=== PATIENT | female | born 1940 | race Caucasian/White ===

== ENCOUNTER 2017-01-02 01:47 | Observation (INO) | payer MEDICARE ==
[~2017-01-02] VITALS: Ht 167.6 cm; Wt 112.0 kg
[2017-01-02] VITALS (13 sets, daily range): BP systolic 95–133; BP diastolic 50–83; PULSE 81–99; RESP 16–21; TEMP 97.8–98.5; O2SAT 95–100
[2017-01-02] MEDS ORDERED: SODIUM CHLOR 0.9% 1000 ML INJ 1,000 ML IV ONE ×2 (02:15)
[2017-01-02 02:27] LABS: AUTOMATED NEUTROPHIL # 7.5 TH/MM3 (1.8-7.7); BASOPHIL % 0.1 % (0.0-2.0); EOSINOPHIL # 0.4 TH/MM3 (0-0.4); EOSINOPHIL % 4.6 % (0.0-4.0); HEMATOCRIT 34.3 % (35.0-46.0); HEMOGLOBIN 11.1 GM/DL (11.6-15.3); LYMPH % 10.6 % (9.0-44.0); MEAN CELL VOLUME 89.1 FL (80.0-100.0); MEAN CORPUSCULAR HEMOGLOBIN 28.7 PG (27.0-34.0); MEAN CORPUSCULAR HGB CONC 32.2 % (32.0-36.0); MONO % 6.7 % (0.0-8.0); MONOCYTE # 0.6 TH/MM3 (0-0.9); PLATELET COUNT 131 TH/MM3 (150-450); RED BLOOD COUNT 3.85 MIL/MM3 (4.00-5.30); RED CELL DISTRIBUTION WIDTH 13.8 % (11.6-17.2); WHITE BLOOD COUNT 9.6 TH/MM3 (4.0-11.0)
[2017-01-02] MEDS ORDERED: OMEP20TA PO ×2 (02:38)
[2017-01-02] MEDS ORDERED: SPIRCAP INH ×2 (02:38)
[2017-01-02] MEDS ORDERED: ASPI81CH CHEW ×2 (02:38)
[2017-01-02] MEDS ORDERED: DULC10SU3 RECTAL ×2 (02:38)
[2017-01-02] MEDS ORDERED: PRAM0.5T PO ×2 (02:38)
[2017-01-02] MEDS ORDERED: PRAV10TA PO ×2 (02:38)
[2017-01-02] MEDS ORDERED: SPIR25 PO ×2 (02:38)
[2017-01-02] MEDS ORDERED: TYLE325T PO ×2 (02:38)
[2017-01-02] MEDS ORDERED: VENTAER INH ×2 (02:38)
[2017-01-02] MEDS ORDERED: MELO-1 PO ×2 (02:38)
[2017-01-02] MEDS ORDERED: FURO40TA PO ×2 (02:38)
[2017-01-02] MEDS ORDERED: ACIDWAF ×2 (02:38)
[2017-01-02] MEDS ORDERED: ALBU0.08 NEB ×2 (02:38)
[2017-01-02 02:46] LABS: BICARBONATE 37.8 MEQ/L (21.0-32.0); BLOOD UREA NITROGEN 26 MG/DL (7-18); CALCIUM 9.2 MG/DL (8.5-10.1); CHLORIDE 92 MEQ/L (98-107); CREATININE 0.79 MG/DL (0.50-1.00); GLOMERULAR FILTRATION RATE 70 ML/MIN (>89); GLUCOSE,RANDOM 94 MG/DL (74-106); SODIUM (NA) 136 MEQ/L (136-145); TROPONIN I LESS THAN 0.02 NG/ML (0.02-0.05)
--- NOTE | 2017-01-02 02:57 | RADRPT ---
EXAM DATE/TIME: 01/02/2017 02:52 [facility] COMPARISON: No previous studies available for comparison. INDICATIONS : Short of breath. MEDICAL HISTORY : None. SURGICAL HISTORY : None. ENCOUNTER: Initial ACUITY: 1 day PAIN SCORE: 0/10 LOCATION: Bilateral chest FINDINGS: Mild bibasilar parenchymal opacities are present. Cardiac contours are somewhat obscured. There is a mild central vascular congestion. The patient's chin overlies the lung apices. There are degenerative changes in the spine and shoulders. CONCLUSION: Bilateral basilar parenchymal opacities. Roberto Kelley MD on January 02, 2017 at 2:55 Board Certified Radiologist. This report was verified electronically.
--- NOTE | 2017-01-02 03:33 | PD ---
HPI Chief Complaint: Chest Pain Time Seen by Provider: 02:15 Travel History International Travel<30 days: No Contact w/Intl Traveler<30days: No Traveled to known affect area: No History of Present Illness HPI This patient is sent from the halfway for complaint of chest pain. Duration is one day. Severity was moderate when occurring but she is currently pain-free. She had a sternal area pain and pressure. Denies productive cough or fever or injury. She denies having history of cardiac disease. Is unsure if she's ever had a stress test. Granddaughter doesn't think she is ever had one. No alleviating factors. No exacerbating factors PFSH Past Medical History Atrial Fibrillation: Yes COPD: Yes Diminished Hearing: Yes ([place]) GERD: Yes Hypertension: Yes Medical other: Yes (RESTLESS LEG SYNDROME, HYPERLIPIDEMA) Migraines: Yes Thyroid Disease: Yes (HYPO) Tetanus Vaccination: Unknown Influenza Vaccination: No Social History Alcohol Use: No Tobacco Use: No Substance Use: No Allergies-Medications (Allergen,Severity, Reaction): Coded Allergies: Penicillins (Verified Allergy, Severe, 01/02/17) Reported Meds & Prescriptions Reported Meds & Active Scripts Active Reported Furosemide 40 Mg Tab 40 Mg PO BID Tylenol (Acetaminophen) 325 Mg Tab 325 Mg PO Q6H PRN Dulcolax Supp (Bisacodyl) 10 Mg Supp 10 Mg RECTAL DAILY PRN Meloxicam 15 Mg Tab 15 Mg PO DAILY Ventolin Hfa 18 GM Inh (Albuterol Sulfate) 90 Mcg/Act Aer 2 Puff INH Q4-6H PRN Spiriva Handihaler (Tiotropium Inh) 18 Mcg Cap 18 Mcg INH DAILY 1 capsule = 18 mcg Acidophilus (Lactobacillus) 1 Mg Wafr Pramipexole (Pramipexole Dihydrochloride) 0.5 Mg Tab 0.5 Mg PO DAILY Aldactone (Spironolactone) 25 Mg Tab 25 Mg PO DAILY Aspirin 81 Mg Chew 81 Mg CHEW DAILY Omeprazole 20 Mg Tab 20 Mg PO DAILY Albuterol Neb (Albuterol Sulfate) 2.5 Mg/3 Ml Neb 2.5 Mg NEB Q4HR NEB PRN Pravastatin 10 Mg Tab 10 Mg PO DAILY Review of Systems General / Constitutional: No: Fever Eyes: No: Visual changes HENT: No: Headaches Cardiovascular: Positive: Chest Pain or Discomfort, Irregular Rhythm Respiratory: No: Shortness of Breath Gastrointestinal: No: Abdominal Pain Genitourinary: No: Dysuria Musculoskeletal: No: Pain Skin: No Rash Neurologic: No: Weakness Psychiatric: No: Depression Endocrine: No: Polydipsia Hematologic/Lymphatic: No: Easy Bruising Physical Exam Narrative GENERAL: Well-nourished, well-developed patient in no apparent distress. Has very little hearing, her hearing aids are not with her SKIN: Focused skin assessment reveals no rash and nodules. Skin is Warm and dry. HEAD: Atraumatic. Normocephalic. EYES: Pupils equal and round. No scleral icterus. No injection or drainage. ENT: No nasal bleeding or discharge. Mucous membranes pink and moist. NECK: Trachea midline. No JVD. CARDIOVASCULAR: Irregularly irregular rhythm. No murmur appreciated. RESPIRATORY: No accessory muscle use. Clear to auscultation. Breath sounds equal bilaterally. GASTROINTESTINAL: Abdomen soft, non-tender, nondistended. Hepatic and splenic margins not palpable. MUSCULOSKELETAL: No obvious deformities. No clubbing. No cyanosis. No edema. Has left upper chest wall tenderness but she assures me this is different than her pain complaint of today. NEUROLOGICAL: Awake and alert. No obvious cranial nerve deficits. Motor grossly within normal limits. Normal speech. PSYCHIATRIC: Appropriate mood and affect; insight and judgment seems a bit diminished. Data Data Last Documented VS Vital Signs Date Time Temp Pulse Resp B/P (MAP) Pulse Ox O2 Delivery O2 Flow Rate FiO2 01/02/17 02:20 97 Nasal Cannula 4.00 01/02/17 02:20 18 01/02/17 01:49 98.5 91 95/50 (65) Orders Orders Electrocardiogram (01/02/17 02:14) Complete Blood Count With Diff (01/02/17 02:14) Basic Metabolic Panel (Bmp) (01/02/17 02:14) Ckmb (Isoenzyme) Profile (01/02/17 02:14) Troponin I (01/02/17 02:14) Chest, Single Ap (01/02/17 02:14) Iv Access Insert/Monitor (01/02/17 02:14) Ecg Monitoring (01/02/17 02:14) Oxygen Administration (01/02/17 02:14) Oximetry (01/02/17 02:14) Sodium Chlor 0.9% 1000 Ml Inj (Ns 1000 M (01/02/17 02:15) Admit Order (Ed Use Only) (01/02/17 03:21) Labs Laboratory Tests Test 01/02/17 02:17 White Blood Count 9.6 TH/MM3 Red Blood Count 3.85 MIL/MM3 Hemoglobin 11.1 GM/DL Hematocrit 34.3 % Mean Corpuscular Volume 89.1 FL Mean Corpuscular Hemoglobin 28.7 PG Mean Corpuscular Hemoglobin Concent 32.2 % Red Cell Distribution Width 13.8 % Platelet Count 131 TH/MM3 Mean Platelet Volume 7.0 FL Neutrophils (%) (Auto) 78.0 % Lymphocytes (%) (Auto) 10.6 % Monocytes (%) (Auto) 6.7 % Eosinophils (%) (Auto) 4.6 % Basophils (%) (Auto) 0.1 % Neutrophils # (Auto) 7.5 TH/MM3 Lymphocytes # (Auto) 1.0 TH/MM3 Monocytes # (Auto) 0.6 TH/MM3 Eosinophils # (Auto) 0.4 TH/MM3 Basophils # (Auto) 0.0 TH/MM3 CBC Comment DIFF FINAL Differential Comment Blood Urea Nitrogen 26 MG/DL Creatinine 0.79 MG/DL Random Glucose 94 MG/DL Calcium Level 9.2 MG/DL Sodium Level 136 MEQ/L Potassium Level 4.2 MEQ/L Chloride Level 92 MEQ/L Carbon Dioxide Level 37.8 MEQ/L Anion Gap 6 MEQ/L Estimat Glomerular Filtration Rate 70 ML/MIN Total Creatine Kinase 48 U/L Troponin I LESS THAN 0.02 NG/ML MDM Medical Decision Making Medical Screen Exam Complete: Yes Emergency Medical Condition: Yes Medical Record Reviewed: Yes Differential Diagnosis Differential diagnosis includes MA, angina, pericarditis, pleurisy, GERD, anxiety. Narrative Course I have reviewed the patient's electronic medical record. IV placed I reviewed the EKG which shows A. fib but no ST elevation I reviewed the chest x-ray was possibly of some bilateral parenchymal infiltrates but she has no symptoms consistent with pneumonia such as productive cough or fever Extended cardiac monitoring shows irregular heartbeat but rate controlled CBC is normal Metabolic profile is normal CK is normal Troponin is normal Coagulation studies are normal I gave her an aspirin Patient and family deny any history of cardiac disease which she's had chest pain today. Workup here is negative. She will be a 23 hour observation in the chest pain center to rule out cardiac cause of her symptoms. As noted, she does have some musculoskeletal chest pain but she says the type of pain she was complaining of is very different Diagnosis Primary Impression: Chest pain in adult Admitting Information Admitting Physician Requests: Observation Julio Quinones MD Jan 02, 2017 03:33
[2017-01-02] MEDS ORDERED: SODIUM CHLORIDE 0.9% FLUSH 10 ML FLUSH IV FLUSH PRN ×2 (06:15)
[2017-01-02] MEDS ORDERED: ONDANSETRON HCL 4 MG/2 ML VIAL IV PUSH PRN ×2 (06:15)
[2017-01-02 06:53] LABS: TROPONIN I 0.02 NG/ML (0.02-0.05)
[2017-01-02] MEDS ORDERED: ACETAMINOPHEN 500 MG CPLT PO PRN ×2 (07:30)
[2017-01-02] MEDS ORDERED: NITROGLYCERIN 0.4 MG SL 25 TABS/BTL SL PRN ×2 (07:30)
--- NOTE | 2017-01-02 07:55 | HHI.HP ---
HPI Primary Care Physician Jamaal Goldman MD Chief Complaint Chest pain History of Present Illness 76-year-old female with history of hyperlipidemia, COPD, and O2 dependent presents to emergency room for further evaluation of chest pain. Onset last evening, unable to give time of event. States she woke up to use the restroom when she developed substernal chest pain with radiation to her back. Associated symptoms included dyspnea. No nausea or vomiting. Duration reports "long time, maybe up to 2 hours." No known precipitating or relieving factors. Denies similar pain in the past. She is extremely hard of hearing and somewhat of a poor historian. Stating multiple times "call my granddaughter, she will know." Reports recently moving from [place]. Review of Systems General: No fatigue,weakness, fever, chills, or recent illness. Has been in her general state of health. Recently relocated from [place] to [place], resides in the [facility]. HEENT: No SANCHEZ or vision changes. CV: As stated above. Currently his chest pain free. RESP: O2 /2 L dependent. Mild exertional dyspnea chronic. No recent illness or cough. GI: No nausea, vomiting, or bowel changes. Chronic abdominal discomfort she related to large abd hernia. States she has seen multiple doctors for hernia repair but told she is a poor surgical candidate. : No dysuria, reports stress incontinence. EXT: No lower leg edema MS: No discomfort or change in ROM. No recent fall. NEURO: No LOC or motor/sensory deficits PSYCH: No anxiety, depression. Current situational stress, concerned she is a burdened to her granddaughter and concerned relationship with granddaughter may change. SKIN: No rashes, no concerning lesions Past Family Social History Allergies: Coded Allergies: Penicillins (Verified Allergy, Severe, 01/02/17) Past Medical History Hyperlipidemia, GERD, COPD, A. fib, hypertension, O2 dependent, restless leg syndrome, hypothyroidism, hard of hearing Reported Medications Reported Meds & Active Scripts Active Reported Furosemide 40 Mg Tab 40 Mg PO BID Tylenol (Acetaminophen) 325 Mg Tab 325 Mg PO Q6H PRN Dulcolax Supp (Bisacodyl) 10 Mg Supp 10 Mg RECTAL DAILY PRN Meloxicam 15 Mg Tab 15 Mg PO DAILY Ventolin Hfa 18 GM Inh (Albuterol Sulfate) 90 Mcg/Act Aer 2 Puff INH Q4-6H PRN Spiriva Handihaler (Tiotropium Inh) 18 Mcg Cap 18 Mcg INH DAILY 1 capsule = 18 mcg Acidophilus (Lactobacillus) 1 Mg Wafr Pramipexole (Pramipexole Dihydrochloride) 0.5 Mg Tab 0.5 Mg PO DAILY Aldactone (Spironolactone) 25 Mg Tab 25 Mg PO DAILY Aspirin 81 Mg Chew 81 Mg CHEW DAILY Omeprazole 20 Mg Tab 20 Mg PO DAILY Albuterol Neb (Albuterol Sulfate) 2.5 Mg/3 Ml Neb 2.5 Mg NEB Q4HR NEB PRN Pravastatin 10 Mg Tab 10 Mg PO DAILY Active Ordered Medications Current Medications Medications (Trade) Dose Ordered Sig/Fiona Route Start Time Stop Time Status Last Admin (NS Flush) 2 ml UNSCH PRN IV FLUSH 01/02/17 06:15 (NS Flush) 2 ml BID IV FLUSH 01/02/17 09:00 (Zofran Inj) 4 mg Q6H PRN IV PUSH 01/02/17 06:15 (Aspirin) 325 mg DAILY PO 01/02/17 09:00 (Tylenol) 500 mg Q4H PRN PO 01/02/17 07:30 (Nitrostat Sl) 0.4 mg Q5M PRN SL 01/02/17 07:30 Social History Known hypertension and hyperlipidemia. No known coronary artery disease or diabetes. Lifelong nonsmoker. Denies any alcohol. Presides at the [facility]. Past cardiac testing None Physical Exam Vital Signs Vital Signs Date Time Temp Pulse Resp B/P (MAP) Pulse Ox O2 Delivery O2 Flow Rate FiO2 01/02/17 07:07 98.1 90 18 118/68 (85) 100 01/02/17 06:58 93 01/02/17 06:30 98.4 93 20 104/61 (75) 97 01/02/17 06:23 01/02/17 06:11 2.00 01/02/17 04:25 98 18 98/52 (67) 96 Nasal Cannula 2.00 01/02/17 02:20 97 Nasal Cannula 4.00 01/02/17 02:20 18 98 Nasal Cannula 2.00 01/02/17 01:49 98.5 91 20 95/50 (65) 96 Physical Exam GENERAL: Alert WN, WD, NAD, pleasant, obese elderly female HEAD: NC, AT EYES: Sclera clear, conjunctiva without injection, pupils equal and round ENT: Mucous membranes pink and moist CV: Irregular, irregular rate, without murmur, rub, gallop, no JVD, S1-S2 no S3- S4. RESP: Clear lungs throughout bilateral, no crackles, wheeze, rhonchi, symmetrical chest rise, nonlabored, able to speak in full sentences ABD: Soft, NT, ND, positive bowel tones, obese, large panniculus EXT: Pulses +24, no dependent edema MS: Normal tone 4 extremities, no obvious deformities, full range of motion NEURO: CN II through CN XII grossly intact, motor strength 5/5 PSYCH: A+O 3, pleasant affect, appropriate speech, mood, insight and judgment. Tearful at times. SKIN: Normal turgor, normal texture, brisk cap refill Laboratory Laboratory Tests Test 01/02/17 02:17 01/02/17 06:10 White Blood Count 9.6 Red Blood Count 3.85 Hemoglobin 11.1 Hematocrit 34.3 Mean Corpuscular Volume 89.1 Mean Corpuscular Hemoglobin 28.7 Mean Corpuscular Hemoglobin Concent 32.2 Red Cell Distribution Width 13.8 Platelet Count 131 Mean Platelet Volume 7.0 Neutrophils (%) (Auto) 78.0 Lymphocytes (%) (Auto) 10.6 Monocytes (%) (Auto) 6.7 Eosinophils (%) (Auto) 4.6 Basophils (%) (Auto) 0.1 Neutrophils # (Auto) 7.5 Lymphocytes # (Auto) 1.0 Monocytes # (Auto) 0.6 Eosinophils # (Auto) 0.4 Basophils # (Auto) 0.0 CBC Comment DIFF FINAL Differential Comment Blood Urea Nitrogen 26 Creatinine 0.79 Random Glucose 94 Calcium Level 9.2 Sodium Level 136 Potassium Level 4.2 Chloride Level 92 Carbon Dioxide Level 37.8 Anion Gap 6 Estimat Glomerular Filtration Rate 70 Total Creatine Kinase 48 33 Troponin I LESS THAN 0.02 0.02 Result Diagram: 01/02/1721601/02/17216 Imaging Last Impressions Chest X-Ray 01/02/17213 Signed Impressions: Service Date/Time: Monday, January 02, 2017 02:52 - CONCLUSION: Bilateral basilar parenchymal opacities. Roberto Kelley MD Course EKG Afib, no st changes Caprini VTE Risk Assessment Caprini VTE Risk Assessment: Mod/High Risk (score >= 2) Caprini Risk Assessment Model Point Value = 1 Point Value = 2 Point Value = 3 Point Value = 5 Age 41-60 Minor surgery BMI > 25 kg/m2 Swollen legs Varicose veins or History of unexplained or recurrent spontaneous Oral contraceptives or hormone replacement Sepsis (< 1 month) Serious lung disease, including pneumonia (< 1 month) Abnormal pulmonary function Acute myocardial infarction Congestive heart failure (< 1 month) History of inflammatory bowel disease Medical patient at bed rest Age 61-74 Arthroscopic surgery Major open surgery (> 45 min) Laparoscopic surgery (> 45 min) Malignancy Confined to bed (> 72 hours) Immobilizing plaster cast Central venous access Age >= 75 History of VTE Family history of VTE Factor V Leiden Prothrombin [id number] Lupus anticoagulant Anticardiolipin antibodies Elevated serum homocysteine Heparin-induced thrombocytopenia Other congenital or acquired thrombophilia Stroke (< 1 month) Elective arthroplasty Hip, pelvis, or leg fracture Acute spinal cord injury (< 1 month) Prophylaxis Regimen Total Risk Factor Score Risk Level Prophylaxis Regimen 0-1 Low Early ambulation 2 Moderate Order ONE of the following: *Sequential Compression Device (SCD) *Heparin 5000 units SQ BID 3-4 Higher Order ONE of the following medications: *Heparin 5000 units SQ TID *Enoxaparin/Lovenox 40 mg SQ daily (WT < 150 kg, CrCl > 30 mL/min) *Enoxaparin/Lovenox 30 mg SQ daily (WT < 150 kg, CrCl > 10-29 mL/min) *Enoxaparin/Lovenox 30 mg SQ BID (WT < 150 kg, CrCl > 30 mL/min) AND/OR *Sequential Compression Device (SCD) 5 or more Highest Order ONE of the following medications: *Heparin 5000 units SQ TID (Preferred with Epidurals) *Enoxaparin/Lovenox 40 mg SQ daily (WT < 150 kg, CrCl > 30 mL/min) *Enoxaparin/Lovenox 30 mg SQ daily (WT < 150 kg, CrCl > 10-29 mL/min) *Enoxaparin/Lovenox 30 mg SQ BID (WT < 150 kg, CrCl > 30 mL/min) AND *Sequential Compression Device (SCD) Assessment and Plan Assessment and Plan #1 Chest pain-admitted to chest pain center. Seen and evaluated by Dr. Alex Hinson. Rule out with 3 sets of EKGs and cardiac enzymes. After being ruled out will order chemical stress test. If unremarkable, plans to discharge later this afternoon. #2 Afib-discussed with patient and granddaughter importance of taking an anticoagulant. #3 Hypertension-continue to monitor. Continue furosemide and Aldactone #4 Hyperlipidemia-continue pravastatin #5 COPD-continue O2/2 L nasal cannula, Spiriva, and albuterol every 2 when necessary #6 GERD-continue omeprazole 10:10 Return call from patient's granddaughter, Laurie Pederson ([phone]). Granddaughter reports her grandmother recently moved from [place] arriving in [place] December 16. To her knowledge her grandmother was taking an anticoagulant and is unsure why she no longer takes. Recently established with a new PCP who follows her at [facility]. Plan of care discussed with granddaughter and made aware of plan for chemical stress test today. If stress test does not suggest ischemia, plans to discharge back to [facility] is expected. Granddaughter agrees with plan of care, as does Ms. Weiss. Encouraged granddaughter to discuss with new PCP starting an anticoagulant. Will not start an anticoagulant at this time as reason for stopping anticoagulation not clear. 16:50 Called and updated granddaughter Laurie on results of Lexiscan and plan of care. Consults placed to medical team and child care specialist. 16:[address] Puente. Constance Cloud Jan 02, 2017 07:55
[2017-01-02] MEDS: SODIUM CHLORIDE 0.9% FLUSH 10 ML FLUSH IV FLUSH SCH ×4 (08:11→20:44)
[2017-01-02] MEDS ORDERED: ASPIRIN 325 MG TAB PO SCH ×2 (09:00)
[2017-01-02 09:46] LABS: TROPONIN I 0.02 NG/ML (0.02-0.05)
[2017-01-02] MEDS ORDERED: RESP: ALBUTEROL 2.5 MG/3 ML NEB (PRN) NEB ×2 (10:30)
--- NOTE | 2017-01-02 11:39 | EKG ---
Date Performed: 01/02/2017 Time Performed: 06:11:44 PTAGE: 76 years EKG: ATRIAL FIBRILLATION WITH ABERRANT CONDUCTION OR VENTRICULAR PREMATURE COMPLEXES ABNORMAL [facility] ECG NO PREVIOUS TRACING DOCTOR: Alex Hinson Interpretating Date/Time 01/02/2017 11:38:02
--- NOTE | 2017-01-02 11:39 | EKG ---
Date Performed: 01/02/2017 Time Performed: 06:11:44 PTAGE: 76 years EKG: ATRIAL FIBRILLATION WITH ABERRANT CONDUCTION OR VENTRICULAR PREMATURE COMPLEXES ABNORMAL [facility] ECG NO PREVIOUS TRACING DOCTOR: Alex Hinson Interpretating Date/Time 01/02/2017 11:38:02
--- NOTE | 2017-01-02 11:39 | EKG ---
Date Performed: 01/02/2017 Time Performed: 06:11:44 PTAGE: 76 years EKG: ATRIAL FIBRILLATION WITH ABERRANT CONDUCTION OR VENTRICULAR PREMATURE COMPLEXES ABNORMAL [facility] ECG NO PREVIOUS TRACING DOCTOR: Alex Hinson Interpretating Date/Time 01/02/2017 11:38:02
--- NOTE | 2017-01-02 11:40 | EKG ---
Date Performed: 01/02/2017 Time Performed: 01:51:48 PTAGE: 76 years EKG: ATRIAL FIBRILLATION WITH RAPID VENTRICULAR RESPONSE NONSPECIFIC T-WAVE ABNORMALITY ABNORMAL ECG NO PREVIOUS TRACING DOCTOR: Alex Hinson Interpretating Date/Time 01/02/2017 11:38:45
--- NOTE | 2017-01-02 11:44 | EKG ---
Date Performed: 01/02/2017 Time Performed: 09:07:04 PTAGE: 76 years EKG: ATRIAL FIBRILLATION NONSPECIFIC T-WAVE ABNORMALITY ABNORMAL [facility] ECG NO PREVIOUS TRACING DOCTOR: Alex Hinson Interpretating Date/Time 01/02/2017 11:43:05
[2017-01-02] MEDS ORDERED: PRAVASTATIN SOD 10 MG TAB PO SCH ×2 (12:30)
[2017-01-02] MEDS ORDERED: REGADENOSON INJ 0.4 MG/5 ML SYR ONE ×2 (13:35)
[2017-01-02] MEDS: SPIRONOLACTONE 25 MG TAB PO SCH ×2 (14:44)
[2017-01-02] MEDS: PRAMIPEXOLE DIHYDROCHLORIDE 0.25 MG TAB PO SCH ×2 (14:44)
[2017-01-02] MEDS: FUROSEMIDE 40 MG TAB PO SCH ×4 (14:44→20:44)
[2017-01-02] MEDS: PANTOPRAZOLE SOD 20 MG DELAYED RELEASE TAB PO SCH ×2 (14:44)
[2017-01-02] MEDS: TIOTROPIUM BROMIDE 18 MCG INH INH SCH ×2 (14:44)
--- NOTE | 2017-01-02 15:27 | RADRPT ---
EXAM DATE/TIME: 01/02/2017 12:22 [facility] COMPARISON: No previous studies available for comparison. INDICATIONS : Mid chest pain for one day. Atrial fibrillation. DOSE: 35 mCi Tc99m Myoview at stress. 11 mCi Tc99m Myoview at rest. 0.4 mg Lexiscan STRESS SYMPTOMS: Short of breath. EJECTION FRACTION: 68% MEDICAL HISTORY : Chronic obstructive pulmonary disease. Hypertension. SURGICAL HISTORY : None. ENCOUNTER: Initial ACUITY: 1 day PAIN SCALE: 4/10 LOCATION: Midsternal chest TECHNIQUE: The patient underwent pharmacologic stress with infusion of prescribed dose. Continuous ECG tracing was monitored during stress. Gated SPECT imaging was performed after stress and conventional SPECT i maging was performed at rest. The examination was performed on a SPECT/CT scanner, both attenuation and non-corrected datasets were reviewed. FINDINGS: The best perfused myocardium is the septum. There is redistribution in the anterior septal region ex tending to the base. There is mild hypokinesis of the inferior wall. CONCLUSION: Redistribution consistent with stress-induced ischemia small segment anteroseptal region. RISK CATEGORY: Low (<1% Annual Mortality Rate) Harshil Ortiz MD FACR on January 02, 2017 at 15:14 Board Certified Radiologist. This report was verified electronically.
--- NOTE | 2017-01-02 17:06 | HHI.PR ---
Subjective Remarks resting comfortably with no distress. no chest pain or sob. Objective Vitals Vital Signs Date Time Temp Pulse Resp B/P (MAP) Pulse Ox O2 Delivery O2 Flow Rate FiO2 01/02/17 15:56 81 01/02/17 15:16 98.0 94 16 115/67 (83) 99 01/02/17 15:01 Nasal Cannula 2.00 01/02/17 11:24 97.8 99 18 121/83 (96) 97 01/02/17 07:07 98.1 90 18 118/68 (85) 100 01/02/17 06:58 93 01/02/17 06:30 98.4 93 20 104/61 (75) 97 01/02/17 06:23 01/02/17 06:11 2.00 01/02/17 04:25 98 18 98/52 (67) 96 Nasal Cannula 2.00 01/02/17 02:20 97 Nasal Cannula 4.00 01/02/17 02:20 18 98 Nasal Cannula 2.00 01/02/17 01:49 98.5 91 20 95/50 (65) 96 I/O 01/01/17 01/01/17 01/01/17 01/02/17 01/02/17 01/02/17 07:00 15:00 23:00 07:00 15:00 23:00 Intake Total 1000 ml Balance 1000 ml Intake IV Total 1000 ml Result Diagram: 01/02/1721601/02/17216 Imaging Last Impressions Chest X-Ray 01/02/17213 Signed Impressions: Service Date/Time: Monday, January 02, 2017 02:52 - CONCLUSION: Bilateral basilar parenchymal opacities. Roberto Kelley MD Objective Remarks GENERAL: This is a well-nourished, well-developed patient, in no apparent distress. CARDIOVASCULAR: Regular rate and regular rhythm without murmurs, gallops, or rubs. RESPIRATORY: Clear to auscultation. Breath sounds equal bilaterally. No wheezes , rales, or rhonchi. GASTROINTESTINAL: Abdomen soft, non-tender, nondistended. Normal, active bowel sounds MUSCULOSKELETAL: Extremities without clubbing, cyanosis, or edema. NEURO: Alert & Oriented x4 to person, place, time, situation. Moves all ext x4 Medications and IVs Current Medications Sodium Chloride 1,000 ml @ 2,000 mls/hr Q30M ONCE IV Last administered on 01/02 02:22; Start 01/02/17 at 02:15; Stop 01/02/17 at 02:44; Status DC Sodium Chloride (NS Flush) 2 ml UNSCH PRN IV FLUSH FLUSH AFTER USING IV ACCESS ; Start 01/02/17 at 06:15 Sodium Chloride (NS Flush) 2 ml BID IV FLUSH Last administered on 01/02/17 08: 11; Start 01/02/17 at 09:00 Ondansetron HCl (Zofran Inj) 4 mg Q6H PRN IV PUSH NAUSEA; Start 01/02/17 at 06: 15 Aspirin (Aspirin) 325 mg DAILY PO Last administered on 01/02/17 08:10; Start 01/02/17 at 09:00 Acetaminophen (Tylenol) 500 mg Q4H PRN PO HEADACHE; Start 01/02/17 at 07:30 Nitroglycerin (Nitrostat Sl) 0.4 mg Q5M PRN SL CHEST PAIN; Start 01/02/17 at 07 :30 Furosemide (Lasix) 40 mg BID PO Last administered on 01/02/17 14:44; Start at 12:30 Pravastatin Sodium (Pravachol) 10 mg DAILY PO Last administered on 01/02/17 14 :44; Start 01/02/17 at 12:30 Spironolactone (Aldactone) 25 mg DAILY PO Last administered on 01/02/17 14:44 ; Start 01/02/17 at 12:30 Tiotropium [place] (Spiriva Inh) 18 mcg DAILY INH ; Start 01/02/17 at 13:00 Pantoprazole Sodium (Protonix) 20 mg DAILY PO Last administered on 01/02/17 14 :44; Start 01/02/17 at 12:30 Pramipexole Dihydrochloride (Mirapex) 0.5 mg DAILY PO Last administered on 01/02 14:44; Start 01/02/17 at 13:00 Albuterol Sulfate (Albuterol Neb) 2.5 mg Q2HR NEB PRN NEB SOB/WHEEZING; Start 01/02/17 at 10:30 Regadenoson (Lexiscan Inj) 0.4 mg STK-MED ONCE .ROUTE Last administered on 01/02t 13:35; Start 01/02/17 at 13:35; Stop 01/02/17 at 13:36; Status DC A/P Assessment and Plan A/P 1 Chest pain-admitted to chest pain center. Seen and evaluated by Dr. Alex Hinson. Ruled out with 3 sets of EKGs and cardiac enzymes. stress test with stress-induced ischemia in anteroseptal region- cardiology consulted. 2 Afib-previously discussed with patient regarding the taking an anticoagulant. awaiting cardiology recommendations. 3 Hypertension-continue to monitor. Continue furosemide and Aldactone 4 Hyperlipidemia-continue pravastatin 5 COPD-continue O2/2 L nasal cannula, Spiriva, and albuterol every 2 when necessary 6 GERD-continue omeprazole Brenna Puente MD Jan 02, 2017 17:06
[2017-01-02] MEDS: CARVEDILOL 3.125 MG TAB PO SCH ×2 (20:44)
[2017-01-02] MEDS ORDERED: APIXABAN 5 MG TABLET PO SCH ×2 (21:00)
--- NOTE | 2017-01-02 22:06 | MB ---
cc: LAYLA APARICIO DATE OF CONSULTATION: 01/02/2017 REASON FOR CONSULTATION: Chest pain, abnormal nuclear stress test. HISTORY OF PRESENT ILLNESS The history is very difficult to elicit from the patient who is very hard of hearing. She is a 76 year-old white female with a history of atrial fibrillation, the chronicity of which is not entirely clear from records for the patient, history of hyperlipidemia, hypothyroidism, hypertension, who was brought to the hospital with complaints of chest pain. The patient was going to the bathroom early this morning when she began to experience fairly severe left upper chest discomfort associated with shortness of breath without nausea or diaphoresis. She cannot recall the exact duration of the chest pain but she thinks likely lasted at least 2 hours. She denies any other episodes of chest pains in the past. Since coming into the hospital she has had no further chest discomfort. The patient also denies pleurisy, dizziness, syncope, near-syncope, palpitations, paroxysmal nocturnal dyspnea. At times she experiences mild dependent pedal edema. PAST MEDICAL HISTORY 1. Atrial fibrillation of unclear duration. 2. Hyperlipidemia. 3. Hypertension 4. Restless leg syndrome. 5. Hypothyroidism. CARDIAC MEDICATIONS AT HOME: 1. Pravastatin 10 mg daily. 2. Aspirin 81 mg daily. 3. Aldactone 25 mg daily. 4. Furosemide 40 mg b.i.d. ALLERGIES Penicillin FAMILY HISTORY Noncontributory. SOCIAL HISTORY The patient denies any history of alcohol or tobacco abuse. REVIEW OF SYSTEMS: As in the history of present illness otherwise negative or noncontributory. She also denies abdominal pain, melena, dyspepsia, bright red blood per rectum, headache, cough, wheezing. PHYSICAL EXAMINATION: Her blood pressure 115/67 with a pulse of 80, respirations 16. In general, she is a well-developed, well-nourished white female in no acute distress. HEENT examination: Jugular venous pressure is normal. Carotid pulses are 2+ bilaterally and without bruits. CHEST: Examination of the chest reveals clear lung [place]. CARDIAC: On cardiac examination she has a regular rhythm and rate without S3-S4 or murmur. ABDOMEN: On abdominal examination she has a soft, nontender abdomen. Bowel sounds are present. There is no definite hepatosplenomegaly. EXTREMITIES: Examination of extremities reveals no clubbing, cyanosis or edema. EKG shows atrial fibrillation, nonspecific T-wave abnormalities. LABORATORY DATA: Laboratory data includes WBC 9.6, hemoglobin 11.1, platelets 131, potassium 4.2, BUN 26, creatinine 0.79, negative cardiac enzymes. Chest x-ray: Shows mild bibasilar parenchymal opacities and mild central vascular congestion. IMPRESSION Atypical chest pain episode, abnormal nuclear stress test in this 76 year-old white female with a history of atrial fibrillation, the chronicity of which is not clear, history of hypertension, hyperlipidemia. Despite prolonged chest discomfort cardiac enzymes are negative for myocardial infarction. I actually do not appreciate any small area of anteroseptal ischemia as reported. If anything she appears to have a predominantly fixed inferolateral defect. The patient cannot recall any other episodes of chest discomfort. EKG shows no acute ST-segment changes. With respect to her atrial fibrillation, her thromboembolic risk is probably moderately elevated. No definite heart rate control issues are evident. RECOMMENDATIONS 1. Medical therapy of possible underlying coronary artery disease. Will add carvedilol 3.125 mg b.i.d., isosorbide mononitrate 30 mg daily to her daily aspirin. 2. Continue statin therapy and check a fasting lipid profile. 3. Overall would recommend anticoagulation therapy for her atrial fibrillation. Will start Eliquis 5 mg b.i.d. 4. Check a 2-D echo to assess her left ventricular function. MD BANDAR Hurt/MAIA /5:33 PM /9:55 PM KONRAD
[2017-01-03] VITALS (8 sets, daily range): BP systolic 110–130; BP diastolic 69–75; PULSE 93–124; RESP 18–24; TEMP 97.8–99.5; O2SAT 90–97
[2017-01-03] MEDS ORDERED: ISOSORBIDE MONONITRATE 30 MG TAB PO SCH ×2 (07:00)
[2017-01-03 07:09] LABS: CHOLESTEROL/ HDL RATIO 3.9 RATIO; HDL CHOLESTEROL 42.8 MG/DL (40.0-60.0)
--- NOTE | 2017-01-03 07:59 | PD.CARD.PN ---
Subjective Subjective Remarks Denies CP, dizziness, palpitations. Mild dyspnea with exertion. Slept well. Objective Medications Item Value Date Time Aspirin 81 mg 01/03/17 0900 (Aspirin) DAILY/PO Isosorbide 30 mg 01/03/17 0700 Mononitrate DAILY@07/PO 01/03/17 0614 (Imdur) Apixaban 5 mg 01/02/17 2100 (Eliquis) BID/PO Carvedilol 3.125 mg 01/02/17 2100 (Coreg) Q12HR/PO Furosemide 40 mg 01/02/17 1230 (Lasix) BID/PO Pravastatin Sodium 10 mg 01/02/17 1230 (Pravachol) DAILY/PO 01/02/17 1444 Spironolactone 25 mg 01/02/17 1230 (Aldactone) DAILY/PO 01/02/17 1444 Current Medications Medications (Trade) Dose Ordered Sig/Fiona Route Start Time Stop Time Status Last Admin (NS Flush) 2 ml UNSCH PRN IV FLUSH 01/02/17 06:15 (NS Flush) 2 ml BID IV FLUSH 01/02/17 09:00 01/02/17 08:11 (Zofran Inj) 4 mg Q6H PRN IV PUSH 01/02/17 06:15 (Tylenol) 500 mg Q4H PRN PO 01/02/17 07:30 (Nitrostat Sl) 0.4 mg Q5M PRN SL 01/02/17 07:30 (Lasix) 40 mg BID PO 01/02/17 12:30 01/02/17 14:44 (Pravachol) 10 mg DAILY PO 01/02/17 12:30 01/02/17 14:44 (Aldactone) 25 mg DAILY PO 01/02/17 12:30 01/02/17 14:44 (Spiriva Inh) 18 mcg DAILY INH 01/02/17 13:00 (Protonix) 20 mg DAILY PO 01/02/17 12:30 01/02/17 14:44 (Mirapex) 0.5 mg DAILY PO 01/02/17 13:00 01/02/17 14:44 (Albuterol Neb) 2.5 mg Q2HR NEB PRN NEB 01/02/17 10:30 (Aspirin) 81 mg DAILY PO 01/03/17 09:00 (Eliquis) 5 mg BID PO 01/02/17 21:00 (Imdur) 30 mg DAILY@07 PO 01/03/17 07:00 01/03/17 06:14 (Coreg) 3.125 mg Q12HR PO 01/02/17 21:00 Vital Signs / I&O Vital Signs Date Time Temp Pulse Resp B/P (MAP) Pulse Ox O2 Delivery O2 Flow Rate FiO2 01/03/17 07:39 90 Nasal Cannula 2.00 01/03/17 07:08 97.8 98 22 130/69 (89) 97 01/03/17 05:35 Nasal Cannula 2.00 01/03/17 04:06 106 01/03/17 03:27 99.5 93 18 110/75 (87) 95 01/03/17 00:00 110 01/02/17 23:53 98.2 88 21 133/76 (95) 95 01/02/17 22:08 98.4 81 17 118/76 (90) 97 01/02/17 20:00 94 01/02/17 19:48 98.5 96 18 119/69 (86) 95 01/02/17 15:56 81 01/02/17 15:16 98.0 94 16 115/67 (83) 99 01/02/17 15:01 Nasal Cannula 2.00 01/02/17 11:24 97.8 99 18 121/83 (96) 97 I/O 01/02/17 01/02/17 01/02/17 01/03/17 01/03/17 01/03/17 07:00 15:00 23:00 07:00 15:00 23:00 Intake Total 1000 ml Balance 1000 ml Intake IV Total 1000 ml Physical Exam GENERAL: Well developed, well nourished. No acute distress. HEENT: Jugular venous pressure is normal. CHEST: Lungs clear to auscultation anteriorly. CARDIAC: Regular rate and rhythm without S3, S4, or murmur. ABDOMEN: Soft, nontender, no hepatosplenomegaly. Bowel sounds present. EXTREMITIES: No clubbing, cyanosis, or edema. Laboratory Laboratory Tests Test 01/02/17 08:58 01/03/17 06:00 Total Creatine Kinase 32 U/L Troponin I 0.02 NG/ML Triglycerides Level 125 MG/DL Cholesterol Level 167 MG/DL LDL Cholesterol 99 MG/DL HDL Cholesterol 42.8 MG/DL Cholesterol/HDL Ratio 3.90 RATIO Assessment and Plan Problem List: (1) CAD (coronary artery disease) ICD Codes: I25.10 - Atherosclerotic heart disease of [place] coronary artery without angina pectoris Status: Chronic Plan: Stable overnight. No further atypical CP. Again, I do not see the small area of anteroseptal ischemia on her nuclear stress test imaging; she appears to have a predominantly fixed inferolateral defect. REC medical therapy of possible CAD, continue beta joanne, oral nitrate, aspirin OK to discharge today from a cardiac standpoint (2) Chronic atrial fibrillation ICD Codes: I48.2 - Chronic atrial fibrillation Status: Chronic Plan: Patient notes at least 15 year history of atrial fibrillation. She is quite a fall risk, unable to walk or stand, has occasional fall, and lives alone. REC stop Eliquis; rec daily aspirin (3) Hypertension ICD Codes: I10 - Essential (primary) hypertension Status: Chronic Plan: Stable. Normotensive. (4) Hyperlipidemia ICD Codes: E78.5 - Hyperlipidemia, unspecified Status: Chronic Plan: Overall suboptimal LDL in light of possible underlying CAD. Rec increase statin dosing. Code Status full code Discussed Condition With patient Problem Qualifiers (1) CAD (coronary artery disease): Qualified Codes: I25.119 - Atherosclerotic heart disease of [place] coronary artery with unspecified angina pectoris (2) Hypertension: Qualified Codes: I10 - Essential (primary) hypertension (3) Hyperlipidemia: Qualified Codes: E78.2 - Mixed hyperlipidemia Tomas Potter MD Jan 03, 2017 07:59
[2017-01-03] MEDS ORDERED: ASPIRIN 325 MG TAB PO SCH ×2 (09:00)
[2017-01-03] MEDS ORDERED: PRAVASTATIN SOD 40 MG TAB PO SCH ×2 (09:00)
[2017-01-03] MEDS: TIOTROPIUM BROMIDE 18 MCG INH INH SCH ×2 (09:28)
[2017-01-03] MEDS ORDERED: ISOS30TA3 PO ×2 (09:35)
[2017-01-03] MEDS ORDERED: CARV3.125 PO ×2 (09:35)
--- NOTE | 2017-01-03 09:37 | HHI.PR ---
Subjective Remarks Follow up for Afib. Patient is currently doing well. No chest pain, SOB, fever, chills. She is very hard of hearing. Objective Vitals Vital Signs Date Time Temp Pulse Resp B/P (MAP) Pulse Ox O2 Delivery O2 Flow Rate FiO2 01/03/17 07:39 90 Nasal Cannula 2.00 01/03/17 07:08 97.8 98 22 130/69 (89) 97 01/03/17 05:35 Nasal Cannula 2.00 01/03/17 04:06 106 01/03/17 03:27 99.5 93 18 110/75 (87) 95 01/03/17 00:00 110 01/02/17 23:53 98.2 88 21 133/76 (95) 95 01/02/17 22:08 98.4 81 17 118/76 (90) 97 01/02/17 20:00 94 01/02/17 19:48 98.5 96 18 119/69 (86) 95 01/02/17 15:56 81 01/02/17 15:16 98.0 94 16 115/67 (83) 99 01/02/17 15:01 Nasal Cannula 2.00 01/02/17 11:24 97.8 99 18 121/83 (96) 97 I/O 01/02/17 01/02/17 01/02/17 01/03/17 01/03/17 01/03/17 07:00 15:00 23:00 07:00 15:00 23:00 Intake Total 1000 ml Balance 1000 ml Intake IV Total 1000 ml Result Diagram: 01/02/1721601/02/17216 Imaging Last Impressions Chest X-Ray 01/02/17213 Signed Impressions: Service Date/Time: Monday, January 02, 2017 02:52 - CONCLUSION: Bilateral basilar parenchymal opacities. Roberto Kelley MD Myocardial Perfusion Scan Nuc Med 01/02/17 0000 Signed Impressions: Service Date/Time: Monday, January 02, 2017 12:22 - CONCLUSION: Redistribution consistent with stress-induced ischemia small segment anteroseptal region. RISK CATEGORY: Low (<1%% Annual Mortality Rate) Harshil Ortiz MD FACR Objective Remarks GENERAL: Alert, NAD. SKIN: Warm and dry. HEAD: Normocephalic. EYES: No scleral icterus. No injection or drainage. NECK: Supple, trachea midline. No JVD or lymphadenopathy. CARDIOVASCULAR: Regular rate and rhythm without murmurs, gallops, or rubs. RESPIRATORY: Breath sounds equal bilaterally. No accessory muscle use. GASTROINTESTINAL: Abdomen soft, non-tender, nondistended. MUSCULOSKELETAL: No cyanosis, or edema. BACK: Nontender without obvious deformity. No CVA tenderness. A/P Assessment and Plan 1 Chest pain-admitted to chest pain center. Seen and evaluated by Dr. Alex Hinson. Ruled out with 3 sets of EKGs and cardiac enzymes. stress test with stress-induced ischemia in anteroseptal region. Cardiology consulted. Dr. Potter cleared for discharge. - Patient will do outpatient echocardiography. 2 Afib - Will continue Carvedilol 3.125mg BID. Cardiology recommended Aspirin due to patient's frequent falls. 3 Hypertension-continue to monitor. Continue furosemide and Aldactone 4 Hyperlipidemia-continue pravastatin 5 COPD-continue O2/2 L nasal cannula, Spiriva, and albuterol every 2 when necessary 6 GERD-continue omeprazole Discharge patient to home Condition on discharge: Improved Heart healthy Diet as tolerated Ad Debbie activity Rx written: - Carvedilol 3.125mg BID - Imdur 30mg Qday. Follow-up with primary care physician within one week. Cardiology within 1-2 weeks. Echocardiography within one week Samson Leary DO Jan 03, 2017 09:37
[2017-01-03] MEDS: FUROSEMIDE 40 MG TAB PO SCH ×2 (09:44)
[2017-01-03] MEDS: SPIRONOLACTONE 25 MG TAB PO SCH ×2 (09:44)
[2017-01-03] MEDS: PANTOPRAZOLE SOD 20 MG DELAYED RELEASE TAB PO SCH ×2 (09:45)
[2017-01-03] MEDS: PRAMIPEXOLE DIHYDROCHLORIDE 0.25 MG TAB PO SCH ×2 (09:45)
[2017-01-03] MEDS: CARVEDILOL 3.125 MG TAB PO SCH ×2 (09:45)
[2017-01-03] MEDS: SODIUM CHLORIDE 0.9% FLUSH 10 ML FLUSH IV FLUSH SCH ×2 (09:46)
--- NOTE | 2017-01-07 09:03 | TR ---
Date Performed: 01/02/2017 Time Performed: 13:25:35 DOCTOR: Alex Hinson DRUG LIST: CLINICAL HISTORY: REASON FOR TEST: REASON FOR ENDING: OBSERVATION: CONCLUSION: Lexiscan stress test was performed under standard four minute protocol. Radionuclid e was injected one minute prior to ending the test. No electrocardiographic abormalities were present to suggest ischemia. Nuclear imaging and interpretation are pending. COMMENTS:
== END 2017-01-03 12:41 | disposition home or self-care (01) ==
LOC: NEPE 01:47 → NEDA 03:23 → NEPFCDU 06:19
PROVIDERS: ADMIT Hospitalist; ATTEND Hospitalist
DX: R07.9 Chest pain, unspecified (principal); I25.10 Atherosclerotic heart disease of native coronary artery without angina pectoris; I48.2 Chronic atrial fibrillation; I10 Essential (primary) hypertension; J44.9 Chronic obstructive pulmonary disease, unspecified; E78.2 Mixed hyperlipidemia; E03.9 Hypothyroidism, unspecified; K21.9 Gastro-esophageal reflux disease without esophagitis; G25.81 Restless legs syndrome; H91.90 Unspecified hearing loss, unspecified ear; R29.6 Repeated falls; Z99.81 Dependence on supplemental oxygen; Z79.01 Long term (current) use of anticoagulants
CPT/HCPCS: 71010; 78452; 80048; 80061; 82550; 84484; 85025; 93005; 93017; 96360; 99285; A9502; G0378; J2785; J7030

== ENCOUNTER 2017-03-28 18:07 | Inpatient (IN) | payer MEDICARE, OTHER ==
[~2017-03-28] VITALS: Ht 162.6 cm; Wt 100.8 kg
[2017-03-28] MEDS: ENOXAPARIN SODIUM 40 MG/0.4 ML SYRINGE SQ SCH (00:30)
[2017-03-28] MEDS: LEVOFLOXACIN 750 MG PREMIX INJ 150 ML IV SCH (00:30)
[~2017-03-28 18:07] MED LIST: ACIDWAF; ALBU0.08 NEB; ASPI-516 PO; CARV3.125 PO; DULC10SU3 RECTAL; FURO40TA PO; ISOS30TA3 PO; MELO15TA20 PO; OMEP20TA93 PO; PRAM0.5T PO; PRAV10TA PO; SPIR25 PO; SPIRCAP INH; TYLE325T PO; VENTAER INH
[2017-03-28 18:31] VITALS: BP 142/76; PULSE 102; RESP 20; TEMP 98.4; O2SAT 99
[2017-03-28 18:35] VITALS: BP 142/76; PULSE 97; RESP 18; TEMP 98.4; O2SAT 99
[2017-03-28] MEDS ORDERED: SODIUM CHLOR 0.9% 1000 ML INJ 1,000 ML IV SCH (19:04)
[2017-03-28] MEDS ORDERED: ZOLO100T PO (19:11)
[2017-03-28] MEDS ORDERED: FLUT50SP EACH NARE (19:11)
[2017-03-28] MEDS ORDERED: PRAM0.752 PO (19:11)
[2017-03-28] MEDS ORDERED: VOLT1GEL16 TOPICAL (19:11)
[2017-03-28] MEDS ORDERED: LORA-392 PO (19:11)
[2017-03-28] MEDS ORDERED: MELA3TAB52 PO (19:11)
[2017-03-28] MEDS ORDERED: LACTCHW3 PO (19:11)
[2017-03-28] MEDS ORDERED: ZOFR4TAB PO (19:11)
[2017-03-28] MEDS ORDERED: HYDR-3288 PO (19:11)
[2017-03-28] MEDS ORDERED: MILKSUS PO (19:11)
[2017-03-28] MEDS ORDERED: SODIUM CHLORIDE 0.9% FLUSH 10 ML FLUSH IV FLUSH PRN ×2 (19:15→22:30)
[2017-03-28 19:36] LABS: BASOPHIL % 0.3 % (0.0-2.0); EOSINOPHIL % 0.2 % (0.0-4.0); HEMATOCRIT 33.1 % (35.0-46.0); LYMPH % 5.7 % (9.0-44.0); LYMPHOCYTE # 0.5 TH/MM3 (1.0-4.8); MEAN CELL VOLUME 90.8 FL (80.0-100.0); MEAN CORPUSCULAR HEMOGLOBIN 30.3 PG (27.0-34.0); MEAN CORPUSCULAR HGB CONC 33.3 % (32.0-36.0); MEAN PLATELET VOLUME 7.6 FL (7.0-11.0); MONO % 6.6 % (0.0-8.0); MONOCYTE # 0.5 TH/MM3 (0-0.9); NEUT % 87.2 % (16.0-70.0); PLATELET COUNT 110 TH/MM3 (150-450); RED BLOOD COUNT 3.64 MIL/MM3 (4.00-5.30); WHITE BLOOD COUNT 8.1 TH/MM3 (4.0-11.0)
[2017-03-28 19:46] LABS: ALT (GPT) 25 U/L (10-53)
[2017-03-28 19:49] LABS: ALKALINE PHOSPHATASE 106 U/L (45-117); TOTAL BILIRUBIN ADULT 0.7 MG/DL (0.2-1.0); TOTAL PROTEIN 7.1 GM/DL (6.4-8.2)
--- NOTE | 2017-03-28 19:51 | RADRPT ---
EXAM DATE/TIME: 03/28/2017 19:07 [facility] COMPARISON: No previous studies available for comparison. INDICATIONS : Syncope MEDICAL HISTORY : Chronic obstructive pulmonary disease. Hypertension SURGICAL HISTORY : None. ENCOUNTER: Initial ACUITY: 1 day PAIN SCORE: 0/10 LOCATION: chest FINDINGS: Bibasilar consolidation with small to moderate effusions are seen. Similar findings are seen on the c omparison. No pneumothorax. Mild cardiomegaly is stable. Thoracic aorta is tortuous and atherosclerotic. CONCLUSION: Bibasilar consolidation and small to moderate effusions. Roberto Bullock MD on March 28, 2017 at 19:45 Board Certified Radiologist. This report was verified electronically.
--- NOTE | 2017-03-28 19:52 | RADRPT ---
EXAM DATE/TIME: 03/28/2017 19:19 [facility] COMPARISON: No previous studies available for comparison. INDICATIONS : Altered mental status. Patient found unresponsive. RADIATION DOSE: 56.35 CTDIvol (mGy) ; Patient motion MEDICAL HISTORY : Hypertension. SURGICAL HISTORY : None. ENCOUNTER: Initial ACUITY: 1 day PAIN SCALE: Non-responsive LOCATION: cranial TECHNIQUE: Multiple contiguous axial images were obtained of the head. Using automated exposure control and adj ustment of the mA and/or kV according to patient size, radiation dose was kept as low as reasonably a chievable to obtain optimal diagnostic quality images. DICOM format image data is available electro nically for review and comparison. FINDINGS: CEREBRUM: The ventricles are normal for age. No evidence of midline shift, mass lesion, hemorrhage or acute in farction. No extra-axial fluid collections are seen. POSTERIOR FOSSA: The cerebellum and brainstem are intact. The 4th ventricle is midline. The cerebellopontine angle i s unremarkable. EXTRACRANIAL: The visualized portion of the orbits is intact. SKULL: The calvaria is intact. No evidence of skull fracture. CONCLUSION: No acute intracranial abnormality demonstrated. Roberto Bullock MD on March 28, 2017 at 19:50 Board Certified Radiologist. This report was verified electronically.
[2017-03-28 19:56] LABS: PROTHROMBIN TIME - PATIENT 10.6 SEC (9.8-11.6)
--- NOTE | 2017-03-28 19:56 | PD ---
HPI Chief Complaint: Altered Mental Status Time Seen by Provider: 18:35 Travel History International Travel<30 days: No Contact w/Intl Traveler<30days: No Traveled to known affect area: No History of Present Illness HPI Patient is a 68-year-old female presenting to the emergency department for evaluation of altered mental status. Granddaughter states that she presented to the [facility] this afternoon at approximately 1710 and she found patient slumped in her bed. She states that she was arousable but very confused. She reports that she tried to call the [facility] all day but couldn't get through and at 1651 the social research assistant called her to let her know that the patient was refusing to get dressed to get out of bed. Patient has dementia at baseline. She is not complaining of anything herself. Granddaughter brought her in because she felt she was altered. She is normally alert and oriented to self and place, she is not ambulatory. Her past medical history is significant for hypertension and COPD. Onset of symptoms is uncertain, there were no exacerbating factors. There are no alleviating factors. PFSH Past Medical History Atrial Fibrillation: Yes Cardiovascular Problems: Yes COPD: Yes Diminished Hearing: Yes (DEERING) GERD: Yes Hypertension: Yes Migraines: Yes Thyroid Disease: Yes (HYPO) Social History Alcohol Use: No Tobacco Use: No Substance Use: No Allergies-Medications (Allergen,Severity, Reaction): Coded Allergies: Penicillins (Verified Allergy, Severe, 03/28/17) Reported Meds & Prescriptions Reported Meds & Active Scripts Active Coreg (Carvedilol) 3.125 Mg Tab 3.125 Mg PO Q12HR Isosorbide Mononitrate ER (Isosorbide Mononitrate) 30 Mg Bing 30 Mg PO DAILY@07 Reported Zoloft (Sertraline HCl) 100 Mg Tab 200 Mg PO DAILY Voltaren (Diclofenac Sodium) 1 % Gel..gram. 1 Applic TOPICAL Q8HR PRN Zofran (Ondansetron HCl) 4 Mg Tab 4 Mg PO Q6HR PRN [place] (Hydrocodone-Acetaminophen) 7.5-325 mg Tab 1 Tab PO Q4H PRN Milk of Magnesia Liq (Magnesium Hydroxide) 400 Mg/5 Ml Susp 30 Ml PO HS PRN Melatonin 3 Mg Tab 9 Mg PO HS Fluticasone Nasal [place] 50 Mcg/Act Naspr 1 [place] EACH NARE DAILY 50 mcg/spray Ativan (Lorazepam) 0.5 Mg Tab 0.5 Mg PO TID PRN Lactinex (Lactobacillus Acidophilus) 1 Chew 1 Tab PO DAILY Pramipexole (Pramipexole Dihydrochloride) 0.75 Mg Tab 0.75 Mg PO Q8HR Furosemide 40 Mg Tab 40 Mg PO BID Tylenol (Acetaminophen) 325 Mg Tab 650 Mg PO Q4HR PRN Dulcolax Supp (Bisacodyl) 10 Mg Supp 10 Mg RECTAL DAILY PRN Ventolin Hfa 18 GM Inh (Albuterol Sulfate) 90 Mcg/Act Aer 2 Puff INH Q4HR PRN Spiriva Handihaler (Tiotropium Inh) 18 Mcg Cap 18 Mcg INH DAILY 1 capsule = 18 mcg Aldactone (Spironolactone) 25 Mg Tab 25 Mg PO DAILY Aspirin 81 Mg Chew 81 Mg PO DAILY Omeprazole 20 Mg Tab 40 Mg PO DAILY Albuterol Neb (Albuterol Sulfate) 2.5 Mg/3 Ml Neb 2.5 Mg NEB Q4HR NEB PRN Pravastatin 10 Mg Tab 10 Mg PO DAILY Review of Systems ROS Limitations: Poor Historian Except as stated in HPI: all other systems reviewed are Neg Physical Exam Narrative GENERAL: Well-developed, well-nourished, alert elderly female. Resting comfortably in no acute distress. SKIN: Warm and dry. HEAD: Atraumatic. Normocephalic. EYES: Pupils equal and round. No scleral icterus. No injection or drainage. ENT: No nasal bleeding or discharge. Mucous membranes pink and moist. NECK: Trachea midline. No JVD. CARDIOVASCULAR: Regular rate and rhythm. RESPIRATORY: No accessory muscle use. Clear to auscultation. Breath sounds equal bilaterally. GASTROINTESTINAL: Abdomen obese, soft, non-tender, nondistended. Hepatic and splenic margins not palpable. MUSCULOSKELETAL: Extremities without clubbing, cyanosis, or edema. No obvious deformities. NEUROLOGICAL: Awake and alert, oriented to self. No obvious cranial nerve deficits. Motor grossly within normal limits. Five out of 5 muscle strength in the arms and legs. Normal speech. PSYCHIATRIC: Appropriate mood and affect Data Data Last Documented VS Vital Signs Date Time Temp Pulse Resp B/P (MAP) Pulse Ox O2 Delivery O2 Flow Rate FiO2 03/28/17 20:37 95 20 133/77 (95) 96 Nasal Cannula 2.00 03/28/17 18:35 98.4 Orders Orders Electrocardiogram (03/28/17 19:04) Complete Blood Count With Diff (03/28/17 19:04) Comprehensive Metabolic Panel (03/28/17 19:04) Prothrombin Time / Inr (Pt) (03/28/17 19:04) Act Partial Throm Time (Ptt) (03/28/17 19:04) Urinalysis - C+S If Indicated (03/28/17 19:04) Lactic Acid Sepsis Protocol (03/28/17 19:04) Chest, Single Ap (03/28/17 19:04) Ct Brain W/O Iv Contrast(Rout) (03/28/17 19:04) Blood Glucose (03/28/17 19:04) Ecg Monitoring (03/28/17 19:04) Iv Access Insert/Monitor (03/28/17 19:04) Cath For Specimen (03/28/17 19:04) Oximetry (03/28/17 19:04) Sodium Chloride 0.9% Flush (Ns Flush) (03/28/17 19:15) Sodium Chlor 0.9% 1000 Ml Inj (Ns 1000 M (03/28/17 19:04) Urinary Catheter Management ALEKSANDRA.Q8H (03/28/17 19:39) Urine Culture (03/28/17 20:10) Arterial Blood Gas (Abg) (03/28/17 ) Resp Bipap / Cpap Non Invas Vt (03/28/17 ) Arterial Blood Gas (Abg) (03/28/17 22:15) Admit Order (Ed Use Only) (03/28/17 21:54) Labs Laboratory Tests Test 03/28/17 19:12 03/28/17 19:15 03/28/17 20:10 White Blood Count 8.1 TH/MM3 Red Blood Count 3.64 MIL/MM3 Hemoglobin 11.0 GM/DL Hematocrit 33.1 % Mean Corpuscular Volume 90.8 FL Mean Corpuscular Hemoglobin 30.3 PG Mean Corpuscular Hemoglobin Concent 33.3 % Red Cell Distribution Width 13.0 % Platelet Count 110 TH/MM3 Mean Platelet Volume 7.6 FL Neutrophils (%) (Auto) 87.2 % Lymphocytes (%) (Auto) 5.7 % Monocytes (%) (Auto) 6.6 % Eosinophils (%) (Auto) 0.2 % Basophils (%) (Auto) 0.3 % Neutrophils # (Auto) 7.0 TH/MM3 Lymphocytes # (Auto) 0.5 TH/MM3 Monocytes # (Auto) 0.5 TH/MM3 Eosinophils # (Auto) 0.0 TH/MM3 Basophils # (Auto) 0.0 TH/MM3 CBC Comment DIFF FINAL Differential Comment Prothrombin Time 10.6 SEC Prothromb Time International Ratio 1.0 RATIO Activated Partial Thromboplast Time 26.1 SEC Blood Urea Nitrogen 19 MG/DL Creatinine 0.37 MG/DL Random Glucose 94 MG/DL Total Protein 7.1 GM/DL Albumin 3.3 GM/DL Calcium Level 9.5 MG/DL Alkaline Phosphatase 106 U/L Aspartate Amino Transf (AST/SGOT) 26 U/L Alanine Aminotransferase (ALT/SGPT) 25 U/L Total Bilirubin 0.7 MG/DL Sodium Level 134 MEQ/L Potassium Level 4.6 MEQ/L Chloride Level 79 MEQ/L Carbon Dioxide Level GREATER THAN 45.0 MEQ/L Anion Gap 10 MEQ/L Estimat Glomerular Filtration Rate 169 ML/MIN Lactic Acid Level 0.8 mmol/L Urine Color YELLOW Urine Turbidity HAZY Urine pH 5.5 Urine Specific [place] 1.015 Urine Protein 100 mg/dL Urine Glucose (UA) NEG mg/dL Urine Ketones NEG mg/dL Urine Occult Blood NEG Urine Nitrite NEG Urine Bilirubin NEG Urine Urobilinogen LESS THAN 2.0 MG/DL Urine Leukocyte Esterase TRACE Urine RBC 1 /hpf Urine WBC 2 /hpf Urine Bacteria MANY /hpf Urine Hyaline Casts 7 /lpf Urine Mucus FEW /lpf Microscopic Urinalysis Comment CATH-CULTURE IND MDM Medical Decision Making Medical Screen Exam Complete: Yes Emergency Medical Condition: Yes Interpretation(s) Last Impressions Head CT 03/28/171903 Signed Impressions: Service Date/Time: March 19:19 - CONCLUSION: No acute intracranial abnormality demonstrated. Roberto Bullock MD Chest X-Ray 03/28/171903 Signed Impressions: Service Date/Time: March 19:07 - CONCLUSION: Bibasilar consolidation and small to moderate effusions. Roberto Bullock MD Laboratory Tests Test 03/28/17 19:12 03/28/17 19:15 03/28/17 20:10 White Blood Count 8.1 TH/MM3 Red Blood Count 3.64 MIL/MM3 Hemoglobin 11.0 GM/DL Hematocrit 33.1 % Mean Corpuscular Volume 90.8 FL Mean Corpuscular Hemoglobin 30.3 PG Mean Corpuscular Hemoglobin Concent 33.3 % Red Cell Distribution Width 13.0 % Platelet Count 110 TH/MM3 Mean Platelet Volume 7.6 FL Neutrophils (%) (Auto) 87.2 % Lymphocytes (%) (Auto) 5.7 % Monocytes (%) (Auto) 6.6 % Eosinophils (%) (Auto) 0.2 % Basophils (%) (Auto) 0.3 % Neutrophils # (Auto) 7.0 TH/MM3 Lymphocytes # (Auto) 0.5 TH/MM3 Monocytes # (Auto) 0.5 TH/MM3 Eosinophils # (Auto) 0.0 TH/MM3 Basophils # (Auto) 0.0 TH/MM3 CBC Comment DIFF FINAL Differential Comment Prothrombin Time 10.6 SEC Prothromb Time International Ratio 1.0 RATIO Activated Partial Thromboplast Time 26.1 SEC Blood Urea Nitrogen 19 MG/DL Creatinine 0.37 MG/DL Random Glucose 94 MG/DL Total Protein 7.1 GM/DL Albumin 3.3 GM/DL Calcium Level 9.5 MG/DL Alkaline Phosphatase 106 U/L Aspartate Amino Transf (AST/SGOT) 26 U/L Alanine Aminotransferase (ALT/SGPT) 25 U/L Total Bilirubin 0.7 MG/DL Sodium Level 134 MEQ/L Potassium Level 4.6 MEQ/L Chloride Level 79 MEQ/L Carbon Dioxide Level GREATER THAN 45.0 MEQ/L Anion Gap 10 MEQ/L Estimat Glomerular Filtration Rate 169 ML/MIN Lactic Acid Level 0.8 mmol/L Urine Color YELLOW Urine Turbidity HAZY Urine pH 5.5 Urine Specific [place] 1.015 Urine Protein 100 mg/dL Urine Glucose (UA) NEG mg/dL Urine Ketones NEG mg/dL Urine Occult Blood NEG Urine Nitrite NEG Urine Bilirubin NEG Urine Urobilinogen LESS THAN 2.0 MG/DL Urine Leukocyte Esterase TRACE Urine RBC 1 /hpf Urine WBC 2 /hpf Urine Bacteria MANY /hpf Urine Hyaline Casts 7 /lpf Urine Mucus FEW /lpf Microscopic Urinalysis Comment CATH-CULTURE IND Vital Signs Date Time Temp Pulse Resp B/P (MAP) Pulse Ox O2 Delivery O2 Flow Rate FiO2 03/28/17 18:35 98.4 97 18 142/76 (98) 99 Nasal Cannula 2.00 03/28/17 18:35 85 18 99 Nasal Cannula 2.00 03/28/17 18:31 98.4 102 20 142/76 (98) 99 Differential Diagnosis UTI vs COPD exacerbation vs Metabolic abnormality vs Arrythmia vs other Narrative Course Patient is a 68-year-old female that presented to the emergency Department due to altered mental status. Patient was mildly tachycardic on arrival, she was drowsy and arousable. Has baseline dementia and granddaughter states this is abnormal for her. Labs and imaging ordered and pending, patient's vital signs are otherwise stable. Chest x-ray shows bibasilar consolidation and small to moderate effusions. CT scan of the brain shows no acute intracranial abnormality. CBC with no acute findings Chemistry with a carbon dioxide level greater than 45 Lactic acid 0.8, urinalysis with reflex culture pending, patient was on [facility] at the [facility] for urinary tract infection. ABG shows respiratory acidosis, is placed on BiPAP 12/6. She seems to be tolerating well and we will repeat ABG. [facility] paged for admission. Discussed findings with my attending physician as well as Dr. Fernández. Dr. Mercado accepted admission. Admit orders placed for [facility]IC. Diagnosis Primary Impression: Respiratory failure Qualified Codes: J96.00 - Acute respiratory failure, unspecified whether with hypoxia or hypercapnia Additional Impressions: Respiratory acidosis Pneumonia Qualified Codes: J18.9 - Pneumonia, unspecified organism COPD (chronic obstructive pulmonary disease) Qualified Codes: J44.9 - Chronic obstructive pulmonary disease, unspecified Admitting Information Admitting Physician Requests: Admit Condition: Stable Pratibha Hernandez Mar 28, 2017 19:56
[2017-03-28 20:03] VITALS: BP 104/64; PULSE 114; RESP 20; O2SAT 92
[2017-03-28 20:05] VITALS: RESP 20; O2SAT 92
[2017-03-28 20:08] LABS: ALBUMIN 3.3 GM/DL (3.4-5.0); AST (GOT) 26 U/L (15-37); BICARBONATE GREATER THAN 45.0 MEQ/L (21.0-32.0); BLOOD UREA NITROGEN 19 MG/DL (7-18); CALCIUM 9.5 MG/DL (8.5-10.1); CHLORIDE 79 MEQ/L (98-107); CREATININE 0.37 MG/DL (0.50-1.00); GLOMERULAR FILTRATION RATE 169 ML/MIN (>89); GLUCOSE,RANDOM 94 MG/DL (74-106); SODIUM (NA) 134 MEQ/L (136-145)
[2017-03-28 20:37] VITALS: BP 133/77; PULSE 95; RESP 20; O2SAT 96
[2017-03-28 20:54] LABS: BACTERIA, URINE MANY /hpf; BILIRUBIN, URINE NEG (NEG); BLOOD, URINE NEG (NEG); GLUCOSE,URINE NEG (NEG); HYALINE CAST, URINE 7 /lpf (RARE); KETONE, URINE NEG (NEG); MUCUS URINE FEW /lpf (OCC); NITRITE,URINE NEG (NEG); PH, URINE 5.5 (5.0-8.5); URINE COLOR YELLOW (YELLW/STRAW); URINE LEUKOCYTE ESTERASE TRACE (NEG)
[2017-03-28 21:25] VITALS: O2SAT 95
[2017-03-28] MEDS ORDERED: RESP: ALBUTEROL 2.5 MG/IPRATROPIUM 0.5 MG NEB (PRN) INH (22:30)
[2017-03-28] MEDS ORDERED: ACETAMINOPHEN 325 MG TAB PO PRN (22:30)
[2017-03-28] MEDS ORDERED: VANCOMYCIN INJ 1,000 MG in SODIUM CHLOR 0.9% 250 ML INJ 250 ML IV ONE (22:30)
[2017-03-28] MEDS ORDERED: Vancomycin Consult Pharmacy 1 EA OTHER SCH (22:30)
[2017-03-28] MEDS: CARVEDILOL 3.125 MG TAB PO SCH (22:45)
[2017-03-28] MEDS ORDERED: FUROSEMIDE 40 MG TAB PO SCH (22:45)
[2017-03-28] MEDS: MELATONIN 5 MG TAB PO SCH (23:45)
[2017-03-29] VITALS (24 sets, daily range): BP systolic 80–143; BP diastolic 50–76; PULSE 82–113; RESP 0–41; TEMP 98.7–99; O2SAT 78–100
[2017-03-29] MEDS ORDERED: VANCOMYCIN INJ 2,000 MG in SODIUM CHLORID 0.9% 500 ML INJ 500 ML IV ONE ×2
[2017-03-29] MEDS: AZTREONAM INJ 2,000 MG in SODIUM CHLORIDE 0.9% INJ 100 ML IV SCH ×3 (01:50→17:04)
[2017-03-29] MEDS: RESP: ALBUTEROL 2.5 MG/IPRATROPIUM 0.5 MG NEB (SCH) INH ×4 (03:07→21:09)
--- NOTE | 2017-03-29 03:22 | HHI.HP ---
[facility] Jamaal Goldman MD Admission Diagnosis respiratory failure/UTI/COPD exacerbation Diagnoses: Travel History International Travel<30 Days: No Contact w/Intl Traveler <30 Da: No Traveled to Known Affected Are: No History of Present Illness 76-year-old female with a past medical history significant for COPD on home oxygen, hyperlipidemia, atrial fibrillation (unclear if on anticoagulation), restless leg syndrome, hypothyroidism, GERD, CAD and hypertension was brought to the emergency department by EMS for evaluation of altered mental status. The patient is a resident of [facility] and her granddaughter was visiting her around 5:30 yesterday evening when she noticed her grandmother to be lethargic and altered. She states she was disoriented and at times nonresponsive. The patient developed respiratory failure in the emergency department requiring BiPAP. UA consistent with urinary tract infection. At the time of her interview, the patient will awaken to voice however would not answer questions. History obtained from her granddaughter and review of medical records. Review of Systems ROS Limitations: Clinical Condition Unable to obtain secondary to patient's clinical condition Past Family Social History Past Medical History (Obtained from medical records and granddaughter) COPD on home oxygen, hyperlipidemia, atrial fibrillation (unclear if on anticoagulation), restless leg syndrome, hypothyroidism, GERD, CAD and hypertension Past Surgical History Unable to obtain secondary to patient's clinical condition Reported Medications Reported Meds & Active Scripts Active Coreg (Carvedilol) 3.125 Mg Tab 3.125 Mg PO Q12HR Isosorbide Mononitrate ER (Isosorbide Mononitrate) 30 Mg Bing 30 Mg PO DAILY@07 Reported Zoloft (Sertraline HCl) 100 Mg Tab 200 Mg PO DAILY Voltaren (Diclofenac Sodium) 1 % Gel..gram. 1 Applic TOPICAL Q8HR PRN Zofran (Ondansetron HCl) 4 Mg Tab 4 Mg PO Q6HR PRN [place] (Hydrocodone-Acetaminophen) 7.5-325 mg Tab 1 Tab PO Q4H PRN Milk of Magnesia Liq (Magnesium Hydroxide) 400 Mg/5 Ml Susp 30 Ml PO HS PRN Melatonin 3 Mg Tab 9 Mg PO HS Fluticasone Nasal [place] 50 Mcg/Act Naspr 1 [place] EACH NARE DAILY 50 mcg/spray Ativan (Lorazepam) 0.5 Mg Tab 0.5 Mg PO TID PRN Lactinex (Lactobacillus Acidophilus) 1 Chew 1 Tab PO DAILY Pramipexole (Pramipexole Dihydrochloride) 0.75 Mg Tab 0.75 Mg PO Q8HR Furosemide 40 Mg Tab 40 Mg PO BID Tylenol (Acetaminophen) 325 Mg Tab 650 Mg PO Q4HR PRN Dulcolax Supp (Bisacodyl) 10 Mg Supp 10 Mg RECTAL DAILY PRN Ventolin Hfa 18 GM Inh (Albuterol Sulfate) 90 Mcg/Act Aer 2 Puff INH Q4HR PRN Spiriva Handihaler (Tiotropium Inh) 18 Mcg Cap 18 Mcg INH DAILY 1 capsule = 18 mcg Aldactone (Spironolactone) 25 Mg Tab 25 Mg PO DAILY Aspirin 81 Mg Chew 81 Mg PO DAILY Omeprazole 20 Mg Tab 40 Mg PO DAILY Albuterol Neb (Albuterol Sulfate) 2.5 Mg/3 Ml Neb 2.5 Mg NEB Q4HR NEB PRN Pravastatin 10 Mg Tab 10 Mg PO DAILY Allergies: Coded Allergies: Penicillins (Verified Allergy, Severe, 03/28/17) Family History Unable to obtain Social History Lifelong nonsmoker. No alcohol, illicit drugs. Physical Exam Vital Signs Vital Signs Date Time Temp Pulse Resp B/P (MAP) Pulse Ox O2 Delivery O2 Flow Rate FiO2 03/29/17 00:30 96 40 03/29/17 00:11 92 18 106/72 (83) 96 BiPAP 2.00 03/28/17 22:30 40 03/28/17 21:25 95 40 03/28/17 20:37 95 20 133/77 (95) 96 Nasal Cannula 2.00 03/28/17 20:05 20 92 Nasal Cannula 6.00 03/28/17 20:03 114 20 104/64 (77) 92 Nasal Cannula 2.00 03/28/17 18:35 98.4 97 18 142/76 (98) 99 Nasal Cannula 2.00 03/28/17 18:35 85 18 99 Nasal Cannula 2.00 03/28/17 18:31 98.4 102 20 142/76 (98) 99 Physical Exam GENERAL: Obese female, lying in bed, in moderate distress SKIN: No rashes, ecchymoses or lesions. Cool and dry. HEAD: Atraumatic. Normocephalic. No temporal or scalp tenderness. EYES: Pupils equal round and reactive. Extraocular motions intact. No scleral icterus. No injection or drainage. ENT: Nose without bleeding, purulent drainage or septal hematoma. Airway patent. NECK: Trachea midline. No JVD or lymphadenopathy. CARDIOVASCULAR: Regular rate and rhythm with 3/6 systolic ejection murmur RESPIRATORY: Clear to auscultation. Breath sounds equal bilaterally. No wheezes , rales, or rhonchi. GASTROINTESTINAL: Abdomen soft, non-tender, nondistended. No hepato-splenomegaly , or palpable masses. MUSCULOSKELETAL: Extremities without clubbing, cyanosis, or edema. NEUROLOGICAL: Drowsy. Opens eyes to voice. Does not answer questions. Laboratory Laboratory Tests Test 03/28/17 19:12 03/28/17 19:15 03/28/17 20:10 03/28/17 21:00 White Blood Count 8.1 Red Blood Count 3.64 Hemoglobin 11.0 Hematocrit 33.1 Mean Corpuscular Volume 90.8 Mean Corpuscular Hemoglobin 30.3 Mean Corpuscular Hemoglobin Concent 33.3 Red Cell Distribution Width 13.0 Platelet Count 110 Mean Platelet Volume 7.6 Neutrophils (%) (Auto) 87.2 Lymphocytes (%) (Auto) 5.7 Monocytes (%) (Auto) 6.6 Eosinophils (%) (Auto) 0.2 Basophils (%) (Auto) 0.3 Neutrophils # (Auto) 7.0 Lymphocytes # (Auto) 0.5 Monocytes # (Auto) 0.5 Eosinophils # (Auto) 0.0 Basophils # (Auto) 0.0 CBC Comment DIFF FINAL Differential Comment Prothrombin Time 10.6 Prothromb Time International Ratio 1.0 Activated Partial Thromboplast Time 26.1 Blood Urea Nitrogen 19 Creatinine 0.37 Random Glucose 94 Total Protein 7.1 Albumin 3.3 Calcium Level 9.5 Alkaline Phosphatase 106 Aspartate Amino Transf (AST/SGOT) 26 Alanine Aminotransferase (ALT/SGPT) 25 Total Bilirubin 0.7 Sodium Level 134 Potassium Level 4.6 Chloride Level 79 Carbon Dioxide Level GREATER THAN 45.0 Anion Gap 10 Estimat Glomerular Filtration Rate 169 Lactic Acid Level 0.8 Urine Color YELLOW Urine Turbidity HAZY Urine pH 5.5 Urine Specific [place] 1.015 Urine Protein 100 Urine Glucose (UA) NEG Urine Ketones NEG Urine Occult Blood NEG Urine Nitrite NEG Urine Bilirubin NEG Urine Urobilinogen LESS THAN 2.0 Urine Leukocyte Esterase TRACE Urine RBC 1 Urine WBC 2 Urine Bacteria MANY Urine Hyaline Casts 7 Urine Mucus FEW Microscopic Urinalysis Comment CATH-CULTURE IND Blood Gas Puncture Site RT RADIAL Blood Gas Patient Temperature 98.6 Blood Gas HCO3 53 Blood Gas Base Excess 24.7 Blood Gas Oxygen Saturation 94 Arterial Blood pH 7.23 Arterial Blood Partial Pressure CO2 132 Arterial Blood Partial Pressure O2 91 Arterial Blood Oxygen Content 14.8 Arterial Blood Carboxyhemoglobin 1.7 Arterial Blood Methemoglobin 0.8 Blood Gas Hemoglobin 11.1 Oxygen Delivery Device NASAL CANNULA Blood Gas Liter Flow 2 Test 03/28/17 23:00 Blood Gas Puncture Site RT RADIAL Blood Gas Patient Temperature 98.6 Blood Gas HCO3 54 Blood Gas Base Excess 26.0 Blood Gas Oxygen Saturation 93 Arterial Blood pH 7.30 Arterial Blood Partial Pressure CO2 114 Arterial Blood Partial Pressure O2 77 Arterial Blood Oxygen Content 14.7 Arterial Blood Carboxyhemoglobin 1.9 Arterial Blood Methemoglobin 0.8 Blood Gas Hemoglobin 11.2 Oxygen Delivery Device BIPAP Blood Gas Ventilator Setting IPAP=15 EPAP=5 Blood Gas Inspired Oxygen 40 Date/Time Source Procedure Growth Status 03/28/17 20:10 Urine Clean Catch Urine Culture Pending Received Result Diagram: 03/28/17191103/28/171911 Caprini VTE Risk Assessment Caprini VTE Risk Assessment: Mod/High Risk (score >= 2) Caprini Risk Assessment Model Point Value = 1 Point Value = 2 Point Value = 3 Point Value = 5 Age 41-60 Minor surgery BMI > 25 kg/m2 Swollen legs Varicose veins or History of unexplained or recurrent spontaneous Oral contraceptives or hormone replacement Sepsis (< 1 month) Serious lung disease, including pneumonia (< 1 month) Abnormal pulmonary function Acute myocardial infarction Congestive heart failure (< 1 month) History of inflammatory bowel disease Medical patient at bed rest Age 61-74 Arthroscopic surgery Major open surgery (> 45 min) Laparoscopic surgery (> 45 min) Malignancy Confined to bed (> 72 hours) Immobilizing plaster cast Central venous access Age >= 75 History of VTE Family history of VTE Factor V Leiden Prothrombin 15140A Lupus anticoagulant Anticardiolipin antibodies Elevated serum homocysteine Heparin-induced thrombocytopenia Other congenital or acquired thrombophilia Stroke (< 1 month) Elective arthroplasty Hip, pelvis, or leg fracture Acute spinal cord injury (< 1 month) Prophylaxis Regimen Total Risk Factor Score Risk Level Prophylaxis Regimen 0-1 Low Early ambulation 2 Moderate Order ONE of the following: *Sequential Compression Device (SCD) *Heparin 5000 units SQ BID 3-4 Higher Order ONE of the following medications: *Heparin 5000 units SQ TID *Enoxaparin/Lovenox 40 mg SQ daily (WT < 150 kg, CrCl > 30 mL/min) *Enoxaparin/Lovenox 30 mg SQ daily (WT < 150 kg, CrCl > 10-29 mL/min) *Enoxaparin/Lovenox 30 mg SQ BID (WT < 150 kg, CrCl > 30 mL/min) AND/OR *Sequential Compression Device (SCD) 5 or more Highest Order ONE of the following medications: *Heparin 5000 units SQ TID (Preferred with Epidurals) *Enoxaparin/Lovenox 40 mg SQ daily (WT < 150 kg, CrCl > 30 mL/min) *Enoxaparin/Lovenox 30 mg SQ daily (WT < 150 kg, CrCl > 10-29 mL/min) *Enoxaparin/Lovenox 30 mg SQ BID (WT < 150 kg, CrCl > 30 mL/min) AND *Sequential Compression Device (SCD) Assessment and Plan Assessment and Plan Assessment/plan: 1. Hypercapnic respiratory distress/healthcare associated pneumonia/bilateral pleural effusions/COPD exacerbation Chest x-ray significant for bibasilar consolidation and moderate bilateral effusions, personally reviewed Initial AB.23/132/94/53; patient placed on BiPAP with improvement in her ABG Continue BiPAP Aztreonam/Levaquin/vancomycin as patient resident of [facility] with PCN allergy Blood cultures pending Monitor for signs of sepsis IV Lasix Duo nebs IV steroids 2. UTI UA showed many bacteria, trace leukocyte esterase Urine culture pending Antibiotics as above 3. History of atrial fibrillation EKG significant for atrial fibrillation, pulse 98, no ST segment elevations or depressions, personally reviewed Per most recent cardiology consultation patient was started on Eliquis twice a day, this medication is not currently in the patient's medication reconciliation Clarify anticoagulation and restart if needed 4. Hypertension/hyperlipidemia/CAD Continue home medications FEN Heart healthy diet Electrolytes: Monitor and replete prn Lovenox Physician Certification 2 Midnight Certification Type: Admission for Inpatient Services Order for Inpatient Services The services are ordered in accordance with Medicare regulations or non- Medicare payer requirements, as applicable. In the case of services not specified as inpatient-only, they are appropriately provided as inpatient services in accordance with the 2-midnight benchmark. Estimated LOS (days): 2 2 days is the estimated time the patient will need to remain in the hospital, assuming treatment plan goals are met and no additional complications. Post-Hospital Plan: Not yet determined Grecia Fernández MD Mar 29, 2017 03:22
[2017-03-29 05:16] LABS: AUTOMATED NEUTROPHIL # 6.4 TH/MM3 (1.8-7.7); BASOPHIL % 0.1 % (0.0-2.0); EOSINOPHIL % 0.1 % (0.0-4.0); HEMATOCRIT 30.7 % (35.0-46.0); HEMOGLOBIN 10.1 GM/DL (11.6-15.3); LYMPH % 6.1 % (9.0-44.0); LYMPHOCYTE # 0.5 TH/MM3 (1.0-4.8); MEAN CELL VOLUME 91.3 FL (80.0-100.0); MEAN CORPUSCULAR HGB CONC 32.9 % (32.0-36.0); MEAN PLATELET VOLUME 6.9 FL (7.0-11.0); MONO % 6.1 % (0.0-8.0); MONOCYTE # 0.4 TH/MM3 (0-0.9); NEUT % 87.6 % (16.0-70.0); PLATELET COUNT 93 TH/MM3 (150-450); RED BLOOD COUNT 3.36 MIL/MM3 (4.00-5.30); RED CELL DISTRIBUTION WIDTH 13.5 % (11.6-17.2); WHITE BLOOD COUNT 7.4 TH/MM3 (4.0-11.0)
[2017-03-29 05:44] LABS: BICARBONATE GREATER THAN 45.0 MEQ/L (21.0-32.0); BLOOD UREA NITROGEN 18 MG/DL (7-18); CALCIUM 8.8 MG/DL (8.5-10.1); CHLORIDE 82 MEQ/L (98-107); CREATININE 0.43 MG/DL (0.50-1.00); GLOMERULAR FILTRATION RATE 142 ML/MIN (>89); GLUCOSE,RANDOM 74 MG/DL (74-106); SODIUM (NA) 135 MEQ/L (136-145)
[2017-03-29] MEDS: PRAMIPEXOLE DIHYDROCHLORIDE 0.25 MG TAB PO SCH ×3 (06:00→22:07)
[2017-03-29] MEDS: methylPREDNISolone SOD SUCC 40 MG/1 ML VIAL IV PUSH SCH ×3 (06:30→22:08)
[2017-03-29] MEDS: ISOSORBIDE MONONITRATE 30 MG TAB PO SCH (07:00)
[2017-03-29] MEDS ORDERED: CHLORHEXIDINE GLUCONATE 2 % 1 PACK (2 CLOTHS)(extra cloths) TOPICAL PRN (07:30)
[2017-03-29] MEDS: SPIRONOLACTONE 25 MG TAB PO SCH (07:54)
[2017-03-29] MEDS: SERTRALINE HCL 100 MG TAB PO SCH (07:55)
[2017-03-29] MEDS: ASPIRIN 81 MG CHEW TAB PO SCH (07:55)
[2017-03-29] MEDS: LACTOBACILLUS ACIDOPHILUS TAB PO SCH (07:55)
[2017-03-29] MEDS: PANTOPRAZOLE SOD 40 MG DELAYED RELEASE TAB PO SCH (07:56)
[2017-03-29] MEDS: CARVEDILOL 3.125 MG TAB PO SCH ×2 (07:56→22:09)
[2017-03-29] MEDS: PRAVASTATIN SOD 10 MG TAB PO SCH (07:56)
[2017-03-29] MEDS: TIOTROPIUM BROMIDE 18 MCG INH INH SCH (08:00)
[2017-03-29] MEDS: FLUTICASONE PROPIONATE 50 MCG/ACT 16 GM NASAL SPRAY EACH NARE SCH (08:00)
[2017-03-29] MEDS: SODIUM CHLORIDE 0.9% FLUSH 10 ML FLUSH IV FLUSH SCH ×2 (08:00→22:07)
[2017-03-29] MEDS: FUROSEMIDE 40 MG/4 ML VIAL IV PUSH SCH ×2 (08:02→18:56)
[2017-03-29 08:25] LABS: STOMATOCYTES 1+ (NORMAL)
[2017-03-29] MEDS ORDERED: NON-FORMULARY DRUG (Omeprazole 40 MG) PO SCH (09:00)
--- NOTE | 2017-03-29 09:18 | EKG ---
Date Performed: 03/28/2017 Time Performed: 19:33:34 PTAGE: 76 years EKG: ATRIAL FIBRILLATION NONSPECIFIC ST & T-WAVE ABNORMALITY ABNORMAL ECG PREVIOUS TRACING : 01/02/2017 09.07 No change from previous tracing noted. DOCTOR: Tomas Potter Interpretating Date/Time 03/29/2017 09:16:30
--- NOTE | 2017-03-29 12:59 | MB ---
cc: MARY MOSQUERA DATE OF CONSULTATION 03/29/2017 REQUESTING PHYSICIAN Grecia Fernández MD REASON FOR CONSULTATION Respiratory failure HISTORY OF PRESENT ILLNESS Ms. Weiss is a 76-year-old female with a history of COPD oxygen-dependent, history of atrial fibrillation, hyperlipidemia, and restless leg syndrome. The patient lives at a prison. Her daughter went over and found that she was more lethargic and decided to bring her to the emergency room. She was brought to the emergency room. Initial blood gas shows a pH 7.23, pCO2 132, pO2 91 on two liters nasal cannula. She was put on BiPAP, now she is weaned down to nasal cannula. Repeat blood repeat blood gas pH 7.42, pCO2 82 BiPap 71 mV, bicarb 52. Oxygen saturation 92%. Her CBC showed a WBC count of 7.41, hemoglobin of 10.1, hematocrit 30.7, MCV 91, platelet count 93. Sodium 135, potassium 4.2, chloride 82, CO2 more than 45, BUN 18, creatinine 0.43. Her chest x-ray shows she has bibasilar consolidation and pleural effusion. CT scan of the brain is negative. The patient is somewhat confused, not able to give any reliable information. PAST MEDICAL HISTORY Significant for a history of: 1. COPD oxygen-dependent 2. Hypertension 3. Obstructive sleep apnea 4. Restless leg syndrome 5. Hypothyroidism The patient has been by Dr. Potter in the past and was recommended Karin. I am not sure if she is taking this or not. MEDICATIONS She is currently takin. Vancomycin IV 2. Aspirin 81 mg a day 3. Flonase nasal spray 4. Pravastatin 10 mg 5. Zoloft 100 mg per 6. Spironolactone 25 mg a day 7. Spiriva once a day 8. Lactinex one tablet 9. Protonix 40 mg a day 10. Lasix 40 mg twice a day 11. Imdur 30 mg 12. Solu-Medrol 40 mg q8-hour 13. Albuterol/Atrovent inhalation treatment 14. Aztreonam 2 grams q.8 h 15. Levaquin 750 mg 16. Lovenox 40 mg a day ALLERGIES SHE IS ALLERGIC TO PENICILLIN. SOCIAL HISTORY She is a . She used to own a restaurant and different businesses. She lives in a prison. She has a remote history of smoking. FAMILY HISTORY She states that she has a daughter who lives nearby. REVIEW OF SYSTEMS The patient lives in the prison. No other information available. PHYSICAL EXAMINATION Obese female mildly short of breath, alert and awake, but not fully oriented. She is weaned down to nasal cannula. VITAL SIGNS: Blood pressure 142/68, heart rate 86, respirations 20, temperature 99. HEENT: Examination pupils are equal and reactive. She has had bilateral cataract surgery done. Oral mucosa and nasal mucosa normal. NECK: Supple. JVP not raised. CHEST: She has decreased chest excursion, a few rhonchi. CARDIOVASCULAR: S1 and S2 normal. ABDOMEN: Benign. EXTREMITIES: No edema. IMPRESSION 1. Hypercapnic respiratory failure. 2. Pneumonia 3. Pleural effusion 4. Underlying COPD 5. Atrial fibrillation 6. Hypertension PLAN She is weaned down to nasal canula. We will use C-PAP at nighttime and p.r.n. as needed. I will start her on acetazolamide 250 mg a day. Continue IV Solu-Medrol. Monitor electrolytes. Continue antibiotics. She is on Lovenox for DVT prophylaxis. Further treatment will depend upon the course in the hospital. Thank you Dr. Grecia Fernández for this consult. MD ARINA Lucas/BRITTANY /11:00 AM /12:41 PM
[2017-03-29] MEDS: acetaZOLAMIDE 250 MG TAB PO SCH (13:52)
[2017-03-29] MEDS: VANCOMYCIN INJ 1,750 MG in SODIUM CHLORID 0.9% 500 ML INJ 500 ML IV SCH (22:07)
[2017-03-29] MEDS: MELATONIN 5 MG TAB PO SCH (22:08)
[2017-03-30] VITALS (15 sets, daily range): BP systolic 118–144; BP diastolic 60–98; PULSE 92–108; RESP 30–40; TEMP 97.6–99.6; O2SAT 93–99
[2017-03-30] MEDS: LEVOFLOXACIN 750 MG PREMIX INJ 150 ML IV SCH (00:39)
[2017-03-30] MEDS: ENOXAPARIN SODIUM 40 MG/0.4 ML SYRINGE SQ SCH ×2 (00:40→22:27)
[2017-03-30] MEDS: AZTREONAM INJ 2,000 MG in SODIUM CHLORIDE 0.9% INJ 100 ML IV SCH ×4 (02:12→23:19)
[2017-03-30] MEDS: RESP: ALBUTEROL 2.5 MG/IPRATROPIUM 0.5 MG NEB (SCH) INH ×4 (03:39→22:14)
[2017-03-30] MEDS: CHLORHEXIDINE GLUCONATE 2 % 1 PACK (2 CLOTHS)(taper/protocol) TOPICAL SCH (04:00)
[2017-03-30] MEDS: methylPREDNISolone SOD SUCC 40 MG/1 ML VIAL IV PUSH SCH ×3 (06:34→22:22)
[2017-03-30] MEDS: PRAMIPEXOLE DIHYDROCHLORIDE 0.25 MG TAB PO SCH ×3 (06:35→22:22)
[2017-03-30] MEDS: ISOSORBIDE MONONITRATE 30 MG TAB PO SCH (06:35)
[2017-03-30] MEDS ORDERED: PNEUMOCOCCAL POLYVALENT INJ 25 MCG/0.5 ML SYR IM ONE (10:00)
[2017-03-30] MEDS ORDERED: INFLUENZA VIRUS VACCINE (QUADRIVALENT) 0.5 ML SYR IM ONE (10:00)
[2017-03-30] MEDS: FUROSEMIDE 40 MG/4 ML VIAL IV PUSH SCH ×2 (10:07→18:24)
[2017-03-30] MEDS: SERTRALINE HCL 100 MG TAB PO SCH (10:08)
[2017-03-30] MEDS: PRAVASTATIN SOD 10 MG TAB PO SCH (10:08)
[2017-03-30] MEDS: ASPIRIN 81 MG CHEW TAB PO SCH (10:08)
[2017-03-30] MEDS: acetaZOLAMIDE 250 MG TAB PO SCH (10:08)
[2017-03-30] MEDS: SPIRONOLACTONE 25 MG TAB PO SCH (10:08)
[2017-03-30] MEDS: PANTOPRAZOLE SOD 40 MG DELAYED RELEASE TAB PO SCH (10:08)
[2017-03-30] MEDS: SODIUM CHLORIDE 0.9% FLUSH 10 ML FLUSH IV FLUSH SCH ×2 (10:09→20:00)
[2017-03-30] MEDS: CARVEDILOL 3.125 MG TAB PO SCH ×2 (10:09→20:00)
[2017-03-30] MEDS: LACTOBACILLUS ACIDOPHILUS TAB PO SCH (10:09)
[2017-03-30] MEDS: TIOTROPIUM BROMIDE 18 MCG INH INH SCH (10:10)
[2017-03-30] MEDS: FLUTICASONE PROPIONATE 50 MCG/ACT 16 GM NASAL SPRAY EACH NARE SCH (10:10)
--- NOTE | 2017-03-30 14:49 | HHI.PR ---
Subjective Remarks seen with granddaughter at bedside came from nearby [place] baseline is wheelchair bound now much awake and alert feisty, just hard of hearing brought in with change in MS - on ABG- with C02 retention baseline COPD -02 requiring now awake and alert, near baseline complains of cough- productive of greenish minimal sputum. requesting something for cough no fever or chills diuresing very well moves all extremities spontaenously Objective Vitals Vital Signs Date Time Temp Pulse Resp B/P (MAP) Pulse Ox O2 Delivery O2 Flow Rate FiO2 03/30/17 08:21 95 Nasal Cannula 3.00 03/30/17 06:00 101 03/30/17 04:00 97.6 95 33 126/69 (88) 99 03/30/17 04:00 95 03/30/17 02:00 99 03/30/17 00:00 98.6 92 40 137/98 (111) 94 03/30/17 00:00 92 03/29/17 22:00 96 03/29/17 21:09 92 Nasal Cannula 2.00 03/29/17 20:00 98.7 91 0 128/72 (90) 93 03/29/17 20:00 91 03/29/17 18:00 101 03/29/17 17:00 97 03/29/17 16:00 96 03/29/17 15:00 98.8 111 41 130/76 (94) 90 I/O 03/29/17 03/29/17 03/29/17 03/30/17 03/30/17 03/30/17 07:00 15:00 23:00 07:00 15:00 23:00 Intake Total 100 ml 1060 ml 1467 ml Output Total 1300 ml 1900 ml Balance 100 ml -240 ml -433 ml Intake Oral 960 ml 700 ml IV Total 100 ml 100 ml 767 ml Output Urine Total 1300 ml 1900 ml Stool Total 0 ml # Bowel Movements 1 Result Diagram: 03/29/1745203/29/17452 Imaging Last Impressions Head CT 03/28/171903 Signed Impressions: Service Date/Time: March 19:19 - CONCLUSION: No acute intracranial abnormality demonstrated. Roberto Bullock MD Chest X-Ray 03/28/171903 Signed Impressions: Service Date/Time: March 19:07 - CONCLUSION: Bibasilar consolidation and small to moderate effusions. Roberto Bullock MD Objective Remarks awake and alert, oriented x 3 anciteric no nucchal rigidity lungs- few dry rales, no wheezes irregularly irregular rhtyhm abdomen soft, non tender extremities- no edema, venous stasis changes, bilateral calf tenderness moves all extremitiees spontaenously- but baseline WC bound a lot- due to OA Urinary Catheter: Yes Assessment to: Continue Cheek insert reason: ICU Pt Getting Diuretics Date of Insertion: Mar 29, 2017 A/P Assessment and Plan Assessment/plan: admitted for Change in MS- improved secondary to Hypercapnic respiratory failure with udnerlying Chronic respiratory failure- 02 dependent Hypercapnic respiratory distress/healthcare associated pneumonia/bilateral pleural effusions/COPD exacerbation= acute c02 retention Chest x-ray significant for bibasilar consolidation and moderate bilateral effusions, personally reviewed Initial AB.23/132/94/53; patient placed on BiPAP with improvement in her ABG Continue BiPAP at HS Aztreonam/Levaquin/vancomycin as patient resident of SNF with PCN allergy Blood cultures pending Monitor for signs of sepsis get a 2D echo IV Lasix- decrease to 20 mg bid Elano tracey Pino ff IV steroids- 40 mg IV q 8- taper to q 12 - if continues to improve UTI- e coli - on Azactam - resistant to levaquin- will DC History of chronic atrial fibrillation, rate controlled EKG significant for atrial fibrillation, pulse 98, no ST segment elevations or depressions, personally reviewed Placed on ASA- not on any OAC due to high risks of fall- reviewed previous admission- cardiology notes - continue ASA, Coreg - get Echo Hypertension/hyperlipidemia/CAD Continue home medications Bilateral calf tenderness - get doppler both legs FEN Heart healthy diet Electrolytes: Monitor and replete prn Lovenox, PPI PT consult for deconditioning Skyla Reina MD Mar 30, 2017 14:49
[2017-03-30] MEDS: VANCOMYCIN INJ 1,750 MG in SODIUM CHLORID 0.9% 500 ML INJ 500 ML IV SCH (15:23)
[2017-03-30] MEDS: guaiFENesin/DEXTROMETHORPHAN 200 MG/20 MG/10 ML CUP PO SCH ×2 (16:00→22:00)
--- NOTE | 2017-03-30 16:15 | RADRPT ---
EXAM DATE/TIME: 03/30/2017 15:24 [facility] COMPARISON: No previous studies available for comparison. INDICATIONS : Bilateral leg swelling. MEDICAL HISTORY : Hypothyroidism. Hypertension. Chronic obstructive pulmonary disease. Hearing loss. Atrial fibrillatio n. Gastroesophageal reflux disease. SURGICAL HISTORY : None. ENCOUNTER: Initial ACUITY: 1 day PAIN SCORE: 8/10 LOCATION: Bilateral legs. TECHNIQUE: Venous ultrasound of the left and right leg was performed from the inguinal ligament to the proximal calf. Real-time, color Doppler and spectral tracing, compression and augmentation techniques were us ed. FINDINGS: RIGHT LEG: There is normal compressibility of the deep venous system from the inguinal region to the proximal ca lf. No echogenic clot is seen in the lumen of the common femoral, femoral, popliteal, and posterior tibial veins. There is a normal response of the venous system to proximal and distal augmentation an d respiration. LEFT LEG: There is normal compressibility of the deep venous system from the inguinal region to the proximal ca lf. No echogenic clot is seen in the lumen of the common femoral, femoral, popliteal, and posterior tibial veins. There is a normal response of the venous system to proximal and distal augmentation an d respiration. CONCLUSION: No evidence of lower extremity DVT on the right or left. Favio Barcenas MD on March 30, 2017 at 16:11 Board Certified Radiologist. This report was verified electronically.
[2017-03-30 16:49] LABS: BICARBONATE 44.3 MEQ/L (21.0-32.0); CALCIUM 9.3 MG/DL (8.5-10.1); CREATININE 0.6 MG/DL (0.50-1.00)
[2017-03-30] MEDS: MELATONIN 5 MG TAB PO SCH (20:00)
--- NOTE | 2017-03-30 20:41 | HHI.PR ---
Subjective Remarks 76 YOWF with Hypercapnoic RF,COPD Feels better Weaned to NC C/O sore throat Objective Vital Signs Vital Signs Date Time Temp Pulse Resp B/P (MAP) Pulse Ox O2 Delivery O2 Flow Rate FiO2 03/30/17 19:57 96 Nasal Cannula 3.00 03/30/17 18:00 92 03/30/17 16:00 99.1 98 32 124/88 (100) 94 03/30/17 16:00 98 03/30/17 14:00 100 03/30/17 12:00 99 03/30/17 12:00 97.9 99 32 118/77 (91) 93 03/30/17 10:00 102 03/30/17 08:21 95 Nasal Cannula 3.00 03/30/17 08:00 98.1 95 35 135/92 (106) 95 03/30/17 08:00 95 03/30/17 06:00 101 03/30/17 04:00 97.6 95 33 126/69 (88) 99 03/30/17 04:00 95 03/30/17 02:00 99 03/30/17 00:00 98.6 92 40 137/98 (111) 94 03/30/17 00:00 92 03/29/17 22:00 96 03/29/17 21:09 92 Nasal Cannula 2.00 I/O 03/29/17 03/29/17 03/29/17 03/30/17 03/30/17 03/30/17 07:00 15:00 23:00 07:00 15:00 23:00 Intake Total 100 ml 1060 ml 1467 ml 480 ml Output Total 1300 ml 1900 ml 1800 ml Balance 100 ml -240 ml -433 ml -1320 ml Intake Oral 960 ml 700 ml 480 ml IV Total 100 ml 100 ml 767 ml Output Urine Total 1300 ml 1900 ml 1800 ml Stool Total 0 ml # Bowel Movements 1 Result Diagram: 03/29/17 0453 03/30/17 1556 Objective Remarks GENERAL:Elderly WF, mild sob SKIN: Warm and dry. HEAD: Normocephalic. EYES: No scleral icterus. No injection or drainage. NECK: Supple, trachea midline. No JVD or lymphadenopathy. CARDIOVASCULAR: Regular rate and rhythm without murmurs, gallops, or rubs. RESPIRATORY: Breath sounds equal bilaterally. No accessory muscle use. GASTROINTESTINAL: Abdomen soft, non-tender, nondistended. MUSCULOSKELETAL: No cyanosis, or edema. BACK: Nontender without obvious deformity. No CVA tenderness. A/P Assessment and Plan Hypercapnoic RF, improved COPD Pl eff AF HTN PLAN: Aerosol nebs IV Solumedrol Supplement 02 Cont Abx CPAP prn Augustine Pino MD Mar 30, 2017 20:41
[2017-03-31] VITALS (14 sets, daily range): BP systolic 108–137; BP diastolic 57–75; PULSE 76–101; RESP 19–22; TEMP 98–99.2; O2SAT 95–97
[2017-03-31] MEDS: RESP: ALBUTEROL 2.5 MG/IPRATROPIUM 0.5 MG NEB (SCH) INH ×4 (03:27→21:08)
[2017-03-31] MEDS: CHLORHEXIDINE GLUCONATE 2 % 1 PACK (2 CLOTHS)(taper/protocol) TOPICAL SCH (04:00)
[2017-03-31] MEDS: ISOSORBIDE MONONITRATE 30 MG TAB PO SCH (05:50)
[2017-03-31] MEDS: guaiFENesin/DEXTROMETHORPHAN 200 MG/20 MG/10 ML CUP PO SCH ×4 (05:50→21:14)
[2017-03-31] MEDS: methylPREDNISolone SOD SUCC 40 MG/1 ML VIAL IV PUSH SCH ×3 (05:50→21:14)
[2017-03-31] MEDS: PRAMIPEXOLE DIHYDROCHLORIDE 0.25 MG TAB PO SCH ×3 (05:51→21:14)
[2017-03-31] MEDS: AZTREONAM INJ 2,000 MG in SODIUM CHLORIDE 0.9% INJ 100 ML IV SCH ×2 (08:05→16:00)
[2017-03-31] MEDS: LACTOBACILLUS ACIDOPHILUS TAB PO SCH (08:08)
[2017-03-31] MEDS: acetaZOLAMIDE 250 MG TAB PO SCH (08:08)
[2017-03-31] MEDS: PRAVASTATIN SOD 10 MG TAB PO SCH (08:08)
[2017-03-31] MEDS: SERTRALINE HCL 100 MG TAB PO SCH (08:08)
[2017-03-31] MEDS: CARVEDILOL 3.125 MG TAB PO SCH ×2 (08:08→21:14)
[2017-03-31] MEDS: ASPIRIN 81 MG CHEW TAB PO SCH (08:13)
[2017-03-31] MEDS: SPIRONOLACTONE 25 MG TAB PO SCH (08:13)
[2017-03-31] MEDS: FUROSEMIDE 40 MG/4 ML VIAL IV PUSH SCH ×2 (08:14→18:08)
[2017-03-31] MEDS: PANTOPRAZOLE SOD 40 MG DELAYED RELEASE TAB PO SCH (08:14)
[2017-03-31] MEDS: SODIUM CHLORIDE 0.9% FLUSH 10 ML FLUSH IV FLUSH SCH ×2 (08:15→21:13)
[2017-03-31] MEDS: TIOTROPIUM BROMIDE 18 MCG INH INH SCH (08:16)
[2017-03-31] MEDS: FLUTICASONE PROPIONATE 50 MCG/ACT 16 GM NASAL SPRAY EACH NARE SCH (08:17)
[2017-03-31] MEDS ORDERED: PHARMACY ORDERED LAB ONE (08:45)
[2017-03-31] MEDS: VANCOMYCIN INJ 1,750 MG in SODIUM CHLORID 0.9% 500 ML INJ 500 ML IV SCH (12:36)
--- NOTE | 2017-03-31 14:21 | HHI.PR ---
Subjective Remarks awake and alert no pain complains Objective Vitals Vital Signs Date Time Temp Pulse Resp B/P (MAP) Pulse Ox O2 Delivery O2 Flow Rate FiO2 03/31/17 09:09 95 Nasal Cannula 2.00 03/31/17 08:00 92 03/31/17 06:00 97 03/31/17 04:00 101 03/31/17 04:00 98.5 101 19 110/59 (76) 96 03/31/17 03:28 96 Nasal Cannula 3.00 03/31/17 02:00 99 03/31/17 00:00 101 03/31/17 00:00 98.0 101 22 123/67 (85) 97 03/30/17 23:43 97 Nasal Cannula 3.00 03/30/17 22:00 108 03/30/17 20:00 102 03/30/17 20:00 99.6 102 30 144/60 (88) 96 03/30/17 19:57 96 Nasal Cannula 3.00 03/30/17 18:00 92 03/30/17 16:00 99.1 98 32 124/88 (100) 94 03/30/17 16:00 98 I/O 03/30/17 03/30/17 03/30/17 03/31/17 03/31/17 03/31/17 07:00 15:00 23:00 07:00 15:00 23:00 Intake Total 1467 ml 1097.5 ml 360 ml Output Total 1900 ml 1800 ml 2200 ml Balance -433 ml -702.5 ml -1840 ml Intake Oral 700 ml 480 ml 360 ml IV Total 767 ml 617.5 ml Output Urine Total 1900 ml 1800 ml 2200 ml Stool Total 0 ml # Bowel Movements 1 Result Diagram: 03/29/17 0453 03/30/17 1556 Imaging Last Impressions Lower Extremity Ultrasound 03/30/17 0000 Signed Impressions: Service Date/Time: Thursday, March 30, 2017 15:24 - CONCLUSION: No evidence of lower extremity DVT on the right or left. Favio Barcenas MD Head CT 03/28/171903 Signed Impressions: Service Date/Time: March 19:19 - CONCLUSION: No acute intracranial abnormality demonstrated. Roberto Bullock MD Chest X-Ray 03/28/171903 Signed Impressions: Service Date/Time: March 19:07 - CONCLUSION: Bibasilar consolidation and small to moderate effusions. Roberto Bullock MD Objective Remarks awake and alert, oriented x 3 anicteric no nuchal rigidity lungs- few dry rales, no wheezes irregularly irregular rhtyhm abdomen soft, non tender extremities- no edema, venous stasis changes, bilateral calf tenderness moves all extremities spontaenously- but baseline WC bound a lot- due to OA Urinary Catheter: Yes Assessment to: Continue Cheek insert reason: ICU Pt Getting Diuretics Date of Insertion: Mar 29, 2017 A/P Assessment and Plan Assessment/plan: admitted for Change in MS- improved secondary to Hypercapnic respiratory failure with udnerlying Chronic respiratory failure- 02 dependent Hypercapnic respiratory distress/healthcare associated pneumonia/bilateral pleural effusions/COPD exacerbation= acute c02 retention Chest x-ray significant for bibasilar consolidation and moderate bilateral effusions, Initial AB.23/132/94/53; patient placed on BiPAP with improvement in her ABG Continue BiPAP at HS continue Aztreonam Blood cultures negative so far get a 2D echo - pending IV Lasix- decrease to 20 mg bid IV- diuresing well. FF BMP Duo nebs Dr. Pino ff IV steroids- 40 mg IV q 8- taper to q 12 UTI- e coli - on Azactam - resistant to levaquin- will DC History of chronic atrial fibrillation, rate controlled. CAD, HTN, hyperlipidemia EKG significant for atrial fibrillation, pulse 98, no ST segment elevations or depressions, personally reviewed Placed on ASA- not on any OAC due to high risks of fall- reviewed previous admission- cardiology notes - continue ASA, Coreg get Echo Continue home medications Bilateral calf tenderness - - negative for DVT FEN Heart healthy diet Electrolytes: Monitor and replete prn Lovenox, PPI PT consult for deconditioning CM consult- DC planning from SNF Transfer to medical floor Skyla Reina MD Mar 31, 2017 14:21
--- NOTE | 2017-03-31 19:04 | HHI.PR ---
Subjective Remarks 76 YOWF with Hypercapnoic RF,COPD Feels better Weaned to NC C/O sore throat Feels comfortable AFOGNAK Objective Vital Signs Vital Signs Date Time Temp Pulse Resp B/P (MAP) Pulse Ox O2 Delivery O2 Flow Rate FiO2 03/31/17 14:00 80 03/31/17 12:00 99.2 97 21 114/58 (76) 96 03/31/17 12:00 76 03/31/17 10:00 89 03/31/17 09:09 95 Nasal Cannula 2.00 03/31/17 08:00 92 03/31/17 08:00 98.2 92 21 108/57 (74) 96 03/31/17 06:00 97 03/31/17 04:00 101 03/31/17 04:00 98.5 101 19 110/59 (76) 96 03/31/17 03:28 96 Nasal Cannula 3.00 03/31/17 02:00 99 03/31/17 00:00 101 03/31/17 00:00 98.0 101 22 123/67 (85) 97 03/30/17 23:43 97 Nasal Cannula 3.00 03/30/17 22:00 108 03/30/17 20:00 102 03/30/17 20:00 99.6 102 30 144/60 (88) 96 03/30/17 19:57 96 Nasal Cannula 3.00 I/O 03/30/17 03/30/17 03/30/17 03/31/17 03/31/17 03/31/17 07:00 15:00 23:00 07:00 15:00 23:00 Intake Total 1467 ml 1097.5 ml 360 ml Output Total 1900 ml 1800 ml 2200 ml Balance -433 ml -702.5 ml -1840 ml Intake Oral 700 ml 480 ml 360 ml IV Total 767 ml 617.5 ml Output Urine Total 1900 ml 1800 ml 2200 ml Stool Total 0 ml # Bowel Movements 1 Result Diagram: 03/29/17 0453 03/30/17 1556 Objective Remarks GENERAL:Elderly WF, mild sob SKIN: Warm and dry. HEAD: Normocephalic. EYES: No scleral icterus. No injection or drainage. NECK: Supple, trachea midline. No JVD or lymphadenopathy. CARDIOVASCULAR: Regular rate and rhythm without murmurs, gallops, or rubs. RESPIRATORY: Breath sounds equal bilaterally. No accessory muscle use. GASTROINTESTINAL: Abdomen soft, non-tender, nondistended. MUSCULOSKELETAL: No cyanosis, or edema. BACK: Nontender without obvious deformity. No CVA tenderness. A/P Assessment and Plan Hypercapnoic RF, improved COPD Pl eff AF HTN PLAN: Aerosol nebs IV Solumedrol Supplement 02 Cont Abx Stable to tr to floor Augustine Pino MD Mar 31, 2017 19:04
[2017-03-31] MEDS: MELATONIN 5 MG TAB PO SCH (21:14)
[2017-03-31] MEDS: ENOXAPARIN SODIUM 40 MG/0.4 ML SYRINGE SQ SCH (22:20)
[2017-04-01] VITALS (15 sets, daily range): BP systolic 111–141; BP diastolic 47–96; PULSE 77–103; RESP 18–20; TEMP 97.3–98.5; O2SAT 93–98
[2017-04-01] MEDS: AZTREONAM INJ 2,000 MG in SODIUM CHLORIDE 0.9% INJ 100 ML IV SCH ×4 (01:06→22:54)
[2017-04-01] MEDS ORDERED: VANCOMYCIN INJ 2,000 MG in SODIUM CHLORID 0.9% 500 ML INJ 500 ML IV SCH (03:00)
[2017-04-01] MEDS: RESP: ALBUTEROL 2.5 MG/IPRATROPIUM 0.5 MG NEB (SCH) INH ×4 (03:44→23:02)
[2017-04-01] MEDS: CHLORHEXIDINE GLUCONATE 2 % 1 PACK (2 CLOTHS)(taper/protocol) TOPICAL SCH (04:00)
[2017-04-01] MEDS: guaiFENesin/DEXTROMETHORPHAN 200 MG/20 MG/10 ML CUP PO SCH ×4 (05:11→22:55)
[2017-04-01] MEDS: PRAMIPEXOLE DIHYDROCHLORIDE 0.25 MG TAB PO SCH ×3 (05:59→22:56)
[2017-04-01] MEDS: ISOSORBIDE MONONITRATE 30 MG TAB PO SCH (05:59)
[2017-04-01 07:02] LABS: BICARBONATE GREATER THAN 45.0 MEQ/L (21.0-32.0); BLOOD UREA NITROGEN 24 MG/DL (7-18); CALCIUM 9.5 MG/DL (8.5-10.1); CHLORIDE 86 MEQ/L (98-107); CREATININE 0.63 MG/DL (0.50-1.00); GLOMERULAR FILTRATION RATE 91 ML/MIN (>89); GLUCOSE,RANDOM 131 MG/DL (74-106); SODIUM (NA) 135 MEQ/L (136-145)
[2017-04-01] MEDS: SODIUM CHLORIDE 0.9% FLUSH 10 ML FLUSH IV FLUSH SCH ×2 (09:00→21:00)
[2017-04-01] MEDS: acetaZOLAMIDE 250 MG TAB PO SCH (09:00)
[2017-04-01] MEDS: SERTRALINE HCL 100 MG TAB PO SCH (09:00)
[2017-04-01] MEDS: TIOTROPIUM BROMIDE 18 MCG INH INH SCH ×2 (09:00→23:01)
[2017-04-01] MEDS: FLUTICASONE PROPIONATE 50 MCG/ACT 16 GM NASAL SPRAY EACH NARE SCH (09:00)
[2017-04-01] MEDS: PANTOPRAZOLE SOD 40 MG DELAYED RELEASE TAB PO SCH (10:40)
[2017-04-01] MEDS: LACTOBACILLUS ACIDOPHILUS TAB PO SCH (10:40)
[2017-04-01] MEDS: ASPIRIN 81 MG CHEW TAB PO SCH (10:40)
[2017-04-01] MEDS: CARVEDILOL 3.125 MG TAB PO SCH ×2 (10:40→22:55)
[2017-04-01] MEDS: SPIRONOLACTONE 25 MG TAB PO SCH (10:40)
[2017-04-01] MEDS: PRAVASTATIN SOD 10 MG TAB PO SCH (10:40)
[2017-04-01] MEDS: methylPREDNISolone SOD SUCC 40 MG/1 ML VIAL IV PUSH SCH (10:41)
[2017-04-01] MEDS: FUROSEMIDE 40 MG/4 ML VIAL IV PUSH SCH ×2 (10:41→18:29)
--- NOTE | 2017-04-01 11:55 | HHI.PR ---
Subjective Remarks With urinary retention and blader distention, per nurse has to straight cath more often, also patient on diuretics. patient non verbal. Objective Vitals Vital Signs Date Time Temp Pulse Resp B/P (MAP) Pulse Ox O2 Delivery O2 Flow Rate FiO2 04/01/17 10:00 89 04/01/17 09:25 97 Nasal Cannula 2.00 04/01/17 08:00 98.4 96 18 141/96 (111) 96 04/01/17 08:00 83 04/01/17 06:00 92 04/01/17 05:00 96 04/01/17 04:00 98.3 96 20 131/54 (79) 97 04/01/17 04:00 83 04/01/17 03:00 80 04/01/17 02:00 96 04/01/17 01:00 92 04/01/17 00:00 98.5 103 20 129/47 (74) 98 04/01/17 00:00 92 03/31/17 21:08 96 Nasal Cannula 2.00 03/31/17 20:00 92 03/31/17 20:00 98.3 92 20 135/75 (95) 95 03/31/17 18:00 90 03/31/17 16:00 93 03/31/17 16:00 98.9 93 21 137/74 (95) 96 03/31/17 14:00 80 03/31/17 12:00 99.2 97 21 114/58 (76) 96 03/31/17 12:00 76 I/O 03/31/17 03/31/17 03/31/17 04/01/17 04/01/17 04/01/17 07:00 15:00 23:00 07:00 15:00 23:00 Intake Total 360 ml 990 ml 360 ml Output Total 2200 ml 2100 ml 1000 ml Balance -1840 ml -1110 ml -640 ml Intake Oral 360 ml 740 ml 360 ml IV Total 250 ml Output Urine Total 2200 ml 2100 ml 1000 ml Bladder Scan Volume Amount 400 ml # Bowel Movements 1 0 Result Diagram: 03/29/17 0453 04/01/17 0603 Imaging Last Impressions Lower Extremity Ultrasound 03/30/17 0000 Signed Impressions: Service Date/Time: Thursday, March 30, 2017 15:24 - CONCLUSION: No evidence of lower extremity DVT on the right or left. Favio Barcenas MD Head CT 03/28/171903 Signed Impressions: Service Date/Time: March 19:19 - CONCLUSION: No acute intracranial abnormality demonstrated. Roberto Bullock MD Chest X-Ray 03/28/171903 Signed Impressions: Service Date/Time: , March 28, 2017 19:07 - CONCLUSION: Bibasilar consolidation and small to moderate effusions. Roberto Bullock MD Objective Remarks GENERAL: Elderly F, awake and alert, oriented x 3 CARDIOVASCULAR: irregularly irregular rate and rhythm. RESPIRATORY: No accessory muscle use. Decreased breath sounds dry rales. GASTROINTESTINAL: Abdomen soft, non-tender, nondistended. Hepatic and splenic margins not palpable. MUSCULOSKELETAL: Extremities without clubbing, cyanosis, or edema. No obvious deformities. NEUROLOGICAL: Awake and alert. No obvious cranial nerve deficits. Motor grossly within normal limits. Five out of 5 muscle strength in the arms and legs. Normal speech. PSYCHIATRIC: Appropriate mood and affect; insight and judgment normal. Date of Insertion: Mar 29, 2017 A/P Assessment and Plan Change in MS- improved secondary to Hypercapnic respiratory failure with udnerlying Chronic respiratory failure- 02 dependent Hypercapnic respiratory distress/healthcare associated pneumonia/bilateral pleural effusions/COPD exacerbation, acute C02 retention Chest x-ray significant for bibasilar consolidation and moderate bilateral effusions, Initial AB.23/132/94/53; patient placed on BiPAP with improvement in her ABG Continue BiPAP at HS continue Aztreonam Blood cultures negative so far get a 2D echo - pending IV Lasix- decrease to 20 mg bid IV- diuresing well. FF BMP Duo nebs Dr. Pino ff IV steroids- 40 mg IV q 8- taper to q 12 UTI- e coli - on Azactam - resistant to levaquin- will DC History of chronic atrial fibrillation, rate controlled. CAD, HTN, hyperlipidemia EKG significant for atrial fibrillation, pulse 98, no ST segment elevations or depressions, personally reviewed Placed on ASA- not on any OAC due to high risks of fall- reviewed previous admission- cardiology notes - continue ASA, Coreg get Echo Continue home medications Bilateral calf tenderness - - negative for DVT FEN Heart healthy diet Electrolytes: Monitor and replete prn Lovenox, PPI PT consult for deconditioning CM consult- DC planning from [facility] Cynthia Fernandez MD Apr 01, 2017 11:55
--- NOTE | 2017-04-01 13:40 | ECHRPT ---
Indication: a fib/flutter CONCLUSIONS Normal left ventricular size. The left ventricular systolic function is normal with an estimated ejection fraction in the range of 55-60%. Moderate left ventricular hypertrophy. The left atrial size is mildly dilated. [id number] mitral valve regurgitation. Trace aortic valve regurgitation. There is mild tricuspid valve regurgitation. The estimated pulmonary arterial pressure is 55 mmHg. BP: / HR: Rhythm: MEASUREMENTS (Male / Female) Normal Values Technical Quality:Fair 2D ECHO LV Diastolic Diameter PLAX 4.5 cm 4.2 - 5.9 / 3.9 - 5.3 cm LV Systolic Diameter PLAX 3.5 cm IVS Diastolic Thickness 1.8 cm 0.6 - 1.0 / 0.6 - 0.9 cm LVPW Diastolic Thickness 1.4 cm 0.6 - 1.0 / 0.6 - 0.9 cm LV Relative Wall Thickness 0.7 RV Internal Dim ED PLAX 3.5 cm M-MODE Aortic Root Diameter MM 3.5 cm LA Systolic Diameter MM 4.9 cm LA Ao Ratio MM 1.4 AV Cusp Separation MM 2.1 cm DOPPLER LV E' Lateral Velocity 6.0 cm/s LV E' Septal Velocity 7.2 cm/s TR Peak Velocity 335.0 cm/s TR Peak Gradient 44.9 mmHg Right Atrial Pressure 10.0 mmHg Pulmonary Artery Systolic Pressu 54.9 mmHg Right Ventricular Systolic Press 54.9 mmHg FINDINGS LEFT VENTRICLE Normal left ventricular size. The left ventricular systolic function is low normal with an estimated ejection fraction in the rang e of 55- 60%. RIGHT VENTRICLE Normal right ventricular size and systolic function. LEFT ATRIUM The left atrial size is mildly dilated. RIGHT ATRIUM The right atrial size is normal. ATRIAL SEPTUM Normal atrial septal thickness without atrial level shunting by limited color doppler interrogation. AORTA The aortic root and proximal ascending aorta are normal in size on limited imaging. MITRAL VALVE MAC. [id number] mitral valve regurgitation. AORTIC VALVE Trileaflet aortic valve. Aortic sclerosis without stenosis. Trace aortic valve regurgitation. TRICUSPID VALVE Structurally normal tricuspid valve. There is mild tricuspid valve regurgitation. The estimated pulmonary arterial pressure is 54.9 mmHg. PULMONARY VALVE No pulmonary valve regurgitation or stenosis. VESSELS The inferior vena cava is normal in size. PERICARDIUM No pericardial effusion. Franklin Blankenship MD, FACC (Electronically Signed) Final Date:01 April 2017 13:39
--- NOTE | 2017-04-01 15:58 | HHI.PR ---
Subjective Remarks 76 YOWF with Hypercapnoic RF,COPD Feels better Weaned to NC Feels comfortable Good appetite Objective Vital Signs Vital Signs Date Time Temp Pulse Resp B/P (MAP) Pulse Ox O2 Delivery O2 Flow Rate FiO2 04/01/17 14:00 77 04/01/17 12:00 98.3 89 18 111/70 (84) 98 04/01/17 12:00 79 04/01/17 10:00 89 04/01/17 09:25 97 Nasal Cannula 2.00 04/01/17 08:00 98.4 96 18 141/96 (111) 96 04/01/17 08:00 83 04/01/17 06:00 92 04/01/17 05:00 96 04/01/17 04:00 98.3 96 20 131/54 (79) 97 04/01/17 04:00 83 04/01/17 03:00 80 04/01/17 02:00 96 04/01/17 01:00 92 04/01/17 00:00 98.5 103 20 129/47 (74) 98 04/01/17 00:00 92 03/31/17 21:08 96 Nasal Cannula 2.00 03/31/17 20:00 92 03/31/17 20:00 98.3 92 20 135/75 (95) 95 03/31/17 18:00 90 03/31/17 16:00 93 03/31/17 16:00 98.9 93 21 137/74 (95) 96 I/O 03/31/17 03/31/17 03/31/17 04/01/17 04/01/17 04/01/17 07:00 15:00 23:00 07:00 15:00 23:00 Intake Total 360 ml 990 ml 360 ml Output Total 2200 ml 2100 ml 1000 ml Balance -1840 ml -1110 ml -640 ml Intake Oral 360 ml 740 ml 360 ml IV Total 250 ml Output Urine Total 2200 ml 2100 ml 1000 ml Bladder Scan Volume Amount 400 ml 400 ml # Bowel Movements 1 0 Result Diagram: 03/29/17 0453 04/01/17 0603 Objective Remarks GENERAL:Elderly WF, mild sob SKIN: Warm and dry. HEAD: Normocephalic. EYES: No scleral icterus. No injection or drainage. NECK: Supple, trachea midline. No JVD or lymphadenopathy. CARDIOVASCULAR: Regular rate and rhythm without murmurs, gallops, or rubs. RESPIRATORY: Breath sounds equal bilaterally. No accessory muscle use. GASTROINTESTINAL: Abdomen soft, non-tender, nondistended. MUSCULOSKELETAL: No cyanosis, or edema. BACK: Nontender without obvious deformity. No CVA tenderness. A/P Assessment and Plan Hypercapnoic RF, improved COPD Pl eff AF HTN PLAN: Aerosol nebs DCSolumedrol Supplement 02 Cont Abx PO Steoids Augustine Pino MD Apr 01, 2017 15:58
[2017-04-01] MEDS: predniSONE 10 MG TAB PO SCH (18:29)
[2017-04-01] MEDS: ENOXAPARIN SODIUM 40 MG/0.4 ML SYRINGE SQ SCH (22:54)
[2017-04-01] MEDS: MELATONIN 5 MG TAB PO SCH (22:56)
[2017-04-02] VITALS (12 sets, daily range): BP systolic 92–135; BP diastolic 62–69; PULSE 76–98; RESP 16–20; TEMP 98–98.5; O2SAT 93–98
[2017-04-02] MEDS: RESP: ALBUTEROL 2.5 MG/IPRATROPIUM 0.5 MG NEB (SCH) INH ×2 (00:07→03:41)
[2017-04-02] MEDS: CHLORHEXIDINE GLUCONATE 2 % 1 PACK (2 CLOTHS)(taper/protocol) TOPICAL SCH ×2 (03:45→21:12)
[2017-04-02] MEDS: guaiFENesin/DEXTROMETHORPHAN 200 MG/20 MG/10 ML CUP PO SCH ×4 (03:46→21:11)
[2017-04-02] MEDS: PRAMIPEXOLE DIHYDROCHLORIDE 0.25 MG TAB PO SCH ×3 (05:53→21:11)
[2017-04-02] MEDS: ISOSORBIDE MONONITRATE 30 MG TAB PO SCH (05:54)
[2017-04-02] MEDS: SODIUM CHLORIDE 0.9% FLUSH 10 ML FLUSH IV FLUSH SCH ×2 (09:00→21:12)
[2017-04-02] MEDS: FLUTICASONE PROPIONATE 50 MCG/ACT 16 GM NASAL SPRAY EACH NARE SCH (09:00)
--- NOTE | 2017-04-02 09:15 | HHI.PR ---
Subjective Remarks This is a pleasant 76 y/o female with COPD oxygen dependence, Atrial Fibrillation, Hyperlipidemia, restless leg syndrome, [facility] a [facility], brought in by her Daughter due to worsening mental status, on chest x ray found bibasilar consolidation and pleural effusion, CT brain negative, yesterday had Urinary retention and bladder distention, patient with hard hearing, her respiratory failure has improved. Was removed Solu- Medrol by financial services specialist, recommended to continue antibiotics, and by mouth Steroids. Objective Vital Signs Date Time Temp Pulse Resp B/P (MAP) Pulse Ox O2 Delivery O2 Flow Rate FiO2 04/02/17 08:56 98.4 83 18 104/63 (77) 94 04/02/17 04:06 76 04/02/17 04:00 98.3 80 16 96/63 (74) 94 04/02/17 00:09 95 Nasal Cannula 2.00 04/02/17 00:00 98.5 84 18 92/62 (72) 95 04/02/17 00:00 76 04/01/17 20:00 98.5 79 18 118/65 (82) 93 04/01/17 20:00 93 04/01/17 17:55 97.3 79 20 113/78 (90) 93 04/01/17 16:58 132/74 (93) 04/01/17 16:58 89 04/01/17 14:00 77 04/01/17 12:00 98.3 89 18 111/70 (84) 98 04/01/17 12:00 79 04/01/17 10:00 89 04/01/17 09:25 97 Nasal Cannula 2.00 I/O 04/01/17 04/01/17 04/01/17 04/02/17 04/02/17 04/02/17 07:00 15:00 23:00 07:00 15:00 23:00 Intake Total 360 ml 400 ml 100 ml Output Total 1000 ml 1600 ml Balance -640 ml -1200 ml 100 ml Intake Oral 360 ml 400 ml IV Total 100 ml Output Urine Total 1000 ml 1600 ml Bladder Scan Volume Amount 400 ml 400 ml # Bowel Movements 0 Result Diagram: 03/29/17 0453 04/01/17 0603 Imaging Last Impressions Lower Extremity Ultrasound 03/30/17 0000 Signed Impressions: Service Date/Time: Thursday, March 30, 2017 15:24 - CONCLUSION: No evidence of lower extremity DVT on the right or left. Favio Barcenas MD Head CT 03/28/171903 Signed Impressions: Service Date/Time: March 19:19 - CONCLUSION: No acute intracranial abnormality demonstrated. Roberto Bullock MD Chest X-Ray 03/28/171903 Signed Impressions: Service Date/Time: March 19:07 - CONCLUSION: Bibasilar consolidation and small to moderate effusions. Roberto Bullock MD Procedures None Other Results Laboratory Tests Test 03/28/17 19:12 03/28/17 19:15 03/28/17 20:10 03/28/17 23:00 Prothrombin Time 10.6 SEC Prothromb Time International Ratio 1.0 RATIO Activated Partial Thromboplast Time 26.1 SEC Blood Urea Nitrogen 19 MG/DL Creatinine 0.37 MG/DL Random Glucose 94 MG/DL Total Protein 7.1 GM/DL Albumin 3.3 GM/DL Calcium Level 9.5 MG/DL Alkaline Phosphatase 106 U/L Aspartate Amino Transf (AST/SGOT) 26 U/L Alanine Aminotransferase (ALT/SGPT) 25 U/L Total Bilirubin 0.7 MG/DL Sodium Level 134 MEQ/L Potassium Level 4.6 MEQ/L Chloride Level 79 MEQ/L Carbon Dioxide Level GREATER THAN 45.0 MEQ/L Lactic Acid Level 0.8 mmol/L Urine Color YELLOW Urine Turbidity HAZY Urine pH 5.5 Urine Specific [place] 1.015 Urine Protein 100 mg/dL Urine Glucose (UA) NEG mg/dL Urine Ketones NEG mg/dL Urine Occult Blood NEG Urine Nitrite NEG Urine Bilirubin NEG Urine Urobilinogen LESS THAN 2.0 MG/DL Urine Leukocyte Esterase TRACE Urine RBC 1 /hpf Urine WBC 2 /hpf Urine Bacteria MANY /hpf Urine Hyaline Casts 7 /lpf Urine Mucus FEW /lpf Microscopic Urinalysis Comment CATH-CULTURE IND Blood Gas Ventilator Setting IPAP=15 EPAP=5 Test 03/29/17 04:53 03/29/17 07:12 03/29/17 09:55 03/30/17 15:56 White Blood Count 7.4 TH/MM3 Red Blood Count 3.36 MIL/MM3 Hemoglobin 10.1 GM/DL Hematocrit 30.7 % Mean Corpuscular Volume 91.3 FL Mean Corpuscular Hemoglobin 30.0 PG Mean Corpuscular Hemoglobin Concent 32.9 % Red Cell Distribution Width 13.5 % Platelet Count 93 TH/MM3 Mean Platelet Volume 6.9 FL Neutrophils (%) (Auto) 87.6 % Lymphocytes (%) (Auto) 6.1 % Monocytes (%) (Auto) 6.1 % Eosinophils (%) (Auto) 0.1 % Basophils (%) (Auto) 0.1 % Neutrophils # (Auto) 6.4 TH/MM3 Lymphocytes # (Auto) 0.5 TH/MM3 Monocytes # (Auto) 0.4 TH/MM3 Eosinophils # (Auto) 0.0 TH/MM3 Basophils # (Auto) 0.0 TH/MM3 CBC Comment AUTO DIFF Differential Comment AUTO DIFF CONFIRMED Platelet Estimate LOW Platelet Morphology Comment NORMAL Stomatocytes 1+ Nasal Screen MRSA (PCR) MRSA NOT DETECTED Blood Gas Puncture Site LT RADIAL Blood Gas Patient Temperature 98.6 Blood Gas HCO3 52 mmol/L Blood Gas Base Excess 25.1 mmol/L Blood Gas Oxygen Saturation 92 % Arterial Blood pH 7.42 Arterial Blood Partial Pressure CO2 82 mmHg Arterial Blood Partial Pressure O2 71 mmHg Arterial Blood Oxygen Content 13.7 Vol % Arterial Blood Carboxyhemoglobin 1.6 % Arterial Blood Methemoglobin 1.4 % Blood Gas Hemoglobin 10.6 G/DL Oxygen Delivery Device NASAL CANNULA Blood Gas Liter Flow 4 L/M Blood Gas Inspired Oxygen 36 % B-Type Natriuretic Peptide 109 PG/ML Test 03/31/17 12:03 04/01/17 06:03 Vancomycin Level Trough 12.2 MCG/ML Blood Urea Nitrogen 24 MG/DL Creatinine 0.63 MG/DL Random Glucose 131 MG/DL Calcium Level 9.5 MG/DL Sodium Level 135 MEQ/L Potassium Level 4.1 MEQ/L Chloride Level 86 MEQ/L Carbon Dioxide Level GREATER THAN 45.0 MEQ/L Anion Gap 4 MEQ/L Estimat Glomerular Filtration Rate 91 ML/MIN Objective Remarks GENERAL: Elderly F, awake and alert, looks demented. CARDIOVASCULAR: irregularly irregular rate and rhythm. RESPIRATORY: No accessory muscle use. Decreased breath sounds dry rales. GASTROINTESTINAL: Abdomen soft, non-tender, nondistended. Hepatic and splenic margins not palpable. MUSCULOSKELETAL: Extremities without clubbing, cyanosis, or edema. No obvious deformities. NEUROLOGICAL: Awake and alert. No obvious cranial nerve deficits. Medications and IVs Current Medications Medications (Trade) Dose Ordered Sig/Fiona Route Start Time Stop Time Status Last Admin (NS Flush) 2 ml UNSCH PRN IV FLUSH 03/28/17 22:30 (NS Flush) 2 ml BID IV FLUSH 03/29/17 09:00 04/01/17 21:00 Aztreonam 2000 mg/ Sodium Chloride 100 ml @ 200 mls/hr Q8H IV 03/29/17 00:00 04/01/17 22:54 (Duoneb Neb) 1 ampule Q4HR NEB PRN INH 03/28/17 22:30 (Tylenol) 650 mg Q4H PRN PO 03/28/17 22:30 (Lovenox Inj) 40 mg Q24H SQ 03/28/17 23:00 04/01/17 22:54 (Aspirin Chew) 81 mg DAILY PO 03/29/17 09:00 04/01/17 10:40 (Coreg) 3.125 mg Q12HR PO 03/28/17 22:45 04/01/17 22:55 (Flonase Amrit Spr) 1 spray DAILY EACH NARE 03/29/17 09:00 03/31/17 08:17 (Imdur) 30 mg DAILY@07 PO 03/29/17 07:00 04/02/17 05:54 (Pravachol) 10 mg DAILY PO 03/29/17 09:00 04/01/17 10:40 (Zoloft) 200 mg DAILY PO 03/29/17 09:00 04/01/17 09:00 (Aldactone) 25 mg DAILY PO 03/29/17 09:00 04/01/17 10:40 (Spiriva Inh) 18 mcg DAILY INH 03/29/17 09:00 03/31/17 08:16 (Lactinex) 1 tab DAILY PO 03/29/17 09:00 04/01/17 10:40 (Melatonin) 10 mg HS PO 03/28/17 23:45 04/01/17 22:56 (Mirapex) 0.75 mg Q8HR PO 03/29/17 06:00 04/02/17 05:53 (Protonix) 40 mg DAILY PO 03/29/17 09:00 04/01/17 10:40 Miscellaneous Information Patient in critical care unit? Ass... Q361D .XX 03/29/17 08:00 (Chlorhexidine 2% Cloth) 3 pack DAILY@04 TOPICAL 03/30/17 04:00 04/03/17 04:01 04/01/17 04:00 (Chlorhexidine 2% Cloth) 3 pack UNSCH PRN TOPICAL 03/29/17 07:30 04/03/17 07:22 (Diamox) 250 mg DAILY PO 03/29/17 13:00 03/31/17 08:08 (Robitussin Dm 200-20 Mg/10 ml Liq) 10 ml Q6H PO 03/30/17 16:00 04/01/17 22:55 (Lasix Inj) 20 mg BID@,18 IV PUSH 03/30/17 18:00 04/01/17 18:29 Miscellaneous Information SPECIFIC LAB TO BE ... ONCE ONCE .XX 04/03/17 14:45 04/03/17 14:46 (Deltasone) 10 mg TID PO 04/01/17 18:00 04/01/17 18:29 A/P Assessment and Plan Change in MS- improved secondary to Hypercapnic respiratory failure with underlying Chronic respiratory failure- 02 dependent Hypercapnic respiratory distress/healthcare associated pneumonia/bilateral pleural effusions/COPD exacerbation, acute C02 retention Chest x-ray significant for bibasilar consolidation and moderate bilateral effusions, Initial AB.23/132/94/53; patient placed on BiPAP with improvement in her ABG Continue BiPAP at HS, Continue Aztreonam, blood cultures negative, Echocardiogram EF 55-60%, Moderate Left Ventricular Hypertrophy, PA Pressure 55 mm Hg. continue Lasix to by mouth, Bronchodilator, Mucolytic and incentive spirometry. Pulmonary Hypertension, Steroids to by Mouth. UTI- e coli - on Azactam History of chronic atrial fibrillation, rate controlled. CAD, HTN, hyperlipidemia EKG significant for atrial fibrillation, pulse 98, no ST segment elevations or depressions, personally reviewed Placed on ASA- not on any OAC due to high risks of fall- reviewed previous admission- cardiology notes - continue ASA, Coreg Continue home medications Bilateral calf tenderness - - negative for DVT FEN Heart healthy diet Lovenox, PPI PT consult for deconditioning CM consult- DC planning from SNF Discharge Planning Expected by Tomorrow. Osbaldo Felton MD Apr 02, 2017 09:15
[2017-04-02] MEDS: acetaZOLAMIDE 250 MG TAB PO SCH (10:57)
[2017-04-02] MEDS: predniSONE 10 MG TAB PO SCH ×3 (10:58→17:28)
[2017-04-02] MEDS: CARVEDILOL 3.125 MG TAB PO SCH ×2 (10:58→21:11)
[2017-04-02] MEDS: ASPIRIN 81 MG CHEW TAB PO SCH (10:58)
[2017-04-02] MEDS: PRAVASTATIN SOD 10 MG TAB PO SCH (10:58)
[2017-04-02] MEDS: LACTOBACILLUS ACIDOPHILUS TAB PO SCH (10:58)
[2017-04-02] MEDS: SPIRONOLACTONE 25 MG TAB PO SCH (10:58)
[2017-04-02] MEDS: FUROSEMIDE 40 MG/4 ML VIAL IV PUSH SCH ×2 (10:58→17:28)
[2017-04-02] MEDS: SERTRALINE HCL 100 MG TAB PO SCH (10:59)
[2017-04-02] MEDS: PANTOPRAZOLE SOD 40 MG DELAYED RELEASE TAB PO SCH (10:59)
[2017-04-02] MEDS: TIOTROPIUM BROMIDE 18 MCG INH INH SCH (11:01)
[2017-04-02] MEDS: AZTREONAM INJ 2,000 MG in SODIUM CHLORIDE 0.9% INJ 100 ML IV SCH ×3 (11:02→22:47)
--- NOTE | 2017-04-02 19:19 | HHI.PR ---
Subjective Remarks 76 YOWF with Hypercapnoic RF,COPD Feels better Feels comfortable Good appetite on RA, comfortable Objective Vital Signs Vital Signs Date Time Temp Pulse Resp B/P (MAP) Pulse Ox O2 Delivery O2 Flow Rate FiO2 04/02/17 17:00 98.1 91 20 135/67 (89) 93 04/02/17 15:49 83 04/02/17 15:42 Nasal Cannula 2.00 04/02/17 12:13 98.1 84 20 113/63 (80) 95 04/02/17 12:00 Nasal Cannula 2.00 04/02/17 12:00 85 04/02/17 08:56 98.4 83 18 104/63 (77) 94 04/02/17 08:00 76 04/02/17 04:06 76 04/02/17 04:00 98.3 80 16 96/63 (74) 94 04/02/17 00:09 95 Nasal Cannula 2.00 04/02/17 00:00 98.5 84 18 92/62 (72) 95 04/02/17 00:00 76 04/01/17 20:00 98.5 79 18 118/65 (82) 93 04/01/17 20:00 93 I/O 04/01/17 04/01/17 04/01/17 04/02/17 04/02/17 04/02/17 07:00 15:00 23:00 07:00 15:00 23:00 Intake Total 360 ml 400 ml 100 ml 1200 ml Output Total 1000 ml 1600 ml 1475 ml Balance -640 ml -1200 ml 100 ml -275 ml Intake Oral 360 ml 400 ml 1200 ml IV Total 100 ml Output Urine Total 1000 ml 1600 ml 1475 ml Bladder Scan Volume Amount 400 ml 400 ml # Bowel Movements 0 0 Result Diagram: 03/29/17 0453 04/01/17 0603 Objective Remarks GENERAL:Elderly WF, mild sob SKIN: Warm and dry. HEAD: Normocephalic. EYES: No scleral icterus. No injection or drainage. NECK: Supple, trachea midline. No JVD or lymphadenopathy. CARDIOVASCULAR: Regular rate and rhythm without murmurs, gallops, or rubs. RESPIRATORY: Breath sounds equal bilaterally. No accessory muscle use. GASTROINTESTINAL: Abdomen soft, non-tender, nondistended. MUSCULOSKELETAL: No cyanosis, or edema. BACK: Nontender without obvious deformity. No CVA tenderness. A/P Assessment and Plan Hypercapnoic RF, improved COPD Pl eff AF HTN PLAN: Aerosol nebs Supplement 02 Cont Abx PO Steoids DC plans underway Augustine Pino MD Apr 02, 2017 19:19
[2017-04-02] MEDS ORDERED: GLUCAGON 1 MG/ML VIAL OTHER PRN (20:00)
[2017-04-02] MEDS ORDERED: DEXTROSE 50% IN WATER 50 ML VIAL(D50) IV PUSH PRN (20:00)
[2017-04-02] MEDS: INSULIN ASPART SUPPLEMENTAL SCALE SQ SCH ×2 (21:00→21:12)
[2017-04-02] MEDS: MELATONIN 5 MG TAB PO SCH (21:11)
[2017-04-02] MEDS: ENOXAPARIN SODIUM 40 MG/0.4 ML SYRINGE SQ SCH (22:47)
[2017-04-03] VITALS: BP 140/77; PULSE 90; PULSE 99; RESP 17; TEMP 98.1; O2SAT 98
[2017-04-03] MEDS: guaiFENesin/DEXTROMETHORPHAN 200 MG/20 MG/10 ML CUP PO SCH ×2 (03:22→09:27)
[2017-04-03 04:00] VITALS: BP 141/78; PULSE 91; RESP 18; TEMP 98.1; O2SAT 98
[2017-04-03 04:13] VITALS: PULSE 69
[2017-04-03] MEDS: PRAMIPEXOLE DIHYDROCHLORIDE 0.25 MG TAB PO SCH ×2 (05:35→13:06)
[2017-04-03] MEDS: ISOSORBIDE MONONITRATE 30 MG TAB PO SCH (05:35)
[2017-04-03 08:00] VITALS: BP 138/76; PULSE 77; PULSE 83; RESP 19; TEMP 98.3; O2SAT 99
[2017-04-03] MEDS: INSULIN ASPART SUPPLEMENTAL SCALE SQ SCH ×2 (08:00→12:00)
[2017-04-03] MEDS: FLUTICASONE PROPIONATE 50 MCG/ACT 16 GM NASAL SPRAY EACH NARE SCH (09:00)
[2017-04-03] MEDS: SODIUM CHLORIDE 0.9% FLUSH 10 ML FLUSH IV FLUSH SCH (09:00)
[2017-04-03] MEDS: TIOTROPIUM BROMIDE 18 MCG INH INH SCH (09:00)
[2017-04-03] MEDS: AZTREONAM INJ 2,000 MG in SODIUM CHLORIDE 0.9% INJ 100 ML IV SCH (09:20)
[2017-04-03] MEDS: acetaZOLAMIDE 250 MG TAB PO SCH (09:27)
[2017-04-03] MEDS: predniSONE 10 MG TAB PO SCH ×2 (09:27→13:00)
[2017-04-03] MEDS: CARVEDILOL 3.125 MG TAB PO SCH (09:27)
[2017-04-03] MEDS: PANTOPRAZOLE SOD 40 MG DELAYED RELEASE TAB PO SCH (09:27)
[2017-04-03] MEDS: SERTRALINE HCL 100 MG TAB PO SCH (09:27)
[2017-04-03] MEDS: ASPIRIN 81 MG CHEW TAB PO SCH (09:27)
[2017-04-03] MEDS: PRAVASTATIN SOD 10 MG TAB PO SCH (09:27)
[2017-04-03] MEDS: SPIRONOLACTONE 25 MG TAB PO SCH (09:28)
[2017-04-03] MEDS: LACTOBACILLUS ACIDOPHILUS TAB PO SCH (09:28)
[2017-04-03] MEDS: FUROSEMIDE 40 MG/4 ML VIAL IV PUSH SCH (09:29)
[2017-04-03] MEDS ORDERED: PRED10 PO ×2 (11:52)
[2017-04-03] MEDS ORDERED: LORA-392 PO (11:52)
[2017-04-03] MEDS ORDERED: HYDR-3288 PO (11:52)
[2017-04-03] MEDS ORDERED: LEVA750T9 PO (11:52)
--- NOTE | 2017-04-03 11:53 | HHI.DS ---
Discharge Summary Admission Date Mar 28, 2017 at 21:57 Discharge Date: Apr 03, 2017 Admitting Diagnosis respiratory failure/UTI/COPD exacerbation (1) Respiratory failure ICD Code: J96.90 - Respiratory failure, unspecified, unspecified whether with hypoxia or hypercapnia Diagnosis: Principal Status: Acute (2) Respiratory acidosis ICD Code: E87.2 - Acidosis Diagnosis: Principal Status: Acute (3) Pneumonia ICD Code: J18.9 - Pneumonia, unspecified organism Diagnosis: Principal Status: Acute (4) COPD (chronic obstructive pulmonary disease) ICD Code: J44.9 - Chronic obstructive pulmonary disease, unspecified Diagnosis: Principal Status: Acute Procedures None Brief History - From Admission 76-year-old female with a past medical history significant for COPD on home oxygen, hyperlipidemia, atrial fibrillation (unclear if on anticoagulation), restless leg syndrome, hypothyroidism, GERD, CAD and hypertension was brought to the emergency department by EMS for evaluation of altered mental status. The patient is a resident of [facility] and her granddaughter was visiting her around 5:30 yesterday evening when she noticed her grandmother to be lethargic and altered. She states she was disoriented and at times nonresponsive. The patient developed respiratory failure in the emergency department requiring BiPAP. UA consistent with urinary tract infection. At the time of her interview, the patient will awaken to voice however would not answer questions. History obtained from her granddaughter and review of medical records. CBC/BMP: 04/01/17 0603 Significant Findings Laboratory Tests Test 03/31/17 12:03 04/01/17 06:03 Vancomycin Level Trough 12.2 MCG/ML (5.0-10.0) Blood Urea Nitrogen 24 MG/DL (7-18) Random Glucose 131 MG/DL (74-106) Sodium Level 135 MEQ/L (136-145) Chloride Level 86 MEQ/L (98-107) Carbon Dioxide Level GREATER THAN 45.0 MEQ/L Anion Gap 4 MEQ/L (5-15) Imaging Last Impressions Lower Extremity Ultrasound 03/30/17 0000 Signed Impressions: Service Date/Time: Thursday, March 30, 2017 15:24 - CONCLUSION: No evidence of lower extremity DVT on the right or left. Favio Barcenas MD Head CT 03/28/171903 Signed Impressions: Service Date/Time: March 19:19 - CONCLUSION: No acute intracranial abnormality demonstrated. Roberto Bullock MD Chest X-Ray 03/28/171903 Signed Impressions: Service Date/Time: March 19:07 - CONCLUSION: Bibasilar consolidation and small to moderate effusions. Roberto Bullock MD PE at Discharge GENERAL: Elderly F, awake and alert, oriented x 3 CARDIOVASCULAR: irregularly irregular rate and rhythm. RESPIRATORY: No accessory muscle use. Decreased breath sounds dry rales. GASTROINTESTINAL: Abdomen soft, non-tender, nondistended. Hepatic and splenic margins not palpable. MUSCULOSKELETAL: Extremities without clubbing, cyanosis, or edema. No obvious deformities. NEUROLOGICAL: Awake and alert. No obvious cranial nerve deficits. Motor grossly within normal limits. Five out of 5 muscle strength in the arms and legs. Normal speech. PSYCHIATRIC: Appropriate mood and affect; insight and judgment normal. Pt update on day of discharge The patient wanted to continue the Cheek catheter for convenience. She had no other acute concerns. Discussed with nursing at the bedside. Hospital Course Hypercapnic respiratory failure/ healthcare associated pneumonia/ bilateral pleural effusions/ COPD exacerbation Chest x-ray significant for bibasilar consolidation and moderate bilateral effusions. Initial AB.23/132/94/53; patient placed on BiPAP with improvement in her ABG. She was continued on BiPAP QHS. She received IV aztreonam. She worked with PT and OT. Blood cultures were negative. Echocardiogram EF 55-60%; Moderate Left Ventricular Hypertrophy; PA Pressure 55 mm Hg. Pulmonology was consulted. She was continued on Lasix, bronchodilator, mucolytic and incentive spirometry. Steroids were changed to prednisone and she will complete a taper. She will continue PO Levaquin. She will follow up with pulmonology as an outpt. She will continue BiPAP HS. UTI Urine culture grew E coli. S/p Azactam. Afebrile and without leukocytosis. D/c Azactam. Voiding trial in a few days at SNF. History of chronic atrial fibrillation, rate controlled. CAD, HTN, hyperlipidemia EKG significant for atrial fibrillatio, no ST segment elevations or depressions. Placed on ASA- not on any OAC due to high risks of fall. She was continued on ASA and Coreg. Pt Condition on Discharge: Stable Discharge Disposition: Discharge to SNF Discharge Time: > 30 minutes Discharge Instructions DIET: Follow Instructions for: Heart Healthy Diet Activities you can perform: Weight Bearing as Zaida Follow up Referrals: PCP Follow-up - 1 Week Pulmonology - 1 Week with Augustine Pino MD SNF/[facility]/ with [facility] New Orders: BASIC METABOLIC PROF - 3-5 Days New Medications: Levofloxacin (Levaquin) 750 Mg Tablet 750 MG PO DAILY for Infection for 2 Days, #2 TAB 0 Refills Prednisone (Prednisone) 10 Mg Tab 10 MG PO DAILY for Broncospasm, #5 TAB 0 Refills Prednisone (Prednisone) 10 Mg Tab 10 MG PO BID for Broncospasm, #8 TAB Continued Medications: Acetaminophen (Tylenol) 325 Mg Tab 650 MG PO Q4HR PRN for MILD PAIN/TEMP ELEVATION, TAB 0 Refills Albuterol 18 GM Inh (Ventolin Hfa 18 GM Inh) 90 Mcg/Act Aer 2 PUFF INH Q4HR PRN for SHORTNESS OF BREATH, #1 INHALER 0 Refills Albuterol Neb (Albuterol Neb) 2.5 Mg/3 Ml Neb 2.5 MG NEB Q4HR NEB PRN for SHORTNESS OF BREATH, #60 NEBULE 0 Refills Aspirin (Aspirin) 81 Mg Chew 81 MG PO DAILY, TAB 0 Refills Bisacodyl Supp (Dulcolax Supp) 10 Mg Supp 10 MG RECTAL DAILY PRN for CONSTIPATION, #12 SUPP 0 Refills Carvedilol (Coreg) 3.125 Mg Tab 3.125 MG PO Q12HR for Afib, #60 TAB Diclofenac Sodium (Voltaren) 1 % Gel..gram. 1 APPLIC TOPICAL Q8HR PRN for SHOULDER PAIN Fluticasone Nasal [place] (Fluticasone Nasal [place]) 50 Mcg/Act Naspr 1 SPRAY EACH NARE DAILY for Allergy Management, #1 BOTTLE 0 Refills 50 mcg/spray Furosemide (Furosemide) 40 Mg Tab 40 MG PO BID, #60 TAB 0 Refills Hydrocodone-Acetaminophen ([place]) 7.5-325 mg Tab 1 TAB PO Q4H PRN for PAIN, #7 TAB 0 Refills (This prescription has been renewed) Isosorbide Mononitrate ER (Isosorbide Mononitrate ER) 30 Mg Bing 30 MG PO DAILY@07 for chest pain, #30 TAB Lactobacillus Acidophilus (Lactinex) 1 Chew 1 TAB PO DAILY for Constipation, TAB 0 Refills Lorazepam (Ativan) 0.5 Mg Tab 0.5 MG PO TID PRN for ANXIETY, #10 TAB 0 Refills (This prescription has been renewed) Magnesium Hydroxide Liq (Milk of Magnesia Liq) 400 Mg/5 Ml Susp 30 ML PO HS PRN for CONSTIPATION, #1 BOTTLE 0 Refills Melatonin (Melatonin) 3 Mg Tab 9 MG PO HS for Insomnia Omeprazole (Omeprazole) 20 Mg Tab 40 MG PO DAILY, #30 TAB 0 Refills Ondansetron (Zofran) 4 Mg Tab 4 MG PO Q6HR PRN for NAUSEA OR VOMITING, TAB 0 Refills Pramipexole (Pramipexole) 0.75 Mg Tab 0.75 MG PO Q8HR for RESTLESS LEGS, #60 TAB 0 Refills Pravastatin (Pravastatin) 10 Mg Tab 10 MG PO DAILY for Cholesterol Management, #30 TAB 0 Refills Sertraline (Zoloft) 100 Mg Tab 200 MG PO DAILY for Depression Control, #30 TAB 0 Refills Spironolactone (Aldactone) 25 Mg Tab 25 MG PO DAILY, #30 TAB 0 Refills Tiotropium Inh (Spiriva Handihaler) 18 Mcg Cap 18 MCG INH DAILY for COPD, #30 CAP 0 Refills 1 capsule = 18 mcg Sanket Osborn DO Apr 03, 2017 11:53
--- NOTE | 2017-04-03 11:56 | HHI.DCPOC ---
Discharge Care Plan Diagnosis: (1) Respiratory failure (2) Respiratory acidosis (3) Pneumonia (4) COPD (chronic obstructive pulmonary disease) Goals to Promote Your Health * To prevent worsening of your condition and complications * To maintain your health at the optimal level Directions to Meet Your Goals Take your medications as prescribed Follow your dietary instruction Follow activity as directed Keep your appointments as scheduled Take your immunizations and boosters as scheduled If your symptoms worsen call your PCP, if no PCP go to Urgent Care Center or Emergency Room Smoking is Dangerous to Your Health. Avoid second hand smoke Call the 24-hour hour crisis hotline for domestic abuse at Sanket Osborn DO Apr 03, 2017 11:56
[2017-04-03 12:00] VITALS: BP 115/56; PULSE 74; PULSE 76; RESP 18; TEMP 98.8; O2SAT 96
[2017-04-03] MEDS ORDERED: BISACODYL EC 5 MG TABEC PO ONE (14:00)
[2017-04-03] MEDS ORDERED: PHARMACY ORDERED LAB ONE (14:45)
== END 2017-04-03 15:22 | DRG 193 ==
LOC: NEPC 18:07 → NEDA 21:57 → NEDH 03-29 02:25 → HIMW 03-29 07:00 → HCIS 03-31 23:10 → N04B 04-01 17:40
PROVIDERS: ADMIT Hospitalist; ATTEND Hospitalist
PROC: 5A09357 Assistance with Respiratory Ventilation, Less than 24 Consecutive Hours, Continuous Positive Airway Pressure (ICD-10-PCS; principal; 2017-03-28)
DX: J18.9 Pneumonia, unspecified organism (principal); J96.22 Acute and chronic respiratory failure with hypercapnia; E87.2 Acidosis; F03.90 Unspecified dementia, unspecified severity, without behavioral disturbance, psychotic disturbance, mood disturbance, and anxiety; I48.2 Chronic atrial fibrillation; J44.0 Chronic obstructive pulmonary disease with (acute) lower respiratory infection; J90 Pleural effusion, not elsewhere classified; G25.81 Restless legs syndrome; N39.0 Urinary tract infection, site not specified; J44.1 Chronic obstructive pulmonary disease with (acute) exacerbation; I27.20 Pulmonary hypertension, unspecified; Z99.81 Dependence on supplemental oxygen; B96.20 Unspecified Escherichia coli [E. coli] as the cause of diseases classified elsewhere; R00.0 Tachycardia, unspecified; G47.33 Obstructive sleep apnea (adult) (pediatric); H91.90 Unspecified hearing loss, unspecified ear; E78.5 Hyperlipidemia, unspecified; K21.9 Gastro-esophageal reflux disease without esophagitis; I10 Essential (primary) hypertension; I25.10 Atherosclerotic heart disease of native coronary artery without angina pectoris; E03.9 Hypothyroidism, unspecified; M19.90 Unspecified osteoarthritis, unspecified site; Y95 Nosocomial condition; Z87.891 Personal history of nicotine dependence; Z99.3 Dependence on wheelchair; Z88.0 Allergy status to penicillin
CPT/HCPCS: 36600; 51702; 70450; 71045; 76937; 80048; 80053; 80202; 81001; 82805; 82948; 83605; 83880; 85025; 85610; 85730; 87040; 87077; 87086; 87186; 87641; 93005; 93306; 93970; 94002; 94003; 94640; 94664; 96360; J1650; J1815; J1940; J1956; J2920; J3370; J7030; J7040; J7512

== ENCOUNTER 2017-05-08 05:08 | Inpatient (IN) | payer MEDICARE, OTHER ==
[2017-05-08] VITALS (16 sets, daily range): BP systolic 96–131; BP diastolic 52–80; PULSE 71–98; RESP 16–27; TEMP 97.6–98.9; O2SAT 92–98
[~2017-05-08] VITALS: Ht 160 cm; Wt 102.6 kg
[~2017-05-08 05:08] MED LIST changes: -ACIDWAF; +FLUT50SP EACH NARE; +HYDR-3288 PO; +LACTCHW3 PO; +LEVA750T9 PO; +LORA-392 PO; +MELA3TAB52 PO; -MELO15TA20 PO; +MILKSUS PO; -PRAM0.5T PO; +PRAM0.752 PO; +PRED10 PO; +VOLT1GEL16 TOPICAL; +ZOFR4TAB PO; +ZOLO100T PO
[2017-05-08] MEDS ORDERED: SODIUM CHLORIDE 0.9% FLUSH 10 ML FLUSH IVF PRN (05:15)
--- NOTE | 2017-05-08 05:29 | PD ---
HPI . Respiratory distress Chief Complaint: Respiratory distress Time Seen by Provider: 05:12 Travel History International Travel<30 days: No Contact w/Intl Traveler<30days: No Traveled to known affect area: No History of Present Illness HPI 76-year-old female sent from group home secondary to respiratory distress. Patient was noted to have low oxygen saturation yesterday at 92% on 2 L was given nebulizer treatments with only slight improvement. [facility] called ambulance secondary to doctor's instructions that the patient's oxygen saturation remained below 92% that the patient was to be escorted to the hospital. Upon cooker operator presentation group home, patient was noted to be lying in the hospital bed with the head of the bed elevated, patient slumped down in bed creating a near right angle bend in her cervical spine causing her to have her chin precipitants her chest effectively causing a sleep apnea type position. Patient was sat up and elevated the bed appropriately, patient's oxygen saturation is 98% on 2 L. There is no history of fever as per the group home. Patient has history of Alzheimer's as well as expressive aphasia , and is a noncontributory historian [facility] Past Medical History Narrative Medical Past medical history reviewed Atrial Fibrillation: Yes Heart Rhythm Problems: No Cardiovascular Problems: Yes High Cholesterol: No Congestive Heart Failure: No COPD: Yes Diabetes: No Diminished Hearing: Yes ([place] [employer]) GERD: Yes Hypertension: Yes Musculoskeletal: No Neurologic: No Migraines: Yes Thyroid Disease: Yes (HYPO) Social History Alcohol Use: No Tobacco Use: No Substance Use: No Allergies-Medications (Allergen,Severity, Reaction): Coded Allergies: Penicillins (Verified Allergy, Severe, 05/08/17) Reported Meds & Prescriptions Reported Meds & Active Scripts Active Levaquin (Levofloxacin) 750 Mg Tablet 750 Mg PO DAILY 2 Days Prednisone 10 Mg Tab 10 Mg PO DAILY Prednisone 10 Mg Tab 10 Mg PO BID [place] (Hydrocodone-Acetaminophen) 7.5-325 mg Tab 1 Tab PO Q4H PRN Ativan (Lorazepam) 0.5 Mg Tab 0.5 Mg PO TID PRN Coreg (Carvedilol) 3.125 Mg Tab 3.125 Mg PO Q12HR Isosorbide Mononitrate ER (Isosorbide Mononitrate) 30 Mg Bing 30 Mg PO DAILY@07 Reported Zoloft (Sertraline HCl) 100 Mg Tab 200 Mg PO DAILY Voltaren (Diclofenac Sodium) 1 % Gel..gram. 1 Applic TOPICAL Q8HR PRN Zofran (Ondansetron HCl) 4 Mg Tab 4 Mg PO Q6HR PRN Milk of Magnesia Liq (Magnesium Hydroxide) 400 Mg/5 Ml Susp 30 Ml PO HS PRN Melatonin 3 Mg Tab 9 Mg PO HS Fluticasone Nasal [place] 50 Mcg/Act Naspr 1 [place] EACH NARE DAILY 50 mcg/spray Lactinex (Lactobacillus Acidophilus) 1 Chew 1 Tab PO DAILY Pramipexole (Pramipexole Dihydrochloride) 0.75 Mg Tab 0.75 Mg PO Q8HR Furosemide 40 Mg Tab 40 Mg PO BID Tylenol (Acetaminophen) 325 Mg Tab 650 Mg PO Q4HR PRN Dulcolax Supp (Bisacodyl) 10 Mg Supp 10 Mg RECTAL DAILY PRN Ventolin Hfa 18 GM Inh (Albuterol Sulfate) 90 Mcg/Act Aer 2 Puff INH Q4HR PRN Spiriva Handihaler (Tiotropium Inh) 18 Mcg Cap 18 Mcg INH DAILY 1 capsule = 18 mcg Aldactone (Spironolactone) 25 Mg Tab 25 Mg PO DAILY Aspirin 81 Mg Chew 81 Mg PO DAILY Omeprazole 20 Mg Tab 40 Mg PO DAILY Albuterol Neb (Albuterol Sulfate) 2.5 Mg/3 Ml Neb 2.5 Mg NEB Q4HR NEB PRN Pravastatin 10 Mg Tab 10 Mg PO DAILY Narrative Medication Allergies and medications reviewed Review of Systems ROS Limitations: Poor Historian Physical Exam Exam Limitations: Poor Historian Narrative GENERAL: Awake and alert, confused baseline. Tracking well with staff. Oxygen saturation 96% on 3 L nasal cannula. SKIN: Warm and dry. Color is normal no diaphoresis cyanosis or pallor HEAD: Atraumatic. Normocephalic. EYES: Pupils equal and round. No scleral icterus. No injection or drainage. ENT: No nasal bleeding or discharge. Mucous membranes pink and moist. NECK: Trachea midline. No JVD. Supple full range of motion CARDIOVASCULAR: Regular rate and rhythm. S1-S2 no murmurs rubs or gallops RESPIRATORY: No accessory muscle use. Clear to auscultation. Breath sounds equal bilaterally. GASTROINTESTINAL: Abdomen soft, non-tender, nondistended. Morbidly obese MUSCULOSKELETAL: Extremities without clubbing, cyanosis, bilateral lower extremity edema NEUROLOGICAL: Awake and alert. Expressive aphasia combined with Alzheimer's dementia limits the exam. Patient is spontaneously moving all 4 extremities, tracking movement and moving her head spontaneously to both sides and is attempting to converse with staff with nonsensical words. PSYCHIATRIC: Pleasant and smiling Data Data Last Documented VS Vital Signs Date Time Temp Pulse Resp B/P (MAP) Pulse Ox O2 Delivery O2 Flow Rate FiO2 05/08/17 06:18 85 16 100/59 (73) 93 BiPAP 40 05/08/17 05:44 3.00 05/08/17 05:18 98.9 Orders Orders Complete Blood Count With Diff (05/08/17 05:12) Comprehensive Metabolic Panel (05/08/17 05:12) B-Type Natriuretic Peptide (05/08/17 05:12) Act Partial Throm Time (Ptt) (05/08/17 05:12) Prothrombin Time / Inr (Pt) (05/08/17 05:12) Magnesium (Mg) (05/08/17 05:12) Troponin I (05/08/17 05:12) Urinalysis - C+S If Indicated (05/08/17 05:12) Influenzae A/B Antigen (05/08/17 05:12) Iv Access Insert/Monitor (05/08/17 05:12) Electrocardiogram (05/08/17 05:12) Ecg Monitoring (05/08/17 05:12) Oximetry (05/08/17 05:12) Oxygen Administration (05/08/17 05:12) Chest, Single Ap (05/08/17 05:12) Sodium Chloride 0.9% Flush (Ns Flush) (05/08/17 05:15) Arterial Blood Gas (Abg) (05/08/17 ) Blood Culture (05/08/17 06:13) Levofloxacin 500 Mg Premix Inj (Levaquin (05/08/17 06:15) Resp Bipap / Cpap Non Invas Vt (05/08/17 ) Admit Order (Ed Use Only) (05/08/17 06:20) Labs Laboratory Tests Test 05/08/17 05:30 05/08/17 05:39 White Blood Count 13.2 TH/MM3 Red Blood Count 3.85 MIL/MM3 Hemoglobin 11.2 GM/DL Hematocrit 34.2 % Mean Corpuscular Volume 88.9 FL Mean Corpuscular Hemoglobin 29.1 PG Mean Corpuscular Hemoglobin Concent 32.8 % Red Cell Distribution Width 14.5 % Platelet Count 142 TH/MM3 Mean Platelet Volume 6.8 FL Neutrophils (%) (Auto) 94.7 % Lymphocytes (%) (Auto) 1.9 % Monocytes (%) (Auto) 3.2 % Eosinophils (%) (Auto) 0.1 % Basophils (%) (Auto) 0.1 % Neutrophils # (Auto) 12.5 TH/MM3 Lymphocytes # (Auto) 0.3 TH/MM3 Monocytes # (Auto) 0.4 TH/MM3 Eosinophils # (Auto) 0.0 TH/MM3 Basophils # (Auto) 0.0 TH/MM3 CBC Comment DIFF FINAL Differential Comment Prothrombin Time 11.0 SEC Prothromb Time International Ratio 1.1 RATIO Activated Partial Thromboplast Time 26.5 SEC Urine Color YELLOW Urine Turbidity HAZY Urine pH 6.0 Urine Specific [place] 1.013 Urine Protein 100 mg/dL Urine Glucose (UA) NEG mg/dL Urine Ketones NEG mg/dL Urine Occult Blood SMALL Urine Nitrite NEG Urine Bilirubin NEG Urine Urobilinogen 2.0 MG/DL Urine Leukocyte Esterase LARGE Urine RBC 29 /hpf Urine WBC 90 /hpf Urine WBC Clumps FEW Urine Squamous Epithelial Cells 5 /hpf Urine Bacteria FEW /hpf Urine Hyaline Casts 107 /lpf Urine Granular Casts 30 /lpf Urine Mucus FEW /lpf Microscopic Urinalysis Comment CULTURE INDICATED Blood Urea Nitrogen 16 MG/DL Creatinine 0.71 MG/DL Random Glucose 166 MG/DL Total Protein 6.7 GM/DL Albumin 3.5 GM/DL Calcium Level 8.5 MG/DL Magnesium Level 1.6 MG/DL Alkaline Phosphatase 99 U/L Aspartate Amino Transf (AST/SGOT) 26 U/L Alanine Aminotransferase (ALT/SGPT) 27 U/L Total Bilirubin 0.9 MG/DL Sodium Level 128 MEQ/L Potassium Level 4.0 MEQ/L Chloride Level 77 MEQ/L Carbon Dioxide Level GREATER THAN 45.0 MEQ/L Anion Gap 6 MEQ/L Estimat Glomerular Filtration Rate 80 ML/MIN Troponin I LESS THAN 0.02 NG/ML B-Type Natriuretic Peptide 162 PG/ML Blood Gas Puncture Site RT RADIAL Blood Gas Patient Temperature 98.6 Blood Gas HCO3 51 mmol/L Blood Gas Base Excess 23.5 mmol/L Blood Gas Oxygen Saturation 93 % Arterial Blood pH 7.32 Arterial Blood Partial Pressure CO2 103 mmHg Arterial Blood Partial Pressure O2 91 mmHG Arterial Blood Oxygen Content 13.9 Vol % Arterial Blood Carboxyhemoglobin 2.1 % Arterial Blood Methemoglobin 0.9 % Blood Gas Hemoglobin 10.5 G/DL Oxygen Delivery Device NASAL CANNULA Blood Gas Liter Flow 3 L/M MDM Medical Decision Making Medical Screen Exam Complete: Yes Emergency Medical Condition: Yes Medical Record Reviewed: Yes Differential Diagnosis Acute respiratory distress, COPD, hypercapnia, pneumonia, CHF, peripheral edema Narrative Course Chest [id number] pneumonia Laboratory examinations reviewed patient has elevated white blood cell count consistent with possible infection, markedly elevated PCO2 on ABG Urinalysis consistent with urinary tract infection patient has probable hypercapnia from respiratory compromise while at group home secondary to body position, body habitus, underlying COPD and impaired neurological status baseline. Patient was placed on BiPAP at 12/5 at 40% by respiratory staff during a concomitant trauma code, patient did not respond well to BiPAP with hypoventilation, and hypotension. Patient immediately examined, equal bilateral lung sounds, good air entry, however with poor respiratory effort. Upon reevaluation shortly after trauma code finished, patient changed over to 2 L nasal cannula O2, with albuterol Atrovent nebulizer treatments given via compressed room air with significant improvement in patient 's respiratory status, level of alertness, and blood pressure normalization. Patient was pancultured given broad-spectrum antibiotics for hospital-acquired pneumonia in a group home setting. Case was discussed with hospitalist service Dr. Fernández and admitted to CIC/stepdown care. Patient's granddaughter presented to the room approximately 6:00 to 6:30 AM, and noted significant improvement in her mother's condition Diagnosis Primary Impression: Respiratory distress Additional Impressions: PNA (pneumonia) Qualified Codes: J18.1 - Lobar pneumonia, unspecified organism UTI (urinary tract infection) Qualified Codes: N39.0 - Urinary tract infection, site not specified Admitting Information Admitting Physician Requests: Admit Carlos Diego MD May 08, 2017 05:29
[2017-05-08 05:46] LABS: AUTOMATED NEUTROPHIL # 12.5 TH/MM3 (1.8-7.7); BASOPHIL % 0.1 % (0.0-2.0); EOSINOPHIL % 0.1 % (0.0-4.0); HEMATOCRIT 34.2 % (35.0-46.0); HEMOGLOBIN 11.2 GM/DL (11.6-15.3); LYMPH % 1.9 % (9.0-44.0); LYMPHOCYTE # 0.3 TH/MM3 (1.0-4.8); MEAN CELL VOLUME 88.9 FL (80.0-100.0); MEAN CORPUSCULAR HEMOGLOBIN 29.1 PG (27.0-34.0); MEAN CORPUSCULAR HGB CONC 32.8 % (32.0-36.0); MEAN PLATELET VOLUME 6.8 FL (7.0-11.0); MONO % 3.2 % (0.0-8.0); MONOCYTE # 0.4 TH/MM3 (0-0.9); NEUT % 94.7 % (16.0-70.0); PLATELET COUNT 142 TH/MM3 (150-450); RED BLOOD COUNT 3.85 MIL/MM3 (4.00-5.30); RED CELL DISTRIBUTION WIDTH 14.5 % (11.6-17.2); WHITE BLOOD COUNT 13.2 TH/MM3 (4.0-11.0)
[2017-05-08 06:03] LABS: ALBUMIN 3.5 GM/DL (3.4-5.0); ALT (GPT) 27 U/L (10-53); AST (GOT) 26 U/L (15-37); BICARBONATE GREATER THAN 45.0 MEQ/L (21.0-32.0); BLOOD UREA NITROGEN 16 MG/DL (7-18); CALCIUM 8.5 MG/DL (8.5-10.1); CHLORIDE 77 MEQ/L (98-107); CREATININE 0.71 MG/DL (0.50-1.00); GLOMERULAR FILTRATION RATE 80 ML/MIN (>89); GLUCOSE,RANDOM 166 MG/DL (74-106); MAGNESIUM 1.6 MG/DL (1.5-2.5); SODIUM (NA) 128 MEQ/L (136-145)
[2017-05-08 06:07] LABS: ALKALINE PHOSPHATASE 99 U/L (45-117); TOTAL BILIRUBIN ADULT 0.9 MG/DL (0.2-1.0); TOTAL PROTEIN 6.7 GM/DL (6.4-8.2); TROPONIN I LESS THAN 0.02 NG/ML (0.02-0.05)
[2017-05-08 06:10] LABS: INTERNATIONAL NORMALIZED RATIO 1.1 RATIO
[2017-05-08] MEDS ORDERED: LEVOFLOXACIN 500 MG PREMIX INJ 100 ML IV ONE (06:15)
[2017-05-08 06:26] LABS: BACTERIA, URINE FEW /hpf; BILIRUBIN, URINE NEG (NEG); BLOOD, URINE SMALL (NEG); GLUCOSE,URINE NEG (NEG); HYALINE CAST, URINE 107 /lpf (RARE); KETONE, URINE NEG (NEG); MUCUS URINE FEW /lpf (OCC); NITRITE,URINE NEG (NEG); SQUAMOUS EPITHELIAL CELL URINE 5 /hpf (0-5); URINE COLOR YELLOW (YELLW/STRAW); URINE LEUKOCYTE ESTERASE LARGE (NEG); WHITE BLOOD CELL CLUMPS FEW
--- NOTE | 2017-05-08 06:28 | RADRPT ---
EXAM DATE/TIME: 05/08/2017 05:29 [facility] COMPARISON: CHEST SINGLE AP, March 28, 2017, 19:07. INDICATIONS : Short of breath. MEDICAL HISTORY : Chronic obstructive pulmonary disease. Hypertension SURGICAL HISTORY : None. ENCOUNTER: Initial ACUITY: 1 day PAIN SCORE: 0/10 LOCATION: Bilateral chest FINDINGS: Portable AP view of the chest demonstrates cardiac silhouette size is mildly enlarged with calcificat ion of the aorta. There is stable bibasilar pleural-parenchymal opacity. No pneumothorax is seen. The patient's chin obscures the apices of the hemithorax bilaterally. CONCLUSION: Stable chest x-ray with small bibasilar opacities. Roberto Davalos MD on May 08, 2017 at 6:25 Board Certified Radiologist. This report was verified electronically.
[2017-05-08] MEDS ORDERED: ACETAMINOPHEN 325 MG TAB PO PRN (06:45)
[2017-05-08] MEDS ORDERED: Vancomycin Consult Pharmacy 1 EA OTHER SCH (06:45)
[2017-05-08] MEDS ORDERED: SODIUM CHLORIDE 0.9% FLUSH 10 ML FLUSH IV FLUSH PRN (06:45)
[2017-05-08] MEDS ORDERED: LEVOFLOXACIN 750 MG PREMIX INJ 150 ML IV SCH (07:15)
[2017-05-08] MEDS ORDERED: ACETAMINOPHEN/HYDROcodone 325 MG/7.5 MG TAB PO PRN (08:00)
[2017-05-08] MEDS: ISOSORBIDE MONONITRATE 30 MG CR TAB (IMDUR) PO SCH (08:00)
[2017-05-08] MEDS ORDERED: ONDANSETRON HCL 4 MG/2 ML VIAL IV PUSH PRN (08:00)
[2017-05-08] MEDS ORDERED: VANCOMYCIN INJ 1,000 MG in SODIUM CHLOR 0.9% 250 ML INJ 250 ML IV ONE (08:00)
[2017-05-08] MEDS: methylPREDNISolone SOD SUCC 40 MG/1 ML VIAL IV PUSH SCH ×2 (08:10→21:16)
[2017-05-08] MEDS: SODIUM CHLOR 0.9% 1000 ML INJ 1,000 ML IV SCH ×2 (08:11→20:48)
[2017-05-08] MEDS ORDERED: LORazepam 0.5 MG TAB PO PRN (09:00)
[2017-05-08] MEDS: SODIUM CHLORIDE 0.9% FLUSH 10 ML FLUSH IV FLUSH SCH ×2 (09:00→21:00)
[2017-05-08] MEDS ORDERED: BISACODYL 10 MG SUPP RECTAL PRN (09:00)
[2017-05-08] MEDS ORDERED: FUROSEMIDE 40 MG TAB PO SCH (09:00)
[2017-05-08] MEDS: CARVEDILOL 3.125 MG TAB PO SCH ×2 (09:00→21:17)
[2017-05-08] MEDS: LACTOBACILLUS ACIDOPHILUS TAB PO SCH ×3 (09:32→18:00)
[2017-05-08] MEDS: ASPIRIN 81 MG CHEW TAB PO SCH (09:32)
[2017-05-08] MEDS: SERTRALINE HCL 100 MG TAB PO SCH (09:32)
[2017-05-08] MEDS: PRAVASTATIN SOD 10 MG TAB PO SCH (09:33)
[2017-05-08] MEDS: PANTOPRAZOLE SOD 40 MG DELAYED RELEASE TAB PO SCH (09:33)
[2017-05-08] MEDS: SPIRONOLACTONE 25 MG TAB PO SCH (09:33)
[2017-05-08] MEDS: TIOTROPIUM BROMIDE 18 MCG INH INH SCH (10:21)
[2017-05-08] MEDS: AZTREONAM INJ 2,000 MG in SODIUM CHLORIDE 0.9% INJ 100 ML IV SCH ×2 (10:21→16:57)
[2017-05-08] MEDS: RESP: ALBUTEROL 2.5 MG/IPRATROPIUM 0.5 MG NEB (SCH) INH ×3 (10:32→20:49)
--- NOTE | 2017-05-08 10:35 | EKG ---
Date Performed: 05/08/2017 Time Performed: 06:15:01 PTAGE: 76 years EKG: ATRIAL FLUTTER/TACHYCARDIA NONSPECIFIC T-WAVE ABNORMALITY ABNORMAL ECG PREVIOUS TRACING : 03/28/2017 19.33 DOCTOR: Davey Lubin Interpretating Date/Time 05/08/2017 10:35:10
[2017-05-08] MEDS: metroNIDAZOLE 500 MG INJ 100 ML IV SCH ×2 (11:05→19:46)
[2017-05-08] MEDS: PRAMIPEXOLE DIHYDROCHLORIDE 0.25 MG TAB PO SCH ×2 (13:18→22:24)
[2017-05-08] MEDS: HEPARIN SODIUM - SQ 10,000 UNITS/ML VIAL SQ SCH ×2 (13:18→22:24)
--- NOTE | 2017-05-08 17:34 | HHI.HP ---
HPI Service [facility] Hospitalists Primary Care Physician Unknown Admission Diagnosis Pneumonia, Respiratory Distress Diagnoses: Chief Complaint: Respiratory distress, hypoxemia Travel History International Travel<30 Days: No Contact w/Intl Traveler <30 Da: No Traveled to Known Affected Are: No History of Present Illness This is a 68-year-old female with past medical history as stated above who presents to [facility] sent from a detention due to respiratory distress. The patient has history of Alzheimer's as well as expressive aphasia and is unable to provide any history. As per ED physician's medical records the patient was noted to have low oxygen saturation yesterday and 92% on 2 L nasal cannula, she was given nebulizer treatments with only slight improvement. Apparently the detention called the ambulance secondary to doctor's instructions that if the patient's oxygen saturation should remain below 92% and the patient should be transferred to the hospital. Review of Systems Patient is unable to provide review of systems due to Alzheimer's dementia and expressive aphasia. Past Family Social History Past Medical History 1. COPD on home oxygen. 2. Hyperlipidemia. 3. Atrial fibrillation. 4. Restless leg syndrome. 5. Hypothyroidism. 6. GERD. 7. CAD. 8. Hypertension. 9. Hearing impairment. Past Surgical History Unable to obtain secondary to patient's Alzheimer's dementia as well as expressive aphasia. Reported Medications Reported Meds & Active Scripts Active Levaquin (Levofloxacin) 750 Mg Tablet 750 Mg PO DAILY 2 Days Prednisone 10 Mg Tab 10 Mg PO DAILY Prednisone 10 Mg Tab 10 Mg PO BID [place] (Hydrocodone-Acetaminophen) 7.5-325 mg Tab 1 Tab PO Q4H PRN Ativan (Lorazepam) 0.5 Mg Tab 0.5 Mg PO TID PRN Coreg (Carvedilol) 3.125 Mg Tab 3.125 Mg PO Q12HR Isosorbide Mononitrate ER (Isosorbide Mononitrate) 30 Mg Bing 30 Mg PO DAILY@07 Reported Zoloft (Sertraline HCl) 100 Mg Tab 200 Mg PO DAILY Voltaren (Diclofenac Sodium) 1 % Gel..gram. 1 Applic TOPICAL Q8HR PRN Zofran (Ondansetron HCl) 4 Mg Tab 4 Mg PO Q6HR PRN Milk of Magnesia Liq (Magnesium Hydroxide) 400 Mg/5 Ml Susp 30 Ml PO HS PRN Melatonin 3 Mg Tab 9 Mg PO HS Fluticasone Nasal [place] 50 Mcg/Act Naspr 1 [place] EACH NARE DAILY 50 mcg/spray Lactinex (Lactobacillus Acidophilus) 1 Chew 1 Tab PO DAILY Pramipexole (Pramipexole Dihydrochloride) 0.75 Mg Tab 0.75 Mg PO Q8HR Furosemide 40 Mg Tab 40 Mg PO BID Tylenol (Acetaminophen) 325 Mg Tab 650 Mg PO Q4HR PRN Dulcolax Supp (Bisacodyl) 10 Mg Supp 10 Mg RECTAL DAILY PRN Ventolin Hfa 18 GM Inh (Albuterol Sulfate) 90 Mcg/Act Aer 2 Puff INH Q4HR PRN Spiriva Handihaler (Tiotropium Inh) 18 Mcg Cap 18 Mcg INH DAILY 1 capsule = 18 mcg Aldactone (Spironolactone) 25 Mg Tab 25 Mg PO DAILY Aspirin 81 Mg Chew 81 Mg PO DAILY Omeprazole 20 Mg Tab 40 Mg PO DAILY Albuterol Neb (Albuterol Sulfate) 2.5 Mg/3 Ml Neb 2.5 Mg NEB Q4HR NEB PRN Pravastatin 10 Mg Tab 10 Mg PO DAILY Allergies: Coded Allergies: Penicillins (Verified Allergy, Severe, 05/08/17) Active Ordered Medications Current Medications Medications (Trade) Dose Ordered Sig/Fiona Route Start Time Stop Time Status Last Admin (NS Flush) 2 ml UNSCH PRN IVF 05/08/17 05:15 Sodium Chloride 1,000 ml @ 100 mls/hr Q10H IV 05/08/17 06:32 05/08/17 08:11 (NS Flush) 2 ml UNSCH PRN IV FLUSH 05/08/17 06:45 (NS Flush) 2 ml BID IV FLUSH 05/08/17 09:00 Aztreonam 2000 mg/ Sodium Chloride 100 ml @ 200 mls/hr Q8H IV 05/08/17 08:00 05/08/17 16:57 Pharmacy Profile Note 0 ml @ 0 mls/hr UNSCH OTHER 05/08/17 06:45 (Duoneb Neb) 1 ampule Q6HR NEB INH 05/08/17 10:00 05/08/17 15:47 (Duoneb Neb) 1 ampule Q4HR NEB PRN INH 05/08/17 08:00 (SoluMEDROL INJ) 40 mg Q12H IV PUSH 05/08/17 08:00 05/08/17 08:10 (Tylenol) 650 mg Q4H PRN PO 05/08/17 06:45 (Zofran Inj) 4 mg Q6HR PRN IV PUSH 05/08/17 08:00 (Heparin Inj) 5,000 units Q8HR SQ 05/08/17 14:00 05/08/17 13:18 (Aspirin Chew) 81 mg DAILY PO 05/08/17 09:00 05/08/17 09:32 (Dulcolax Supp) 10 mg DAILY PRN RECTAL 05/08/17 09:00 (Coreg) 3.125 mg Q12HR PO 05/08/17 09:00 (Lasix) 40 mg BID PO 05/08/17 09:00 05/08/17 09:33 ([place] 7.5-325 Mg) 1 tab Q4HR PRN PO 05/08/17 08:00 (Imdur) 30 mg DAILY@07 PO 05/08/17 08:00 (Ativan) 0.5 mg TID PRN PO 05/08/17 09:00 (Pravachol) 10 mg DAILY PO 05/08/17 09:00 05/08/17 09:33 (Zoloft) 200 mg DAILY PO 05/08/17 09:00 05/08/17 09:32 (Aldactone) 25 mg DAILY PO 05/08/17 09:00 05/08/17 09:33 (Spiriva Inh) 18 mcg DAILY INH 05/08/17 09:00 05/08/17 10:21 (Protonix) 40 mg DAILY PO 05/08/17 09:00 05/08/17 09:33 (Mirapex) 0.75 mg Q8HR PO 05/08/17 14:00 05/08/17 13:18 (Lactinex) 1 tab TID PO 05/08/17 09:00 05/08/17 13:18 (Melatonin) 5 mg HS PRN PO 05/08/17 21:00 Levofloxacin/ Dextrose 150 ml @ 100 mls/hr Q24H IV 05/09/17 06:00 Vancomycin HCl 1750 mg/Sodium Chloride 517.5 ml @ 258.75 mls/ hr Q24H IV 05/08/17 23:00 Miscellaneous Information SPECIFIC LAB TO BE JAJA... ONCE ONCE .XX 05/10/17 22:45 05/10/17 22:46 Metronidazole 100 ml @ 100 mls/hr Q8H IV 05/08/17 11:00 05/08/17 11:05 Family History Unable to obtain due to patient's mental condition. Social History Unable to obtain as above. Physical Exam Vital Signs Vital Signs Date Time Temp Pulse Resp B/P (MAP) Pulse Ox O2 Delivery O2 Flow Rate FiO2 05/08/17 15:23 73 20 111/58 (75) 96 Nasal Cannula 2.00 05/08/17 12:58 75 23 129/67 (87) 98 Nasal Cannula 2.00 05/08/17 11:15 97 Nasal Cannula 2.00 05/08/17 10:30 96 Nasal Cannula 3.00 05/08/17 10:23 71 20 106/80 (89) 95 Nasal Cannula 2.00 05/08/17 08:26 98.5 84 27 96/55 (69) 94 Nasal Cannula 2.00 05/08/17 06:44 95 Nasal Cannula 2.00 05/08/17 06:40 75 18 131/65 (87) 95 Nasal Cannula 2.00 05/08/17 06:18 85 16 100/59 (73) 93 BiPAP 40 05/08/17 06:05 82 18 97/52 (67) 97 BiPAP 40 05/08/17 05:55 97 40 05/08/17 05:44 92 Nasal Cannula 3.00 05/08/17 05:38 95 Nasal Cannula 3.00 05/08/17 05:18 98.9 98 18 113/72 (86) 94 Physical Exam GENERAL: This is a well-nourished, well-developed patient, in no apparent distress. SKIN: No rashes, ecchymoses or lesions. Cool and dry. HEAD: Atraumatic. Normocephalic. No temporal or scalp tenderness. EYES: Pupils equal round and reactive. Extraocular motions intact. No scleral icterus. No injection or drainage. ENT: Nose without bleeding, purulent drainage or septal hematoma. Throat without erythema, tonsillar hypertrophy or exudate. Uvula midline. Airway patent. NECK: Trachea midline. No JVD or lymphadenopathy. Supple, nontender, no meningeal signs. CARDIOVASCULAR: Regular rate and rhythm without murmurs, gallops, or rubs. RESPIRATORY: Clear to auscultation. Breath sounds equal bilaterally. No wheezes , rales, or rhonchi. Diminished breath sounds at the bases. GASTROINTESTINAL: Abdomen soft, non-tender, nondistended. No hepato-splenomegaly , or palpable masses. No guarding. MUSCULOSKELETAL: Extremities without clubbing, cyanosis. No joint tenderness, effusion, or edema noted. No calf tenderness. Negative Homans sign bilaterally. Bilateral lower extremity edema. NEUROLOGICAL: Awake and alert. Expressive aphasia combined with Alzheimer's dementia limits the exam. Patient is spontaneously moving all 4 extremities, tracking movement and moving her head spontaneously to both sides. Laboratory Laboratory Tests Test 05/08/17 05:30 05/08/17 05:39 White Blood Count 13.2 Red Blood Count 3.85 Hemoglobin 11.2 Hematocrit 34.2 Mean Corpuscular Volume 88.9 Mean Corpuscular Hemoglobin 29.1 Mean Corpuscular Hemoglobin Concent 32.8 Red Cell Distribution Width 14.5 Platelet Count 142 Mean Platelet Volume 6.8 Neutrophils (%) (Auto) 94.7 Lymphocytes (%) (Auto) 1.9 Monocytes (%) (Auto) 3.2 Eosinophils (%) (Auto) 0.1 Basophils (%) (Auto) 0.1 Neutrophils # (Auto) 12.5 Lymphocytes # (Auto) 0.3 Monocytes # (Auto) 0.4 Eosinophils # (Auto) 0.0 Basophils # (Auto) 0.0 CBC Comment DIFF FINAL Differential Comment Prothrombin Time 11.0 Prothromb Time International Ratio 1.1 Activated Partial Thromboplast Time 26.5 Urine Color YELLOW Urine Turbidity HAZY Urine pH 6.0 Urine Specific [place] 1.013 Urine Protein 100 Urine Glucose (UA) NEG Urine Ketones NEG Urine Occult Blood SMALL Urine Nitrite NEG Urine Bilirubin NEG Urine Urobilinogen 2.0 Urine Leukocyte Esterase LARGE Urine RBC 29 Urine WBC 90 Urine WBC Clumps FEW Urine Squamous Epithelial Cells 5 Urine Bacteria FEW Urine Hyaline Casts 107 Urine Granular Casts 30 Urine Mucus FEW Microscopic Urinalysis Comment CULTURE INDICATED Blood Urea Nitrogen 16 Creatinine 0.71 Random Glucose 166 Total Protein 6.7 Albumin 3.5 Calcium Level 8.5 Magnesium Level 1.6 Alkaline Phosphatase 99 Aspartate Amino Transf (AST/SGOT) 26 Alanine Aminotransferase (ALT/SGPT) 27 Total Bilirubin 0.9 Sodium Level 128 Potassium Level 4.0 Chloride Level 77 Carbon Dioxide Level GREATER THAN 45.0 Anion Gap 6 Estimat Glomerular Filtration Rate 80 Troponin I LESS THAN 0.02 B-Type Natriuretic Peptide 162 Blood Gas Puncture Site RT RADIAL Blood Gas Patient Temperature 98.6 Blood Gas HCO3 51 Blood Gas Base Excess 23.5 Blood Gas Oxygen Saturation 93 Arterial Blood pH 7.32 Arterial Blood Partial Pressure CO2 103 Arterial Blood Partial Pressure O2 91 Arterial Blood Oxygen Content 13.9 Arterial Blood Carboxyhemoglobin 2.1 Arterial Blood Methemoglobin 0.9 Blood Gas Hemoglobin 10.5 Oxygen Delivery Device NASAL CANNULA Blood Gas Liter Flow 3 Date/Time Source Procedure Growth Status 05/08/17 06:40 Blood Peripheral Aerobic Blood Culture Pending Received 05/08/17 06:40 Blood Peripheral Anaerobic Blood Culture Pending Received 05/08/17 05:30 Nasal Washing Influenza Types A,B Antigen (AMAYA) - Final NEGATIVE FOR FLU A AND B ANTIGEN.... Complete 05/08/17 05:30 Urine Clean Catch Urine Culture Pending Received Result Diagram: 05/08/17 0530 05/08/17 0530 Imaging Last Impressions Chest X-Ray 05/08/17 0512 Signed Impressions: Service Date/Time: Monday, May 08, 2017 05:29 - CONCLUSION: Stable chest x-ray with small bibasilar opacities. Roberto Davalos MD Chest x-ray reviewed by me. EKG reviewed by me shows atrial flutter/tachycardia with a ventricular rate of [address]-T changes. Caprini VTE Risk Assessment Caprini VTE Risk Assessment: Mod/High Risk (score >= 2) Caprini Risk Assessment Model Point Value = 1 Point Value = 2 Point Value = 3 Point Value = 5 Age 41-60 Minor surgery BMI > 25 kg/m2 Swollen legs Varicose veins or History of unexplained or recurrent spontaneous Oral contraceptives or hormone replacement Sepsis (< 1 month) Serious lung disease, including pneumonia (< 1 month) Abnormal pulmonary function Acute myocardial infarction Congestive heart failure (< 1 month) History of inflammatory bowel disease Medical patient at bed rest Age 61-74 Arthroscopic surgery Major open surgery (> 45 min) Laparoscopic surgery (> 45 min) Malignancy Confined to bed (> 72 hours) Immobilizing plaster cast Central venous access Age >= 75 History of VTE Family history of VTE Factor V Leiden Prothrombin [id number] Lupus anticoagulant Anticardiolipin antibodies Elevated serum homocysteine Heparin-induced thrombocytopenia Other congenital or acquired thrombophilia Stroke (< 1 month) Elective arthroplasty Hip, pelvis, or leg fracture Acute spinal cord injury (< 1 month) Prophylaxis Regimen Total Risk Factor Score Risk Level Prophylaxis Regimen 0-1 Low Early ambulation 2 Moderate Order ONE of the following: *Sequential Compression Device (SCD) *Heparin 5000 units SQ BID 3-4 Higher Order ONE of the following medications: *Heparin 5000 units SQ TID *Enoxaparin/Lovenox 40 mg SQ daily (WT < 150 kg, CrCl > 30 mL/min) *Enoxaparin/Lovenox 30 mg SQ daily (WT < 150 kg, CrCl > 10-29 mL/min) *Enoxaparin/Lovenox 30 mg SQ BID (WT < 150 kg, CrCl > 30 mL/min) AND/OR *Sequential Compression Device (SCD) 5 or more Highest Order ONE of the following medications: *Heparin 5000 units SQ TID (Preferred with Epidurals) *Enoxaparin/Lovenox 40 mg SQ daily (WT < 150 kg, CrCl > 30 mL/min) *Enoxaparin/Lovenox 30 mg SQ daily (WT < 150 kg, CrCl > 10-29 mL/min) *Enoxaparin/Lovenox 30 mg SQ BID (WT < 150 kg, CrCl > 30 mL/min) AND *Sequential Compression Device (SCD) Assessment and Plan Problem List: (1) Sepsis ICD Code: A41.9 - Sepsis, unspecified organism (2) PNA (pneumonia) ICD Code: J18.9 - Pneumonia, unspecified organism (3) UTI (urinary tract infection) ICD Code: N39.0 - Urinary tract infection, site not specified (4) Leukocytosis ICD Code: D72.829 - Elevated white blood cell count, unspecified (5) Chronic atrial fibrillation ICD Code: I48.2 - Chronic atrial fibrillation Status: Chronic (6) Hypertension ICD Code: I10 - Essential (primary) hypertension Status: Chronic (7) Hyperlipidemia ICD Code: E78.5 - Hyperlipidemia, unspecified Status: Chronic (8) CAD (coronary artery disease) ICD Code: I25.10 - Atherosclerotic heart disease of [place] coronary artery without angina pectoris Status: Chronic Assessment and Plan Admit the patient to the medical floor. IV vancomycin and IV levofloxacin and IV aztreonam since patient has penicillin allergy. Hold furosemide Follow-up blood and urine cultures which are pending. Flu a and B antigen negative. Hyponatremia likely secondary to poor oral intake and dehydration. With IV normal saline. Leukocytosis due to sepsis secondary to UTI and pneumonia. Monitor CBC with differential. Solu-Medrol 40 mg IV every 12 hours. Heparin subcutaneous for DVT prophylaxis. Continue aspirin, beta-joanne, statin, hold diuretics. Continue Spiriva for COPD. Discussed Condition With RN. Physician Certification 2 Midnight Certification Type: Admission for Inpatient Services Order for Inpatient Services The services are ordered in accordance with Medicare regulations or non- Medicare payer requirements, as applicable. In the case of services not specified as inpatient-only, they are appropriately provided as inpatient services in accordance with the 2-midnight benchmark. Estimated LOS (days): 3 days is the estimated time the patient will need to remain in the hospital, assuming treatment plan goals are met and no additional complications. Post-Hospital Plan: [facility] Eliseo Le MD May 08, 2017 17:34
[2017-05-08] MEDS ORDERED: MELATONIN 5 MG TAB PO PRN (21:00)
[2017-05-08] MEDS ORDERED: VANCOMYCIN INJ 1,750 MG in SODIUM CHLORID 0.9% 500 ML INJ 500 ML IV SCH (23:00)
[2017-05-09] VITALS (7 sets, daily range): BP systolic 122–154; BP diastolic 58–84; PULSE 75–101; RESP 18–20; TEMP 95.7–98.5; O2SAT 92–98
[2017-05-09] MEDS: AZTREONAM INJ 2,000 MG in SODIUM CHLORIDE 0.9% INJ 100 ML IV SCH ×2 (00:50→09:47)
[2017-05-09] MEDS: SODIUM CHLOR 0.9% 1000 ML INJ 1,000 ML IV SCH (01:35)
[2017-05-09] MEDS: metroNIDAZOLE 500 MG INJ 100 ML IV SCH ×2 (03:29→21:13)
[2017-05-09 04:06] LABS: AUTOMATED NEUTROPHIL # 9.6 TH/MM3 (1.8-7.7); HEMATOCRIT 30.5 % (35.0-46.0); HEMOGLOBIN 10.2 GM/DL (11.6-15.3); LYMPH % 1.5 % (9.0-44.0); LYMPHOCYTE # 0.1 TH/MM3 (1.0-4.8); MEAN CELL VOLUME 89.2 FL (80.0-100.0); MEAN CORPUSCULAR HEMOGLOBIN 29.8 PG (27.0-34.0); MEAN CORPUSCULAR HGB CONC 33.5 % (32.0-36.0); MEAN PLATELET VOLUME 7.3 FL (7.0-11.0); MONO % 1.2 % (0.0-8.0); MONOCYTE # 0.1 TH/MM3 (0-0.9); NEUT % 97.3 % (16.0-70.0); PLATELET COUNT 113 TH/MM3 (150-450); RED BLOOD COUNT 3.42 MIL/MM3 (4.00-5.30); RED CELL DISTRIBUTION WIDTH 14.3 % (11.6-17.2); WHITE BLOOD COUNT 9.9 TH/MM3 (4.0-11.0)
[2017-05-09] MEDS: RESP: ALBUTEROL 2.5 MG/IPRATROPIUM 0.5 MG NEB (SCH) INH ×2 (04:14→19:55)
[2017-05-09 04:31] LABS: BLOOD UREA NITROGEN 16 MG/DL (7-18); CALCIUM 8.5 MG/DL (8.5-10.1); CHLORIDE 81 MEQ/L (98-107); GLOMERULAR FILTRATION RATE 119 ML/MIN (>89); GLUCOSE,RANDOM 157 MG/DL (74-106); SODIUM (NA) 129 MEQ/L (136-145)
[2017-05-09 04:37] LABS: BICARBONATE GREATER THAN 45.0 MEQ/L (21.0-32.0)
[2017-05-09] MEDS: LEVOFLOXACIN 750 MG PREMIX INJ 150 ML IV SCH (05:05)
[2017-05-09] MEDS: PRAMIPEXOLE DIHYDROCHLORIDE 0.25 MG TAB PO SCH ×2 (05:55→21:15)
[2017-05-09] MEDS: HEPARIN SODIUM - SQ 10,000 UNITS/ML VIAL SQ SCH ×2 (05:55→21:14)
[2017-05-09] MEDS: SODIUM CHLORIDE 0.9% FLUSH 10 ML FLUSH IV FLUSH SCH ×2 (09:00→21:15)
[2017-05-09] MEDS: methylPREDNISolone SOD SUCC 40 MG/1 ML VIAL IV PUSH SCH ×2 (09:45→21:14)
[2017-05-09] MEDS: ASPIRIN 81 MG CHEW TAB PO SCH (09:45)
[2017-05-09] MEDS: LACTOBACILLUS ACIDOPHILUS TAB PO SCH ×3 (09:45→18:00)
[2017-05-09] MEDS: TIOTROPIUM BROMIDE 18 MCG INH INH SCH (09:46)
[2017-05-09] MEDS: SPIRONOLACTONE 25 MG TAB PO SCH (09:46)
[2017-05-09] MEDS: CARVEDILOL 3.125 MG TAB PO SCH ×2 (09:46→21:14)
[2017-05-09] MEDS: PRAVASTATIN SOD 10 MG TAB PO SCH (09:46)
[2017-05-09] MEDS: ISOSORBIDE MONONITRATE 30 MG CR TAB (IMDUR) PO SCH (09:47)
[2017-05-09] MEDS: SERTRALINE HCL 100 MG TAB PO SCH (14:47)
[2017-05-09] MEDS: PANTOPRAZOLE SOD 40 MG DELAYED RELEASE TAB PO SCH (14:47)
[2017-05-09] MEDS ORDERED: VANCOMYCIN INJ 1,750 MG in SODIUM CHLORID 0.9% 500 ML INJ 500 ML IV SCH (16:00)
[2017-05-10] VITALS (9 sets, daily range): BP systolic 109–158; BP diastolic 61–85; PULSE 60–90; RESP 18–20; TEMP 97.9–98.5; O2SAT 93–97
[2017-05-10] MEDS: AZTREONAM INJ 2,000 MG in SODIUM CHLORIDE 0.9% INJ 100 ML IV SCH ×2 (01:21→08:47)
--- NOTE | 2017-05-10 02:12 | HHI.PR ---
Subjective Remarks Deferred entry - patient seen on date 05/09/17 at 6 PM The patient denies chest pain or shortness of breath. Patient feels very tired. A febrile Objective Vitals Vital Signs Date Time Temp Pulse Resp B/P (MAP) Pulse Ox O2 Delivery O2 Flow Rate FiO2 05/10/17 00:32 98.3 71 19 145/61 (89) 95 05/09/17 20:25 98.2 101 19 154/84 (107) 97 05/09/17 19:58 98 Nasal Cannula 2.00 05/09/17 16:54 98.0 75 18 133/79 (97) 92 05/09/17 12:00 96.6 83 20 122/58 (79) 97 05/09/17 08:00 95.7 89 20 122/65 (84) 96 05/09/17 04:00 97.7 82 19 130/65 (86) 96 I/O 05/09/17 05/09/17 05/09/17 05/10/17 05/10/17 05/10/17 07:00 15:00 23:00 07:00 15:00 23:00 Intake Total 1040 ml 360 ml 240 ml Output Total 350 ml 800 ml 400 ml Balance 690 ml -440 ml -160 ml Intake Oral 320 ml 360 ml 240 ml IV Total 720 ml Output Urine Total 350 ml 800 ml 400 ml # Bowel Movements 1 0 Result Diagram: 05/09/1731405/09/17 0315 Imaging Last 72 hours Impressions Chest X-Ray 05/08/17 0512 Signed Impressions: Service Date/Time: Monday, May 08, 2017 05:29 - CONCLUSION: Stable chest x-ray with small bibasilar opacities. Roberto Davalos MD Objective Remarks GENERAL: This is a well-nourished, well-developed patient, in no apparent distress. SKIN: No rashes, ecchymoses or lesions. Cool and dry. HEAD: Atraumatic. Normocephalic. No temporal or scalp tenderness. EYES: Pupils equal round and reactive. Extraocular motions intact. No scleral icterus. No injection or drainage. ENT: Nose without bleeding, purulent drainage or septal hematoma. Throat without erythema, tonsillar hypertrophy or exudate. Uvula midline. Airway patent. NECK: Trachea midline. No JVD or lymphadenopathy. Supple, nontender, no meningeal signs. CARDIOVASCULAR: Regular rate and rhythm without murmurs, gallops, or rubs. RESPIRATORY: Clear to auscultation. Breath sounds equal bilaterally. No wheezes , rales, or rhonchi. Diminished breath sounds at the bases. GASTROINTESTINAL: Abdomen soft, non-tender, nondistended. No hepato-splenomegaly , or palpable masses. No guarding. MUSCULOSKELETAL: Extremities without clubbing, cyanosis. No joint tenderness, effusion, or edema noted. No calf tenderness. Negative Homans sign bilaterally. Bilateral lower extremity edema. NEUROLOGICAL: Awake and alert. Expressive aphasia combined with Alzheimer's dementia limits the exam. Patient is spontaneously moving all 4 extremities, tracking movement and moving her head spontaneously to both sides. A/P Problem List: (1) Sepsis ICD Code: A41.9 - Sepsis, unspecified organism (2) PNA (pneumonia) ICD Code: J18.9 - Pneumonia, unspecified organism (3) UTI (urinary tract infection) ICD Code: N39.0 - Urinary tract infection, site not specified (4) Leukocytosis ICD Code: D72.829 - Elevated white blood cell count, unspecified (5) Chronic atrial fibrillation ICD Code: I48.2 - Chronic atrial fibrillation Status: Chronic (6) Hypertension ICD Code: I10 - Essential (primary) hypertension Status: Chronic (7) Hyperlipidemia ICD Code: E78.5 - Hyperlipidemia, unspecified Status: Chronic (8) CAD (coronary artery disease) ICD Code: I25.10 - Atherosclerotic heart disease of [place] coronary artery without angina pectoris Status: Chronic Assessment and Plan Continue IV vancomycin and IV levofloxacin and IV aztreonam since patient has penicillin allergy. Continue to Hold furosemide Follow-up blood and urine cultures which are pending -urine culture positive for gram-negative rods. Continue IV antibiotics as above and de-escalate pending ID and sensitivities. Flu a and B antigen negative. Hyponatremia likely secondary to poor oral intake and dehydration. Sodium is slightly improved. Continue to monitor BMP and continue IV normal saline. Leukocytosis due to sepsis secondary to UTI and pneumonia. Monitor CBC with differential -resolving. Continue Solu-Medrol 40 mg IV every 12 hours. Heparin subcutaneous for DVT prophylaxis. Continue aspirin, beta-joanne, statin, hold diuretics. Continue Spiriva for COPD. Patient also has metabolic alkalosis, suspect contraction alkalosis from dehydration and overdiuresis. Continue IV fluid administration. Discharge Planning Discharge pending clinical improvement. Eliseo Le MD May 10, 2017 02:12
[2017-05-10] MEDS: RESP: ALBUTEROL 2.5 MG/IPRATROPIUM 0.5 MG NEB (SCH) INH ×4 (02:34→21:13)
[2017-05-10] MEDS: metroNIDAZOLE 500 MG INJ 100 ML IV SCH ×3 (03:57→11:19)
[2017-05-10] MEDS: HEPARIN SODIUM - SQ 10,000 UNITS/ML VIAL SQ SCH ×3 (06:02→22:47)
[2017-05-10] MEDS: LEVOFLOXACIN 750 MG PREMIX INJ 150 ML IV SCH (06:02)
[2017-05-10] MEDS: ISOSORBIDE MONONITRATE 30 MG CR TAB (IMDUR) PO SCH (06:02)
[2017-05-10] MEDS: PRAMIPEXOLE DIHYDROCHLORIDE 0.25 MG TAB PO SCH ×3 (06:02→22:48)
[2017-05-10] MEDS: SODIUM CHLOR 0.9% 1000 ML INJ 1,000 ML IV SCH ×3 (06:02→22:49)
[2017-05-10 07:56] LABS: CREATININE 0.38 MG/DL (0.50-1.00)
[2017-05-10] MEDS: PANTOPRAZOLE SOD 40 MG DELAYED RELEASE TAB PO SCH (08:47)
[2017-05-10] MEDS: LACTOBACILLUS ACIDOPHILUS TAB PO SCH ×3 (08:48→18:09)
[2017-05-10] MEDS: SERTRALINE HCL 100 MG TAB PO SCH (08:49)
[2017-05-10] MEDS: methylPREDNISolone SOD SUCC 40 MG/1 ML VIAL IV PUSH SCH ×2 (08:49→22:48)
[2017-05-10] MEDS: SPIRONOLACTONE 25 MG TAB PO SCH (08:49)
[2017-05-10] MEDS: CARVEDILOL 3.125 MG TAB PO SCH ×2 (08:49→22:48)
[2017-05-10] MEDS: ASPIRIN 81 MG CHEW TAB PO SCH (08:49)
[2017-05-10] MEDS: SODIUM CHLORIDE 0.9% FLUSH 10 ML FLUSH IV FLUSH SCH ×2 (08:50→22:46)
[2017-05-10] MEDS: PRAVASTATIN SOD 10 MG TAB PO SCH (08:51)
[2017-05-10] MEDS: TIOTROPIUM BROMIDE 18 MCG INH INH SCH (08:51)
--- NOTE | 2017-05-10 09:54 | HHI.PR ---
Subjective Remarks This is a 68-year-old female with past medical history as stated above who presents to [facility] sent from a [facility] due to respiratory distress. The patient has history of Alzheimer's as well as expressive aphasia and is unable to provide any history. As per ED physician's medical records the patient was noted to have low oxygen saturation yesterday and 92% on 2 L nasal cannula, she was given nebulizer treatments with only slight improvement. Apparently the [facility] called the ambulance secondary to doctor's instructions that if the patient's oxygen saturation should remain below 92% and the patient should be transferred to the hospital. 05/09/17 at 6 PM The patient denies chest pain or shortness of breath. Patient feels very tired. A febrile 3- patient is having leaking from the Cheek and the Cheek bag is leaking will change out Cheek HAs yeast in all folds will get nystatin powder for the folds Discussed with patient and RN Get physical therapy and occupational therapy involved WILL ADD PT AND OT MUCINEX DUONEBS CONTINUE CURRENT ANTIBIOTICS GRAM NEGATIVE RODS IN URINE- AWAIT SENSITIVITIES-- POSITIVE FOR ESBL DW ID Objective Vitals Vital Signs Date Time Temp Pulse Resp B/P (MAP) Pulse Ox O2 Delivery O2 Flow Rate FiO2 05/10/17 09:32 95 Nasal Cannula 2.00 05/10/17 04:31 98.3 86 19 158/85 (109) 95 05/10/17 00:32 98.3 71 19 145/61 (89) 95 05/09/17 20:25 98.2 101 19 154/84 (107) 97 05/09/17 19:58 98 Nasal Cannula 2.00 05/09/17 16:54 98.0 75 18 133/79 (97) 92 05/09/17 12:00 96.6 83 20 122/58 (79) 97 I/O 05/09/17 05/09/17 05/09/17 05/10/17 05/10/17 05/10/17 06:59 14:59 22:59 06:59 14:59 22:59 Intake Total 1380 ml 360 ml 480 ml Output Total 1250 ml 800 ml 1050 ml Balance 130 ml -440 ml -570 ml Intake Oral 660 ml 360 ml 480 ml IV Total 720 ml Output Urine Total 1250 ml 800 ml 1050 ml # Bowel Movements 2 0 Result Diagram: 05/09/17 0315 05/10/17 0609 Other Results Laboratory Tests Test 05/08/17 05:30 05/08/17 05:39 05/09/17 03:15 05/10/17 06:09 White Blood Count 13.2 TH/MM3 9.9 TH/MM3 Red Blood Count 3.85 MIL/MM3 3.42 MIL/MM3 Hemoglobin 11.2 GM/DL 10.2 GM/DL Hematocrit 34.2 % 30.5 % Mean Corpuscular Volume 88.9 FL 89.2 FL Mean Corpuscular Hemoglobin 29.1 PG 29.8 PG Mean Corpuscular Hemoglobin Concent 32.8 % 33.5 % Red Cell Distribution Width 14.5 % 14.3 % Platelet Count 142 TH/MM3 113 TH/MM3 Mean Platelet Volume 6.8 FL 7.3 FL Neutrophils (%) (Auto) 94.7 % 97.3 % Lymphocytes (%) (Auto) 1.9 % 1.5 % Monocytes (%) (Auto) 3.2 % 1.2 % Eosinophils (%) (Auto) 0.1 % 0.0 % Basophils (%) (Auto) 0.1 % 0.0 % Neutrophils # (Auto) 12.5 TH/MM3 9.6 TH/MM3 Lymphocytes # (Auto) 0.3 TH/MM3 0.1 TH/MM3 Monocytes # (Auto) 0.4 TH/MM3 0.1 TH/MM3 Eosinophils # (Auto) 0.0 TH/MM3 0.0 TH/MM3 Basophils # (Auto) 0.0 TH/MM3 0.0 TH/MM3 CBC Comment DIFF FINAL DIFF FINAL Differential Comment Prothrombin Time 11.0 SEC Prothromb Time International Ratio 1.1 RATIO Activated Partial Thromboplast Time 26.5 SEC Urine Color YELLOW Urine Turbidity HAZY Urine pH 6.0 Urine Specific [place] 1.013 Urine Protein 100 mg/dL Urine Glucose (UA) NEG mg/dL Urine Ketones NEG mg/dL Urine Occult Blood SMALL Urine Nitrite NEG Urine Bilirubin NEG Urine Urobilinogen 2.0 MG/DL Urine Leukocyte Esterase LARGE Urine RBC 29 /hpf Urine WBC 90 /hpf Urine WBC Clumps FEW Urine Squamous Epithelial Cells 5 /hpf Urine Bacteria FEW /hpf Urine Hyaline Casts 107 /lpf Urine Granular Casts 30 /lpf Urine Mucus FEW /lpf Microscopic Urinalysis Comment CULTURE INDICATED Blood Urea Nitrogen 16 MG/DL 16 MG/DL Creatinine 0.71 MG/DL 0.50 MG/DL 0.38 MG/DL Random Glucose 166 MG/DL 157 MG/DL Total Protein 6.7 GM/DL Albumin 3.5 GM/DL Calcium Level 8.5 MG/DL 8.5 MG/DL Magnesium Level 1.6 MG/DL Alkaline Phosphatase 99 U/L Aspartate Amino Transf (AST/SGOT) 26 U/L Alanine Aminotransferase (ALT/SGPT) 27 U/L Total Bilirubin 0.9 MG/DL Sodium Level 128 MEQ/L 129 MEQ/L Potassium Level 4.0 MEQ/L 3.7 MEQ/L Chloride Level 77 MEQ/L 81 MEQ/L Carbon Dioxide Level GREATER THAN 45.0 MEQ/L GREATER THAN 45.0 MEQ/L Anion Gap 6 MEQ/L 3 MEQ/L Estimat Glomerular Filtration Rate 80 ML/MIN 119 ML/MIN 164 ML/MIN Troponin I LESS THAN 0.02 NG/ML B-Type Natriuretic Peptide 162 PG/ML Blood Gas Puncture Site RT RADIAL Blood Gas Patient Temperature 98.6 Blood Gas HCO3 51 mmol/L Blood Gas Base Excess 23.5 mmol/L Blood Gas Oxygen Saturation 93 % Arterial Blood pH 7.32 Arterial Blood Partial Pressure CO2 103 mmHg Arterial Blood Partial Pressure O2 91 mmHG Arterial Blood Oxygen Content 13.9 Vol % Arterial Blood Carboxyhemoglobin 2.1 % Arterial Blood Methemoglobin 0.9 % Blood Gas Hemoglobin 10.5 G/DL Oxygen Delivery Device NASAL CANNULA Blood Gas Liter Flow 3 L/M Imaging Last Impressions Chest X-Ray 05/08/17 0512 Signed Impressions: Service Date/Time: Monday, May 08, 2017 05:29 - CONCLUSION: Stable chest x-ray with small bibasilar opacities. Roberto Davalos MD Objective Remarks GENERAL: This is a well-nourished, well-developed patient, in no apparent distress. SKIN: No rashes, ecchymoses or lesions. Cool and dry. Fungal infection in all folds HEAD: Atraumatic. Normocephalic. No temporal or scalp tenderness. EYES: Pupils equal round and reactive. Extraocular motions intact. No scleral icterus. No injection or drainage. ENT: Nose without bleeding, purulent drainage or septal hematoma. Throat without erythema, tonsillar hypertrophy or exudate. Uvula midline. Airway patent. NECK: Trachea midline. No JVD or lymphadenopathy. Supple, nontender, no meningeal signs. CARDIOVASCULAR: Regular rate and rhythm without murmurs, gallops, or rubs. S1- S2 no S3 or S4 RESPIRATORY: Clear to auscultation. Breath sounds equal bilaterally. No wheezes , rales, or rhonchi. Diminished breath sounds at the bases. GASTROINTESTINAL: Abdomen soft, non-tender, nondistended. No hepato-splenomegaly , or palpable masses. No guarding. MUSCULOSKELETAL: Extremities without clubbing, cyanosis. No joint tenderness, effusion, or edema noted. No calf tenderness. Negative Homans sign bilaterally. Bilateral lower extremity edema. Slow improvement NEUROLOGICAL: Awake and alert. Expressive aphasia combined with Alzheimer's dementia limits the exam. Patient is spontaneously moving all 4 extremities, tracking movement and moving her head spontaneously to both sides. Medications and IVs Current Medications Sodium Chloride (NS Flush) 2 ml UNSCH PRN IVF FLUSH AFTER USING IV ACCESS; Start 05/08/17 at 05:15 Levofloxacin/ Dextrose 100 ml @ 100 mls/hr ONCE ONCE IV Last administered on 05/08/17at 06:56; Start 05/08/17 at 06:15; Stop 05/08/17 at 07:14; Status DC Sodium Chloride 1,000 ml @ 100 mls/hr Q10H IV Last administered on 05/10/17at 08 :51; Start 05/08/17 at 06:32 Sodium Chloride (NS Flush) 2 ml UNSCH PRN IV FLUSH FLUSH AFTER USING IV ACCESS ; Start 05/08/17 at 06:45 Sodium Chloride (NS Flush) 2 ml BID IV FLUSH Last administered on 05/10/17at 08: 50; Start 05/08/17 at 09:00 Aztreonam 2000 mg/ Sodium Chloride 100 ml @ 200 mls/hr Q8H IV Last administered on 05/10/17at 08:47; Start 05/08/17 at 08:00 Levofloxacin/ Dextrose 150 ml @ 100 mls/hr Q24H IV ; Start 05/08/17 at 07:15; Stop 05/08/17 at 07:24; Status DC Vancomycin HCl 1000 mg/Sodium Chloride 250 ml @ 250 mls/hr ONCE ONCE IV Last administered on 05/08/17at 08:09; Start 05/08/17 at 08:00; Stop 05/08/17 at 08:59; Status DC Pharmacy Profile Note 0 ml @ 0 mls/hr UNSCH OTHER ; Start 05/08/17 at 06:45 Albuterol/ Ipratropium (Duoneb Neb) 1 ampule Q6HR NEB INH Last administered on 05/10/17at 09:30; Start 05/08/17 at 10:00 Albuterol/ Ipratropium (Duoneb Neb) 1 ampule Q4HR NEB PRN INH SHORTNESS OF BREATH; Start 05/08/17 at 08:00 Methylprednisolone Sodium Succinate (SoluMEDROL INJ) 40 mg Q12H IV PUSH Last administered on 05/10/17at 08:49; Start 05/08/17 at 08:00 Acetaminophen (Tylenol) 650 mg Q4H PRN PO TEMPERATURE > 101 F; Start 05/08/17 at 06:45 Ondansetron HCl (Zofran Inj) 4 mg Q6HR PRN IV PUSH NAUSEA; Start 05/08/17 at 08: 00 Heparin Sodium (Porcine) (Heparin Inj) 5,000 units Q8HR SQ Last administered on 05/10/17at 06:02; Start 05/08/17 at 14:00 Aspirin (Aspirin Chew) 81 mg DAILY PO Last administered on 05/10/17 08:49; Start 05/08/17 at 09:00 Bisacodyl (Dulcolax Supp) 10 mg DAILY PRN RECTAL CONSTIPATION; Start 05/08/17 at 09:00 Carvedilol (Coreg) 3.125 mg Q12HR PO Last administered on 05/10/17 08:49; Start 05/08/17 at 09:00 Furosemide (Lasix) 40 mg BID PO Last administered on 05/08/17at 09:33; Start 05/08 at 09:00; Status Future Hold Acetaminophen/ Hydrocodone Bitart ([place] 7.5-325 Mg) 1 tab Q4HR PRN PO PAIN; Start 05/08/17 at 08:00 Isosorbide Mononitrate (Imdur) 30 mg DAILY@07 PO Last administered on 05/10/17at 06:02; Start 05/08/17 at 08:00 Lorazepam (Ativan) 0.5 mg TID PRN PO ANXIETY; Start 05/08/17 at 09:00 Pravastatin Sodium (Pravachol) 10 mg DAILY PO Last administered on 05/10/17 08: 51; Start 05/08/17 at 09:00 Sertraline HCl (Zoloft) 200 mg DAILY PO Last administered on 05/10/17 08:49; Start 05/08/17 at 09:00 Spironolactone (Aldactone) 25 mg DAILY PO Last administered on 05/10/17 08:49; Start 05/08/17 at 09:00 Tiotropium [place] (Spiriva Inh) 18 mcg DAILY INH Last administered on 08:51; Start 05/08/17 at 09:00 Pantoprazole Sodium (Protonix) 40 mg DAILY PO Last administered on 05/10/17 08: 47; Start 05/08/17 at 09:00 Pramipexole Dihydrochloride (Mirapex) 0.75 mg Q8HR PO Last administered on 06:02; Start 05/08/17 at 14:00 Lactobacillus Acidophilus (Lactinex) 1 tab TID PO Last administered on 08:48; Start 05/08/17 at 09:00 Melatonin (Melatonin) 5 mg HS PRN PO INSOMNIA; Start 05/08/17 at 21:00 Levofloxacin/ Dextrose 150 ml @ 100 mls/hr Q24H IV Last administered on 06:02; Start 05/09/17 at 06:00 Vancomycin HCl 1750 mg/Sodium Chloride 517.5 ml @ 258.75 mls/ hr Q24H IV Last administered on 05/08/17at 22:10; Start 05/08/17 at 23:00; Stop 05/09/17 at 12:57; Status DC Miscellaneous Information SPECIFIC LAB TO BE JAJA... ONCE ONCE .XX ; Start at 22:45; Stop 05/10/17 at 22:45; Status DC Metronidazole 100 ml @ 100 mls/hr Q8H IV Last administered on 05/10/17at 03:57; Start 05/08/17 at 11:00 Vancomycin HCl 1750 mg/Sodium Chloride 517.5 ml @ 258.75 mls/ hr Q18H IV Last administered on 05/09/17at 18:09; Start 05/09/17 at 16:00 Miscellaneous Information SPECIFIC LAB TO BE DRAWN:VANCO TROUGH DATE TO... ONCE ONCE .XX ; Start 05/11/17 at 03:45; Stop 05/11/17 at 03:46 A/P Problem List: (1) Sepsis ICD Code: A41.9 - Sepsis, unspecified organism (2) PNA (pneumonia) ICD Code: J18.9 - Pneumonia, unspecified organism (3) UTI (urinary tract infection) ICD Code: N39.0 - Urinary tract infection, site not specified (4) Leukocytosis ICD Code: D72.829 - Elevated white blood cell count, unspecified (5) Chronic atrial fibrillation ICD Code: I48.2 - Chronic atrial fibrillation Status: Chronic (6) Hypertension ICD Code: I10 - Essential (primary) hypertension Status: Chronic (7) Hyperlipidemia ICD Code: E78.5 - Hyperlipidemia, unspecified Status: Chronic (8) CAD (coronary artery disease) ICD Code: I25.10 - Atherosclerotic heart disease of [place] coronary artery without angina pectoris Status: Chronic Assessment and Plan Continue IV ANTIBIOTICS PER ID since patient has penicillin allergy.-Consult infectious disease Continue to Hold furosemide Follow-up blood and urine cultures which are pending -urine culture positive for gram-negative rods. Continue IV antibiotics as above and de-escalate pending ID and sensitivities. Flu A and B antigen negative. Hyponatremia likely secondary to poor oral intake and dehydration. Sodium is slightly improved. Continue to monitor BMP and continue IV normal saline. Leukocytosis due to sepsis secondary to UTI and pneumonia. Monitor CBC with differential -resolving.--ESBL WILL DEFER TO ID-- CONSULT ID Continue Solu-Medrol 40 mg IV every 12 hours. Heparin subcutaneous for DVT prophylaxis. Continue aspirin, beta-joanne, statin, hold diuretics. Continue Spiriva for COPD. Patient also has metabolic alkalosis, suspect contraction alkalosis from dehydration and overdiuresis. Continue IV fluid administration. Fungal infection in the groin and all folds started on nystatin powder Leaking Cheek catheter will change Discharge Planning Pending improvement Harshil Boyd DO May 10, 2017 09:54
[2017-05-10] MEDS: guaiFENesin E.R. 600 MG TAB PO SCH ×2 (10:43→22:48)
[2017-05-10] MEDS ORDERED: MISCELLANEOUS PHARMACY INFORMATION XX PRN ×2 (10:45→16:15)
[2017-05-10] MEDS: NYSTATIN 100,000 U/GM PWD 15 GM BTL TOPICAL SCH ×2 (10:45→22:49)
--- NOTE | 2017-05-10 12:02 | PQ ---
Physician Query Response Document PATIENT: JAREN ONEAL : 1940 ADMIT DATE: 05/08/2017 6:23 AM DISCH DATE: RESPONDING PROVIDER #: VIOLETTA QUERY TEXT: Clarification of Clinical Diagnostic Findings UTI d/t almanzar catheter, POA, in this pt with a chronic almanzar catheter and now UTI requiring treatment with IV antibiotics. Other explanation of clinical findings. Unable to determine (no explanation for clinical findings). The patient's Clinical Indicators include: * Clinical Indicators: UTI, urine culture +Gram Neg Rods * Risk Factors: indwelling urinary catheter * Treatment: IV Vancomycin, IV Levaquin, IV axtreonam; Almanzar changed Please clarify and document your clinical opinion in the progress notes and discharge summary includi ng the definitive and/or presumptive diagnosis (suspected or probable), related to the above clinical findings. Please include clinical findings supporting your diagnosis. Thank you, Nelda Vail CDS: Nelda Vail Patient Unit: [id number] Contact Number: [phone] Room: [facility] Query created by: Nelda Vail on 05/10/2017 11:51 AM RESPONSE TEXT: HAD ESBL UTI- CONSULTING ID Electronically signed by: Harshil Boyd 05/10/2017 11:57 AM
--- NOTE | 2017-05-10 12:36 | PQ ---
Physician Query Response Document PATIENT: JAREN ONEAL : 1940 ADMIT DATE: 05/08/2017 6:23 AM DISCH DATE: RESPONDING PROVIDER #: VIOLETTA QUERY TEXT: Clarification of Clinical Diagnostic Findings Probable MRSA pneumonia in a patient admittd from residential with PNA requiring treatment with IV V ancomycin and Levaquin. Other explanation of clinical findings. Unable to determine (no explanation for clinical findings). The patient's Clinical Indicators include: * Clinical Indicators: On admit bibasilar opacities, WBC 13.2, Neutro% 97.4; resp distress with O2 sa t 92% on 2L NC * Risk Factors: NH resident * Treatment: IV Levaquin/Vancomycin, Oxygen per NC Please clarify and document your clinical opinion in the progress notes and discharge summary includi ng the definitive and/or presumptive diagnosis (suspected or probable), related to the above clinical findings. Please include clinical findings supporting your diagnosis. Thank you, Nelda Vail CDS: Nelda Vail Patient Unit: [id number] Contact Number: [phone] Room: [facility] Query created by: Nelda Vail on 05/10/2017 12:03 PM RESPONSE TEXT: HAS ESBL UTI- WILL CONSULT ID Electronically signed by: Harshil Boyd 05/10/2017 12:31 PM
[2017-05-10] MEDS ORDERED: IMIPENEM/CILASTATIN INJ 500 MG in SODIUM CHLORIDE 0.9% INJ 100 ML IV SCH (14:00)
--- NOTE | 2017-05-10 16:13 | PD.ID.CON ---
History of Present Illness Service ID Consult Requested By Dr Quevedo Reason for Consult ESBL UTI Primary Care Physician Unknown Diagnoses: History of Present Illness 76 yo female with dementia, unable to provide menaing ful history Hx from the chart and other HC providers She has a h/o indwelling foely and was admitted for suspected PNA CXR showed basilar infiltrates unchanges since 03/28, pt endorses occasional mild cough, no expectoration, however pt is not a reliable hstorian no fever on presentation WBC 13 K+ blood clx w/o growth, UA markedly abnormal withoyurian and + culture ESBL+ E.coli almanzar was changed in ER INItiallly started on azactam, vanco, falgyl , now changed to Primaxin, still on flagyl flu was negative Review of Systems ROS Limitations: Poor Historian Past Family Social History Allergies: Coded Allergies: Penicillins (Verified Allergy, Severe, 05/08/17) Past Medical History 1. COPD on home oxygen. 2. Hyperlipidemia. 3. Atrial fibrillation. 4. Restless leg syndrome. 5. Hypothyroidism. 6. GERD. 7. CAD. 8. Hypertension. 9. Hearing impairment. Alzheimer's dementia Past Surgical History Unable to obtain secondary to patient's Alzheimer's dementia as well as expressive aphasia. Active Ordered Medications Medications where reviewed in EMR Antibiotics Include: Primaxin Family History Unable to obtain due to patient's mental condition. Social History + endorses remote tobaccoism (>50-60 yrs ago) no ETOH resides in assisted Physical Exam Vital Signs Vital Signs Date Time Temp Pulse Resp B/P (MAP) Pulse Ox O2 Delivery O2 Flow Rate FiO2 05/10/17 15:30 95 Nasal Cannula 2.00 05/10/17 12:03 98.2 60 20 109/61 (77) 95 05/10/17 09:32 95 Nasal Cannula 2.00 05/10/17 08:00 87 05/10/17 04:31 98.3 86 19 158/85 (109) 95 05/10/17 00:32 98.3 71 19 145/61 (89) 95 05/09/17 20:25 98.2 101 19 154/84 (107) 97 05/09/17 19:58 98 Nasal Cannula 2.00 05/09/17 16:54 98.0 75 18 133/79 (97) 92 Physical Exam CONSTITUTIONAL/GENERAL: This is a morbidly obese female patient, in no apparent distress. TUBES/LINES/DRAINS: SKIN: No jaundice, rashes, or lesions. Skin temperature appropriate. Not diaphoretic. HEAD: Atraumatic. Normocephalic. EYES: Pupils equal and round and reactive. Extraocular motions intact. No scleral icterus. No injection or drainage. Fundi not examined. ENT: Hearing is markedly decressed . Nose without bleeding or purulent drainage. Throat without visible erythema, exudates, masses, or lesions. NECK: Trachea midline. Supple, nontender. No palpable thyroid enlargement or nodularity. CARDIOVASCULAR: Regular rate and rhythm without murmurs, gallops, or rubs. No JVD. Peripheral pulses symmetric. RESPIRATORY/CHEST: Symmetric, unlabored respirations. Clear to auscultation. Breath sounds equal bilaterally. No wheezes, rales, or rhonchi. GASTROINTESTINAL: Abdomen soft, non-tender, nondistended. No hepato-splenomegaly , or palpable masses. No guarding. Bowel sounds present. GENITOURINARY: Without palpable bladder distension. Almanzar catheter in place with clear light yellow urine CVA tenderness smild, symmetric MUSCULOSKELETAL: Extremities without clubbing, cyanosis, + 1+ edema and chronic hyperpigmentation. No joint tenderness or effusion noted. No calf tenderness. No mottling or clubbing. LYMPHATICS: No palpable cervical or supraclavicular adenopathy. NEUROLOGICAL: Awake and alert. Motor and sensory grossly within normal limits. Follows commands. Clear speech, but is confused and obvious memory deficits . Moves all extremities. PSYCHIATRIC: No obvious anxiety/depression. no apparent hallucinations or other psychotic thought process. Laboratory Laboratory Tests Test 05/10/17 06:09 Creatinine 0.38 Estimat Glomerular Filtration Rate 164 Date/Time Source Procedure Growth Status 05/08/17 06:40 Blood Peripheral Aerobic Blood Culture - Preliminary NO GROWTH IN 2 DAYS Resulted 05/08/17 06:40 Blood Peripheral Anaerobic Blood Culture - Preliminary NO GROWTH IN 2 DAYS Resulted 05/08/17 05:30 Nasal Washing Influenza Types A,B Antigen (AMAYA) - Final NEGATIVE FOR FLU A AND B ANTIGEN.... Complete 05/08/17 05:30 Urine Clean Catch Urine Culture - Final Escherichia Coli Esbl Positive Multi-Drug Resistant Complete Result Diagram: 05/09/17 0315 05/10/17 0609 Imaging Last Impressions Chest X-Ray 3/7/18 0512 Signed Impressions: Service Date/Time: Monday, May 08, 2017 05:29 - CONCLUSION: Stable chest x-ray with small bibasilar opacities. Roberto Davalos MD Assessment and Plan Assessment and Plan ESBL+ E.coli UTI with chronic indwelling almanzar Pulmonary infiltrates unchanged from 03/28 an no cough/expectorateiom: doubt PNA , favouring atelectatic changes Allergica reaction to PCN (rash), no problems tolerating primaxin change Primaxin to Ertapenem CT chest to evaualte persistent infiltrates Discussed Condition With Frances Quijano RN, MD May 10, 2017 16:12
[2017-05-10] MEDS ORDERED: ASP: Documented ESBL, MDR A baumannii or P. aeruginosa PRN (16:15)
--- NOTE | 2017-05-10 17:45 | RADRPT ---
EXAM DATE/TIME: 05/10/2017 17:28 [place] COMPARISON: No previous studies available for comparison. INDICATIONS : Shortness of breath; pneumonia RADIATION DOSE: 9.59 CTDIvol (mGy) MEDICAL HISTORY : Hypothyroidism. Cardiovascular disease Gastroesophageal reflux disease. Hypertension, Atrial fibrilla tion SURGICAL HISTORY : None. ENCOUNTER: Initial ACUITY: 1 day PAIN SCALE: 0/10 LOCATION: chest TECHNIQUE: Volumetric scanning of the chest was performed. Using automated exposure control and adjustment of t he mA and/or kV according to patient size, radiation dose was kept as low as reasonably achievable to obtain optimal diagnostic quality images. DICOM format image data is available electronically for r eview and comparison. Follow-up recommendations for detected pulmonary nodules are based at a minimum on nodule size and pa tient risk factors according to Fleischner Society Guidelines. FINDINGS: Patchy airspace disease is seen in the right lung particularly right lower lobe with very small right pleural effusion. Trace pleural effusion is present on the left. The heart is enlarged without pericardial effusion. Extensive artifact is present from the the arms are in the scan. Moderate artery calcifications are evident. Upper abdominal contents are grossly unremarkable Review of bone windows reveals degenerative changes. CONCLUSION: Patchy air space disease right mid and lower lung with platelike peripheral consolidation. . This a ssociated with trace pleural effusion.. Harshil Ortiz MD FACR on May 10, 2017 at 17:42 Board Certified Radiologist. This report was verified electronically.
[2017-05-10] MEDS: ERTAPENEM INJ 1,000 MG in SODIUM CHLORIDE 0.9% INJ 100 ML IV SCH (18:10)
[2017-05-10] MEDS ORDERED: PHARMACY ORDERED LAB ONE (22:45)
[2017-05-11] VITALS (13 sets, daily range): BP systolic 122–150; BP diastolic 64–89; PULSE 71–89; RESP 18–21; TEMP 97.3–98.7; O2SAT 90–98
[2017-05-11] MEDS: RESP: ALBUTEROL 2.5 MG/IPRATROPIUM 0.5 MG NEB (SCH) INH ×4 (03:21→21:17)
[2017-05-11] MEDS ORDERED: PHARMACY ORDERED LAB ONE (03:45)
[2017-05-11] MEDS: SODIUM CHLOR 0.9% 1000 ML INJ 1,000 ML IV SCH ×2 (04:32→14:19)
[2017-05-11] MEDS: ISOSORBIDE MONONITRATE 30 MG CR TAB (IMDUR) PO SCH (06:20)
[2017-05-11] MEDS: HEPARIN SODIUM - SQ 10,000 UNITS/ML VIAL SQ SCH ×3 (06:20→23:08)
[2017-05-11] MEDS: PRAMIPEXOLE DIHYDROCHLORIDE 0.25 MG TAB PO SCH ×3 (06:20→23:07)
[2017-05-11 08:00] LABS: BASOPHIL % 0.1 % (0.0-2.0); HEMATOCRIT 30.9 % (35.0-46.0); HEMOGLOBIN 9.9 GM/DL (11.6-15.3); LYMPH % 4.3 % (9.0-44.0); LYMPHOCYTE # 0.3 TH/MM3 (1.0-4.8); MEAN CELL VOLUME 90.4 FL (80.0-100.0); MEAN CORPUSCULAR HEMOGLOBIN 29.1 PG (27.0-34.0); MEAN CORPUSCULAR HGB CONC 32.2 % (32.0-36.0); MEAN PLATELET VOLUME 7.1 FL (7.0-11.0); MONO % 3.3 % (0.0-8.0); MONOCYTE # 0.2 TH/MM3 (0-0.9); NEUT % 92.3 % (16.0-70.0); PLATELET COUNT 113 TH/MM3 (150-450); RED BLOOD COUNT 3.41 MIL/MM3 (4.00-5.30); RED CELL DISTRIBUTION WIDTH 14.2 % (11.6-17.2); WHITE BLOOD COUNT 6.5 TH/MM3 (4.0-11.0)
[2017-05-11 08:41] LABS: ALBUMIN 2.9 GM/DL (3.4-5.0); ALKALINE PHOSPHATASE 69 U/L (45-117); ALT (GPT) 18 U/L (10-53); AST (GOT) 13 U/L (15-37); BICARBONATE 42.4 MEQ/L (21.0-32.0); BLOOD UREA NITROGEN 13 MG/DL (7-18); CALCIUM 8.9 MG/DL (8.5-10.1); CHLORIDE 82 MEQ/L (98-107); CREATININE 0.38 MG/DL (0.50-1.00); GLOMERULAR FILTRATION RATE 164 ML/MIN (>89); GLUCOSE,RANDOM 117 MG/DL (74-106); MAGNESIUM 1.6 MG/DL (1.5-2.5); PHOSPHORUS 2.7 MG/DL (2.5-4.9); SODIUM (NA) 131 MEQ/L (136-145); TOTAL BILIRUBIN ADULT 0.3 MG/DL (0.2-1.0); TOTAL PROTEIN 6.1 GM/DL (6.4-8.2)
[2017-05-11] MEDS: PRAVASTATIN SOD 10 MG TAB PO SCH (09:00)
[2017-05-11] MEDS: SODIUM CHLORIDE 0.9% FLUSH 10 ML FLUSH IV FLUSH SCH ×2 (09:00→21:00)
[2017-05-11] MEDS: SPIRONOLACTONE 25 MG TAB PO SCH (09:04)
[2017-05-11] MEDS: LACTOBACILLUS ACIDOPHILUS TAB PO SCH ×3 (09:04→17:27)
[2017-05-11] MEDS: SERTRALINE HCL 100 MG TAB PO SCH (09:05)
[2017-05-11] MEDS: CARVEDILOL 3.125 MG TAB PO SCH ×2 (09:06→23:07)
[2017-05-11] MEDS: guaiFENesin E.R. 600 MG TAB PO SCH ×2 (09:06→23:06)
[2017-05-11] MEDS: PANTOPRAZOLE SOD 40 MG DELAYED RELEASE TAB PO SCH (09:07)
[2017-05-11] MEDS: ASPIRIN 81 MG CHEW TAB PO SCH (09:08)
[2017-05-11] MEDS: TIOTROPIUM BROMIDE 18 MCG INH INH SCH (09:09)
[2017-05-11] MEDS: methylPREDNISolone SOD SUCC 40 MG/1 ML VIAL IV PUSH SCH ×2 (09:11→23:08)
[2017-05-11] MEDS: NYSTATIN 100,000 U/GM PWD 15 GM BTL TOPICAL SCH ×2 (09:13→23:09)
--- NOTE | 2017-05-11 10:57 | HHI.PR ---
Subjective Remarks This is a 68-year-old female with past medical history as stated above who presents to [facility] sent from a intermediate due to respiratory distress. The patient has history of Alzheimer's as well as expressive aphasia and is unable to provide any history. As per ED physician's medical records the patient was noted to have low oxygen saturation yesterday and 92% on 2 L nasal cannula, she was given nebulizer treatments with only slight improvement. Apparently the intermediate called the ambulance secondary to doctor's instructions that if the patient's oxygen saturation should remain below 92% and the patient should be transferred to the hospital. 05/09/17 at 6 PM The patient denies chest pain or shortness of breath. Patient feels very tired. A febrile 3-9 patient is having leaking from the Cheek and the Cheek bag is leaking will change out Cheek HAs yeast in all folds will get nystatin powder for the folds Discussed with patient and RN Get physical therapy and occupational therapy involved WILL ADD PT AND OT MUCINEX DUONEBS CONTINUE CURRENT ANTIBIOTICS GRAM NEGATIVE RODS IN URINE- AWAIT SENSITIVITIES-- POSITIVE FOR ESBL DW ID [id number] MEDICATIONS ADJUSTED BY ID TO INVANZ DAILY CONTINUE CURRENT ANTIBIOTICS CT OF CHEST REVIEWED DW RN AND PT AND CM PT AND OT Objective Vitals Vital Signs Date Time Temp Pulse Resp B/P (MAP) Pulse Ox O2 Delivery O2 Flow Rate FiO2 05/11/17 09:52 98.7 88 18 137/77 (97) 98 05/11/17 09:14 Nasal Cannula 2.00 05/11/17 09:07 98 Nasal Cannula 05/11/17 05:00 98.0 88 21 122/89 (100) 93 05/11/17 04:00 85 05/11/17 03:21 91 Nasal Cannula 3.00 05/11/17 00:00 98.1 89 19 125/88 (100) 93 05/10/17 21:30 97.9 90 18 134/82 (99) 97 05/10/17 19:45 73 05/10/17 16:13 98.5 76 18 139/81 (100) 93 05/10/17 15:30 95 Nasal Cannula 2.00 05/10/17 12:03 98.2 60 20 109/61 (77) 95 I/O 05/10/17 05/10/17 05/10/17 05/11/1705/11/18 3/10/18 07:00 15:00 23:00 07:00 15:00 23:00 Intake Total 480 ml 960 ml 400 ml Output Total 1050 ml 800 ml 800 ml 1000 ml Balance -570 ml 160 ml -400 ml -1000 ml Intake Oral 480 ml 960 ml 400 ml Output Urine Total 1050 ml 800 ml 800 ml 1000 ml # Bowel Movements 0 0 Result Diagram: 05/11/17 0720 05/11/17 0720 Other Results Laboratory Tests Test 05/09/17 03:15 05/10/17 06:09 05/11/17 07:20 White Blood Count 9.9 TH/MM3 6.5 TH/MM3 Red Blood Count 3.42 MIL/MM3 3.41 MIL/MM3 Hemoglobin 10.2 GM/DL 9.9 GM/DL Hematocrit 30.5 % 30.9 % Mean Corpuscular Volume 89.2 FL 90.4 FL Mean Corpuscular Hemoglobin 29.8 PG 29.1 PG Mean Corpuscular Hemoglobin Concent 33.5 % 32.2 % Red Cell Distribution Width 14.3 % 14.2 % Platelet Count 113 TH/MM3 113 TH/MM3 Mean Platelet Volume 7.3 FL 7.1 FL Neutrophils (%) (Auto) 97.3 % 92.3 % Lymphocytes (%) (Auto) 1.5 % 4.3 % Monocytes (%) (Auto) 1.2 % 3.3 % Eosinophils (%) (Auto) 0.0 % 0.0 % Basophils (%) (Auto) 0.0 % 0.1 % Neutrophils # (Auto) 9.6 TH/MM3 6.0 TH/MM3 Lymphocytes # (Auto) 0.1 TH/MM3 0.3 TH/MM3 Monocytes # (Auto) 0.1 TH/MM3 0.2 TH/MM3 Eosinophils # (Auto) 0.0 TH/MM3 0.0 TH/MM3 Basophils # (Auto) 0.0 TH/MM3 0.0 TH/MM3 CBC Comment DIFF FINAL DIFF FINAL Differential Comment Blood Urea Nitrogen 16 MG/DL 13 MG/DL Creatinine 0.50 MG/DL 0.38 MG/DL 0.38 MG/DL Random Glucose 157 MG/DL 117 MG/DL Calcium Level 8.5 MG/DL 8.9 MG/DL Sodium Level 129 MEQ/L 131 MEQ/L Potassium Level 3.7 MEQ/L 4.1 MEQ/L Chloride Level 81 MEQ/L 82 MEQ/L Carbon Dioxide Level GREATER THAN 45.0 MEQ/L 42.4 MEQ/L Anion Gap 3 MEQ/L 7 MEQ/L Estimat Glomerular Filtration Rate 119 ML/MIN 164 ML/MIN 164 ML/MIN Total Protein 6.1 GM/DL Albumin 2.9 GM/DL Phosphorus Level 2.7 MG/DL Magnesium Level 1.6 MG/DL Alkaline Phosphatase 69 U/L Aspartate Amino Transf (AST/SGOT) 13 U/L Alanine Aminotransferase (ALT/SGPT) 18 U/L Total Bilirubin 0.3 MG/DL Free Thyroxine 0.70 NG/DL Thyroid Stimulating Hormone 3rd Gen 1.490 uIU/ML Imaging Last Impressions Chest CT 05/10/17 0000 Signed Impressions: Service Date/Time: Wednesday, May 10, 2017 17:28 - CONCLUSION: Patchy air space disease right mid and lower lung with platelike peripheral consolidation. . This associated with trace pleural effusion.. Harshil Ortiz MD FACR Chest X-Ray 05/08/17 0512 Signed Impressions: Service Date/Time: Monday, May 08, 2017 05:29 - CONCLUSION: Stable chest x-ray with small bibasilar opacities. Roberto Davalos MD Objective Remarks GENERAL: This is a well-nourished, well-developed patient, in no apparent distress. SKIN: No rashes, ecchymoses or lesions. Cool and dry. Fungal infection in all folds HEAD: Atraumatic. Normocephalic. No temporal or scalp tenderness. EYES: Pupils equal round and reactive. Extraocular motions intact. No scleral icterus. No injection or drainage. ENT: Nose without bleeding, purulent drainage or septal hematoma. Throat without erythema, tonsillar hypertrophy or exudate. Uvula midline. Airway patent. NECK: Trachea midline. No JVD or lymphadenopathy. Supple, nontender, no meningeal signs. CARDIOVASCULAR: Regular rate and rhythm without murmurs, gallops, or rubs. S1- S2 no S3 or S4 RESPIRATORY: Clear to auscultation. Breath sounds equal bilaterally. No wheezes , rales, or rhonchi. Diminished breath sounds at the bases. GASTROINTESTINAL: Abdomen soft, non-tender, nondistended. No hepato-splenomegaly , or palpable masses. No guarding. MUSCULOSKELETAL: Extremities without clubbing, cyanosis. No joint tenderness, effusion, or edema noted. No calf tenderness. Negative Homans sign bilaterally. Bilateral lower extremity edema. Slow improvement NEUROLOGICAL: Awake and alert. Expressive aphasia combined with Alzheimer's dementia limits the exam. Patient is spontaneously moving all 4 extremities, tracking movement and moving her head spontaneously to both sides. Medications and IVs Current Medications Sodium Chloride (NS Flush) 2 ml UNSCH PRN IVF FLUSH AFTER USING IV ACCESS; Start 05/08/17 at 05:15; Stop 05/10/17 at 12:49; Status DC Levofloxacin/ Dextrose 100 ml @ 100 mls/hr ONCE ONCE IV Last administered on 05/08/17at 06:56; Start 05/08/17 at 06:15; Stop 05/08/17 at 07:14; Status DC Sodium Chloride 1,000 ml @ 100 mls/hr Q10H IV Last administered on 05/10/17at 22 :49; Start 05/08/17 at 06:32 Sodium Chloride (NS Flush) 2 ml UNSCH PRN IV FLUSH FLUSH AFTER USING IV ACCESS ; Start 05/08/17 at 06:45 Sodium Chloride (NS Flush) 2 ml BID IV FLUSH Last administered on 05/10/17at 22: 46; Start 05/08/17 at 09:00 Aztreonam 2000 mg/ Sodium Chloride 100 ml @ 200 mls/hr Q8H IV Last administered on 05/10/17at 08:47; Start 05/08/17 at 08:00; Stop 05/10/17 at 10:37; Status DC Levofloxacin/ Dextrose 150 ml @ 100 mls/hr Q24H IV ; Start 05/08/17 at 07:15; Stop 05/08/17 at 07:24; Status DC Vancomycin HCl 1000 mg/Sodium Chloride 250 ml @ 250 mls/hr ONCE ONCE IV Last administered on 05/08/17at 08:09; Start 05/08/17 at 08:00; Stop 05/08/17 at 08:59; Status DC Pharmacy Profile Note 0 ml @ 0 mls/hr UNSCH OTHER ; Start 05/08/17 at 06:45; Stop 05/10/17 at 11:19; Status DC Albuterol/ Ipratropium (Duoneb Neb) 1 ampule Q6HR NEB INH Last administered on 05/11/17 09:05; Start 05/08/17 at 10:00 Albuterol/ Ipratropium (Duoneb Neb) 1 ampule Q4HR NEB PRN INH SHORTNESS OF BREATH; Start 05/08/17 at 08:00 Methylprednisolone Sodium Succinate (SoluMEDROL INJ) 40 mg Q12H IV PUSH Last administered on 05/11/17 09:11; Start 05/08/17 at 08:00 Acetaminophen (Tylenol) 650 mg Q4H PRN PO TEMPERATURE > 101 F; Start 05/08/17 at 06:45 Ondansetron HCl (Zofran Inj) 4 mg Q6HR PRN IV PUSH NAUSEA; Start 05/08/17 at 08: 00 Heparin Sodium (Porcine) (Heparin Inj) 5,000 units Q8HR SQ Last administered on 05/11/17 06:20; Start 05/08/17 at 14:00 Aspirin (Aspirin Chew) 81 mg DAILY PO Last administered on 05/11/17 09:08; Start 05/08/17 at 09:00 Bisacodyl (Dulcolax Supp) 10 mg DAILY PRN RECTAL CONSTIPATION; Start 05/08/17 at 09:00 Carvedilol (Coreg) 3.125 mg Q12HR PO Last administered on 05/11/17 09:06; Start 05/08/17 at 09:00 Furosemide (Lasix) 40 mg BID PO Last administered on 05/08/17 09:33; Start 05/08 at 09:00; Status Future Hold Acetaminophen/ Hydrocodone Bitart (Bates 7.5-325 Mg) 1 tab Q4HR PRN PO PAIN; Start 05/08/17 at 08:00 Isosorbide Mononitrate (Imdur) 30 mg DAILY@07 PO Last administered on 06:20; Start 05/08/17 at 08:00 Lorazepam (Ativan) 0.5 mg TID PRN PO ANXIETY; Start 05/08/17 at 09:00 Pravastatin Sodium (Pravachol) 10 mg DAILY PO Last administered on 05/11/17 09 :00; Start 05/08/17 at 09:00 Sertraline HCl (Zoloft) 200 mg DAILY PO Last administered on 3/10/18at 09:05; Start 05/08/17 at 09:00 Spironolactone (Aldactone) 25 mg DAILY PO Last administered on 05/11/17at 09:04 ; Start 05/08/17 at 09:00 Tiotropium [place] (Spiriva Inh) 18 mcg DAILY INH Last administered on at 09:09; Start 05/08/17 at 09:00 Pantoprazole Sodium (Protonix) 40 mg DAILY PO Last administered on 05/11/17at 09 :07; Start 05/08/17 at 09:00 Pramipexole Dihydrochloride (Mirapex) 0.75 mg Q8HR PO Last administered on 05/11 06:20; Start 05/08/17 at 14:00 Lactobacillus Acidophilus (Lactinex) 1 tab TID PO Last administered on at 09:04; Start 05/08/17 at 09:00 Melatonin (Melatonin) 5 mg HS PRN PO INSOMNIA; Start 05/08/17 at 21:00 Levofloxacin/ Dextrose 150 ml @ 100 mls/hr Q24H IV Last administered on at 06:02; Start 05/09/17 at 06:00; Stop 05/10/17 at 10:37; Status DC Vancomycin HCl 1750 mg/Sodium Chloride 517.5 ml @ 258.75 mls/ hr Q24H IV Last administered on 05/08/17at 22:10; Start 05/08/17 at 23:00; Stop 05/09/17 at 12:57; Status DC Miscellaneous Information SPECIFIC LAB TO BE JAJA... ONCE ONCE .XX ; Start at 22:45; Stop 05/10/17 at 22:45; Status DC Metronidazole 100 ml @ 100 mls/hr Q8H IV Last administered on 05/10/17at 11:00; Start 05/08/17 at 11:00; Stop 05/10/17 at 16:14; Status DC Vancomycin HCl 1750 mg/Sodium Chloride 517.5 ml @ 258.75 mls/ hr Q18H IV Last administered on 05/09/17at 18:09; Start 05/09/17 at 16:00; Stop 05/10/17 at 10:38; Status DC Miscellaneous Information SPECIFIC LAB TO BE DRAWN:VANCO TROUGH DATE TO... ONCE ONCE .XX ; Start 05/11/17 at 03:45; Stop 05/11/17 at 03:45; Status DC Nystatin (Mycostatin Powder) 1 applic Q12HR TOPICAL Last administered on at 09:13; Start 05/10/17 at 10:00 Guaifenesin (Mucinex Er) 600 mg BID PO Last administered on 05/11/17at 09:06; Start 05/10/17 at 10:00 Miscellaneous Medication ([facility] Information) 1 UNSCH X1 PRN XX PHARMACY DOCUMENTATION; Start 05/10/17 at 10:45; Stop 05/10/17 at 16:14; Status DC Imipenem/ Cilastatin Sodium 500 mg/Sodium Chloride 100 ml @ 200 mls/hr Q6H IV Last administered on 05/10/17at 14:53; Start 05/10/17 at 14:00; Stop 05/10/17 at 16: 14; Status DC Miscellaneous Medication (ASP Crit: Doc ESBL, MDR A baumannii or P aer) 1 UNSCH X1 PRN .XX PHARMACY DOCUMENTATION; Start 05/10/17 at 16:15; Stop 05/11/17 at 16: 14 Miscellaneous Medication ([facility] Pharm[facility] Information) 1 UNSCH X1 PRN XX PHARMACY DOCUMENTATION; Start 05/10/17 at 16:15; Stop 05/11/17 at 16:14 Ertapenem 1000 mg/ Sodium Chloride 100 ml @ 200 mls/hr Q24H IV Last administered on 05/10/17at 18:10; Start 05/10/17 at 17:00 A/P Problem List: (1) Sepsis ICD Code: A41.9 - Sepsis, unspecified organism (2) PNA (pneumonia) ICD Code: J18.9 - Pneumonia, unspecified organism (3) UTI (urinary tract infection) ICD Code: N39.0 - Urinary tract infection, site not specified (4) Leukocytosis ICD Code: D72.829 - Elevated white blood cell count, unspecified (5) Chronic atrial fibrillation ICD Code: I48.2 - Chronic atrial fibrillation Status: Chronic (6) Hypertension ICD Code: I10 - Essential (primary) hypertension Status: Chronic (7) Hyperlipidemia ICD Code: E78.5 - Hyperlipidemia, unspecified Status: Chronic (8) CAD (coronary artery disease) ICD Code: I25.10 - Atherosclerotic heart disease of [place] coronary artery without angina pectoris Status: Chronic Assessment and Plan Continue IV INVANZ ANTIBIOTICS PER ID since patient has penicillin allergy.- Consult infectious disease Continue to Hold furosemide Follow-up blood and urine cultures which are pending -urine culture positive for gram-negative rods. Continue IV antibiotics as above and de-escalate pending ID and sensitivities. Flu A and B antigen negative. Hyponatremia likely secondary to poor oral intake and dehydration. Sodium is slightly improved. Continue to monitor BMP and continue IV normal saline. Leukocytosis due to sepsis secondary to UTI and pneumonia. Monitor CBC with differential -resolving.--ESBL WILL DEFER TO ID-- CONSULT ID- ON INVANZ Continue Solu-Medrol 40 mg IV every 12 hours. Heparin subcutaneous for DVT prophylaxis. Continue aspirin, beta-joanne, statin, hold diuretics. Continue Spiriva for COPD. Patient also has metabolic alkalosis, suspect contraction alkalosis from dehydration and overdiuresis. Continue IV fluid administration. Fungal infection in the groin and all folds started on nystatin powder Leaking Cheek catheter will change Discharge Planning Pending improvement Harshil Boyd DO May 11, 2017 10:57
[2017-05-11 12:38] LABS: HEMOGLOBIN A1C 5.6 % (4.3-6.0)
[2017-05-11] MEDS: ERTAPENEM INJ 1,000 MG in SODIUM CHLORIDE 0.9% INJ 100 ML IV SCH (17:26)
[2017-05-12] VITALS (12 sets, daily range): BP systolic 130–162; BP diastolic 67–101; PULSE 73–112; RESP 16–20; TEMP 97.3–98.7; O2SAT 89–97
[2017-05-12] MEDS: SODIUM CHLOR 0.9% 1000 ML INJ 1,000 ML IV SCH ×3 (01:02→20:27)
[2017-05-12] MEDS: RESP: ALBUTEROL 2.5 MG/IPRATROPIUM 0.5 MG NEB (SCH) INH (03:48)
[2017-05-12] MEDS: RESP: ALBUTEROL 2.5 MG/IPRATROPIUM 0.5 MG NEB (PRN) INH ×2 (06:13→10:52)
[2017-05-12] MEDS: HEPARIN SODIUM - SQ 10,000 UNITS/ML VIAL SQ SCH ×2 (06:14→13:24)
[2017-05-12] MEDS: ISOSORBIDE MONONITRATE 30 MG CR TAB (IMDUR) PO SCH (06:16)
[2017-05-12] MEDS: PRAMIPEXOLE DIHYDROCHLORIDE 0.25 MG TAB PO SCH ×3 (06:16→22:00)
[2017-05-12] MEDS: methylPREDNISolone SOD SUCC 40 MG/1 ML VIAL IV PUSH SCH ×2 (08:25→20:01)
[2017-05-12] MEDS: SODIUM CHLORIDE 0.9% FLUSH 10 ML FLUSH IV FLUSH SCH ×2 (08:25→20:01)
[2017-05-12] MEDS: SPIRONOLACTONE 25 MG TAB PO SCH (08:26)
[2017-05-12] MEDS: SERTRALINE HCL 100 MG TAB PO SCH (08:26)
[2017-05-12] MEDS: guaiFENesin E.R. 600 MG TAB PO SCH ×2 (08:26→20:01)
[2017-05-12] MEDS: CARVEDILOL 3.125 MG TAB PO SCH ×2 (08:27→20:01)
[2017-05-12] MEDS: ASPIRIN 81 MG CHEW TAB PO SCH (08:27)
[2017-05-12] MEDS: PRAVASTATIN SOD 10 MG TAB PO SCH (08:27)
[2017-05-12] MEDS: LACTOBACILLUS ACIDOPHILUS TAB PO SCH ×3 (08:27→17:49)
[2017-05-12] MEDS: TIOTROPIUM BROMIDE 18 MCG INH INH SCH (08:28)
[2017-05-12] MEDS: PANTOPRAZOLE SOD 40 MG DELAYED RELEASE TAB PO SCH (08:29)
[2017-05-12] MEDS: NYSTATIN 100,000 U/GM PWD 15 GM BTL TOPICAL SCH ×2 (08:30→20:01)
[2017-05-12 08:43] LABS: AUTOMATED NEUTROPHIL # 7.2 TH/MM3 (1.8-7.7); BASOPHIL % 0.1 % (0.0-2.0); HEMATOCRIT 33.2 % (35.0-46.0); HEMOGLOBIN 10.7 GM/DL (11.6-15.3); LYMPH % 4.4 % (9.0-44.0); LYMPHOCYTE # 0.3 TH/MM3 (1.0-4.8); MEAN CELL VOLUME 91.4 FL (80.0-100.0); MEAN CORPUSCULAR HEMOGLOBIN 29.4 PG (27.0-34.0); MEAN CORPUSCULAR HGB CONC 32.2 % (32.0-36.0); MEAN PLATELET VOLUME 7.3 FL (7.0-11.0); MONO % 3.5 % (0.0-8.0); MONOCYTE # 0.3 TH/MM3 (0-0.9); PLATELET COUNT 125 TH/MM3 (150-450); RED BLOOD COUNT 3.63 MIL/MM3 (4.00-5.30); RED CELL DISTRIBUTION WIDTH 14.6 % (11.6-17.2); WHITE BLOOD COUNT 7.9 TH/MM3 (4.0-11.0)
[2017-05-12 09:12] LABS: ALBUMIN 3.4 GM/DL (3.4-5.0); ALKALINE PHOSPHATASE 78 U/L (45-117); ALT (GPT) 22 U/L (10-53); AST (GOT) 28 U/L (15-37); BICARBONATE 44.7 MEQ/L (21.0-32.0); BLOOD UREA NITROGEN 13 MG/DL (7-18); CHLORIDE 84 MEQ/L (98-107); CREATININE 0.51 MG/DL (0.50-1.00); GLOMERULAR FILTRATION RATE 117 ML/MIN (>89); GLUCOSE,RANDOM 119 MG/DL (74-106); MAGNESIUM 1.7 MG/DL (1.5-2.5); PHOSPHORUS 3.6 MG/DL (2.5-4.9); SODIUM (NA) 130 MEQ/L (136-145); TOTAL BILIRUBIN ADULT 0.4 MG/DL (0.2-1.0); TOTAL PROTEIN 6.7 GM/DL (6.4-8.2)
[2017-05-12 09:42] LABS: BANDS 9 % (0-6); LYMPHOCYTES 7 % (9-44); MONOCYTES 9 % (0-8); MYELOCYTES 3 % (0-0); NEUTROPHIL # MANUAL DIFF 6.6 TH/MM3 (1.8-7.7); OVALOCYTES 1+ (NORMAL); POLYS (SEG NEUTROPHILS) 72 % (16-70)
--- NOTE | 2017-05-12 10:50 | HHI.PR ---
Subjective Remarks This is a 68-year-old female with past medical history as stated above who presents to [facility] sent from a longterm due to respiratory distress. The patient has history of Alzheimer's as well as expressive aphasia and is unable to provide any history. As per ED physician's medical records the patient was noted to have low oxygen saturation yesterday and 92% on 2 L nasal cannula, she was given nebulizer treatments with only slight improvement. Apparently the longterm called the ambulance secondary to doctor's instructions that if the patient's oxygen saturation should remain below 92% and the patient should be transferred to the hospital. 05/09/17 at 6 PM The patient denies chest pain or shortness of breath. Patient feels very tired. A febrile 3-9 patient is having leaking from the Felix and the Felix bag is leaking will change out Felix HAs yeast in all folds will get nystatin powder for the folds Discussed with patient and RN Get physical therapy and occupational therapy involved WILL ADD PT AND OT MUCINEX DUONEBS CONTINUE CURRENT ANTIBIOTICS GRAM NEGATIVE RODS IN URINE- AWAIT SENSITIVITIES-- POSITIVE FOR ESBL DW ID 3-10 MEDICATIONS ADJUSTED BY ID TO INVANZ DAILY CONTINUE CURRENT ANTIBIOTICS CT OF CHEST REVIEWED DW RN AND PT AND CM PT AND OT 3-11 ANTIBIOTICS PER ID CONTINUE FELIX NO CURRENT COMPLAINTS VERY HARD OF HEARING DW RN AND PT Objective Vitals Vital Signs Date Time Temp Pulse Resp B/P (MAP) Pulse Ox O2 Delivery O2 Flow Rate FiO2 05/12/17 08:00 98.3 95 16 162/101 (121) 97 05/12/17 04:00 97.3 98 20 134/79 (97) 97 05/12/17 00:00 98.6 73 18 140/74 (96) 96 05/11/17 21:19 98 Nasal Cannula 2.00 05/11/17 20:00 97.3 83 20 150/83 (105) 90 05/11/17 16:00 82 05/11/17 15:47 98.2 84 18 130/86 (101) 91 05/11/17 12:00 84 05/11/17 11:53 98.1 75 18 129/64 (85) 91 I/O 05/11/17 05/11/17 05/11/17 05/12/17 05/12/17 05/12/17 07:00 15:00 23:00 07:00 15:00 23:00 Intake Total 400 ml 953 ml 720 ml Output Total 800 ml 1000 ml 400 ml 1000 ml Balance -400 ml -47 ml 320 ml -1000 ml Intake Oral 400 ml 720 ml IV Total 953 ml Output Urine Total 800 ml 1000 ml 400 ml 1000 ml # Bowel Movements 0 0 Result Diagram: 05/12/17 0802 05/12/17 0802 Other Results Laboratory Tests Test 05/10/17 06:09 05/11/17 07:20 05/12/17 08:02 Creatinine 0.38 MG/DL 0.38 MG/DL 0.51 MG/DL Estimat Glomerular Filtration Rate 164 ML/MIN 164 ML/MIN 117 ML/MIN White Blood Count 6.5 TH/MM3 7.9 TH/MM3 Red Blood Count 3.41 MIL/MM3 3.63 MIL/MM3 Hemoglobin 9.9 GM/DL 10.7 GM/DL Hematocrit 30.9 % 33.2 % Mean Corpuscular Volume 90.4 FL 91.4 FL Mean Corpuscular Hemoglobin 29.1 PG 29.4 PG Mean Corpuscular Hemoglobin Concent 32.2 % 32.2 % Red Cell Distribution Width 14.2 % 14.6 % Platelet Count 113 TH/MM3 125 TH/MM3 Mean Platelet Volume 7.1 FL 7.3 FL Neutrophils (%) (Auto) 92.3 % 92.0 % Lymphocytes (%) (Auto) 4.3 % 4.4 % Monocytes (%) (Auto) 3.3 % 3.5 % Eosinophils (%) (Auto) 0.0 % 0.0 % Basophils (%) (Auto) 0.1 % 0.1 % Neutrophils # (Auto) 6.0 TH/MM3 7.2 TH/MM3 Lymphocytes # (Auto) 0.3 TH/MM3 0.3 TH/MM3 Monocytes # (Auto) 0.2 TH/MM3 0.3 TH/MM3 Eosinophils # (Auto) 0.0 TH/MM3 0.0 TH/MM3 Basophils # (Auto) 0.0 TH/MM3 0.0 TH/MM3 CBC Comment DIFF FINAL AUTO DIFF Differential Comment FINAL DIFF MANUAL Blood Urea Nitrogen 13 MG/DL 13 MG/DL Random Glucose 117 MG/DL 119 MG/DL Total Protein 6.1 GM/DL 6.7 GM/DL Albumin 2.9 GM/DL 3.4 GM/DL Calcium Level 8.9 MG/DL 9.0 MG/DL Phosphorus Level 2.7 MG/DL 3.6 MG/DL Magnesium Level 1.6 MG/DL 1.7 MG/DL Alkaline Phosphatase 69 U/L 78 U/L Aspartate Amino Transf (AST/SGOT) 13 U/L 28 U/L Alanine Aminotransferase (ALT/SGPT) 18 U/L 22 U/L Total Bilirubin 0.3 MG/DL 0.4 MG/DL Sodium Level 131 MEQ/L 130 MEQ/L Potassium Level 4.1 MEQ/L 4.9 MEQ/L Chloride Level 82 MEQ/L 84 MEQ/L Carbon Dioxide Level 42.4 MEQ/L 44.7 MEQ/L Anion Gap 7 MEQ/L 1 MEQ/L Hemoglobin A1c 5.6 % Free Thyroxine 0.70 NG/DL Thyroid Stimulating Hormone 3rd Gen 1.490 uIU/ML Differential Total Cells Counted 100 Neutrophils % (Manual) 72 % Band Neutrophils % 9 % Lymphocytes % 7 % Monocytes % 9 % Neutrophils # (Manual) 6.6 TH/MM3 Myelocytes 3 % Platelet Estimate LOW Platelet Morphology Comment NORMAL Ovalocytes 1+ Imaging Last Impressions Chest CT 05/10/17 0000 Signed Impressions: Service Date/Time: Wednesday, May 10, 2017 17:28 - CONCLUSION: Patchy air space disease right mid and lower lung with platelike peripheral consolidation. . This associated with trace pleural effusion.. Harshil Ortiz MD FACR Chest X-Ray 05/08/17 0512 Signed Impressions: Service Date/Time: Monday, May 08, 2017 05:29 - CONCLUSION: Stable chest x-ray with small bibasilar opacities. Roberto Davalos MD Objective Remarks GENERAL: This is a well-nourished, well-developed patient, in no apparent distress. SKIN: No rashes, ecchymoses or lesions. Cool and dry. Fungal infection in all folds HEAD: Atraumatic. Normocephalic. No temporal or scalp tenderness. EYES: Pupils equal round and reactive. Extraocular motions intact. No scleral icterus. No injection or drainage. ENT: Nose without bleeding, purulent drainage or septal hematoma. Throat without erythema, tonsillar hypertrophy or exudate. Uvula midline. Airway patent. NECK: Trachea midline. No JVD or lymphadenopathy. Supple, nontender, no meningeal signs. CARDIOVASCULAR: Regular rate and rhythm without murmurs, gallops, or rubs. S1- S2 no S3 or S4 RESPIRATORY: Clear to auscultation. Breath sounds equal bilaterally. No wheezes , rales, or rhonchi. Diminished breath sounds at the bases. GASTROINTESTINAL: Abdomen soft, non-tender, nondistended. No hepato-splenomegaly , or palpable masses. No guarding. FELIX IN PLACE MUSCULOSKELETAL: Extremities without clubbing, cyanosis. No joint tenderness, effusion, or edema noted. No calf tenderness. Negative Homans sign bilaterally. Bilateral lower extremity edema. Slow improvement NEUROLOGICAL: Awake and alert. Expressive aphasia combined with Alzheimer's dementia limits the exam. Patient is spontaneously moving all 4 extremities, tracking movement and moving her head spontaneously to both sides. Medications and IVs Current Medications Sodium Chloride (NS Flush) 2 ml UNSCH PRN IVF FLUSH AFTER USING IV ACCESS; Start 05/08/17 at 05:15; Stop 05/10/17 at 12:49; Status DC Levofloxacin/ Dextrose 100 ml @ 100 mls/hr ONCE ONCE IV Last administered on 05/08/17at 06:56; Start 05/08/17 at 06:15; Stop 05/08/17 at 07:14; Status DC Sodium Chloride 1,000 ml @ 100 mls/hr Q10H IV Last administered on 05/12/17at 01:02; Start 05/08/17 at 06:32 Sodium Chloride (NS Flush) 2 ml UNSCH PRN IV FLUSH FLUSH AFTER USING IV ACCESS ; Start 05/08/17 at 06:45 Sodium Chloride (NS Flush) 2 ml BID IV FLUSH Last administered on 05/12/17at 08: 25; Start 05/08/17 at 09:00 Aztreonam 2000 mg/ Sodium Chloride 100 ml @ 200 mls/hr Q8H IV Last administered on 05/10/17at 08:47; Start 05/08/17 at 08:00; Stop 05/10/17 at 10:37; Status DC Levofloxacin/ Dextrose 150 ml @ 100 mls/hr Q24H IV ; Start 05/08/17 at 07:15; Stop 05/08/17 at 07:24; Status DC Vancomycin HCl 1000 mg/Sodium Chloride 250 ml @ 250 mls/hr ONCE ONCE IV Last administered on 05/08/17at 08:09; Start 05/08/17 at 08:00; Stop 05/08/17 at 08:59; Status DC Pharmacy Profile Note 0 ml @ 0 mls/hr UNSCH OTHER ; Start 05/08/17 at 06:45; Stop 05/10/17 at 11:19; Status DC Albuterol/ Ipratropium (Duoneb Neb) 1 ampule Q6HR NEB INH Last administered on 05/12/17at 03:48; Start 05/08/17 at 10:00; Stop 05/12/17 at 09:59; Status DC Albuterol/ Ipratropium (Duoneb Neb) 1 ampule Q4HR NEB PRN INH SHORTNESS OF BREATH Last administered on 05/12/17 06:13; Start 05/08/17 at 08:00 Methylprednisolone Sodium Succinate (SoluMEDROL INJ) 40 mg Q12H IV PUSH Last administered on 05/12/17at 08:25; Start 05/08/17 at 08:00 Acetaminophen (Tylenol) 650 mg Q4H PRN PO TEMPERATURE > 101 F; Start 05/08/17 at 06:45 Ondansetron HCl (Zofran Inj) 4 mg Q6HR PRN IV PUSH NAUSEA; Start 05/08/17 at 08: 00 Heparin Sodium (Porcine) (Heparin Inj) 5,000 units Q8HR SQ Last administered on 05/12/17at 06:14; Start 05/08/17 at 14:00 Aspirin (Aspirin Chew) 81 mg DAILY PO Last administered on 05/12/17 08:27; Start 05/08/17 at 09:00 Bisacodyl (Dulcolax Supp) 10 mg DAILY PRN RECTAL CONSTIPATION; Start 05/08/17 at 09:00 Carvedilol (Coreg) 3.125 mg Q12HR PO Last administered on 05/12/17 08:27; Start 05/08/17 at 09:00 Furosemide (Lasix) 40 mg BID PO Last administered on 05/08/17 09:33; Start 05/08 at 09:00; Status Future Hold Acetaminophen/ Hydrocodone Bitart (Nubieber 7.5-325 Mg) 1 tab Q4HR PRN PO PAIN; Start 05/08/17 at 08:00 Isosorbide Mononitrate (Imdur) 30 mg DAILY@07 PO Last administered on 06:16; Start 05/08/17 at 08:00 Lorazepam (Ativan) 0.5 mg TID PRN PO ANXIETY; Start 05/08/17 at 09:00 Pravastatin Sodium (Pravachol) 10 mg DAILY PO Last administered on 05/12/17 08 :27; Start 05/08/17 at 09:00 Sertraline HCl (Zoloft) 200 mg DAILY PO Last administered on 05/12/17 08:26; Start 05/08/17 at 09:00 Spironolactone (Aldactone) 25 mg DAILY PO Last administered on 05/12/17 08:26 ; Start 05/08/17 at 09:00 Tiotropium M[place]ley (Spiriva Inh) 18 mcg DAILY INH Last administered on 08:28; Start 05/08/17 at 09:00 Pantoprazole Sodium (Protonix) 40 mg DAILY PO Last administered on 05/12/17 08 :29; Start 05/08/17 at 09:00 Pramipexole Dihydrochloride (Mirapex) 0.75 mg Q8HR PO Last administered on 05/12 06:16; Start 05/08/17 at 14:00 Lactobacillus Acidophilus (Lactinex) 1 tab TID PO Last administered on 08:27; Start 05/08/17 at 09:00 Melatonin (Melatonin) 5 mg HS PRN PO INSOMNIA; Start 05/08/17 at 21:00 Levofloxacin/ Dextrose 150 ml @ 100 mls/hr Q24H IV Last administered on at 06:02; Start 05/09/17 at 06:00; Stop 05/10/17 at 10:37; Status DC Vancomycin HCl 1750 mg/Sodium Chloride 517.5 ml @ 258.75 mls/ hr Q24H IV Last administered on 05/08/17at 22:10; Start 05/08/17 at 23:00; Stop 05/09/17 at 12:57; Status DC Miscellaneous Information SPECIFIC LAB TO BE JAJA... ONCE ONCE .XX ; Start at 22:45; Stop 05/10/17 at 22:45; Status DC Metronidazole 100 ml @ 100 mls/hr Q8H IV Last administered on 05/10/17at 11:00; Start 05/08/17 at 11:00; Stop 05/10/17 at 16:14; Status DC Vancomycin HCl 1750 mg/Sodium Chloride 517.5 ml @ 258.75 mls/ hr Q18H IV Last administered on 05/09/17at 18:09; Start 05/09/17 at 16:00; Stop 05/10/17 at 10:38; Status DC Miscellaneous Information SPECIFIC LAB TO BE DRAWN:VANCO TROUGH DATE TO... ONCE ONCE .XX ; Start 05/11/17 at 03:45; Stop 05/11/17 at 03:45; Status DC Nystatin (Mycostatin Powder) 1 applic Q12HR TOPICAL Last administered on at 08:30; Start 05/10/17 at 10:00 Guaifenesin (Mucinex Er) 600 mg BID PO Last administered on 05/12/17at 08:26; Start 05/10/17 at 10:00 Miscellaneous Medication ([facility] Information) 1 UNSCH X1 PRN XX PHARMACY DOCUMENTATION; Start 05/10/17 at 10:45; Stop 05/10/17 at 16:14; Status DC Imipenem/ Cilastatin Sodium 500 mg/Sodium Chloride 100 ml @ 200 mls/hr Q6H IV Last administered on 05/10/17at 14:53; Start 05/10/17 at 14:00; Stop 05/10/17 at 16: 14; Status DC Miscellaneous Medication (ASP Crit: Doc ESBL, MDR A baumannii or P aer) 1 UNSCH X1 PRN .XX PHARMACY DOCUMENTATION; Start 05/10/17 at 16:15; Stop 05/11/17 at 16: 14; Status DC Miscellaneous Medication ([facility] Information) 1 UNSCH X1 PRN XX PHARMACY DOCUMENTATION; Start 05/10/17 at 16:15; Stop 05/11/17 at 16:14; Status DC Ertapenem 1000 mg/ Sodium Chloride 100 ml @ 200 mls/hr Q24H IV Last administered on 05/11/17at 17:26; Start 05/10/17 at 17:00 A/P Problem List: (1) Sepsis ICD Code: A41.9 - Sepsis, unspecified organism (2) PNA (pneumonia) ICD Code: J18.9 - Pneumonia, unspecified organism (3) UTI (urinary tract infection) ICD Code: N39.0 - Urinary tract infection, site not specified (4) Leukocytosis ICD Code: D72.829 - Elevated white blood cell count, unspecified (5) Chronic atrial fibrillation ICD Code: I48.2 - Chronic atrial fibrillation Status: Chronic (6) Hypertension ICD Code: I10 - Essential (primary) hypertension Status: Chronic (7) Hyperlipidemia ICD Code: E78.5 - Hyperlipidemia, unspecified Status: Chronic (8) CAD (coronary artery disease) ICD Code: I25.10 - Atherosclerotic heart disease of [place] coronary artery without angina pectoris Status: Chronic Assessment and Plan Continue IV INVANZ ANTIBIOTICS PER ID since patient has penicillin allergy.- Consult infectious disease ESBL Continue to Hold furosemide Follow-up blood and urine cultures which are pending -urine culture positive for gram-negative rods. Continue IV antibiotics as above and de-escalate pending ID and sensitivities. Flu A and B antigen negative. Hyponatremia likely secondary to poor oral intake and dehydration. Sodium is slightly improved. Continue to monitor BMP and continue IV normal saline. Leukocytosis due to sepsis secondary to UTI and pneumonia. Monitor CBC with differential -resolving.--ESBL WILL DEFER TO ID-- CONSULT ID- ON INVANZ Continue Solu-Medrol 40 mg IV every 12 hours. Heparin subcutaneous for DVT prophylaxis. Continue aspirin, beta-joanne, statin, hold diuretics. Continue Spiriva for COPD. Patient also has metabolic alkalosis, suspect contraction alkalosis from dehydration and overdiuresis. Continue IV fluid administration. Fungal infection in the groin and all folds started on nystatin powder Leaking Felix catheter will change Discharge Planning Pending improvement Harshil Boyd DO May 12, 2017 10:50
[2017-05-12] MEDS: ERTAPENEM INJ 1,000 MG in SODIUM CHLORIDE 0.9% INJ 100 ML IV SCH (17:49)
--- NOTE | 2017-05-12 22:03 | HHI.PR ---
Addendum to Inpatient Note Addendum Reason: Additional Documentation Additional Information The patient's RN called because she has not been responding to her this evening and this is a "big difference" in her mental status. Upon review, the patient has had multiple ABGs today with PCO2 elevated at 124, pH 7.20, O2 saturation 89 at 1128, pCO2 114, pH 7.23, Oxygen sat 89. I ordered a repeat CXR, bipap, and stat ABGs. The patient is seen and has her eyes open but does not follow commands or respond to any questions. Lungs diminished at bases but no wheezes or rales are auscultated. ABGs show pH 7.14, PCO2 142, oxygen sat 90. Discussed case with Dr. Lemons my supervising position and she recommends ICU transfer with stat circuit tester consultation for likely intubation. I discussed the case with Dr. Sage who requested that code status be clarified with patient's family. I spoke to the patient's granddaughter Laurie Pederson who is listed as her NOK and she tells me to do "whatever it takes to keep her alive" to include intubation and mechanical ventilation. She tells me that she is the patient's healthcare surrogate. Advance directives are not on file in the EMR for this patient. Code status entered as FULL CODE. Patient has been transferred to room 526, patient's granddaughter is aware. Isabella Medina May 12, 2017 22:03
[2017-05-12] MEDS ORDERED: CHLORHEXIDINE GLUCONATE 2 % 1 PACK (2 CLOTHS)(extra cloths) TOPICAL PRN (22:15)
--- NOTE | 2017-05-12 22:17 | RADRPT ---
EXAM DATE/TIME: 05/12/2017 21:28 [facility] COMPARISON: CHEST SINGLE AP, May 08, 2017, 5:29. INDICATIONS : Shortness of breath. MEDICAL HISTORY : Chronic obstructive pulmonary disease. Hypertension SURGICAL HISTORY : None. ENCOUNTER: Subsequent ACUITY: 4 - 6 days PAIN SCORE: 0/10 LOCATION: Bilateral chest FINDINGS: Bilateral lower lobe opacities with loss of delineation of both hemidiaphragms and indistinctness of the central bronchopulmonary markings with engorgement is stable in appearance when compared to 8. The heart is enlarged. CONCLUSION: Stable bilateral lower lung opacities and engorgement of the central bronchopulmonary markings. The Mack Jimenez MD on May 12, 2017 at 22:15 Board Certified Radiologist. This report was verified electronically.
[2017-05-12] MEDS ORDERED: ETOMIDATE 40 MG/20 ML VIAL ONE (22:29)
[2017-05-12] MEDS ORDERED: ROCURONIUM INJ 50 MG/5 ML VIAL ONE (22:30)
--- NOTE | 2017-05-12 22:31 | PD.CONS ---
[facility] Service Critical Care Medicine Consult Requested By Dr. Lemons Reason for Consult Acute on chronic hypercapneic resp failure Primary Care Physician Unknown History of Present Illness History of Present Illness This is a 68-year-old female with past medical history as stated above who presented to [facility] on [facility]17 due to respiratory distress. The patient has history of Alzheimer's as well as expressive aphasia and is unable to provide any history. Patient was admitted by hospitalist service and started on empiric antibiotics, IV Solu-Medrol as well as nebulizer treatments. no fever on presentation WBC 13 K+, blood clx w/o growth, UA markedly abnormal, + culture ESBL+ E.coli felix was changed in ER, initially started on azactam, vanco, flagyl, subsequently changed to Primaxin, still on flagyl. flu was negative. ID consult was requested due to ESBL Escherichia coli UTI. Patient has persistent infiltrates on her chest x-ray from March. Today patient developed worsening CO2 retention with altered mental status. Serial ABGs showed rising PCO2 levels. Patient was eventually transferred to [facility] and critical care consult was requested to evaluate for possible need for intubation. Patient's granddaughter was contacted by SEBASTIAN JACOBO and was informed regarding worsening condition and possible need for intubation which she agreed with if required. I evaluated the patient immediately on arrival to the ICU. At that time she was drowsy though arousable and was just being initiated on BiPAP. We will the upper extremity spontaneously at the time and appeared to be protecting her airway. History was obtained by reviewing records and discussion with nursing staff as well as Isabella Medina (SEBASTIAN JACOBO). Review of Systems Patient is unable to provide review of systems due to Alzheimer's dementia and expressive aphasia. Past Family Social History Past Medical History 1. COPD on home oxygen. 2. Hyperlipidemia. 3. Atrial fibrillation. 4. Restless leg syndrome. 5. Hypothyroidism. 6. GERD. 7. CAD. 8. Hypertension. 9. Hearing impairment. Past Surgical History Unable to obtain secondary to patient's Alzheimer's dementia as well as expressive aphasia. Reported Medications Reported Meds & Active Scripts Active Levaquin (Levofloxacin) 750 Mg Tablet 750 Mg PO DAILY 2 Days Prednisone 10 Mg Tab 10 Mg PO DAILY Prednisone 10 Mg Tab 10 Mg PO BID [place] (Hydrocodone-Acetaminophen) 7.5-325 mg Tab 1 Tab PO Q4H PRN Ativan (Lorazepam) 0.5 Mg Tab 0.5 Mg PO TID PRN Coreg (Carvedilol) 3.125 Mg Tab 3.125 Mg PO Q12HR Isosorbide Mononitrate ER (Isosorbide Mononitrate) 30 Mg Bing 30 Mg PO DAILY@07 Reported Zoloft (Sertraline HCl) 100 Mg Tab 200 Mg PO DAILY Voltaren (Diclofenac Sodium) 1 % Gel..gram. 1 Applic TOPICAL Q8HR PRN Zofran (Ondansetron HCl) 4 Mg Tab 4 Mg PO Q6HR PRN Milk of Magnesia Liq (Magnesium Hydroxide) 400 Mg/5 Ml Susp 30 Ml PO HS PRN Melatonin 3 Mg Tab 9 Mg PO HS Fluticasone Nasal [place] 50 Mcg/Act Naspr 1 [place] EACH NARE DAILY 50 mcg/spray Lactinex (Lactobacillus Acidophilus) 1 Chew 1 Tab PO DAILY Pramipexole (Pramipexole Dihydrochloride) 0.75 Mg Tab 0.75 Mg PO Q8HR Furosemide 40 Mg Tab 40 Mg PO BID Tylenol (Acetaminophen) 325 Mg Tab 650 Mg PO Q4HR PRN Dulcolax Supp (Bisacodyl) 10 Mg Supp 10 Mg RECTAL DAILY PRN Ventolin Hfa 18 GM Inh (Albuterol Sulfate) 90 Mcg/Act Aer 2 Puff INH Q4HR PRN Spiriva Handihaler (Tiotropium Inh) 18 Mcg Cap 18 Mcg INH DAILY 1 capsule = 18 mcg Aldactone (Spironolactone) 25 Mg Tab 25 Mg PO DAILY Aspirin 81 Mg Chew 81 Mg PO DAILY Omeprazole 20 Mg Tab 40 Mg PO DAILY Albuterol Neb (Albuterol Sulfate) 2.5 Mg/3 Ml Neb 2.5 Mg NEB Q4HR NEB PRN Pravastatin 10 Mg Tab 10 Mg PO DAILY Allergies: Coded Allergies: Penicillins (Verified Allergy, Severe, 05/08/17) Active Ordered Medications Current Medications Sodium Chloride (NS Flush) 2 ml UNSCH PRN IVF FLUSH AFTER USING IV ACCESS; Start 05/08/17 at 05:15; Stop 05/10/17 at 12:49; Status DC Levofloxacin/ Dextrose 100 ml @ 100 mls/hr ONCE ONCE IV Last administered on 05/08/17at 06:56; Start 05/08/17 at 06:15; Stop 05/08/17 at 07:14; Status DC Sodium Chloride 1,000 ml @ 100 mls/hr Q10H IV Last administered on 05/12/17at 13:24; Start 05/08/17 at 06:32 Sodium Chloride (NS Flush) 2 ml UNSCH PRN IV FLUSH FLUSH AFTER USING IV ACCESS ; Start 05/08/17 at 06:45 Sodium Chloride (NS Flush) 2 ml BID IV FLUSH Last administered on 05/12/17at 08: 25; Start 05/08/17 at 09:00 Aztreonam 2000 mg/ Sodium Chloride 100 ml @ 200 mls/hr Q8H IV Last administered on 05/10/17at 08:47; Start 05/08/17 at 08:00; Stop 05/10/17 at 10:37; Status DC Levofloxacin/ Dextrose 150 ml @ 100 mls/hr Q24H IV ; Start 05/08/17 at 07:15; Stop 05/08/17 at 07:24; Status DC Vancomycin HCl 1000 mg/Sodium Chloride 250 ml @ 250 mls/hr ONCE ONCE IV Last administered on 05/08/17at 08:09; Start 05/08/17 at 08:00; Stop 05/08/17 at 08:59; Status DC Pharmacy Profile Note 0 ml @ 0 mls/hr UNSCH OTHER ; Start 05/08/17 at 06:45; Stop 05/10/17 at 11:19; Status DC Albuterol/ Ipratropium (Duoneb Neb) 1 ampule Q6HR NEB INH Last administered on 05/12/17at 03:48; Start 05/08/17 at 10:00; Stop 05/12/17 at 09:59; Status DC Albuterol/ Ipratropium (Duoneb Neb) 1 ampule Q4HR NEB PRN INH SHORTNESS OF BREATH Last administered on 05/12/17at 10:52; Start 05/08/17 at 08:00 Methylprednisolone Sodium Succinate (SoluMEDROL INJ) 40 mg Q12H IV PUSH Last administered on 05/12/17at 20:01; Start 05/08/17 at 08:00 Acetaminophen (Tylenol) 650 mg Q4H PRN PO TEMPERATURE > 101 F; Start 05/08/17 at 06:45 Ondansetron HCl (Zofran Inj) 4 mg Q6HR PRN IV PUSH NAUSEA Last administered on 05/12/17 17:49; Start 05/08/17 at 08:00 Heparin Sodium (Porcine) (Heparin Inj) 5,000 units Q8HR SQ Last administered on 05/12/17 13:24; Start 05/08/17 at 14:00 Aspirin (Aspirin Chew) 81 mg DAILY PO Last administered on 05/12/17 08:27; Start 05/08/17 at 09:00 Bisacodyl (Dulcolax Supp) 10 mg DAILY PRN RECTAL CONSTIPATION; Start 05/08/17 at 09:00 Carvedilol (Coreg) 3.125 mg Q12HR PO Last administered on 05/12/17 20:01; Start 05/08/17 at 09:00 Furosemide (Lasix) 40 mg BID PO Last administered on 05/08/17 09:33; Start 05/08 at 09:00; Status Future Hold Acetaminophen/ Hydrocodone Bitart ([place] 7.5-325 Mg) 1 tab Q4HR PRN PO PAIN; Start 05/08/17 at 08:00 Isosorbide Mononitrate (Imdur) 30 mg DAILY@07 PO Last administered on 06:16; Start 05/08/17 at 08:00 Lorazepam (Ativan) 0.5 mg TID PRN PO ANXIETY; Start 05/08/17 at 09:00 Pravastatin Sodium (Pravachol) 10 mg DAILY PO Last administered on 05/12/17 08 :27; Start 05/08/17 at 09:00 Sertraline HCl (Zoloft) 200 mg DAILY PO Last administered on 05/12/17 08:26; Start 05/08/17 at 09:00 Spironolactone (Aldactone) 25 mg DAILY PO Last administered on 05/12/17 08:26 ; Start 05/08/17 at 09:00 Tiotropium [place] (Spiriva Inh) 18 mcg DAILY INH Last administered on 08:28; Start 05/08/17 at 09:00 Pantoprazole Sodium (Protonix) 40 mg DAILY PO Last administered on 05/12/17 08 :29; Start 05/08/17 at 09:00 Pramipexole Dihydrochloride (Mirapex) 0.75 mg Q8HR PO Last administered on 05/12at 13:24; Start 05/08/17 at 14:00 Lactobacillus Acidophilus (Lactinex) 1 tab TID PO Last administered on at 17:49; Start 05/08/17 at 09:00 Melatonin (Melatonin) 5 mg HS PRN PO INSOMNIA; Start 05/08/17 at 21:00 Levofloxacin/ Dextrose 150 ml @ 100 mls/hr Q24H IV Last administered on at 06:02; Start 05/09/17 at 06:00; Stop 05/10/17 at 10:37; Status DC Vancomycin HCl 1750 mg/Sodium Chloride 517.5 ml @ 258.75 mls/ hr Q24H IV Last administered on 05/08/17at 22:10; Start 05/08/17 at 23:00; Stop 05/09/17 at 12:57; Status DC Miscellaneous Information SPECIFIC LAB TO BE JAJA... ONCE ONCE .XX ; Start at 22:45; Stop 05/10/17 at 22:45; Status DC Metronidazole 100 ml @ 100 mls/hr Q8H IV Last administered on 05/10/17at 11:00; Start 05/08/17 at 11:00; Stop 05/10/17 at 16:14; Status DC Vancomycin HCl 1750 mg/Sodium Chloride 517.5 ml @ 258.75 mls/ hr Q18H IV Last administered on 05/09/17at 18:09; Start 05/09/17 at 16:00; Stop 05/10/17 at 10:38; Status DC Miscellaneous Information SPECIFIC LAB TO BE DRAWN:VANCO TROUGH DATE TO... ONCE ONCE .XX ; Start 05/11/17 at 03:45; Stop 05/11/17 at 03:45; Status DC Nystatin (Mycostatin Powder) 1 applic Q12HR TOPICAL Last administered on at 20:01; Start 05/10/17 at 10:00 Guaifenesin (Mucinex Er) 600 mg BID PO Last administered on 05/12/17at 20:01; Start 05/10/17 at 10:00 Miscellaneous Medication ([facility]) 1 UNSCH X1 PRN XX PHARMACY DOCUMENTATION; Start 05/10/17 at 10:45; Stop 05/10/17 at 16:14; Status DC Imipenem/ Cilastatin Sodium 500 mg/Sodium Chloride 100 ml @ 200 mls/hr Q6H IV Last administered on 05/10/17at 14:53; Start 05/10/17 at 14:00; Stop 05/10/17 at 16: 14; Status DC Miscellaneous Medication ([facility] Crit: Doc ESBL, MDR A baumannii or P aer) 1 UNSCH X1 PRN .XX PHARMACY DOCUMENTATION; Start 05/10/17 at 16:15; Stop 05/11/17 at 16: 14; Status DC Miscellaneous Medication ([facility]) 1 UNSCH X1 PRN XX PHARMACY DOCUMENTATION; Start 05/10/17 at 16:15; Stop 05/11/17 at 16:14; Status DC Ertapenem 1000 mg/ Sodium Chloride 100 ml @ 200 mls/hr Q24H IV Last administered on 05/12/17at 17:49; Start 05/10/17 at 17:00 Family History Unable to obtain due to patient's mental condition. Social History Unable to obtain as above. Physical Exam Vital Signs Vital Signs Date Time Temp Pulse Resp B/P (MAP) Pulse Ox O2 Delivery O2 Flow Rate FiO2 05/12/17 20:29 92 Nasal Cannula 2.00 05/12/17 20:24 112 20 156/89 (111) 91 05/12/17 18:44 110 05/12/17 16:00 97.8 100 16 138/88 (105) 91 05/12/17 16:00 94 05/12/17 12:00 98.7 87 16 130/67 (88) 92 05/12/17 12:00 83 05/12/17 11:04 91 2.00 05/12/17 08:00 98.3 95 16 162/101 (121) 97 05/12/17 08:00 98 05/12/17 04:00 97.3 98 20 134/79 (97) 97 05/12/17 00:00 98.6 73 18 140/74 (96) 96 Physical Exam GENERAL: This is a well-nourished, well-developed patient, laying in ICU bed on BiPAP with full facemask SKIN: No rashes, ecchymoses or lesions. Cool and dry. Fungal infection in all folds HEAD: Atraumatic. Normocephalic. No temporal or scalp tenderness. EYES: Pupils equal round and reactive. Extraocular motions intact. No scleral icterus. No injection or drainage. ENT: Tongue moist NECK: Trachea midline. No JVD or lymphadenopathy. CARDIOVASCULAR: S1-S2 regular, no gallop or murmur RESPIRATORY: Clear to auscultation. Breath sounds equal bilaterally. No wheezes , rales, or rhonchi. Diminished breath sounds at the bases. GASTROINTESTINAL: Abdomen soft, non-tender, nondistended. No hepato-splenomegaly , or palpable masses. No guarding. FELIX IN PLACE MUSCULOSKELETAL: Extremities without clubbing, cyanosis. Bilateral lower extremity edema. NEUROLOGICAL: Drowsy, easily arousable, moves both upper extremities. Attempts to communicate at times. On BiPAP with full facemask Laboratory Laboratory Tests Test 05/12/17 08:02 05/12/17 11:28 05/12/17 14:05 05/12/17 20:44 White Blood Count 7.9 Red Blood Count 3.63 Hemoglobin 10.7 Hematocrit 33.2 Mean Corpuscular Volume 91.4 Mean Corpuscular Hemoglobin 29.4 Mean Corpuscular Hemoglobin Concent 32.2 Red Cell Distribution Width 14.6 Platelet Count 125 Mean Platelet Volume 7.3 Neutrophils (%) (Auto) 92.0 Lymphocytes (%) (Auto) 4.4 Monocytes (%) (Auto) 3.5 Eosinophils (%) (Auto) 0.0 Basophils (%) (Auto) 0.1 Neutrophils # (Auto) 7.2 Lymphocytes # (Auto) 0.3 Monocytes # (Auto) 0.3 Eosinophils # (Auto) 0.0 Basophils # (Auto) 0.0 CBC Comment AUTO DIFF Differential Total Cells Counted 100 Neutrophils % (Manual) 72 Band Neutrophils % 9 Lymphocytes % 7 Monocytes % 9 Neutrophils # (Manual) 6.6 Myelocytes 3 Differential Comment FINAL DIFF MANUAL Platelet Estimate LOW Platelet Morphology Comment NORMAL Ovalocytes 1+ Blood Urea Nitrogen 13 Creatinine 0.51 Random Glucose 119 Total Protein 6.7 Albumin 3.4 Calcium Level 9.0 Phosphorus Level 3.6 Magnesium Level 1.7 Alkaline Phosphatase 78 Aspartate Amino Transf (AST/SGOT) 28 Alanine Aminotransferase (ALT/SGPT) 22 Total Bilirubin 0.4 Sodium Level 130 Potassium Level 4.9 Chloride Level 84 Carbon Dioxide Level 44.7 Anion Gap 1 Estimat Glomerular Filtration Rate 117 Blood Gas Puncture Site LT RADIAL LT RADIAL LT RADIAL Blood Gas Patient Temperature 98.6 98.6 98.6 Blood Gas HCO3 46 46 47 Blood Gas Base Excess 17.7 18.1 17.3 Blood Gas Oxygen Saturation 89 89 90 Arterial Blood pH 7.20 7.23 7.14 Arterial Blood Partial Pressure CO2 124 114 142 Arterial Blood Partial Pressure O2 68 67 77 Arterial Blood Oxygen Content 13.2 12.6 14.2 Arterial Blood Carboxyhemoglobin 1.6 1.8 1.7 Arterial Blood Methemoglobin 1.2 1.2 1.3 Blood Gas Hemoglobin 10.5 10.1 11.2 Oxygen Delivery Device NASAL CANNULA NASAL CANNULA NASAL CANNULA Blood Gas Liter Flow 2 2 2 Date/Time Source Procedure Growth Status 05/08/17 06:40 Blood Peripheral Aerobic Blood Culture - Preliminary NO GROWTH IN 4 DAYS Resulted 05/08/17 06:40 Blood Peripheral Anaerobic Blood Culture - Preliminary NO GROWTH IN 4 DAYS Resulted 05/08/17 05:30 Nasal Washing Influenza Types A,B Antigen (AMAYA) - Final NEGATIVE FOR FLU A AND B ANTIGEN.... Complete 05/08/17 05:30 Urine Clean Catch Urine Culture - Final Escherichia Coli Esbl Positive Multi-Drug Resistant Complete Result Diagram: 05/12/1780105/12/17801 Assessment and Plan Assessment and Plan 76-year-old female with: Encephalopathy Acute on chronic hypercapnic respiratory failure requiring BiPAP COPD exacerbation ESBL Escherichia coli UTI Alzheimer's dementia Morbid obesity Prior history of stroke COPD on home oxygen. Hyperlipidemia. Atrial fibrillation. Restless leg syndrome. Hypothyroidism. GERD. CAD. Hypertension. Hearing impairment. Plan: Neuro: Follow neuro status, avoid sedatives and narcotics. Placed on BiPAP. We will CO2. Follow-up repeat ABGs on BiPAP. Cardiovascular: Continue current cardiac meds in a.m.: Beta joanne, statin, isosorbide. Pulmonary: Placed on BiPAP with full facemask. Repeat ABGs in 2 hours to watch CO2 trend. Patient appears to be protecting airway currently. Continue steroids, bronchodilators. Family was made aware by [employer] prior to transfer to ICU and are okay with intubation if needed. GI/liver: Nothing by mouth for now Renal/: IV hydration, strict intake output, monitor and replete electro lites , follow BUN creatinine. Heme: Follow CBC Endocrine: SSI for glycemic control as needed ID: Continue antibiotics per ID: On ertapenem for ESBL Escherichia coli in urine. Prophylaxis: Pepcid/SCDs/subcutaneous heparin Condition critical Time spent on critical care excluding [id number] minutes Addendum: Patient started losing tidal volumes on BiPAP and dropped O2 sats the 70s. We'll proceed with endotracheal intubation and placed on mechanical ventilation. Juan Sage MD May 12, 2017 22:31
[2017-05-12] MEDS ORDERED: PROPOFOL 500 MG/50 ML INJ 50 ML ONE (22:36)
--- NOTE | 2017-05-12 23:09 | RADRPT ---
EXAM DATE/TIME: 05/12/2017 22:54 [place] COMPARISON: CHEST SINGLE AP, May 12, 2017, 21:28. INDICATIONS : E-T tube placement. MEDICAL HISTORY : Chronic obstructive pulmonary disease. Hypertension SURGICAL HISTORY : None. ENCOUNTER: Subsequent ACUITY: 4 - 6 days PAIN SCORE: Non-responsive. LOCATION: Bilateral chest FINDINGS: Endotracheal tube tip is at the level of the emma directed towards the right main bronchus. Patchy areas of consolidative infiltrate is present in the medial lower lungs bilaterally and there is loss of delineation of the right hemidiaphragm. The pulmonary opacities are similar to prior exam. The heart is upper limits normal size. CONCLUSION: ET tube tip is at the level of the emma and needs to be withdrawn 2 cm. Mack Jimenez MD on May 12, 2017 at 23:06 Board Certified Radiologist. This report was verified electronically.
--- NOTE | 2017-05-12 23:37 | PD.PROCEDR ---
Procedure Note Procedure Procedure: Endotracheal intubation Preop diagnosis: Acute on chronic respiratory failure with CO2 narcosis, hypoxia Postop diagnosis: Same Indication: Hypoxia/CO2 narcosis Sedation used: Etomidate 20 mg, rocuronium 50 mg IV Procedure: Patient was preoxygenated with 100% oxygen via Ambu bag with bag mask ventilation, following induction of sedation and neuromuscular blockade, direct laryngoscopy was performed using a Mac for blade with good visualization of vocal cords. An 8 [place] ET tube was passed through the vocal cords under direct visualization up to the 22 centimeter mariah and after inflating cuff of ET tube, correct placement was confirmed using bagging with good color change on CO2 detector, 5 point auscultation and chest rise with ventilation. Patient was connected to mechanical ventilation. Patient tolerated the procedure well with no immediate complications noted. Postprocedure chest x-ray was ordered. Juan Sage MD May 12, 2017 23:37
[2017-05-13] VITALS (19 sets, daily range): BP systolic 80–170; BP diastolic 48–82; PULSE 78–98; RESP 20–21; TEMP 96.9–101.3; O2SAT 95–100
[2017-05-13] MEDS: PROPOFOL 1000 MG/100 ML INJ 100 ML IV PRN ×4 (00:36→09:55)
[2017-05-13] MEDS: HEPARIN SODIUM - SQ 10,000 UNITS/ML VIAL SQ SCH ×4 (01:55→20:42)
[2017-05-13] MEDS: SODIUM CHLOR 0.9% 1000 ML INJ 1,000 ML IV SCH ×2 (01:56→11:15)
[2017-05-13] MEDS: CHLORHEXIDINE GLUCONATE 2 % 1 PACK (2 CLOTHS)(taper/protocol) TOPICAL SCH (01:56)
[2017-05-13] MEDS: PRAMIPEXOLE DIHYDROCHLORIDE 0.25 MG TAB PO SCH ×3 (05:18→20:42)
[2017-05-13] MEDS: ISOSORBIDE MONONITRATE 30 MG CR TAB (IMDUR) PO SCH (05:19)
[2017-05-13 05:25] LABS: AUTOMATED NEUTROPHIL # 7.3 TH/MM3 (1.8-7.7); BASOPHIL % 0.2 % (0.0-2.0); HEMATOCRIT 34.9 % (35.0-46.0); HEMOGLOBIN 12.1 GM/DL (11.6-15.3); LYMPH % 9.6 % (9.0-44.0); LYMPHOCYTE # 0.9 TH/MM3 (1.0-4.8); MEAN CELL VOLUME 91.1 FL (80.0-100.0); MEAN CORPUSCULAR HEMOGLOBIN 31.5 PG (27.0-34.0); MEAN CORPUSCULAR HGB CONC 34.6 % (32.0-36.0); MEAN PLATELET VOLUME 8.6 FL (7.0-11.0); MONO % 12.6 % (0.0-8.0); MONOCYTE # 1.2 TH/MM3 (0-0.9); NEUT % 77.6 % (16.0-70.0); PLATELET COUNT 153 TH/MM3 (150-450); RED BLOOD COUNT 3.83 MIL/MM3 (4.00-5.30); RED CELL DISTRIBUTION WIDTH 14.1 % (11.6-17.2); WHITE BLOOD COUNT 9.4 TH/MM3 (4.0-11.0)
[2017-05-13 06:14] LABS: BLOOD UREA NITROGEN 16 MG/DL (7-18); CREATININE 0.68 MG/DL (0.50-1.00); GLOMERULAR FILTRATION RATE 84 ML/MIN (>89); GLUCOSE,RANDOM 111 MG/DL (74-106); TOTAL PROTEIN 6.7 GM/DL (6.4-8.2)
[2017-05-13 06:15] LABS: ALBUMIN 3.2 GM/DL (3.4-5.0); ALKALINE PHOSPHATASE 69 U/L (45-117); ALT (GPT) 23 U/L (10-53); AST (GOT) 48 U/L (15-37); MAGNESIUM 1.5 MG/DL (1.5-2.5); SODIUM (NA) 126 MEQ/L (136-145)
[2017-05-13 06:16] LABS: BICARBONATE 40.4 MEQ/L (21.0-32.0); CHLORIDE 78 MEQ/L (98-107)
[2017-05-13 06:36] LABS: TOTAL BILIRUBIN ADULT 1.3 MG/DL (0.2-1.0)
[2017-05-13] MEDS: CHLORHEXIDINE 0.12% (ORAL KIT) 15 ML CUP MT SCH ×2 (08:31→20:44)
[2017-05-13] MEDS: methylPREDNISolone SOD SUCC 40 MG/1 ML VIAL IV PUSH SCH ×2 (08:31→20:41)
[2017-05-13] MEDS: SODIUM CHLORIDE 0.9% FLUSH 10 ML FLUSH IV FLUSH SCH ×2 (08:31→20:39)
[2017-05-13] MEDS: LACTOBACILLUS ACIDOPHILUS TAB PO SCH ×3 (08:31→17:44)
[2017-05-13] MEDS: PRAVASTATIN SOD 10 MG TAB PO SCH (08:32)
[2017-05-13] MEDS: PANTOPRAZOLE SOD 40 MG DELAYED RELEASE TAB PO SCH (08:32)
[2017-05-13] MEDS: SERTRALINE HCL 100 MG TAB PO SCH (08:32)
[2017-05-13] MEDS: guaiFENesin E.R. 600 MG TAB PO SCH (08:32)
[2017-05-13] MEDS: ASPIRIN 81 MG CHEW TAB PO SCH (08:33)
[2017-05-13] MEDS: NYSTATIN 100,000 U/GM PWD 15 GM BTL TOPICAL SCH ×2 (09:00→20:41)
[2017-05-13] MEDS: TIOTROPIUM BROMIDE 18 MCG INH INH SCH (09:00)
[2017-05-13] MEDS ORDERED: ICU - POTASSIUM PHOSPHATE 30 MMOL/NS 250 ML IV PRN ×2 (09:15)
[2017-05-13] MEDS ORDERED: ICU - D/C ICU ELECTROLYTE ORDERS PRN (09:15)
[2017-05-13] MEDS ORDERED: ICU - MAGNESIUM SULFATE 2 GM/NS 100 ML IV PRN ×2 (09:15)
[2017-05-13] MEDS ORDERED: ICU - MAGNESIUM SULFATE 4 GM/NS 100 ML IV PRN ×2 (09:15)
[2017-05-13] MEDS ORDERED: ICU - POTASSIUM CHLORIDE/AQUEOUS SOLN 40 MEQ/100 ML IVPB IV PRN (09:15)
[2017-05-13] MEDS ORDERED: ICU - MAGNESIUM OXIDE 400 MG TAB PO PRN (09:15)
[2017-05-13] MEDS ORDERED: ICU - CALL ORDERING PHYSICIAN PRN (09:15)
[2017-05-13] MEDS ORDERED: ICU - POTASSIUM PHOSPHATE MONOBASIC 500 MG TAB PO PRN (09:15)
[2017-05-13] MEDS ORDERED: POTASSIUM CHLORIDE 25 MEQ EFFERVESCENT TAB PO PRN (09:15)
[2017-05-13] MEDS ORDERED: ICU - POTASSIUM CHLORIDE/AQUEOUS SOLN 20 MEQ/100 ML IVPB IV PRN (09:15)
[2017-05-13] MEDS: ICU - SODIUM PHOSPHATE 30 MMOL/NS 250 ML IV PRN ×2 (09:28)
[2017-05-13] MEDS ORDERED: DEXTROSE 50% IN WATER 50 ML VIAL(D50) IV PUSH PRN (09:30)
[2017-05-13] MEDS: INSULIN NovoLIN REGULAR SUPPLEMENTAL SCALE SQ SCH ×3 (09:30→17:43)
[2017-05-13] MEDS ORDERED: SODIUM CHLOR 0.9% 1000 ML INJ 1,000 ML IV ONE (09:30)
[2017-05-13] MEDS ORDERED: GLUCAGON 1 MG/ML VIAL OTHER PRN (09:30)
[2017-05-13] MEDS ORDERED: MAGNESIUM SULFATE 1 GM PREMIX 100 ML ONE ×2 (09:39→11:28)
--- NOTE | 2017-05-13 09:42 | HHI.CCPN ---
Subjective Remarks/Hospital Course This is a 68-year-old female with past medical history as stated above who presented to [facility] sent from a senior care on 05/08/17 due to respiratory distress. The patient has history of Alzheimer's as well as expressive aphasia and is unable to provide any history. Patient was admitted by hospitalist service and started on empiric antibiotics, IV Solu-Medrol as well as nebulizer treatments. no fever on presentation WBC 13 K+, blood clx w/ o growth, UA markedly abnormal, + culture ESBL+ E.coli almanzar was changed in ER, initially started on azactam, vanco, flagyl, subsequently changed to Primaxin, still on flagyl. flu was negative. ID consult was requested due to ESBL Escherichia coli UTI. Patient has persistent infiltrates on her chest x-ray from March. Today patient developed worsening CO2 retention with altered mental status. Serial ABGs showed rising PCO2 levels. Patient was eventually transferred to [facility] and critical care consult was requested to evaluate for possible need for intubation. Patient's granddaughter was contacted by SEBASTIAN JACOBO and was informed regarding worsening condition and possible need for intubation which she agreed with if required. I evaluated the patient immediately on arrival to the ICU. At that time she was drowsy though arousable and was just being initiated on BiPAP. We will the upper extremity spontaneously at the time and appeared to be protecting her airway. 05/13 Patient is intubated and sedated with Diprivan.hadl 4L UOP overnight ( ? kinked Almanzar). Afebrile. Objective Vital Signs Date Time Temp Pulse Resp B/P (MAP) Pulse Ox O2 Delivery O2 Flow Rate FiO2 05/13/17 08:16 98 30 05/13/17 06:00 95 05/13/17 04:00 98.2 20 122/67 (85) 05/12/17 20:29 Nasal Cannula 2.00 Intake and Output 05/13/17 05/13/17 05/14/17 08:00 16:00 00:00 Intake Total 150 ml Output Total 3850 ml Balance -3700 ml Result Diagram: 05/13/17 0442 05/13/17441 Other Results Laboratory Tests Test 05/12/17 11:28 05/12/17 14:05 05/12/17 20:44 3/11/18 22:00 Blood Gas Puncture Site LT RADIAL LT RADIAL LT RADIAL Blood Gas Patient Temperature 98.6 98.6 98.6 Blood Gas HCO3 46 mmol/L 46 mmol/L 47 mmol/L Blood Gas Base Excess 17.7 mmol/L 18.1 mmol/L 17.3 mmol/L Blood Gas Oxygen Saturation 89 % 89 % 90 % Arterial Blood pH 7.20 7.23 7.14 Arterial Blood Partial Pressure CO2 124 mmHg 114 mmHg 142 mmHg Arterial Blood Partial Pressure O2 68 mmHg 67 mmHg 77 mmHg Arterial Blood Oxygen Content 13.2 Vol % 12.6 Vol % 14.2 Vol % Arterial Blood Carboxyhemoglobin 1.6 % 1.8 % 1.7 % Arterial Blood Methemoglobin 1.2 % 1.2 % 1.3 % Blood Gas Hemoglobin 10.5 G/DL 10.1 G/DL 11.2 G/DL Oxygen Delivery Device NASAL CANNULA NASAL CANNULA NASAL CANNULA Blood Gas Liter Flow 2 L/M 2 L/M 2 L/M Nasal Screen MRSA (PCR) MRSA NOT DETECTED Test 05/13/17 00:06 05/13/17 04:42 Blood Gas Puncture Site RT RADIAL Blood Gas Patient Temperature 98.6 Blood Gas HCO3 43 mmol/L Blood Gas Base Excess 18.3 mmol/L Blood Gas Oxygen Saturation 96 % Arterial Blood pH 7.54 Arterial Blood Partial Pressure CO2 51 mmHg Arterial Blood Partial Pressure O2 155 mmHg Arterial Blood Oxygen Content 14.5 Vol % Arterial Blood Carboxyhemoglobin 1.7 % Arterial Blood Methemoglobin 1.4 % Blood Gas Hemoglobin 10.5 G/DL Oxygen Delivery Device VENTILATOR Blood Gas Ventilator Setting SEE COMMENTS Blood Gas Inspired Oxygen 50 % White Blood Count 9.4 TH/MM3 Red Blood Count 3.83 MIL/MM3 Hemoglobin 12.1 GM/DL Hematocrit 34.9 % Mean Corpuscular Volume 91.1 FL Mean Corpuscular Hemoglobin 31.5 PG Mean Corpuscular Hemoglobin Concent 34.6 % Red Cell Distribution Width 14.1 % Platelet Count 153 TH/MM3 Mean Platelet Volume 8.6 FL Neutrophils (%) (Auto) 77.6 % Lymphocytes (%) (Auto) 9.6 % Monocytes (%) (Auto) 12.6 % Eosinophils (%) (Auto) 0.0 % Basophils (%) (Auto) 0.2 % Neutrophils # (Auto) 7.3 TH/MM3 Lymphocytes # (Auto) 0.9 TH/MM3 Monocytes # (Auto) 1.2 TH/MM3 Eosinophils # (Auto) 0.0 TH/MM3 Basophils # (Auto) 0.0 TH/MM3 CBC Comment AUTO DIFF Differential Comment AUTO DIFF CONFIRMED Blood Urea Nitrogen 16 MG/DL Creatinine 0.68 MG/DL Random Glucose 111 MG/DL Total Protein 6.7 GM/DL Albumin 3.2 GM/DL Calcium Level 9.0 MG/DL Phosphorus Level 1.0 MG/DL Magnesium Level 1.5 MG/DL Alkaline Phosphatase 69 U/L Aspartate Amino Transf (AST/SGOT) 48 U/L Alanine Aminotransferase (ALT/SGPT) 23 U/L Total Bilirubin 1.3 MG/DL Sodium Level 126 MEQ/L Potassium Level 5.4 MEQ/L Chloride Level 78 MEQ/L Carbon Dioxide Level 40.4 MEQ/L Anion Gap 8 MEQ/L Estimat Glomerular Filtration Rate 84 ML/MIN Imaging Last Impressions Chest X-Ray 05/12/17 0000 Signed Impressions: Service Date/Time: Friday, May 12, 2017 22:54 - CONCLUSION: ET tube tip is at the level of the emma and needs to be withdrawn 2 cm. Mack Jimenez MD Chest CT 05/10/17 0000 Signed Impressions: Service Date/Time: Wednesday, May 10, 2017 17:28 - CONCLUSION: Patchy air space disease right mid and lower lung with platelike peripheral consolidation. . This associated with trace pleural effusion.. Harshil Ortiz MD FACR Objective Remarks GENERAL: Patient is 76 yo intubated and sedated SKIN: Warm and dry. HEAD: Normocephalic. EYES: No scleral icterus. No injection or drainage. NECK: Supple, trachea midline. No JVD or lymphadenopathy. CARDIOVASCULAR: Regular rate and rhythm without murmurs, gallops, or rubs. RESPIRATORY: Breath sounds equal bilaterally. No accessory muscle use. GASTROINTESTINAL: Abdomen soft, non-tender, nondistended. MUSCULOSKELETAL: No cyanosis, or edema. Neuro: sedated A/P Assessment and Plan 76-year-old female with: Encephalopathy Acute on chronic hypercapnic respiratory failure requiring intubation COPD exacerbation Hyponatremia ESBL Escherichia coli UTI Alzheimer's dementia Morbid obesity Prior history of stroke COPD on home oxygen. Hyperlipidemia. Atrial fibrillation. Restless leg syndrome. Hypothyroidism. GERD. CAD. Hypertension. Hearing impairment. Plan: Neuro: On Diprivan infusion for sedation. Daily sedation vacation. CV: Monitor HR and BP keep MAP>65mmHg hold Coreg, Imdur, Aldactone for borderline low BP. On ASA, Pravachol. Pulmo: Continue with vent support keep sats >92% Bronchodilators, ICU vent bundle. Solumederol 40mg Q12 SBT daily as valery. Give Diamox 250mg IV x1 GI/liver:On Glucerna 1.5 @30ml/hr with goal rate 60ml/hr. Pepcid for GI prophylaxis Renal/:Monitor renal function, electrolytes replacement per protocol Continue NS@100ml/hr Heme: Follow CBC Endocrine: SSI for glycemic control as needed ID: Continue abx per ID: On ertapenem for ESBL Escherichia coli in urine. Monitor for signs of infections ( Fever, WBC) Prophylaxis: Pepcid/SCDs/subcutaneous heparin Level 3 Leonides Nash MD May 13, 2017 09:42
[2017-05-13] MEDS: RESP: ALBUTEROL 2.5 MG/IPRATROPIUM 0.5 MG NEB (SCH) INH ×4 (11:28→23:40)
--- NOTE | 2017-05-13 15:04 | HHI.IDPN ---
Subjective Subjective Remarks events noted Pt deteriorated clinically over w/e Pt developped resp failure and was transferred to ICU Int'd now on vent BP low, but is not on pressors afebrile yday, but spiked fever today into 101, 3 Large amount of greenish secretions reported by RN Antibiotics ertapenem Allergies: Coded Allergies: Penicillins (Verified Allergy, Severe, 05/08/17) Objective . Vital Signs Date Time Temp Pulse Resp B/P (MAP) Pulse Ox O2 Delivery O2 Flow Rate FiO2 05/13/17 12:00 99.2 81 20 90/55 (67) 98 05/13/17 12:00 81 05/13/17 12:00 30 05/13/17 11:28 100 30 05/13/17 10:00 97 05/13/17 08:16 98 30 05/13/17 08:00 30 05/13/17 08:00 101.3 94 20 80/50 (60) 98 05/13/17 08:00 94 05/13/17 06:00 95 05/13/17 04:28 100 40 05/13/17 04:00 89 05/13/17 04:00 30 05/13/17 04:00 98.2 96 20 122/67 (85) 100 05/13/17 02:03 100 50 05/13/17 02:00 40 05/13/17 02:00 82 05/13/17 00:00 84 05/13/17 00:00 96.9 84 20 170/82 (111) 100 05/12/17 23:00 50 05/12/17 22:46 97 50 05/12/17 22:00 105 05/12/17 21:59 89 35 05/12/17 20:29 92 Nasal Cannula 2.00 05/12/17 20:24 112 20 156/89 (111) 91 05/12/17 18:44 110 05/12/17 16:00 97.8 100 16 138/88 (105) 91 05/12/17 16:00 94 05/13/17 05/13/17 05/14/17 15:00 23:00 07:00 Intake Total 1200 ml Balance 1200 ml IV Total 1200 ml . Laboratory Tests Test 05/12/17 08:02 05/13/17 04:42 White Blood Count 7.9 TH/MM3 9.4 TH/MM3 Red Blood Count 3.63 MIL/MM3 3.83 MIL/MM3 Hemoglobin 10.7 GM/DL 12.1 GM/DL Hematocrit 33.2 % 34.9 % Mean Corpuscular Volume 91.4 FL 91.1 FL Mean Corpuscular Hemoglobin 29.4 PG 31.5 PG Mean Corpuscular Hemoglobin Concent 32.2 % 34.6 % Red Cell Distribution Width 14.6 % 14.1 % Platelet Count 125 TH/MM3 153 TH/MM3 Mean Platelet Volume 7.3 FL 8.6 FL Neutrophils (%) (Auto) 92.0 % 77.6 % Lymphocytes (%) (Auto) 4.4 % 9.6 % Monocytes (%) (Auto) 3.5 % 12.6 % Eosinophils (%) (Auto) 0.0 % 0.0 % Basophils (%) (Auto) 0.1 % 0.2 % Neutrophils # (Auto) 7.2 TH/MM3 7.3 TH/MM3 Lymphocytes # (Auto) 0.3 TH/MM3 0.9 TH/MM3 Monocytes # (Auto) 0.3 TH/MM3 1.2 TH/MM3 Eosinophils # (Auto) 0.0 TH/MM3 0.0 TH/MM3 Basophils # (Auto) 0.0 TH/MM3 0.0 TH/MM3 CBC Comment AUTO DIFF AUTO DIFF Differential Total Cells Counted 100 Neutrophils % (Manual) 72 % Band Neutrophils % 9 % Lymphocytes % 7 % Monocytes % 9 % Neutrophils # (Manual) 6.6 TH/MM3 Myelocytes 3 % Differential Comment FINAL DIFF MANUAL AUTO DIFF CONFIRMED Platelet Estimate LOW Platelet Morphology Comment NORMAL Ovalocytes 1+ Laboratory Tests Test 05/12/17 08:02 05/13/17 04:42 Blood Urea Nitrogen 13 MG/DL 16 MG/DL Creatinine 0.51 MG/DL 0.68 MG/DL Random Glucose 119 MG/DL 111 MG/DL Total Protein 6.7 GM/DL 6.7 GM/DL Albumin 3.4 GM/DL 3.2 GM/DL Calcium Level 9.0 MG/DL 9.0 MG/DL Phosphorus Level 3.6 MG/DL 1.0 MG/DL Magnesium Level 1.7 MG/DL 1.5 MG/DL Alkaline Phosphatase 78 U/L 69 U/L Aspartate Amino Transf (AST/SGOT) 28 U/L 48 U/L Alanine Aminotransferase (ALT/SGPT) 22 U/L 23 U/L Total Bilirubin 0.4 MG/DL 1.3 MG/DL Sodium Level 130 MEQ/L 126 MEQ/L Potassium Level 4.9 MEQ/L 5.4 MEQ/L Chloride Level 84 MEQ/L 78 MEQ/L Carbon Dioxide Level 44.7 MEQ/L 40.4 MEQ/L Anion Gap 1 MEQ/L 8 MEQ/L Estimat Glomerular Filtration Rate 117 ML/MIN 84 ML/MIN Microbiology Date/Time Source Procedure Growth Status 05/12/17 22:50 Sputum Endotracheal Gram Stain - Final Resulted 05/12/17 22:50 Sputum Endotracheal Sputum Culture - Preliminary NO GROWTH IN 24 HOURS. Resulted Imaging Last Impressions Chest X-Ray 05/12/17 0000 Signed Impressions: Service Date/Time: Friday, May 12, 2017 22:54 - CONCLUSION: ET tube tip is at the level of the emma and needs to be withdrawn 2 cm. Mack Jimenez MD Chest CT 05/10/17 0000 Signed Impressions: Service Date/Time: Wednesday, May 10, 2017 17:28 - CONCLUSION: Patchy air space disease right mid and lower lung with platelike peripheral consolidation. . This associated with trace pleural effusion.. Harshil Ortiz MD FACR Physical Exam CONSTITUTIONAL/GENERAL: This is a morbidly obese female patient, in no apparent distress. Intubated, sedated on vent TUBES/LINES/DRAINS: SKIN: No jaundice, rashes, or lesions. Skin temperature appropriate. Not diaphoretic. HEAD: Atraumatic. Normocephalic. EYES: Pupils equal and round and reactive. Extraocular motions intact. No scleral icterus. No injection or drainage. Fundi not examined. ENT: Nose without bleeding or purulent drainage. Orally intubated NECK: Trachea midline. Supple, nontender. No palpable thyroid enlargement or nodularity. CARDIOVASCULAR: Regular rate and rhythm without murmurs, gallops, or rubs. No JVD. Peripheral pulses symmetric. RESPIRATORY/CHEST: Symmetric, unlabored respirations. Clear to auscultation. Breath sounds equal bilaterally. No wheezes, rales, or rhonchi. GASTROINTESTINAL: Abdomen soft, non-tender, nondistended. No hepato-splenomegaly , or palpable masses. No guarding. Bowel sounds present. GENITOURINARY: Without palpable bladder distension. Almanzar catheter in place with clear light yellow urine MUSCULOSKELETAL: Extremities without clubbing, cyanosis, + 1+ edema and chronic hyperpigmentation. No joint tenderness or effusion noted. No calf tenderness. No mottling or clubbing. LYMPHATICS: No palpable cervical or supraclavicular adenopathy. NEUROLOGICAL: sedated, unresponsive PSYCHIATRIC: unable to assess Assessment & Plan Remarks ESBL+ E.coli UTI with chronic indwelling almanzar Pulmonary infiltrates unchanged from 03/28 an no cough/expectorateiom: doubt PNA , favouring atelectatic changes Allergica reaction to PCN (rash), no problems tolerating primaxin Probably new sepsis - fever, new hypotensiosn change Ertapenem to Primaxin fu sputum clx add vanco rechk blood c lx add micafungin chk lactic acid dw Frances Gonsalves MD May 13, 2017 15:04
[2017-05-13] MEDS ORDERED: MISCELLANEOUS PHARMACY INFORMATION XX PRN (15:15)
[2017-05-13] MEDS ORDERED: Vancomycin Consult Pharmacy 1 EA OTHER SCH (15:15)
[2017-05-13] MEDS ORDERED: ASP: Documented ESBL, MDR A baumannii or P. aeruginosa PRN (15:15)
[2017-05-13] MEDS: fentaNYL DRIP 250 ML IV PRN (15:58)
[2017-05-13 16:30] LABS: BACTERIA, URINE RARE /hpf; BILIRUBIN, URINE NEG (NEG); BLOOD, URINE NEG (NEG); GLUCOSE,URINE NEG (NEG); HYALINE CAST, URINE 1 /lpf (RARE); KETONE, URINE NEG (NEG); NITRITE,URINE NEG (NEG); PH, URINE 8.5 (5.0-8.5); SQUAMOUS EPITHELIAL CELL URINE 1 /hpf (0-5); URINE COLOR YELLOW (YELLW/STRAW); URINE LEUKOCYTE ESTERASE NEG (NEG)
[2017-05-13] MEDS: IMIPENEM/CILASTATIN INJ 500 MG in SODIUM CHLORIDE 0.9% INJ 100 ML IV SCH ×2 (16:59→20:40)
[2017-05-13] MEDS: MICAFUNGIN INJ 150 MG in SODIUM CHLORIDE 0.9% INJ 100 ML IV SCH (16:59)
[2017-05-13] MEDS: VANCOMYCIN INJ 1,750 MG in SODIUM CHLORID 0.9% 500 ML INJ 500 ML IV SCH (17:44)
[2017-05-13 19:02] LABS: CALCIUM 8.7 MG/DL (8.5-10.1); CREATININE 0.81 MG/DL (0.50-1.00)
[2017-05-14] VITALS (17 sets, daily range): BP systolic 110–172; BP diastolic 52–74; PULSE 63–114; RESP 20–26; TEMP 98.6–99.3; O2SAT 97–100
[2017-05-14] MEDS: RESP: ALBUTEROL 2.5 MG/IPRATROPIUM 0.5 MG NEB (SCH) INH ×6 (03:43→23:34)
[2017-05-14] MEDS: CHLORHEXIDINE GLUCONATE 2 % 1 PACK (2 CLOTHS)(taper/protocol) TOPICAL SCH (04:00)
[2017-05-14] MEDS: IMIPENEM/CILASTATIN INJ 500 MG in SODIUM CHLORIDE 0.9% INJ 100 ML IV SCH ×4 (05:01→22:59)
[2017-05-14] MEDS: HEPARIN SODIUM - SQ 10,000 UNITS/ML VIAL SQ SCH ×3 (05:02→22:59)
[2017-05-14] MEDS: PRAMIPEXOLE DIHYDROCHLORIDE 0.25 MG TAB PO SCH ×3 (05:02→22:59)
[2017-05-14] MEDS: INSULIN NovoLIN REGULAR SUPPLEMENTAL SCALE SQ SCH ×4 (05:46→18:00)
[2017-05-14] MEDS: SODIUM CHLOR 0.9% 1000 ML INJ 1,000 ML IV SCH ×3 (05:46→23:00)
[2017-05-14] MEDS: PROPOFOL 1000 MG/100 ML INJ 100 ML IV PRN (05:55)
[2017-05-14 06:55] LABS: AUTOMATED NEUTROPHIL # 11.9 TH/MM3 (1.8-7.7); BASOPHIL % 0.1 % (0.0-2.0); HEMATOCRIT 33.8 % (35.0-46.0); HEMOGLOBIN 10.9 GM/DL (11.6-15.3); LYMPH % 5.1 % (9.0-44.0); LYMPHOCYTE # 0.7 TH/MM3 (1.0-4.8); MEAN CELL VOLUME 90.6 FL (80.0-100.0); MEAN CORPUSCULAR HEMOGLOBIN 29.2 PG (27.0-34.0); MEAN CORPUSCULAR HGB CONC 32.3 % (32.0-36.0); MONO % 5.1 % (0.0-8.0); MONOCYTE # 0.7 TH/MM3 (0-0.9); NEUT % 89.7 % (16.0-70.0); PLATELET COUNT 98 TH/MM3 (150-450); RED BLOOD COUNT 3.73 MIL/MM3 (4.00-5.30); RED CELL DISTRIBUTION WIDTH 14.5 % (11.6-17.2); WHITE BLOOD COUNT 13.2 TH/MM3 (4.0-11.0)
[2017-05-14 07:27] LABS: ALBUMIN 2.9 GM/DL (3.4-5.0); AST (GOT) 17 U/L (15-37); BICARBONATE 31.1 MEQ/L (21.0-32.0); BLOOD UREA NITROGEN 24 MG/DL (7-18); CALCIUM 8.3 MG/DL (8.5-10.1); CHLORIDE 96 MEQ/L (98-107); CREATININE 0.71 MG/DL (0.50-1.00); GLOMERULAR FILTRATION RATE 80 ML/MIN (>89); GLUCOSE,RANDOM 144 MG/DL (74-106); SODIUM (NA) 134 MEQ/L (136-145)
[2017-05-14] MEDS: SERTRALINE HCL 100 MG TAB PO SCH (07:37)
[2017-05-14] MEDS: SODIUM CHLORIDE 0.9% FLUSH 10 ML FLUSH IV FLUSH SCH ×2 (07:37→22:59)
[2017-05-14] MEDS: methylPREDNISolone SOD SUCC 40 MG/1 ML VIAL IV PUSH SCH ×2 (07:38→22:59)
[2017-05-14] MEDS: ASPIRIN 81 MG CHEW TAB PO SCH (07:38)
[2017-05-14] MEDS: PRAVASTATIN SOD 10 MG TAB PO SCH (07:38)
[2017-05-14] MEDS: LACTOBACILLUS ACIDOPHILUS TAB PO SCH ×3 (07:38→18:01)
[2017-05-14] MEDS: NYSTATIN 100,000 U/GM PWD 15 GM BTL TOPICAL SCH ×2 (07:39→21:00)
[2017-05-14] MEDS: PANTOPRAZOLE SOD 40 MG DELAYED RELEASE TAB PO SCH (07:39)
[2017-05-14] MEDS: CHLORHEXIDINE 0.12% (ORAL KIT) 15 ML CUP MT SCH ×2 (07:39→22:59)
[2017-05-14 07:52] LABS: ALKALINE PHOSPHATASE 100 U/L (45-117); ALT (GPT) 18 U/L (10-53); PHOSPHORUS 1.4 MG/DL (2.5-4.9); TOTAL BILIRUBIN ADULT 0.9 MG/DL (0.2-1.0); TOTAL PROTEIN 5.7 GM/DL (6.4-8.2)
--- NOTE | 2017-05-14 08:40 | HHI.CCPN ---
Subjective Remarks/Hospital Course This is a 68-year-old female with past medical history as stated above who presented to [facility] sent from a skilled nursing on 05/08/17 due to respiratory distress. The patient has history of Alzheimer's as well as expressive aphasia and is unable to provide any history. Patient was admitted by hospitalist service and started on empiric antibiotics, IV Solu-Medrol as well as nebulizer treatments. no fever on presentation WBC 13 K+, blood clx w/ o growth, UA markedly abnormal, + culture ESBL+ E.coli almanzar was changed in ER, initially started on azactam, vanco, flagyl, subsequently changed to Primaxin, still on flagyl. flu was negative. ID consult was requested due to ESBL Escherichia coli UTI. Patient has persistent infiltrates on her chest x-ray from March. Today patient developed worsening CO2 retention with altered mental status. Serial ABGs showed rising PCO2 levels. Patient was eventually transferred to [facility] and critical care consult was requested to evaluate for possible need for intubation. Patient's granddaughter was contacted by SEBASTIAN JACOBO and was informed regarding worsening condition and possible need for intubation which she agreed with if required. I evaluated the patient immediately on arrival to the ICU. At that time she was drowsy though arousable and was just being initiated on BiPAP. We will the upper extremity spontaneously at the time and appeared to be protecting her airway. 05/13 Patient is intubated and sedated with Diprivan.had 4L UOP overnight ( ? kinked Almanzar). Afebrile. 05/14 No events overnight. Sedated with Diprivan, Fentanyl and intubated. Afebrile. Objective Vital Signs Date Time Temp Pulse Resp B/P (MAP) Pulse Ox O2 Delivery O2 Flow Rate FiO2 05/14/17 06:00 114 05/14/17 04:39 99 30 05/14/17 04:00 21 110/58 (75) 05/14/17 00:00 99.1 05/12/17 20:29 Nasal Cannula 2.00 Intake and Output 05/14/17 05/14/17 05/15/17 08:00 16:00 00:00 Intake Total 1905 ml Output Total 1800 ml Balance 105 ml Result Diagram: 05/14/1760405/14/17604 Other Results Laboratory Tests Test 05/13/17 15:20 05/13/17 15:30 05/13/17 17:05 05/13/17 21:00 Urine Color YELLOW Urine Turbidity CLEAR Urine pH 8.5 Urine Specific [place] 1.013 Urine Protein TRACE mg/dL Urine Glucose (UA) NEG mg/dL Urine Ketones NEG mg/dL Urine Occult Blood NEG Urine Nitrite NEG Urine Bilirubin NEG Urine Urobilinogen 4.0 MG/DL Urine Leukocyte Esterase NEG Urine WBC 1 /hpf Urine Squamous Epithelial Cells 1 /hpf Urine Bacteria RARE /hpf Urine Hyaline Casts 1 /lpf Urine Yeast (Budding) FEW Microscopic Urinalysis Comment CATH-CULTURE IND Stool C. difficile Toxin (PCR) NEGATIVE Stl C. difficile Toxin Epiderm 027 PRESUMPTIVE NEGATIVE Blood Urea Nitrogen 21 MG/DL Creatinine 0.81 MG/DL Random Glucose 124 MG/DL Calcium Level 8.7 MG/DL Sodium Level 134 MEQ/L Potassium Level 3.3 MEQ/L Chloride Level 89 MEQ/L Carbon Dioxide Level 37.0 MEQ/L Anion Gap 8 MEQ/L Estimat Glomerular Filtration Rate 68 ML/MIN Lactic Acid Level 2.3 mmol/L Test 05/14/17 06:05 White Blood Count 13.2 TH/MM3 Red Blood Count 3.73 MIL/MM3 Hemoglobin 10.9 GM/DL Hematocrit 33.8 % Mean Corpuscular Volume 90.6 FL Mean Corpuscular Hemoglobin 29.2 PG Mean Corpuscular Hemoglobin Concent 32.3 % Red Cell Distribution Width 14.5 % Platelet Count 98 TH/MM3 Mean Platelet Volume 8.0 FL Neutrophils (%) (Auto) 89.7 % Lymphocytes (%) (Auto) 5.1 % Monocytes (%) (Auto) 5.1 % Eosinophils (%) (Auto) 0.0 % Basophils (%) (Auto) 0.1 % Neutrophils # (Auto) 11.9 TH/MM3 Lymphocytes # (Auto) 0.7 TH/MM3 Monocytes # (Auto) 0.7 TH/MM3 Eosinophils # (Auto) 0.0 TH/MM3 Basophils # (Auto) 0.0 TH/MM3 CBC Comment AUTO DIFF Blood Urea Nitrogen 24 MG/DL Creatinine 0.71 MG/DL Random Glucose 144 MG/DL Total Protein 5.7 GM/DL Albumin 2.9 GM/DL Calcium Level 8.3 MG/DL Phosphorus Level 1.4 MG/DL Magnesium Level 2.0 MG/DL Alkaline Phosphatase 100 U/L Aspartate Amino Transf (AST/SGOT) 17 U/L Alanine Aminotransferase (ALT/SGPT) 18 U/L Total Bilirubin 0.9 MG/DL Sodium Level 134 MEQ/L Potassium Level 3.7 MEQ/L Chloride Level 96 MEQ/L Carbon Dioxide Level 31.1 MEQ/L Anion Gap 7 MEQ/L Estimat Glomerular Filtration Rate 80 ML/MIN Imaging Last Impressions Chest X-Ray 05/12/17 0000 Signed Impressions: Service Date/Time: Friday, May 12, 2017 22:54 - CONCLUSION: ET tube tip is at the level of the emma and needs to be withdrawn 2 cm. Mack Jimenez MD Chest CT 05/10/17 0000 Signed Impressions: Service Date/Time: Wednesday, May 10, 2017 17:28 - CONCLUSION: Patchy air space disease right mid and lower lung with platelike peripheral consolidation. . This associated with trace pleural effusion.. Harshil Ortiz MD FACR Objective Remarks GENERAL: Patient is 76 yo intubated and sedated SKIN: Warm and dry. HEAD: Normocephalic. EYES: No scleral icterus. No injection or drainage. NECK: Supple, trachea midline. No JVD or lymphadenopathy. CARDIOVASCULAR: Regular rate and rhythm without murmurs, gallops, or rubs. RESPIRATORY: Breath sounds equal bilaterally. No accessory muscle use. GASTROINTESTINAL: Abdomen soft, non-tender, nondistended. MUSCULOSKELETAL: No cyanosis, or edema. Neuro: sedated A/P Assessment and Plan 76-year-old female with: Encephalopathy Acute on chronic hypercapnic respiratory failure requiring intubation COPD exacerbation Hyponatremia ESBL Escherichia coli UTI Anemia Thrombocytopenia Alzheimer's dementia Morbid obesity Prior history of stroke COPD on home oxygen. Hyperlipidemia. Atrial fibrillation. Restless leg syndrome. Hypothyroidism. GERD. CAD. Hypertension. Hearing impairment. Plan: Neuro: On Diprivan/Fentanyl infusion for sedation. Daily sedation vacation. CV: Monitor HR and BP keep MAP>65mmHg On ASA, Pravachol. Lactic acid 2.3 Pulmo: Continue with vent support keep sats >92% Bronchodilators, ICU vent bundle. Solumederol 40mg Q12 SBT daily as valery. Check CXR GI/liver:On Glucerna 1.5 @60ml/hr Pepcid for GI prophylaxis Renal/:Monitor renal function, electrolytes replacement per protocol Continue NS@75ml/hr Heme:Recheck CBC Endocrine: SSI for glycemic control ( low scale) TSH: 1.49 ID: Continue abx per ID: Vanco, Micafungin, Primaxin. Monitor for signs of infections ( Fever, WBC) Blood and urine cx 05/13: NGTD Sputum cx 05/12: NGTD ESBL Escherichia coli in urine. 05/08 Monitor for signs of infections ( Fever, WBC) Prophylaxis: Protonix/SCDs/subcutaneous heparin Level 3 Leonides Nash MD May 14, 2017 08:40
[2017-05-14 09:00] LABS: BANDS 6 % (0-6); LYMPHOCYTES 3 % (9-44); MONOCYTES 4 % (0-8); MYELOCYTES 2 % (0-0); NEUTROPHIL # MANUAL DIFF 12.3 TH/MM3 (1.8-7.7); OVALOCYTES 1+ (NORMAL); POLYS (SEG NEUTROPHILS) 85 % (16-70)
[2017-05-14] MEDS: TIOTROPIUM BROMIDE 18 MCG INH INH SCH (09:00)
[2017-05-14] MEDS: PANTOPRAZOLE SODIUM 40 MG VIAL IV PUSH SCH (09:41)
--- NOTE | 2017-05-14 10:00 | RADRPT ---
EXAM DATE/TIME: 05/14/2017 09:27 [place] COMPARISON: CT THORAX W/O CONTRAST, May 10, 2017, 17:28. CHEST SINGLE AP, May 12, 2017, 22:54. INDICATIONS : Shortness of breath. MEDICAL HISTORY : Hypothyroidism. Hypertension. Chronic obstructive pulmonary disease. Hearing loss. Atrial fibrillatio n. Gastroesophageal reflux disease. SURGICAL HISTORY : None. ENCOUNTER: Initial ACUITY: 1 day PAIN SCORE: Non-responsive. LOCATION: Bilateral chest FINDINGS: ETT is approximately 2 cm above the emma. NGT is in the stomach. Persistent bilateral lower lung zo ne airspace disease and associated small pleural effusions, right greater than left. Cardiomediastina l contours are stable given differences in technique. There is slight increased indistinctness of the pulmonary vasculature. Remainder of the exam is unchanged. CONCLUSION: 1. Persistent bilateral lower lung zone patchy airspace disease and associated small pleural effusion s, right greater than left. 2. Mild increased positive fluid balance. Maximilian Garcia MD on May 14, 2017 at 9:54 Board Certified Radiologist. This report was verified electronically.
[2017-05-14 10:35] LABS: AUTOMATED NEUTROPHIL # 10.3 TH/MM3 (1.8-7.7); HEMATOCRIT 32.6 % (35.0-46.0); HEMOGLOBIN 10.7 GM/DL (11.6-15.3); LYMPH % 3.6 % (9.0-44.0); LYMPHOCYTE # 0.4 TH/MM3 (1.0-4.8); MEAN CELL VOLUME 89.8 FL (80.0-100.0); MEAN CORPUSCULAR HEMOGLOBIN 29.4 PG (27.0-34.0); MEAN CORPUSCULAR HGB CONC 32.7 % (32.0-36.0); MEAN PLATELET VOLUME 7.8 FL (7.0-11.0); MONO % 4.4 % (0.0-8.0); MONOCYTE # 0.5 TH/MM3 (0-0.9); PLATELET COUNT 95 TH/MM3 (150-450); RED BLOOD COUNT 3.63 MIL/MM3 (4.00-5.30); RED CELL DISTRIBUTION WIDTH 14.3 % (11.6-17.2); WHITE BLOOD COUNT 11.2 TH/MM3 (4.0-11.0)
[2017-05-14] MEDS: ICU - SODIUM PHOSPHATE 30 MMOL/NS 250 ML IV PRN ×2 (10:37)
[2017-05-14 11:14] LABS: BANDS 5 % (0-6); LYMPHOCYTES 2 % (9-44); METAMYELOCYTES 1 % (0-1); MONOCYTES 3 % (0-8); MYELOCYTES 1 % (0-0); NEUTROPHIL # MANUAL DIFF 10.6 TH/MM3 (1.8-7.7); POLYS (SEG NEUTROPHILS) 88 % (16-70)
[2017-05-14] MEDS: VANCOMYCIN INJ 1,750 MG in SODIUM CHLORID 0.9% 500 ML INJ 500 ML IV SCH (11:59)
[2017-05-14] MEDS: fentaNYL DRIP 250 ML IV PRN ×2 (14:25→23:00)
--- NOTE | 2017-05-14 15:00 | HHI.IDPN ---
Subjective Subjective Remarks pt remains on vent no fever blood clx negative @ 1day x 2 urine clx pending resp clx with nl resp oly Antibiotics primaxin Allergies: Coded Allergies: Penicillins (Verified Allergy, Severe, 05/08/17) Objective . Vital Signs Date Time Temp Pulse Resp B/P (MAP) Pulse Ox O2 Delivery O2 Flow Rate FiO2 05/14/17 12:30 30 05/14/17 12:00 107 05/14/17 12:00 98.6 107 24 172/74 (106) 98 05/14/17 12:00 30 05/14/17 11:15 30 05/14/17 11:15 97 30 05/14/17 11:15 30 05/14/17 10:00 83 05/14/17 08:58 100 30 05/14/17 08:00 30 05/14/17 08:00 98.9 80 24 114/52 (72) 100 05/14/17 08:00 88 05/14/17 06:00 114 05/14/17 04:39 99 30 05/14/17 04:00 81 21 110/58 (75) 99 05/14/17 04:00 81 05/14/17 04:00 30 05/14/17 01:45 99 30 05/14/17 00:00 96 05/14/17 00:00 30 05/14/17 00:00 99.1 96 22 157/64 (95) 97 05/13/17 23:40 98 30 05/13/17 22:00 90 05/13/17 20:25 98 30 05/13/17 20:00 79 05/13/17 20:00 30 05/13/17 20:00 99.1 79 20 85/48 (60) 99 05/13/17 18:00 98 05/13/17 16:00 93 05/13/17 16:00 99.5 93 21 91/53 (66) 100 05/13/17 16:00 30 05/13/17 15:39 95 30 05/14/17 05/14/17 05/15/17 15:00 23:00 07:00 Intake Total 100 ml Balance 100 ml IV Total 100 ml . Laboratory Tests Test 05/13/17 04:42 05/14/17 06:05 05/14/17 10:00 White Blood Count 9.4 TH/MM3 13.2 TH/MM3 11.2 TH/MM3 Red Blood Count 3.83 MIL/MM3 3.73 MIL/MM3 3.63 MIL/MM3 Hemoglobin 12.1 GM/DL 10.9 GM/DL 10.7 GM/DL Hematocrit 34.9 % 33.8 % 32.6 % Mean Corpuscular Volume 91.1 FL 90.6 FL 89.8 FL Mean Corpuscular Hemoglobin 31.5 PG 29.2 PG 29.4 PG Mean Corpuscular Hemoglobin Concent 34.6 % 32.3 % 32.7 % Red Cell Distribution Width 14.1 % 14.5 % 14.3 % Platelet Count 153 TH/MM3 98 TH/MM3 95 TH/MM3 Mean Platelet Volume 8.6 FL 8.0 FL 7.8 FL Neutrophils (%) (Auto) 77.6 % 89.7 % 92.0 % Lymphocytes (%) (Auto) 9.6 % 5.1 % 3.6 % Monocytes (%) (Auto) 12.6 % 5.1 % 4.4 % Eosinophils (%) (Auto) 0.0 % 0.0 % 0.0 % Basophils (%) (Auto) 0.2 % 0.1 % 0.0 % Neutrophils # (Auto) 7.3 TH/MM3 11.9 TH/MM3 10.3 TH/MM3 Lymphocytes # (Auto) 0.9 TH/MM3 0.7 TH/MM3 0.4 TH/MM3 Monocytes # (Auto) 1.2 TH/MM3 0.7 TH/MM3 0.5 TH/MM3 Eosinophils # (Auto) 0.0 TH/MM3 0.0 TH/MM3 0.0 TH/MM3 Basophils # (Auto) 0.0 TH/MM3 0.0 TH/MM3 0.0 TH/MM3 CBC Comment AUTO DIFF AUTO DIFF AUTO DIFF Differential Comment AUTO DIFF CONFIRMED FINAL DIFF MANUAL FINAL DIFF MANUAL Differential Total Cells Counted 100 100 Neutrophils % (Manual) 85 % 88 % Band Neutrophils % 6 % 5 % Lymphocytes % 3 % 2 % Monocytes % 4 % 3 % Neutrophils # (Manual) 12.3 TH/MM3 10.6 TH/MM3 Myelocytes 2 % 1 % Platelet Estimate LOW LOW Platelet Morphology Comment NORMAL NORMAL Ovalocytes 1+ Metamyelocytes 1 % Laboratory Tests Test 05/13/17 04:42 05/13/17 17:05 3/12/18 21:00 05/14/17 06:05 Blood Urea Nitrogen 16 MG/DL 21 MG/DL 24 MG/DL Creatinine 0.68 MG/DL 0.81 MG/DL 0.71 MG/DL Random Glucose 111 MG/DL 124 MG/DL 144 MG/DL Total Protein 6.7 GM/DL 5.7 GM/DL Albumin 3.2 GM/DL 2.9 GM/DL Calcium Level 9.0 MG/DL 8.7 MG/DL 8.3 MG/DL Phosphorus Level 1.0 MG/DL 1.4 MG/DL Magnesium Level 1.5 MG/DL 2.0 MG/DL Alkaline Phosphatase 69 U/L 100 U/L Aspartate Amino Transf (AST/SGOT) 48 U/L 17 U/L Alanine Aminotransferase (ALT/SGPT) 23 U/L 18 U/L Total Bilirubin 1.3 MG/DL 0.9 MG/DL Sodium Level 126 MEQ/L 134 MEQ/L 134 MEQ/L Potassium Level 5.4 MEQ/L 3.3 MEQ/L 3.7 MEQ/L Chloride Level 78 MEQ/L 89 MEQ/L 96 MEQ/L Carbon Dioxide Level 40.4 MEQ/L 37.0 MEQ/L 31.1 MEQ/L Anion Gap 8 MEQ/L 8 MEQ/L 7 MEQ/L Estimat Glomerular Filtration Rate 84 ML/MIN 68 ML/MIN 80 ML/MIN Lactic Acid Level 2.3 mmol/L Microbiology Date/Time Source Procedure Growth Status 05/13/17 17:05 Blood Peripheral Aerobic Blood Culture - Preliminary NO GROWTH IN 1 DAY Resulted 05/13/17 17:05 Blood Peripheral Anaerobic Blood Culture - Preliminary NO GROWTH IN 1 DAY Resulted 05/13/17 17:00 Blood Peripheral Aerobic Blood Culture - Preliminary NO GROWTH IN 1 DAY Resulted 05/13/17 17:00 Blood Peripheral Anaerobic Blood Culture - Preliminary NO GROWTH IN 1 DAY Resulted 05/12/17 22:50 Sputum Endotracheal Gram Stain - Final Complete 05/12/17 22:50 Sputum Endotracheal Sputum Culture - Final MODERATE GROWTH NORMAL RESPIRATORY OLY Complete 05/13/17 15:20 Urine Clean Catch Urine Culture - Preliminary IMMATURE GROWTH - REINCUBATE Resulted Imaging Last Impressions Chest X-Ray 05/14/17 0000 Signed Impressions: Service Date/Time: Sunday, May 14, 2017 09:27 - CONCLUSION: 1. Persistent bilateral lower lung zone patchy airspace disease and associated small pleural effusions, right greater than left. 2. Mild increased positive fluid balance. Maximilian Garcia MD Chest CT 05/10/17 0000 Signed Impressions: Service Date/Time: Wednesday, May 10, 2017 17:28 - CONCLUSION: Patchy air space disease right mid and lower lung with platelike peripheral consolidation. . This associated with trace pleural effusion.. Harshil Ortiz MD FACR Physical Exam CONSTITUTIONAL/GENERAL: This is a morbidly obese female patient, in no apparent distress. Intubated, sedated on vent TUBES/LINES/DRAINS: SKIN: No jaundice, rashes, or lesions. Skin temperature appropriate. Not diaphoretic. CARDIOVASCULAR: Regular rate and rhythm without murmurs, gallops, or rubs. No JVD. Peripheral pulses symmetric. RESPIRATORY/CHEST: Symmetric, unlabored respirations. Clear to auscultation. Breath sounds equal bilaterally. No wheezes, rales, or rhonchi. GASTROINTESTINAL: Abdomen soft, non-tender, nondistended. No hepato-splenomegaly , or palpable masses. No guarding. Bowel sounds present. rectal tube in place with liquid brown stool GENITOURINARY: Without palpable bladder distension. Almanzar catheter in place with clear light yellow urine MUSCULOSKELETAL: Extremities without clubbing, cyanosis, + 1+ edema and chronic hyperpigmentation. No joint tenderness or effusion noted. No calf tenderness. No mottling or clubbing. LYMPHATICS: No palpable cervical or supraclavicular adenopathy. NEUROLOGICAL: awake, opens eyes to voice and makes contact PSYCHIATRIC: unable to assess Assessment & Plan Remarks ESBL+ E.coli UTI with chronic indwelling almanzar Pulmonary infiltrates unchanged from 03/28 an no cough/expectorateiom: doubt PNA , favouring atelectatic changes Allergica reaction to PCN (rash), no problems tolerating primaxin Probably new sepsis - fever, new hypotensiosn cont Primaxin fu sputum clx cont vanco, micafungin for now fu blood clx untill final add micafungin chk lactic acid dw Frances Gonsalves MD May 14, 2017 15:00
[2017-05-14] MEDS: MICAFUNGIN INJ 150 MG in SODIUM CHLORIDE 0.9% INJ 100 ML IV SCH (18:00)
[2017-05-15] VITALS (19 sets, daily range): BP systolic 108–160; BP diastolic 54–80; PULSE 61–113; RESP 12–37; TEMP 98.5–99.7; O2SAT 97–100
[2017-05-15] MEDS: PROPOFOL 1000 MG/100 ML INJ 100 ML IV PRN ×2 (00:56→10:34)
[2017-05-15] MEDS: RESP: ALBUTEROL 2.5 MG/IPRATROPIUM 0.5 MG NEB (SCH) INH ×6 (03:25→23:58)
[2017-05-15] MEDS: CHLORHEXIDINE GLUCONATE 2 % 1 PACK (2 CLOTHS)(taper/protocol) TOPICAL SCH (04:00)
[2017-05-15] MEDS: INSULIN NovoLIN REGULAR SUPPLEMENTAL SCALE SQ SCH ×4 (06:00→17:58)
[2017-05-15] MEDS: IMIPENEM/CILASTATIN INJ 500 MG in SODIUM CHLORIDE 0.9% INJ 100 ML IV SCH ×4 (06:08→21:55)
[2017-05-15] MEDS: VANCOMYCIN INJ 1,750 MG in SODIUM CHLORID 0.9% 500 ML INJ 500 ML IV SCH (06:09)
[2017-05-15] MEDS: HEPARIN SODIUM - SQ 10,000 UNITS/ML VIAL SQ SCH ×3 (06:10→21:55)
[2017-05-15] MEDS: PRAMIPEXOLE DIHYDROCHLORIDE 0.25 MG TAB PO SCH ×2 (06:10→12:56)
[2017-05-15] MEDS: PANTOPRAZOLE SODIUM 40 MG VIAL IV PUSH SCH (08:38)
[2017-05-15] MEDS: methylPREDNISolone SOD SUCC 40 MG/1 ML VIAL IV PUSH SCH ×2 (08:39→21:54)
[2017-05-15] MEDS: LACTOBACILLUS ACIDOPHILUS TAB PO SCH ×3 (08:39→17:57)
[2017-05-15] MEDS: ASPIRIN 81 MG CHEW TAB PO SCH (08:39)
[2017-05-15] MEDS: PRAVASTATIN SOD 10 MG TAB PO SCH (08:40)
[2017-05-15] MEDS: CHLORHEXIDINE 0.12% (ORAL KIT) 15 ML CUP MT SCH ×2 (08:40→21:55)
[2017-05-15] MEDS: SODIUM CHLORIDE 0.9% FLUSH 10 ML FLUSH IV FLUSH SCH ×2 (08:40→21:55)
[2017-05-15] MEDS: NYSTATIN 100,000 U/GM PWD 15 GM BTL TOPICAL SCH ×2 (08:41→21:55)
[2017-05-15] MEDS: SERTRALINE HCL 100 MG TAB PO SCH (08:41)
[2017-05-15] MEDS: TIOTROPIUM BROMIDE 18 MCG INH INH SCH (09:00)
[2017-05-15 09:02] LABS: AUTOMATED NEUTROPHIL # 10.1 TH/MM3 (1.8-7.7); HEMATOCRIT 30.4 % (35.0-46.0); HEMOGLOBIN 10.1 GM/DL (11.6-15.3); LYMPH % 3.8 % (9.0-44.0); LYMPHOCYTE # 0.4 TH/MM3 (1.0-4.8); MEAN CELL VOLUME 87.9 FL (80.0-100.0); MEAN CORPUSCULAR HEMOGLOBIN 29.3 PG (27.0-34.0); MEAN CORPUSCULAR HGB CONC 33.3 % (32.0-36.0); MEAN PLATELET VOLUME 7.8 FL (7.0-11.0); MONO % 3.8 % (0.0-8.0); MONOCYTE # 0.4 TH/MM3 (0-0.9); NEUT % 92.4 % (16.0-70.0); PLATELET COUNT 96 TH/MM3 (150-450); RED BLOOD COUNT 3.46 MIL/MM3 (4.00-5.30); RED CELL DISTRIBUTION WIDTH 14.8 % (11.6-17.2); WHITE BLOOD COUNT 10.9 TH/MM3 (4.0-11.0)
[2017-05-15 09:18] LABS: BICARBONATE 23.5 MEQ/L (21.0-32.0); CALCIUM 7.7 MG/DL (8.5-10.1); CREATININE 0.52 MG/DL (0.50-1.00)
[2017-05-15 09:25] LABS: PHOSPHORUS 3.1 MG/DL (2.5-4.9)
[2017-05-15] MEDS: fentaNYL DRIP 250 ML IV PRN (09:52)
--- NOTE | 2017-05-15 14:21 | HHI.CCPN ---
Subjective Remarks/Hospital Course This is a 68-year-old female with past medical history as stated above who presented to [facility] sent from a correction on 05/08/17 due to respiratory distress. The patient has history of Alzheimer's as well as expressive aphasia and is unable to provide any history. Patient was admitted by hospitalist service and started on empiric antibiotics, IV Solu-Medrol as well as nebulizer treatments. no fever on presentation WBC 13 K+, blood clx w/ o growth, UA markedly abnormal, + culture ESBL+ E.coli almanzar was changed in ER, initially started on azactam, vanco, flagyl, subsequently changed to Primaxin, still on flagyl. flu was negative. ID consult was requested due to ESBL Escherichia coli UTI. Patient has persistent infiltrates on her chest x-ray from March. Today patient developed worsening CO2 retention with altered mental status. Serial ABGs showed rising PCO2 levels. Patient was eventually transferred to [facility] [place] and critical care consult was requested to evaluate for possible need for intubation. Patient's granddaughter was contacted by SEBASTIAN JACOBO and was informed regarding worsening condition and possible need for intubation which she agreed with if required. I evaluated the patient immediately on arrival to the ICU. At that time she was drowsy though arousable and was just being initiated on BiPAP. We will the upper extremity spontaneously at the time and appeared to be protecting her airway. 05/13 Patient is intubated and sedated with Diprivan.had 4L UOP overnight ( ? kinked Almanzar). Afebrile. 05/14 No events overnight. Sedated with Diprivan, Fentanyl and intubated. Afebrile. 05/15 remains intubated and sedated. On sedation hold opens eyes moving extremities. Failing CPAP due to low tidal volume Objective Vital Signs Date Time Temp Pulse Resp B/P (MAP) Pulse Ox O2 Delivery O2 Flow Rate FiO2 05/15/17 12:00 30 05/15/17 12:00 98.7 70 20 135/66 (89) 99 05/12/17 20:29 Nasal Cannula 2.00 Intake and Output 05/15/17 05/15/17 05/15/17 07:59 15:59 23:59 Intake Total 3979.5 ml 100 ml Output Total 850 ml Balance 3129.5 ml 100 ml Result Diagram: 05/15/17 08 05/15/17 0827 Other Results Microbiology Date/Time Source Procedure Growth Status 05/12/17 22:50 Sputum Endotracheal Gram Stain - Final Complete 05/12/17 22:50 Sputum Endotracheal Sputum Culture - Final MODERATE GROWTH NORMAL RESPIRATORY KING Complete Imaging Last Impressions Chest X-Ray 05/12/17 0000 Signed Impressions: Service Date/Time: Friday, May 12, 2017 22:54 - CONCLUSION: ET tube tip is at the level of the emma and needs to be withdrawn 2 cm. Mack Jimenez MD Chest CT 05/10/17 0000 Signed Impressions: Service Date/Time: Wednesday, May 10, 2017 17:28 - CONCLUSION: Patchy air space disease right mid and lower lung with platelike peripheral consolidation. . This associated with trace pleural effusion.. Harshil Ortiz MD FACR Objective Remarks GENERAL: Patient is 76 yo intubated and sedated SKIN: Warm and dry. HEAD: Normocephalic. EYES: No scleral icterus. No injection or drainage. NECK: Supple, trachea midline. No JVD or lymphadenopathy. CARDIOVASCULAR: Regular rate and rhythm without murmurs, gallops, or rubs. RESPIRATORY: Breath sounds equal bilaterally. Low tidal volumes on CPAP GASTROINTESTINAL: Abdomen soft, non-tender, nondistended. MUSCULOSKELETAL: No cyanosis, or edema. Neuro: sedated. On sedation old patient opens eyes moves all extremities A/P Assessment and Plan 76-year-old female with: Acute on chronic hypercapnic respiratory failure requiring intubation Encephalopathy COPD exacerbation Hyponatremia ESBL Escherichia coli UTI Anemia Thrombocytopenia Alzheimer's dementia Morbid obesity Prior history of stroke COPD on home oxygen. Hyperlipidemia. Atrial fibrillation. Restless leg syndrome. Hypothyroidism. GERD. CAD. Hypertension. Hearing impairment. Plan: Neuro: On Diprivan/Fentanyl infusion for sedation. Daily sedation vacation. CV: Monitor HR and BP keep MAP>65mmHg On ASA, Pravachol. Lactic acid 2.3 Pulmo: Continue with vent support keep sats >92% Bronchodilators, ICU vent bundle. Solumederol 40mg Q12 SBT daily as valery. Failed his we did today due to low tidal volumes GI/liver:On Glucerna 1.5 @60ml/hr Pepcid for GI prophylaxis Renal/:Monitor renal function, electrolytes replacement per protocol Continue NS@75ml/hr-discontinued today Heme: Follow CBC closely Endocrine: SSI for glycemic control ( low scale) TSH: 1.49 ID: Continue abx per ID: Vanco, Micafungin, Primaxin. Monitor for signs of infections ( Fever, WBC) Blood and urine cx 05/13: NGTD Sputum cx 05/12: NGTD ESBL Escherichia coli in urine. 05/08 Monitor for signs of infections ( Fever, WBC) Prophylaxis: Protonix/SCDs/subcutaneous heparin Level 3 Patient remains critically ill failing CPAP trials, remains encephalopathic Mika Mejia MD May 15, 2017 14:21
[2017-05-15] MEDS: MICAFUNGIN INJ 150 MG in SODIUM CHLORIDE 0.9% INJ 100 ML IV SCH (16:13)
[2017-05-15] MEDS: SODIUM CHLOR 0.9% 1000 ML INJ 1,000 ML IV SCH (21:54)
[2017-05-15] MEDS ORDERED: PHARMACY ORDERED LAB ONE (23:45)
[2017-05-16] VITALS (19 sets, daily range): BP systolic 135–214; BP diastolic 64–90; PULSE 59–107; RESP 20–22; TEMP 96.6–99.7; O2SAT 95–99
[2017-05-16] MEDS: PRAMIPEXOLE DIHYDROCHLORIDE 0.25 MG TAB PO SCH ×4 (00:03→22:05)
[2017-05-16 01:38] LABS: AUTOMATED NEUTROPHIL # 11.3 TH/MM3 (1.8-7.7); BASOPHIL % 0.3 % (0.0-2.0); HEMATOCRIT 32.4 % (35.0-46.0); HEMOGLOBIN 10.5 GM/DL (11.6-15.3); LYMPH % 4.1 % (9.0-44.0); LYMPHOCYTE # 0.5 TH/MM3 (1.0-4.8); MEAN CELL VOLUME 88.2 FL (80.0-100.0); MEAN CORPUSCULAR HEMOGLOBIN 28.7 PG (27.0-34.0); MEAN CORPUSCULAR HGB CONC 32.5 % (32.0-36.0); MEAN PLATELET VOLUME 7.6 FL (7.0-11.0); MONO % 2.9 % (0.0-8.0); MONOCYTE # 0.4 TH/MM3 (0-0.9); NEUT % 92.7 % (16.0-70.0); PLATELET COUNT 104 TH/MM3 (150-450); RED BLOOD COUNT 3.67 MIL/MM3 (4.00-5.30); RED CELL DISTRIBUTION WIDTH 15.1 % (11.6-17.2); WHITE BLOOD COUNT 12.2 TH/MM3 (4.0-11.0)
[2017-05-16 02:04] LABS: ALBUMIN 2.7 GM/DL (3.4-5.0); ALT (GPT) 17 U/L (10-53); AST (GOT) 11 U/L (15-37); BICARBONATE 25.8 MEQ/L (21.0-32.0); BLOOD UREA NITROGEN 20 MG/DL (7-18); CALCIUM 7.9 MG/DL (8.5-10.1); CHLORIDE 105 MEQ/L (98-107); CREATININE 0.39 MG/DL (0.50-1.00); GLOMERULAR FILTRATION RATE 159 ML/MIN (>89); GLUCOSE,RANDOM 98 MG/DL (74-106); MAGNESIUM 2.1 MG/DL (1.5-2.5); SODIUM (NA) 140 MEQ/L (136-145)
[2017-05-16 02:07] LABS: ALKALINE PHOSPHATASE 79 U/L (45-117); TOTAL BILIRUBIN ADULT 0.8 MG/DL (0.2-1.0); TOTAL PROTEIN 5.5 GM/DL (6.4-8.2); VANCOMYCIN TROUGH 17.5 MCG/ML (5.0-10.0)
[2017-05-16] MEDS: IMIPENEM/CILASTATIN INJ 500 MG in SODIUM CHLORIDE 0.9% INJ 100 ML IV SCH ×2 (02:52→09:02)
[2017-05-16] MEDS: VANCOMYCIN INJ 1,750 MG in SODIUM CHLORID 0.9% 500 ML INJ 500 ML IV SCH (02:52)
[2017-05-16] MEDS: PROPOFOL 1000 MG/100 ML INJ 100 ML IV PRN ×3 (02:53→22:12)
[2017-05-16 03:40] LABS: BANDS 1 % (0-6); LYMPHOCYTES 4 % (9-44); METAMYELOCYTES 1 % (0-1); MONOCYTES 4 % (0-8); MYELOCYTES 1 % (0-0); NEUTROPHIL # MANUAL DIFF 11.2 TH/MM3 (1.8-7.7); POLYS (SEG NEUTROPHILS) 89 % (16-70)
[2017-05-16 03:41] LABS: OVALOCYTES 1+ (NORMAL)
[2017-05-16 03:42] LABS: ACANTHOCYTES OCC (NORMAL)
[2017-05-16] MEDS: CHLORHEXIDINE GLUCONATE 2 % 1 PACK (2 CLOTHS)(taper/protocol) TOPICAL SCH (04:00)
--- NOTE | 2017-05-16 04:02 | RADRPT ---
EXAM DATE/TIME: 05/16/2017 02:34 [place] COMPARISON: CHEST SINGLE AP, May 14, 2017, 9:27. INDICATIONS : Shortness of breath, possible pulmonary disease. MEDICAL HISTORY : Hypothyroidism. Hypertension Chronic obstructive pulmonary disease. A-Fib GERD SURGICAL HISTORY : None. ENCOUNTER: Subsequent ACUITY: 1 week PAIN SCORE: Non-responsive. LOCATION: Bilateral chest FINDINGS: The heart is mild enlarged. Bibasilar pulmonary consolidations are stable. Small right effusion is un changed. Endotracheal tube tip 3 cm from the emma. Tip of the nasogastric tube in the body of the s tomach. Cervical fusion plate. CONCLUSION: Stable bibasilar infiltrates and small right effusion. Mack Giang Jr., MD on May 16, 2017 at 4:00 Board Certified Radiologist. This report was verified electronically.
[2017-05-16] MEDS: RESP: ALBUTEROL 2.5 MG/IPRATROPIUM 0.5 MG NEB (SCH) INH ×6 (04:03→23:19)
[2017-05-16] MEDS: INSULIN NovoLIN REGULAR SUPPLEMENTAL SCALE SQ SCH ×4 (06:00→18:00)
[2017-05-16] MEDS: HEPARIN SODIUM - SQ 10,000 UNITS/ML VIAL SQ SCH ×3 (06:11→22:05)
[2017-05-16] MEDS: SODIUM CHLOR 0.9% 1000 ML INJ 1,000 ML IV SCH ×2 (07:30→14:07)
[2017-05-16] MEDS: LABETALOL HCL 20 MG/4 ML VIAL IV PUSH PRN ×4 (08:14→22:06)
[2017-05-16] MEDS: methylPREDNISolone SOD SUCC 40 MG/1 ML VIAL IV PUSH SCH ×2 (08:48→20:51)
[2017-05-16] MEDS: PANTOPRAZOLE SODIUM 40 MG VIAL IV PUSH SCH (08:48)
[2017-05-16] MEDS: SODIUM CHLORIDE 0.9% FLUSH 10 ML FLUSH IV FLUSH SCH ×2 (08:48→20:51)
[2017-05-16] MEDS: TIOTROPIUM BROMIDE 18 MCG INH INH SCH (08:50)
[2017-05-16] MEDS: CHLORHEXIDINE 0.12% (ORAL KIT) 15 ML CUP MT SCH ×2 (08:50→20:51)
[2017-05-16] MEDS: SERTRALINE HCL 100 MG TAB PO SCH (08:51)
[2017-05-16] MEDS: NYSTATIN 100,000 U/GM PWD 15 GM BTL TOPICAL SCH ×2 (08:51→20:52)
[2017-05-16] MEDS: LACTOBACILLUS ACIDOPHILUS TAB PO SCH ×3 (08:51→18:16)
[2017-05-16] MEDS: ASPIRIN 81 MG CHEW TAB PO SCH (08:52)
[2017-05-16] MEDS: PRAVASTATIN SOD 10 MG TAB PO SCH (09:02)
--- NOTE | 2017-05-16 09:39 | HHI.CCPN ---
Subjective Remarks/Hospital Course This is a 68-year-old female with past medical history as stated above who presented to [facility] sent from a assisted on 05/08/17 due to respiratory distress. The patient has history of Alzheimer's as well as expressive aphasia and is unable to provide any history. Patient was admitted by hospitalist service and started on empiric antibiotics, IV Solu-Medrol as well as nebulizer treatments. no fever on presentation WBC 13 K+, blood clx w/ o growth, UA markedly abnormal, + culture ESBL+ E.coli almanzar was changed in ER, initially started on azactam, vanco, flagyl, subsequently changed to Primaxin, still on flagyl. flu was negative. ID consult was requested due to ESBL Escherichia coli UTI. Patient has persistent infiltrates on her chest x-ray from March. Today patient developed worsening CO2 retention with altered mental status. Serial ABGs showed rising PCO2 levels. Patient was [place] [facility] [place] care consult was requested to evaluate for possible need for intubation. Patient's granddaughter was contacted by SEBASTIAN JACOBO and was informed regarding worsening condition and possible need for intubation which she agreed with if required. I evaluated the patient immediately on arrival to the ICU. At that time she was drowsy though arousable and was just being initiated on BiPAP. We will the upper extremity spontaneously at the time and appeared to be protecting her airway. 05/13 Patient is intubated and sedated with Diprivan.had 4L UOP overnight ( ? kinked Almanzar). Afebrile. 05/14 No events overnight. Sedated with Diprivan, Fentanyl and intubated. Afebrile. 05/15 remains intubated and sedated. On sedation hold opens eyes moving extremities. Failing CPAP due to low tidal volume 05/16: Remains intubated sedated with fall and fentanyl, ischial spontaneously open moves extremities did not consistently follow commands. Failed CPAP yesterday due to low tidal volumes. Fluid overloaded give 60 mg IV Lasix 1 today Objective Vital Signs Date Time Temp Pulse Resp B/P (MAP) Pulse Ox O2 Delivery O2 Flow Rate FiO2 05/16/17 08:15 99 30 05/16/17 06:00 68 05/16/17 04:00 99.7 20 167/72 (103) 05/12/17 20:29 Nasal Cannula 2.00 Intake and Output 05/16/17 05/16/17 05/17/17 08:00 16:00 00:00 Intake Total 3897.5 ml Output Total 1150 ml Balance 2747.5 ml Result Diagram: 05/16/17 0125 05/16/17 0125 Imaging Last Impressions Chest X-Ray 05/12/17 0000 Signed Impressions: Service Date/Time: Friday, May 12, 2017 22:54 - CONCLUSION: ET tube tip is at the level of the emma and needs to be withdrawn 2 cm. Mack Jimenez MD Chest CT 05/10/17 0000 Signed Impressions: Service Date/Time: Wednesday, May 10, 2017 17:28 - CONCLUSION: Patchy air space disease right mid and lower lung with platelike peripheral consolidation. . This associated with trace pleural effusion.. Harshil Ortiz MD FACR Objective Remarks GENERAL: Patient is 76 yo intubated and sedated SKIN: Warm and dry. HEAD: Normocephalic. EYES: No scleral icterus. No injection or drainage. NECK: Supple, trachea midline. No JVD or lymphadenopathy. CARDIOVASCULAR: Regular rate and rhythm without murmurs, gallops, or rubs. Hypertensive RESPIRATORY: Breath sounds equal bilaterally. Low tidal volumes on CPAP GASTROINTESTINAL: Abdomen soft, non-tender, nondistended. MUSCULOSKELETAL: No cyanosis, or edema. Neuro: sedated. On sedation old patient opens eyes moves all extremities. Not following commands, has underlying dementia A/P Assessment and Plan ASSESSMENT: Acute on chronic hypercapnic respiratory failure requiring intubation Metabolic encephalopathy Acute COPD exacerbation ESBL Escherichia coli UTI Sepsis Hyponatremia Anemia Thrombocytopenia Alzheimer's dementia Morbid obesity Prior history of stroke COPD on home oxygen. Hyperlipidemia. Atrial fibrillation. Restless leg syndrome. Hypothyroidism. GERD. CAD. Hypertension. Hearing impairment. Plan: Neuro: On Diprivan/Fentanyl infusion for sedation. Daily sedation vacation. CV: Monitor HR and BP keep MAP>65mmHg On ASA, Pravachol. Lactic acid 2.3 Start labetalol 20 mg IV every 2 hours as needed for SBP more than 170 Pulmo: Continue with vent support keep sats >92% Bronchodilators, ICU vent bundle. Solumederol 40mg Q12 SBT daily as valery. Failed CPAP 3.14 due to low tidal volumes. Attempt again today GI/liver:On Glucerna 1.5 @60ml/hr Pepcid for GI prophylaxis Renal/:Monitor renal function, electrolytes replacement per protocol Continue NS@75ml/hr-discontinued 05/15 Give Lasix 60 mg IV 1 due to fluid overload Heme: Follow CBC closely Endocrine: SSI for glycemic control ( low scale) TSH: 1.49 ID: Continue abx per ID: Vanco, Micafungin, Primaxin. Monitor for signs of infections ( Fever, WBC) Blood 05/13: NGTD, Urine cx 05/13 Sidra cruisei Sputum cx 05/12: NGTD ESBL Escherichia coli in urine. 05/08 Monitor for signs of infections ( Fever, WBC) Prophylaxis: Protonix/SCDs/subcutaneous heparin Level 3 Patient remains critically ill failing CPAP trials, remains encephalopathic Mika Mejia MD May 16, 2017 09:38
[2017-05-16] MEDS ORDERED: FUROSEMIDE 100 MG/10 ML VIAL IV PUSH ONE (09:45)
[2017-05-16] MEDS: POTASSIUM CHLOR 10 MEQ PREMIX 100 ML IV SCH ×2 (10:31→11:48)
[2017-05-16] MEDS: fentaNYL DRIP 250 ML IV PRN (12:19)
--- NOTE | 2017-05-16 15:52 | HHI.IDPN ---
Subjective Subjective Remarks failure to tolerate weaning Antibiotics primaxin vanco micafungin Allergies: Coded Allergies: Penicillins (Verified Allergy, Severe, 05/08/17) Objective . Vital Signs Date Time Temp Pulse Resp B/P (MAP) Pulse Ox O2 Delivery O2 Flow Rate FiO2 05/16/17 14:00 64 05/16/17 12:12 30 05/16/17 12:07 98 30 05/16/17 12:00 97.1 80 22 159/64 (95) 96 05/16/17 12:00 80 05/16/17 12:00 30 05/16/17 10:48 95 30 05/16/17 10:00 72 05/16/17 10:00 97 30 05/16/17 08:15 99 30 05/16/17 08:15 30 05/16/17 08:00 96.6 107 20 214/90 (131) 98 05/16/17 08:00 30 05/16/17 08:00 107 05/16/17 06:00 68 05/16/17 04:04 98 30 05/16/17 04:00 99.7 59 20 167/72 (103) 98 05/16/17 04:00 59 05/16/17 04:00 30 05/16/17 02:00 63 05/16/17 00:00 99.7 74 21 160/67 (98) 99 05/16/17 00:00 30 05/16/17 00:00 74 05/15/17 23:58 98 30 05/15/17 22:00 67 05/15/17 20:06 100 30 05/15/17 20:00 99.7 71 24 153/80 (104) 97 05/15/17 20:00 71 05/15/17 20:00 30 05/15/17 18:00 106 05/15/17 16:00 113 05/15/17 16:00 30 05/15/17 16:00 98.5 113 12 129/71 (90) 97 . Laboratory Tests Test 05/15/17 08:27 05/16/17 01:25 White Blood Count 10.9 TH/MM3 12.2 TH/MM3 Red Blood Count 3.46 MIL/MM3 3.67 MIL/MM3 Hemoglobin 10.1 GM/DL 10.5 GM/DL Hematocrit 30.4 % 32.4 % Mean Corpuscular Volume 87.9 FL 88.2 FL Mean Corpuscular Hemoglobin 29.3 PG 28.7 PG Mean Corpuscular Hemoglobin Concent 33.3 % 32.5 % Red Cell Distribution Width 14.8 % 15.1 % Platelet Count 96 TH/MM3 104 TH/MM3 Mean Platelet Volume 7.8 FL 7.6 FL Neutrophils (%) (Auto) 92.4 % 92.7 % Lymphocytes (%) (Auto) 3.8 % 4.1 % Monocytes (%) (Auto) 3.8 % 2.9 % Eosinophils (%) (Auto) 0.0 % 0.0 % Basophils (%) (Auto) 0.0 % 0.3 % Neutrophils # (Auto) 10.1 TH/MM3 11.3 TH/MM3 Lymphocytes # (Auto) 0.4 TH/MM3 0.5 TH/MM3 Monocytes # (Auto) 0.4 TH/MM3 0.4 TH/MM3 Eosinophils # (Auto) 0.0 TH/MM3 0.0 TH/MM3 Basophils # (Auto) 0.0 TH/MM3 0.0 TH/MM3 CBC Comment AUTO DIFF AUTO DIFF Differential Comment AUTO DIFF CONFIRMED FINAL DIFF MANUAL Platelet Estimate LOW LOW Platelet Morphology Comment NORMAL NORMAL Differential Total Cells Counted 100 Neutrophils % (Manual) 89 % Band Neutrophils % 1 % Lymphocytes % 4 % Monocytes % 4 % Neutrophils # (Manual) 11.2 TH/MM3 Metamyelocytes 1 % Myelocytes 1 % Polychromasia 2.0 % Ovalocytes 1+ Acanthocytes OCC Laboratory Tests Test 05/15/17 08:27 05/16/17 01:25 Blood Urea Nitrogen 22 MG/DL 20 MG/DL Creatinine 0.52 MG/DL 0.39 MG/DL Random Glucose 137 MG/DL 98 MG/DL Calcium Level 7.7 MG/DL 7.9 MG/DL Phosphorus Level 3.1 MG/DL Magnesium Level 2.0 MG/DL 2.1 MG/DL Sodium Level 135 MEQ/L 140 MEQ/L Potassium Level 3.7 MEQ/L 3.9 MEQ/L Chloride Level 102 MEQ/L 105 MEQ/L Carbon Dioxide Level 23.5 MEQ/L 25.8 MEQ/L Anion Gap 10 MEQ/L 9 MEQ/L Estimat Glomerular Filtration Rate 114 ML/MIN 159 ML/MIN Total Protein 5.5 GM/DL Albumin 2.7 GM/DL Alkaline Phosphatase 79 U/L Aspartate Amino Transf (AST/SGOT) 11 U/L Alanine Aminotransferase (ALT/SGPT) 17 U/L Total Bilirubin 0.8 MG/DL Microbiology Date/Time Source Procedure Growth Status 05/13/17 17:05 Blood Peripheral Aerobic Blood Culture - Preliminary NO GROWTH IN 3 DAYS Resulted 05/13/17 17:05 Blood Peripheral Anaerobic Blood Culture - Preliminary NO GROWTH IN 3 DAYS Resulted 05/13/17 17:00 Blood Peripheral Aerobic Blood Culture - Preliminary NO GROWTH IN 3 DAYS Resulted 05/13/17 17:00 Blood Peripheral Anaerobic Blood Culture - Preliminary NO GROWTH IN 3 DAYS Resulted Imaging Last Impressions Chest X-Ray 05/16/17 0600 Signed Impressions: Service Date/Time: May 02:34 - CONCLUSION: Stable bibasilar infiltrates and small right effusion. Mack Giang Jr., MD Chest CT 05/10/17 0000 Signed Impressions: Service Date/Time: Wednesday, May 10, 2017 17:28 - CONCLUSION: Patchy air space disease right mid and lower lung with platelike peripheral consolidation. . This associated with trace pleural effusion.. Harshil Ortiz MD FACR Physical Exam CONSTITUTIONAL/GENERAL: This is a morbidly obese female patient, in no apparent distress. Intubated, sedated on vent TUBES/LINES/DRAINS: SKIN: No jaundice, rashes, or lesions. Skin temperature appropriate. Not diaphoretic. CARDIOVASCULAR: Regular rate and rhythm without murmurs, gallops, or rubs. No JVD. Peripheral pulses symmetric. RESPIRATORY/CHEST: Symmetric, unlabored respirations. Clear to auscultation. Breath sounds equal bilaterally. No wheezes, rales, or rhonchi. GASTROINTESTINAL: Abdomen soft, non-tender, nondistended. No hepato-splenomegaly , or palpable masses. No guarding. Bowel sounds present. rectal tube in place with liquid brown stool GENITOURINARY: Without palpable bladder distension. Almanzar catheter in place with clear light yellow urine MUSCULOSKELETAL: Extremities without clubbing, cyanosis, + 1+ edema and chronic hyperpigmentation. No joint tenderness or effusion noted. No calf tenderness. No mottling or clubbing. LYMPHATICS: No palpable cervical or supraclavicular adenopathy. NEUROLOGICAL: awake, opens eyes to voice and makes contact PSYCHIATRIC: unable to assess Assessment & Plan Remarks ESBL+ E.coli UTI with chronic indwelling almanzar Pulmonary infiltrates unchanged from 03/28 an no cough/expectorateiom: doubt PNA , favouring atelectatic changes Allergica reaction to PCN (rash), no problems tolerating primaxin Probably new sepsis - fever, new hypotension Colonised with C albins, cruzei - urine change Primaxin to Ertapenem fu sputum clx dc vanco, cont micafungin for now fu blood clx untill final dw Frances Gonsalves MD May 16, 2017 15:52
[2017-05-16] MEDS ORDERED: ASP: Documented ESBL, MDR A baumannii or P. aeruginosa PRN (16:00)
[2017-05-16] MEDS ORDERED: MISCELLANEOUS PHARMACY INFORMATION XX PRN (16:00)
[2017-05-16] MEDS: MICAFUNGIN INJ 150 MG in SODIUM CHLORIDE 0.9% INJ 100 ML IV SCH (16:07)
[2017-05-16] MEDS: ERTAPENEM INJ 1,000 MG in SODIUM CHLORIDE 0.9% INJ 100 ML IV SCH (19:29)
[2017-05-17] VITALS (19 sets, daily range): BP systolic 110–197; BP diastolic 44–86; PULSE 62–78; RESP 16–20; TEMP 98.1–99.4; O2SAT 98–100
[2017-05-17] MEDS: fentaNYL DRIP 250 ML IV PRN ×3 (02:01→21:54)
[2017-05-17] MEDS: RESP: ALBUTEROL 2.5 MG/IPRATROPIUM 0.5 MG NEB (SCH) INH ×3 (03:21→11:29)
[2017-05-17] MEDS: PROPOFOL 1000 MG/100 ML INJ 100 ML IV PRN ×4 (03:47→17:52)
[2017-05-17] MEDS: CHLORHEXIDINE GLUCONATE 2 % 1 PACK (2 CLOTHS)(taper/protocol) TOPICAL SCH (03:48)
[2017-05-17] MEDS: LABETALOL HCL 20 MG/4 ML VIAL IV PUSH PRN (05:04)
[2017-05-17] MEDS: SODIUM CHLOR 0.9% 1000 ML INJ 1,000 ML IV SCH (05:49)
[2017-05-17] MEDS: INSULIN NovoLIN REGULAR SUPPLEMENTAL SCALE SQ SCH ×5 (06:00→23:57)
[2017-05-17] MEDS: PRAMIPEXOLE DIHYDROCHLORIDE 0.25 MG TAB PO SCH ×3 (06:12→21:54)
[2017-05-17] MEDS: HEPARIN SODIUM - SQ 10,000 UNITS/ML VIAL SQ SCH ×3 (06:12→21:54)
[2017-05-17] MEDS ORDERED: NITROGLYCERIN 2% OINT 1 GM PACKET TOPICAL PRN (08:30)
[2017-05-17] MEDS: LACTOBACILLUS ACIDOPHILUS TAB PO SCH ×3 (08:49→17:52)
[2017-05-17] MEDS: SODIUM CHLORIDE 0.9% FLUSH 10 ML FLUSH IV FLUSH SCH ×2 (08:50→20:15)
[2017-05-17] MEDS: SERTRALINE HCL 100 MG TAB PO SCH (08:50)
[2017-05-17] MEDS: PANTOPRAZOLE SODIUM 40 MG VIAL IV PUSH SCH (08:50)
[2017-05-17] MEDS: ASPIRIN 81 MG CHEW TAB PO SCH (08:50)
[2017-05-17] MEDS: PRAVASTATIN SOD 10 MG TAB PO SCH (08:50)
[2017-05-17] MEDS: methylPREDNISolone SOD SUCC 40 MG/1 ML VIAL IV PUSH SCH ×2 (08:50→20:15)
[2017-05-17] MEDS: TIOTROPIUM BROMIDE 18 MCG INH INH SCH (08:51)
[2017-05-17] MEDS: NYSTATIN 100,000 U/GM PWD 15 GM BTL TOPICAL SCH ×2 (08:51→20:15)
[2017-05-17] MEDS: CHLORHEXIDINE 0.12% (ORAL KIT) 15 ML CUP MT SCH ×2 (08:51→20:15)
[2017-05-17] MEDS ORDERED: SODIUM CHLORIDE 0.9% FLUSH 10 ML FLUSH IV FLUSH PRN (09:15)
--- NOTE | 2017-05-17 13:58 | HHI.CCPN ---
Subjective Remarks/Hospital Course This is a 68-year-old female with past medical history as stated above who presented to [facility] sent from a [facility] on 05/08/17 due to respiratory distress. The patient has history of Alzheimer's as well as expressive aphasia and is unable to provide any history. Patient was admitted by hospitalist service and started on empiric antibiotics, IV Solu-Medrol as well as nebulizer treatments. no fever on presentation WBC 13 K+, blood clx w/ o growth, UA markedly abnormal, + culture ESBL+ E.coli almanzar was changed in ER, initially started on azactam, vanco, flagyl, subsequently changed to Primaxin, still on flagyl. flu was negative. ID consult was requested due to ESBL Escherichia coli UTI. Patient has persistent infiltrates on her chest x-ray from March. Today patient developed worsening CO2 retention with altered mental status. Serial ABGs showed rising PCO2 levels. Patient was eventually transferred to [facility] [place] and critical care consult was requested to evaluate for possible need for intubation. Patient's granddaughter was contacted by SEBASTIAN JACOBO and was informed regarding worsening condition and possible need for intubation which she agreed with if required. I evaluated the patient immediately on arrival to the ICU. At that time she was drowsy though arousable and was just being initiated on BiPAP. We will the upper extremity spontaneously at the time and appeared to be protecting her airway. 05/13 Patient is intubated and sedated with Diprivan.had 4L UOP overnight ( ? kinked Almanzar). Afebrile. 05/14 No events overnight. Sedated with Diprivan, Fentanyl and intubated. Afebrile. 05/15 remains intubated and sedated. On sedation hold opens eyes moving extremities. Failing CPAP due to low tidal volume 05/16: Remains intubated sedated with fall and fentanyl, ischial spontaneously open moves extremities did not consistently follow commands. Failed CPAP yesterday due to low tidal volumes. Fluid overloaded give 60 mg IV Lasix 1 today Subjective 05/17: Afebrile. Opens eyes spontaneously but not consistently following commands. Will attempt PSV trial again today. Currently on fentanyl and propofol drips. Objective Vital Signs Date Time Temp Pulse Resp B/P (MAP) Pulse Ox O2 Delivery O2 Flow Rate FiO2 05/17/17 13:23 99 30 05/17/17 08:00 98.5 62 20 165/44 (84) Intake and Output 05/17/17 05/17/17 05/18/17 08:00 16:00 00:00 Intake Total 1939 ml Output Total 1725 ml Balance 214 ml Result Diagram: 05/16/17 0125 05/16/17 0125 Other Results Microbiology Date/Time Source Procedure Growth Status 05/16/17 18:56 Blood Peripheral Aerobic Blood Culture - Preliminary NO GROWTH IN 1 DAY Resulted 05/16/17 18:56 Blood Peripheral Anaerobic Blood Culture - Preliminary NO GROWTH IN 1 DAY Resulted 05/12/17 22:50 Sputum Endotracheal Gram Stain - Final Complete 05/12/17 22:50 Sputum Endotracheal Sputum Culture - Final MODERATE GROWTH NORMAL RESPIRATORY KING Complete 05/13/17 15:20 Urine Clean Catch Urine Culture - Final Sidra Krusei Sidra Albicans Complete Imaging Last Impressions Chest X-Ray 05/16/17 0600 Signed Impressions: Service Date/Time: May 02:34 - CONCLUSION: Stable bibasilar infiltrates and small right effusion. Mack Giang Jr., MD Chest CT 05/10/17 0000 Signed Impressions: Service Date/Time: Wednesday, May 10, 2017 17:28 - CONCLUSION: Patchy air space disease right mid and lower lung with platelike peripheral consolidation. . This associated with trace pleural effusion.. Harshil Ortiz MD FACR Objective Remarks GENERAL: Patient is 76 yo female currently orotracheally intubated SKIN: Warm and dry. Chronic venous stasis bilateral lower extremities HEAD: Normocephalic. EYES: No scleral icterus. No injection or drainage. Pupils are round 3 mm bilaterally and reactive. NECK: Supple, trachea midline. No JVD or lymphadenopathy. CARDIOVASCULAR: Regular rate and rhythm S1, S2. No S4. Without murmurs, gallops, or rubs. RESPIRATORY: Breath sounds equal bilaterally. Symmetrical excursion GASTROINTESTINAL: Abdomen soft, non-tender, nondistended. Hypoactive bowel sounds are appreciated MUSCULOSKELETAL: No cyanosis, or edema. Neuro: sedated. Cranial nerves II through XII appear grossly intact. Strength is equal symmetric. Normal sensation Urinary Catheter: Yes Assessment to: Continue Almanzar insert reason: ICU Pt Getting Diuretics Vascular Central Line Catheter: No Assessment to: Continue A/P Assessment and Plan Plan: Neuro/Psych: Dementia disorder NOS Restless leg syndrome Hard of hearing Metabolic encephalopathy History of CVA Depression disorder NOS On propofol drip at 30 mcg/kg/min/Fentanyl infusion at 250 mcg an hour for sedation. Goal of RASS -2 daily sedation vacation. Continue sertraline 200 mg by tube daily Continue pramipexole 0.75 mg every 8 hours for restless leg syndrome CV: Atrial fibrillation Essential hypertension Dyslipidemia Coronary artery disease Monitor HR and BP keep MAP>65mmHg On ASA 81 mg daily, On pravastatin 10 mg p.o. daily for dyslipidemia. Continue Start labetalol 10 mg IV every 1 hours as needed for SBP more than 165 Home medications include carvedilol 3.125 mg p.o. twice daily, isosorbide mononitrate 30 mg daily and Aldactone 25 mg daily. Will start isosorbide dinitrate 10 mg 3 times daily today along with carvedilol 3.125 mg twice daily Pulmo: Acute hypoxemic respiratory failure COPD [facility] 16/03/08/29 Continue with vent support keep sats >92% Albuterol/ipratropium aerosols every 4 hours with albuterol aerosols every 2 hours as needed dyspnea ICU vent bundle. Methylprednisolone succinate 40mg Q12 Spontaneous breathing trials daily Holding tiotropium milligrams inhalation daily while on ventilator GI/liver: Gastroesophageal reflux disease Hypoalbuminemia On Glucerna 1.5 @60ml/hr we will switch to vital high-protein at 55 cc an hour/ nutrition's recommendations Pantoprazole 40 mg IV daily for GI prophylaxis Docusate calcium 240 mg by tube daily for bowel regimen FEN/renal/: Monitor renal function, electrolytes replacement per protocol Continue NS@75ml/hr-discontinued 05/15 Replace electrolytes as clinically indicated Heme: Microcytic anemia Leukocytosis Thrombocytopenia Follow CBC closely. Follow trends Endocrine: Chronic prednisone use Hypothyroidism Currently on methylprednisolone succinate 40 mg IV twice daily SSI Novulin R every 4 hours for glycemic control ( low scale) TSH: 1.49 ID: E. coli ESBL positive urinary tract infection Sidra albicans/Cruzei's urine colonization Continue abx per ID: Vanco, Micafungin, ertapenem. Monitor for signs of infections ( Fever, WBC) Blood 05/13: NGTD, Urine cx 05/13 Sidra cruisei Sputum cx 05/12: NGTD ESBL Escherichia coli in urine. 05/08 Monitor for signs of infections ( Fever, WBC) MSK: Elevated BMI Weight loss encouraged Prophylaxis: Pantoprazole/SCDs/subcutaneous heparin Level 3 Vinod Byrnes MD May 17, 2017 13:58
[2017-05-17] MEDS ORDERED: LABETALOL HCL 20 MG/4 ML VIAL IV PUSH PRN (14:00)
[2017-05-17] MEDS: ARTIFICIAL TEARS OPTH SOLN 15 ML BTL EACH EYE SCH ×2 (14:00→21:54)
[2017-05-17] MEDS ORDERED: RESP: ALBUTEROL 2.5 MG/3 ML NEB (PRN) NEB (14:15)
[2017-05-17] MEDS ORDERED: POLYETHYLENE GLYCOL 17 GM PKG PO ONE (14:30)
[2017-05-17] MEDS ORDERED: LACTULOSE SYRUP 20 GM/30 ML CUP PO ONE (14:30)
[2017-05-17] MEDS: MICAFUNGIN INJ 150 MG in SODIUM CHLORIDE 0.9% INJ 100 ML IV SCH (15:12)
[2017-05-17] MEDS: RESP: ALBUTEROL 2.5 MG/IPRATROPIUM 0.5 MG NEB (SCH) NEB ×2 (15:39→19:14)
--- NOTE | 2017-05-17 17:42 | ECHRPT ---
Indication: EF CONCLUSIONS Normal left ventricular size with upper normal wall thickness. The left ventricular systolic functio n is normal with an estimated ejection fraction in the range of 60-65%. No definite regional wall motion abnor malities. Moderate mitral annular calcification. BP: 190 / 83 HR: 76 Rhythm: Sinus Technical Quality:Fair FINDINGS LEFT VENTRICLE Normal left ventricular size with upper normal wall thickness. The left ventricular systolic functio n is normal with an estimated ejection fraction in the range of 60-65%. No definite regional wall motion abnor malities. RIGHT VENTRICLE Normal right ventricular size and systolic function. LEFT ATRIUM The left atrial size is dsqq-vo-jorsvsntvd dilated. RIGHT ATRIUM The right atrial size is mildly dilated. ATRIAL SEPTUM Normal atrial septal thickness without atrial level shunting by limited color doppler interrogation. AORTA The aortic root and proximal ascending aorta are normal in size on limited imaging. MITRAL VALVE Moderate mitral annular calcification. AORTIC VALVE Trileaflet aortic valve. TRICUSPID VALVE Structurally normal tricuspid valve. Tomas Potter MD (Electronically Signed) Final Date:17 May 2017 17:41
[2017-05-17] MEDS: ERTAPENEM INJ 1,000 MG in SODIUM CHLORIDE 0.9% INJ 100 ML IV SCH (17:52)
[2017-05-17] MEDS: ISOSORBIDE DINITRATE 5 MG TAB PO SCH (18:11)
[2017-05-17] MEDS: RESP: BUDESONIDE 0.5 MG/2 ML NEB NEB SCH (19:14)
--- NOTE | 2017-05-17 19:44 | HHI.IDPN ---
Subjective Subjective Remarks failure to tolerate weaning Antibiotics Ertapenem micafungin Allergies: Coded Allergies: Penicillins (Verified Allergy, Severe, 05/08/17) Objective . Vital Signs Date Time Temp Pulse Resp B/P (MAP) Pulse Ox O2 Delivery O2 Flow Rate FiO2 05/17/17 19:14 100 30 05/17/17 18:00 67 05/17/17 16:10 99 30 05/17/17 16:00 30 05/17/17 16:00 98.1 68 16 122/57 (78) 99 05/17/17 16:00 68 05/17/17 14:00 75 05/17/17 13:23 99 30 05/17/17 12:00 68 05/17/17 12:00 30 05/17/17 12:00 99.0 68 20 155/70 (98) 99 05/17/17 10:00 66 05/17/17 09:40 99 30 05/17/17 08:00 98.5 62 20 165/44 (84) 99 05/17/17 08:00 30 05/17/17 08:00 62 05/17/17 07:45 99 30 05/17/17 06:00 66 05/17/17 04:00 98.4 76 20 190/83 (118) 98 05/17/17 04:00 76 05/17/17 04:00 30 05/17/17 03:21 98 30 05/17/17 02:00 74 05/17/17 01:25 99 30 05/17/17 00:00 98.2 66 20 197/86 (123) 98 05/17/17 00:00 66 05/17/17 00:00 30 05/16/17 23:19 98 30 05/16/17 22:00 63 05/16/17 20:41 99 30 05/16/17 20:00 98.7 68 20 135/74 (94) 98 05/16/17 20:00 68 05/16/17 20:00 30 05/17/17 05/17/17 05/18/17 14:59 22:59 06:59 Intake Total 1043 ml 1136 ml Output Total 1200 ml Balance 1043 ml -64 ml IV Total 1043 ml 300 ml Tube Feeding 836 ml Output Urine Total 1100 ml Stool Total 100 ml . Laboratory Tests Test 05/16/17 01:25 White Blood Count 12.2 TH/MM3 Red Blood Count 3.67 MIL/MM3 Hemoglobin 10.5 GM/DL Hematocrit 32.4 % Mean Corpuscular Volume 88.2 FL Mean Corpuscular Hemoglobin 28.7 PG Mean Corpuscular Hemoglobin Concent 32.5 % Red Cell Distribution Width 15.1 % Platelet Count 104 TH/MM3 Mean Platelet Volume 7.6 FL Neutrophils (%) (Auto) 92.7 % Lymphocytes (%) (Auto) 4.1 % Monocytes (%) (Auto) 2.9 % Eosinophils (%) (Auto) 0.0 % Basophils (%) (Auto) 0.3 % Neutrophils # (Auto) 11.3 TH/MM3 Lymphocytes # (Auto) 0.5 TH/MM3 Monocytes # (Auto) 0.4 TH/MM3 Eosinophils # (Auto) 0.0 TH/MM3 Basophils # (Auto) 0.0 TH/MM3 CBC Comment AUTO DIFF Differential Total Cells Counted 100 Neutrophils % (Manual) 89 % Band Neutrophils % 1 % Lymphocytes % 4 % Monocytes % 4 % Neutrophils # (Manual) 11.2 TH/MM3 Metamyelocytes 1 % Myelocytes 1 % Differential Comment FINAL DIFF MANUAL Platelet Estimate LOW Platelet Morphology Comment NORMAL Polychromasia 2.0 % Ovalocytes 1+ Acanthocytes OCC Laboratory Tests Test 05/16/17 01:25 Blood Urea Nitrogen 20 MG/DL Creatinine 0.39 MG/DL Random Glucose 98 MG/DL Total Protein 5.5 GM/DL Albumin 2.7 GM/DL Calcium Level 7.9 MG/DL Magnesium Level 2.1 MG/DL Alkaline Phosphatase 79 U/L Aspartate Amino Transf (AST/SGOT) 11 U/L Alanine Aminotransferase (ALT/SGPT) 17 U/L Total Bilirubin 0.8 MG/DL Sodium Level 140 MEQ/L Potassium Level 3.9 MEQ/L Chloride Level 105 MEQ/L Carbon Dioxide Level 25.8 MEQ/L Anion Gap 9 MEQ/L Estimat Glomerular Filtration Rate 159 ML/MIN Microbiology Date/Time Source Procedure Growth Status 05/16/17 18:56 Blood Peripheral Aerobic Blood Culture - Preliminary NO GROWTH IN 1 DAY Resulted 05/16/17 18:56 Blood Peripheral Anaerobic Blood Culture - Preliminary NO GROWTH IN 1 DAY Resulted Imaging Last Impressions Chest X-Ray 05/16/17 0600 Signed Impressions: Service Date/Time: May 02:34 - CONCLUSION: Stable bibasilar infiltrates and small right effusion. Mack Giang Jr., MD Chest CT 05/10/17 0000 Signed Impressions: Service Date/Time: Wednesday, May 10, 2017 17:28 - CONCLUSION: Patchy air space disease right mid and lower lung with platelike peripheral consolidation. . This associated with trace pleural effusion.. Harshil Ortiz MD FACR Physical Exam CONSTITUTIONAL/GENERAL: This is a morbidly obese female patient, in no apparent distress. Intubated, sedated on vent TUBES/LINES/DRAINS: SKIN: No jaundice, rashes, or lesions. Skin temperature appropriate. Not diaphoretic. CARDIOVASCULAR: Regular rate and rhythm without murmurs, gallops, or rubs. No JVD. Peripheral pulses symmetric. RESPIRATORY/CHEST: Symmetric, unlabored respirations. Crackles to auscultation. Breath sounds equal bilaterally. GASTROINTESTINAL: Abdomen soft, non-tender, nondistended. No hepato-splenomegaly , or palpable masses. No guarding. Bowel sounds present. rectal tube in place with liquid brown stool GENITOURINARY: Without palpable bladder distension. Almanzar catheter in place with clear light yellow urine MUSCULOSKELETAL: Extremities without clubbing, cyanosis, + 1+ edema and chronic hyperpigmentation. No joint tenderness or effusion noted. No calf tenderness. No mottling or clubbing. LYMPHATICS: No palpable cervical or supraclavicular adenopathy. NEUROLOGICAL:lethargic PSYCHIATRIC: unable to assess Assessment & Plan Remarks ESBL+ E.coli UTI with chronic indwelling almanzar Pulmonary infiltrates unchanged from 03/28 an no cough/expectorateiom: doubt PNA , favouring atelectatic changes Allergica reaction to PCN (rash), no problems tolerating primaxin Probably new sepsis - fever, new hypotension Colonised with C albins, cruzei - urine cont Ertapenem cont micafungin for now fu new blood clx untill final dw Frances Gonsalves MD May 17, 2017 19:44
[2017-05-17] MEDS: CARVEDILOL 3.125 MG TAB PO SCH (20:15)
[2017-05-18] VITALS (17 sets, daily range): BP systolic 116–154; BP diastolic 57–75; PULSE 66–105; RESP 16–19; TEMP 98.7–99.1; O2SAT 96–100
[2017-05-18] MEDS: RESP: ALBUTEROL 2.5 MG/IPRATROPIUM 0.5 MG NEB (SCH) NEB ×6 (00:40→20:53)
[2017-05-18] MEDS: PROPOFOL 1000 MG/100 ML INJ 100 ML IV PRN (02:13)
[2017-05-18] MEDS: HEPARIN SODIUM - SQ 10,000 UNITS/ML VIAL SQ SCH ×3 (05:10→20:58)
[2017-05-18] MEDS: ARTIFICIAL TEARS OPTH SOLN 15 ML BTL EACH EYE SCH ×3 (05:10→20:58)
[2017-05-18] MEDS: PRAMIPEXOLE DIHYDROCHLORIDE 0.25 MG TAB PO SCH ×3 (05:10→20:58)
[2017-05-18] MEDS: INSULIN NovoLIN REGULAR SUPPLEMENTAL SCALE SQ SCH ×3 (05:41→18:00)
[2017-05-18] MEDS ORDERED: PHARMACY ORDERED LAB ONE (05:45)
--- NOTE | 2017-05-18 06:38 | RADRPT ---
EXAM DATE/TIME: 05/18/2017 04:33 [facility] COMPARISON: CHEST SINGLE AP, May 16, 2017, 2:34. INDICATIONS : Shortness of breath, possible pulmonary disease. MEDICAL HISTORY : Hypothyroidism. Hypertension Chronic obstructive pulmonary disease. A-fib GERD SURGICAL HISTORY : None. ENCOUNTER: Subsequent ACUITY: 1 week PAIN SCORE: Non-responsive. LOCATION: Bilateral chest FINDINGS: A single view of the chest demonstrates persistent bibasilar airspace disease with possible associate d effusions, particularly on the left. Heart size is prominent. Life support tubes are stable in posi tion. CONCLUSION: 1. Persistent bibasilar airspace disease with possible associated effusion on the left. 2. Cardiomegaly. Stable position of life support tubes. Chandana Simon MD on May 18, 2017 at 6:36 Board Certified Radiologist. This report was verified electronically.
[2017-05-18 07:34] LABS: HEMATOCRIT 32.5 % (35.0-46.0); HEMOGLOBIN 10.5 GM/DL (11.6-15.3); LYMPH % 4.5 % (9.0-44.0); MEAN CELL VOLUME 89.7 FL (80.0-100.0); MEAN CORPUSCULAR HEMOGLOBIN 29.1 PG (27.0-34.0); MEAN CORPUSCULAR HGB CONC 32.4 % (32.0-36.0); MEAN PLATELET VOLUME 9.4 FL (7.0-11.0); MONO % 4.6 % (0.0-8.0); NEUT % 90.8 % (16.0-70.0); PLATELET COUNT 116 TH/MM3 (150-450); RED BLOOD COUNT 3.62 MIL/MM3 (4.00-5.30); RED CELL DISTRIBUTION WIDTH 15.7 % (11.6-17.2); WHITE BLOOD COUNT 13.9 TH/MM3 (4.0-11.0)
[2017-05-18 07:35] LABS: AUTOMATED NEUTROPHIL # 12.6 TH/MM3 (1.8-7.7); BASOPHIL % 0.1 % (0.0-2.0); LYMPHOCYTE # 0.6 TH/MM3 (1.0-4.8); MONOCYTE # 0.6 TH/MM3 (0-0.9)
[2017-05-18 07:48] LABS: ALBUMIN 2.7 GM/DL (3.4-5.0); ALKALINE PHOSPHATASE 80 U/L (45-117); ALT (GPT) 18 U/L (10-53); AST (GOT) 22 U/L (15-37); BICARBONATE 24.5 MEQ/L (21.0-32.0); CHLORIDE 109 MEQ/L (98-107); CREATININE 0.59 MG/DL (0.50-1.00); GLOMERULAR FILTRATION RATE 99 ML/MIN (>89); GLUCOSE,RANDOM 113 MG/DL (74-106); MAGNESIUM 2.5 MG/DL (1.5-2.5); PHOSPHORUS 3.5 MG/DL (2.5-4.9); SODIUM (NA) 143 MEQ/L (136-145); TOTAL BILIRUBIN ADULT 0.6 MG/DL (0.2-1.0); TOTAL PROTEIN 5.6 GM/DL (6.4-8.2)
[2017-05-18 07:59] LABS: BLOOD UREA NITROGEN 28 MG/DL (7-18)
[2017-05-18] MEDS: CHLORHEXIDINE 0.12% (ORAL KIT) 15 ML CUP MT SCH ×3 (08:00→20:57)
[2017-05-18] MEDS: ASPIRIN 81 MG CHEW TAB PO SCH (08:28)
[2017-05-18] MEDS: SERTRALINE HCL 100 MG TAB PO SCH (08:28)
[2017-05-18] MEDS: PANTOPRAZOLE SODIUM 40 MG VIAL IV PUSH SCH (08:28)
[2017-05-18] MEDS: methylPREDNISolone SOD SUCC 40 MG/1 ML VIAL IV PUSH SCH ×2 (08:29→21:02)
[2017-05-18] MEDS: LACTOBACILLUS ACIDOPHILUS TAB PO SCH ×3 (08:29→17:37)
[2017-05-18] MEDS: PRAVASTATIN SOD 10 MG TAB PO SCH (08:29)
[2017-05-18] MEDS: DOCUSATE CALCIUM 240 MG CAP PO SCH (08:29)
[2017-05-18] MEDS: SODIUM CHLORIDE 0.9% FLUSH 10 ML FLUSH IV FLUSH SCH ×2 (08:31→20:58)
[2017-05-18] MEDS: NYSTATIN 100,000 U/GM PWD 15 GM BTL TOPICAL SCH ×2 (08:38→20:58)
[2017-05-18] MEDS: ISOSORBIDE DINITRATE 5 MG TAB PO SCH ×3 (08:38→17:37)
[2017-05-18] MEDS ORDERED: SODIUM CHLORIDE 0.9% FLUSH 10 ML FLUSH IV FLUSH SCH (09:00)
[2017-05-18] MEDS ORDERED: DEXTROSE 50% IN WATER 50 ML VIAL(D50) IV PUSH ONE (09:15)
[2017-05-18] MEDS ORDERED: SODIUM POLYSTYRENE SULFONATE SUSP 15 GM/60 ML CUP PO ONE (09:15)
[2017-05-18] MEDS ORDERED: CALCIUM GLUCONATE 10% 1 GM/10 ML VIAL SLOW IVP ONE (09:15)
[2017-05-18] MEDS ORDERED: SODIUM BICARBONATE 8.4% SOLN 50 MEQ/50 ML VIAL SLOW IVP ONE (09:15)
[2017-05-18] MEDS ORDERED: INSULIN HUMAN REGULAR 1,000 UNITS/10 ML VIAL IV PUSH ONE (09:15)
[2017-05-18] MEDS: RESP: BUDESONIDE 0.5 MG/2 ML NEB NEB SCH ×2 (09:33→20:53)
--- NOTE | 2017-05-18 09:39 | HHI.CCPN ---
Subjective Remarks/Hospital Course This is a 68-year-old female with past medical history as stated above who presented to [facility] sent from a custodial on 05/08/17 due to respiratory distress. The patient has history of Alzheimer's as well as expressive aphasia and is unable to provide any history. Patient was admitted by hospitalist service and started on empiric antibiotics, IV Solu-Medrol as well as nebulizer treatments. no fever on presentation WBC 13 K+, blood clx w/ o growth, UA markedly abnormal, + culture ESBL+ E.coli almanzar was changed in ER, initially started on azactam, vanco, flagyl, subsequently changed to Primaxin, still on flagyl. flu was negative. ID consult was requested due to ESBL Escherichia coli UTI. Patient has persistent infiltrates on her chest x-ray from March. Today patient developed worsening CO2 retention with altered mental status. Serial ABGs showed rising PCO2 levels. Patient was eventually transferred to [facility] and critical care consult was requested to evaluate for possible need for intubation. Patient's granddaughter was contacted by [facility]ACOBO and was informed regarding worsening condition and possible need for intubation which she agreed with if required. I evaluated the patient immediately on arrival to the ICU. At that time she was drowsy though arousable and was just being initiated on BiPAP. We will the upper extremity spontaneously at the time and appeared to be protecting her airway. 05/13 Patient is intubated and sedated with Diprivan.had 4L UOP overnight ( ? kinked Almanzar). Afebrile. 05/14 No events overnight. Sedated with Diprivan, Fentanyl and intubated. Afebrile. 05/15 remains intubated and sedated. On sedation hold opens eyes moving extremities. Failing CPAP due to low tidal volume 05/16: Remains intubated sedated with fall and fentanyl, ischial spontaneously open moves extremities did not consistently follow commands. Failed CPAP yesterday due to low tidal volumes. Fluid overloaded give 60 mg IV Lasix 1 today 05/17: Afebrile. Opens eyes spontaneously but not consistently following commands. Will attempt PSV trial again today. Currently on fentanyl and propofol drips. Subjective 05/18: Afebrile. FiO2 down to 30%. Potassium is 5.5 the a.m.. Receiving calcium gluconate 1 g, D50/insulin/bicarbonate and Kayexalate with a repeat in 3 hours. Awake and moving all 4 extremities but not following commands. Appears to be tracking. Will attempt extubation today Objective Vital Signs Date Time Temp Pulse Resp B/P (MAP) Pulse Ox O2 Delivery O2 Flow Rate FiO2 05/18/17 06:18 99 30 05/18/17 06:00 68 05/18/17 04:00 98.9 16 131/60 (83) Intake and Output 05/18/17 05/18/17 05/19/17 08:00 16:00 00:00 Intake Total 630 ml Output Total 600 ml Balance 30 ml Result Diagram: 05/18/17 0536 05/18/17 0536 Other Results Microbiology Date/Time Source Procedure Growth Status 05/16/17 18:56 Blood Peripheral Aerobic Blood Culture - Preliminary NO GROWTH IN 1 DAY Resulted 05/16/17 18:56 Blood Peripheral Anaerobic Blood Culture - Preliminary NO GROWTH IN 1 DAY Resulted 05/12/17 22:50 Sputum Endotracheal Gram Stain - Final Complete 05/12/17 22:50 Sputum Endotracheal Sputum Culture - Final MODERATE GROWTH NORMAL RESPIRATORY KING Complete 05/13/17 15:20 Urine Clean Catch Urine Culture - Final Sidra Krusei Sidra Albicans Complete Imaging Last Impressions Chest X-Ray 05/18/17 0600 Signed Impressions: Service Date/Time: Thursday, May 18, 2017 04:33 - CONCLUSION: 1. Persistent bibasilar airspace disease with possible associated effusion on the left. 2. Cardiomegaly. Stable position of life support tubes. Chandana Simon MD Chest CT 05/10/17 0000 Signed Impressions: Service Date/Time: Wednesday, May 10, 2017 17:28 - CONCLUSION: Patchy air space disease right mid and lower lung with platelike peripheral consolidation. . This associated with trace pleural effusion.. Harshil Ortiz MD FACR Objective Remarks GENERAL: Patient is 76 yo female currently orotracheally intubated SKIN: Warm and dry. Chronic venous stasis bilateral lower extremities HEAD: Normocephalic. EYES: No scleral icterus. No injection or drainage. Pupils are round 3 mm bilaterally and reactive. NECK: Supple, trachea midline. No JVD or lymphadenopathy. CARDIOVASCULAR: Regular rate and rhythm S1, S2. No S4. Without murmurs, gallops, or rubs. RESPIRATORY: Breath sounds equal bilaterally. Symmetrical excursion GASTROINTESTINAL: Abdomen soft, non-tender, nondistended. Hypoactive bowel sounds are appreciated MUSCULOSKELETAL: No cyanosis, or edema. Neuro: sedated. Cranial nerves II through XII appear grossly intact. Strength is equal symmetric. Normal sensation A/P Assessment and Plan Neuro/Psych: Dementia disorder NOS Restless leg syndrome Hard of hearing Metabolic encephalopathy History of CVA Depression disorder NOS On propofol drip at 30 mcg/kg/min/Fentanyl infusion at 250 mcg an hour for sedation. Goal of RASS -2 Daily sedation vacation. Continue sertraline 200 mg by tube daily Continue pramipexole 0.75 mg every 8 hours for restless leg syndrome CV: Atrial fibrillation Essential hypertension Dyslipidemia Coronary artery disease Monitor HR and BP keep MAP>65mmHg On ASA 81 mg daily, On pravastatin 10 mg p.o. daily for dyslipidemia. Continue Start labetalol 10 mg IV every 1 hours as needed for SBP more than 165 Home medications include carvedilol 3.125 mg p.o. twice daily, isosorbide mononitrate 30 mg daily and Aldactone 25 mg daily. Will start isosorbide dinitrate 10 mg 3 times daily today along with carvedilol 3.125 mg twice daily Pulmo: Acute hypoxemic respiratory failure COPD [facility] 16/500/03/08/29 Continue with vent support keep sats >92% Albuterol/ipratropium aerosols every 4 hours with albuterol aerosols every 2 hours as needed dyspnea ICU vent bundle. Methylprednisolone succinate 40mg Q12 Spontaneous breathing trials daily Holding tiotropium 18 milligrams inhalation daily while on ventilator GI/liver: Gastroesophageal reflux disease Hypoalbuminemia On Glucerna 1.5 @60ml/hr we will switch to vital high-protein at 55 cc an hour/ nutrition's recommendations Pantoprazole 40 mg IV daily for GI prophylaxis Docusate calcium 240 mg by tube daily for bowel regimen FEN/renal/: Hyperkalemia Insulin/D50/calcium gluconate, sodium bicarbonate, Kayexalate now recheck 3 hours. Monitor renal function, electrolytes replacement per protocol Continue NS@75ml/hr-discontinued 05/15 Replace electrolytes as clinically indicated Heme: Microcytic anemia Leukocytosis Thrombocytopenia Follow CBC closely. Follow trends Endocrine: Chronic prednisone use Hypothyroidism Currently on methylprednisolone succinate 40 mg IV twice daily SSI Novulin R every 4 hours for glycemic control ( low scale) TSH: 1.49 ID: E. coli ESBL positive urinary tract infection Sidra albicans/kruzei urine colonization Continue abx per ID: Vanco, Micafungin, ertapenem. Monitor for signs of infections ( Fever, WBC) Blood 05/13: NGTD, Urine cx 05/13 Sidra cruisei Sputum cx 05/12: NGTD ESBL Escherichia coli in urine. 05/08 Monitor for signs of infections ( Fever, WBC) MSK: Elevated BMI Weight loss encouraged Prophylaxis: Pantoprazole/SCDs/subcutaneous heparin Level 3 Vinod Byrnes MD May 18, 2017 09:39
[2017-05-18] MEDS: CARVEDILOL 3.125 MG TAB PO SCH ×2 (11:16→21:02)
[2017-05-18] MEDS ORDERED: CLEVIDIPINE INJ 50 ML IV PRN (11:30)
[2017-05-18] MEDS ORDERED: ROCURONIUM INJ 50 MG/5 ML VIAL ONE (11:39)
[2017-05-18] MEDS ORDERED: ETOMIDATE 40 MG/20 ML VIAL ONE (11:39)
--- NOTE | 2017-05-18 11:55 | PD.PROCEDR ---
Procedure Note Procedure DATE: 05/18/2017 PROCEDURE: Orotracheal intubation INDICATION: Acute respiratory failure/hypoxic DETAILS OF PROCEDURE The patient was placed in optimal position and preoxygenated with 100% FiO2 via bag valve mask. At the start oxygen saturation was 100%. The patient was administered 20 mg etomidate IV. I entered the oropharynx with a size 4 GVL Glidescope blade and obtained a grade 2 view of the airway. On single attempt a size 8.0 cuffed endotracheal tube was passed through the vocal cords. Correct tube location was confirmed with end tidal CO2 detector and by auscultating over bilateral lung escamilla. The endotracheal tube was secured with adhesive tape at a depth of 24 cm at the lips. The patient was connected to the ventilator. The patient tolerated the procedure well without any apparent complications. Oxygen saturations were maintained greater than 95% all times. STAT chest x-ray pending at time of dictation. Vinod Byrnes MD May 18, 2017 11:55
[2017-05-18] MEDS ORDERED: PROPOFOL 1000 MG/100 ML INJ 100 ML IV PRN (12:00)
--- NOTE | 2017-05-18 12:47 | RADRPT ---
EXAM DATE/TIME: 05/18/2017 12:20 [facility] COMPARISON: CHEST SINGLE AP, May 18, 2017, 4:33. INDICATIONS : Reintubation. MEDICAL HISTORY : Hypothyroidism. Hypertension Chronic obstructive pulmonary disease. Atrial fibrillation. GERD. SURGICAL HISTORY : None. ENCOUNTER: Initial ACUITY: 1 day PAIN SCORE: Non-responsive. LOCATION: Bilateral chest FINDINGS: The endotracheal tube appears positioned within the right main bronchus. Recommend retraction and re\r e imaging. There is stable volume loss identified within the right hemithorax. A left hemithorax is g rossly clear. Heart size is enlarged.. CONCLUSION: Endotracheal tube appears to be within the right main bronchus. Recommend retraction and re\re imagin g.Overall stable lung exam. Carolee Patiño MD on May 18, 2017 at 12:42 Board Certified Radiologist. This report was verified electronically.
[2017-05-18] MEDS: MICAFUNGIN INJ 150 MG in SODIUM CHLORIDE 0.9% INJ 100 ML IV SCH (17:35)
[2017-05-18] MEDS: ERTAPENEM INJ 1,000 MG in SODIUM CHLORIDE 0.9% INJ 100 ML IV SCH (17:35)
[2017-05-19] VITALS (35 sets, daily range): BP systolic 102–153; BP diastolic 64–79; PULSE 69–89; RESP 10–148; TEMP 98–99.8; O2SAT 94–100
[2017-05-19] MEDS: RESP: ALBUTEROL 2.5 MG/IPRATROPIUM 0.5 MG NEB (SCH) NEB ×3 (04:16→20:54)
[2017-05-19] MEDS: INSULIN NovoLIN REGULAR SUPPLEMENTAL SCALE SQ SCH ×4 (06:00→17:11)
[2017-05-19] MEDS: ARTIFICIAL TEARS OPTH SOLN 15 ML BTL EACH EYE SCH ×3 (06:00→20:46)
[2017-05-19] MEDS: HEPARIN SODIUM - SQ 10,000 UNITS/ML VIAL SQ SCH ×3 (06:00→20:45)
[2017-05-19] MEDS: PRAMIPEXOLE DIHYDROCHLORIDE 0.25 MG TAB PO SCH ×3 (06:00→20:46)
[2017-05-19] MEDS: CHLORHEXIDINE 0.12% (ORAL KIT) 15 ML CUP MT SCH ×4 (08:00→20:00)
[2017-05-19] MEDS: PRAVASTATIN SOD 10 MG TAB PO SCH (09:00)
[2017-05-19] MEDS: RESP: BUDESONIDE 0.5 MG/2 ML NEB NEB SCH ×2 (09:09→21:54)
[2017-05-19] MEDS: SODIUM CHLORIDE 0.9% FLUSH 10 ML FLUSH IV FLUSH SCH ×2 (09:20→20:46)
[2017-05-19] MEDS: ISOSORBIDE DINITRATE 5 MG TAB PO SCH ×3 (09:20→17:11)
[2017-05-19] MEDS: PANTOPRAZOLE SODIUM 40 MG VIAL IV PUSH SCH (09:20)
[2017-05-19] MEDS: SERTRALINE HCL 100 MG TAB PO SCH (09:21)
[2017-05-19] MEDS: CARVEDILOL 3.125 MG TAB PO SCH ×2 (09:21→20:46)
[2017-05-19] MEDS: LACTOBACILLUS ACIDOPHILUS TAB PO SCH ×3 (09:21→17:11)
[2017-05-19] MEDS: DOCUSATE CALCIUM 240 MG CAP PO SCH (09:21)
[2017-05-19] MEDS: NYSTATIN 100,000 U/GM PWD 15 GM BTL TOPICAL SCH ×2 (09:22→20:46)
[2017-05-19] MEDS: ASPIRIN 81 MG CHEW TAB PO SCH (09:22)
[2017-05-19] MEDS: DEXAMETHASONE SOD PHOS 4 MG/ML VIAL IV PUSH SCH ×2 (11:29→17:07)
--- NOTE | 2017-05-19 13:10 | HHI.CCPN ---
Subjective Remarks/Hospital Course This is a 68-year-old female with past medical history as stated above who presented to [facility] sent from a longterm on 05/08/17 due to respiratory distress. The patient has history of Alzheimer's as well as expressive aphasia and is unable to provide any history. Patient was admitted by hospitalist service and started on empiric antibiotics, IV Solu-Medrol as well as nebulizer treatments. no fever on presentation WBC 13 K+, blood clx w/ o growth, UA markedly abnormal, + culture ESBL+ E.coli almanzar was changed in ER, initially started on azactam, vanco, flagyl, subsequently changed to Primaxin, still on flagyl. flu was negative. ID consult was requested due to ESBL Escherichia coli UTI. Patient has persistent infiltrates on her chest x-ray from March. Today patient developed worsening CO2 retention with altered mental status. Serial ABGs showed rising PCO2 levels. Patient was eventually transferred to [facility] [place] and critical care consult was requested to evaluate for possible need for intubation. Patient's granddaughter was contacted by SEBASTIAN JACOBO and was informed regarding worsening condition and possible need for intubation which she agreed with if required. I evaluated the patient immediately on arrival to the ICU. At that time she was drowsy though arousable and was just being initiated on BiPAP. We will the upper extremity spontaneously at the time and appeared to be protecting her airway. 05/13 Patient is intubated and sedated with Diprivan.had 4L UOP overnight ( ? kinked Almanzar). Afebrile. 05/14 No events overnight. Sedated with Diprivan, Fentanyl and intubated. Afebrile. 05/15 remains intubated and sedated. On sedation hold opens eyes moving extremities. Failing CPAP due to low tidal volume 05/16: Remains intubated sedated with fall and fentanyl, ischial spontaneously open moves extremities did not consistently follow commands. Failed CPAP yesterday due to low tidal volumes. Fluid overloaded give 60 mg IV Lasix 1 today 05/17: Afebrile. Opens eyes spontaneously but not consistently following commands. Will attempt PSV trial again today. Currently on fentanyl and propofol drips. 05/18: Afebrile. FiO2 down to 30%. Potassium is 5.5 the a.m.. Receiving calcium gluconate 1 g, D50/insulin/bicarbonate and Kayexalate with a repeat in 3 hours. Awake and moving all 4 extremities but not following commands. Appears to be tracking. Will attempt extubation today Subjective 05/19: Failed extubation 05/02:17 hour. Desaturated. Reintubation with glide scope revealed possible airway edema. Started on dexamethasone. Granddaughter at bedside. Wish to be present with extubation occurs tomorrow evening. Request after 5 PM. Tolerating tube feeding. Objective Vital Signs Date Time Temp Pulse Resp B/P (MAP) Pulse Ox O2 Delivery O2 Flow Rate FiO2 05/19/17 11:00 85 05/19/17 11:00 13 120/67 (84) 96 05/19/17 09:12 35 05/19/17 08:00 98.6 05/19/17 07:00 Mechanical Ventilator Intake and Output 05/19/17 05/19/17 05/20/17 08:00 16:00 00:00 Intake Total 500 ml Output Total 650 ml Balance -150 ml Result Diagram: 05/18/17 0536 05/18/17 1342 Other Results Microbiology Date/Time Source Procedure Growth Status 05/16/17 18:56 Blood Peripheral Aerobic Blood Culture - Preliminary NO GROWTH IN 3 DAYS Resulted 05/16/17 18:56 Blood Peripheral Anaerobic Blood Culture - Preliminary NO GROWTH IN 3 DAYS Resulted 05/12/17 22:50 Sputum Endotracheal Gram Stain - Final Complete 05/12/17 22:50 Sputum Endotracheal Sputum Culture - Final MODERATE GROWTH NORMAL RESPIRATORY KING Complete 05/13/17 15:20 Urine Clean Catch Urine Culture - Final Sidra Krusei Sidra Albicans Complete Imaging Last Impressions Chest X-Ray 05/18/17 0600 Signed Impressions: Service Date/Time: Thursday, May 18, 2017 04:33 - CONCLUSION: 1. Persistent bibasilar airspace disease with possible associated effusion on the left. 2. Cardiomegaly. Stable position of life support tubes. Chandana Simon MD Chest CT 05/10/17 0000 Signed Impressions: Service Date/Time: Wednesday, May 10, 2017 17:28 - CONCLUSION: Patchy air space disease right mid and lower lung with platelike peripheral consolidation. . This associated with trace pleural effusion.. Harshil Ortiz MD FACR Objective Remarks GENERAL: Patient is 76 yo female currently orotracheally intubated SKIN: Warm and dry. Chronic venous stasis bilateral lower extremities HEAD: Normocephalic. EYES: No scleral icterus. No injection or drainage. Pupils are round 3 mm bilaterally and reactive. NECK: Supple, trachea midline. No JVD or lymphadenopathy. CARDIOVASCULAR: Regular rate and rhythm S1, S2. No S4. Without murmurs, gallops, or rubs. RESPIRATORY: Breath sounds equal bilaterally. Symmetrical excursion GASTROINTESTINAL: Abdomen soft, non-tender, nondistended. Hypoactive bowel sounds are appreciated MUSCULOSKELETAL: No cyanosis, or edema. Neuro: sedated. Cranial nerves II through XII appear grossly intact. Strength is equal symmetric. Normal sensation Urinary Catheter: No Assessment to: Continue Vascular Central Line Catheter: No Assessment to: Continue A/P Assessment and Plan Neuro/Psych: Dementia disorder NOS Restless leg syndrome Hard of hearing Metabolic encephalopathy History of CVA Depression disorder NOS On propofol drip at 30 mcg/kg/min/Fentanyl infusion at 250 mcg an hour for sedation. Goal of RASS -2 Daily sedation vacation. Continue sertraline 200 mg by tube daily Continue pramipexole 0.75 mg every 8 hours for restless leg syndrome CV: Atrial fibrillation Essential hypertension Dyslipidemia Coronary artery disease Monitor HR and BP keep MAP>65mmHg On ASA 81 mg daily, On pravastatin 10 mg p.o. daily for dyslipidemia. Continue Start labetalol 10 mg IV every 1 hours as needed for SBP more than 165 Home medications include carvedilol 3.125 mg p.o. twice daily, isosorbide mononitrate 30 mg daily and Aldactone 25 mg daily. Will start isosorbide dinitrate 10 mg 3 times daily today along with carvedilol 3.125 mg twice daily Pulmo: Acute hypoxemic respiratory failure COPD [facility] /03/08/29 Continue with vent support keep sats >92% Albuterol/ipratropium aerosols every 4 hours with albuterol aerosols every 2 hours as needed dyspnea ICU vent bundle. Methylprednisolone succinate 40mg Q12 Spontaneous breathing trials daily Holding tiotropium 18 milligrams inhalation daily while on ventilator GI/liver: Gastroesophageal reflux disease Hypoalbuminemia On Glucerna 1.5 @60ml/hr we will switch to vital high-protein at 55 cc an hour/ nutrition's recommendations Pantoprazole 40 mg IV daily for GI prophylaxis Docusate calcium 240 mg by tube daily for bowel regimen FEN/renal/: Hyperkalemia Insulin/D50/calcium gluconate, sodium bicarbonate, Kayexalate now recheck 3 hours. Monitor renal function, electrolytes replacement per protocol Continue NS@75ml/hr-discontinued 05/15 Replace electrolytes as clinically indicated Heme: Microcytic anemia Leukocytosis Thrombocytopenia Follow CBC closely. Follow trends Endocrine: Chronic prednisone use Hypothyroidism Currently on methylprednisolone succinate 40 mg IV twice daily SSI Novulin R every 4 hours for glycemic control ( low scale) TSH: 1.49 ID: E. coli ESBL positive urinary tract infection Sidra albicans/kruzei urine colonization Continue abx per ID: Vanco, Micafungin, ertapenem. Monitor for signs of infections ( Fever, WBC) Blood 05/13: NGTD, Urine cx 05/13 Sidra cruisei Sputum cx 05/12: NGTD ESBL Escherichia coli in urine. 05/08 Monitor for signs of infections ( Fever, WBC) MSK: Elevated BMI Weight loss encouraged Prophylaxis: Pantoprazole/SCDs/subcutaneous heparin Level 3 Vinod Byrnes MD May 19, 2017 13:10
[2017-05-19] MEDS: MICAFUNGIN INJ 150 MG in SODIUM CHLORIDE 0.9% INJ 100 ML IV SCH (17:07)
[2017-05-19] MEDS: ERTAPENEM INJ 1,000 MG in SODIUM CHLORIDE 0.9% INJ 100 ML IV SCH (17:11)
[2017-05-19] MEDS: fentaNYL DRIP 250 ML IV PRN (20:03)
[2017-05-19 21:45] LABS: AUTOMATED NEUTROPHIL # 12.6 TH/MM3 (1.8-7.7); EOSINOPHIL % 0.1 % (0.0-4.0); HEMATOCRIT 31.3 % (35.0-46.0); HEMOGLOBIN 9.9 GM/DL (11.6-15.3); LYMPH % 2.9 % (9.0-44.0); LYMPHOCYTE # 0.4 TH/MM3 (1.0-4.8); MEAN CORPUSCULAR HEMOGLOBIN 28.7 PG (27.0-34.0); MEAN CORPUSCULAR HGB CONC 31.6 % (32.0-36.0); MEAN PLATELET VOLUME 8.1 FL (7.0-11.0); MONO % 3.3 % (0.0-8.0); MONOCYTE # 0.5 TH/MM3 (0-0.9); NEUT % 93.7 % (16.0-70.0); PLATELET COUNT 117 TH/MM3 (150-450); RED BLOOD COUNT 3.44 MIL/MM3 (4.00-5.30); RED CELL DISTRIBUTION WIDTH 15.6 % (11.6-17.2); WHITE BLOOD COUNT 13.5 TH/MM3 (4.0-11.0)
[2017-05-19 22:27] LABS: LYMPHOCYTES 5 % (9-44); MONOCYTES 3 % (0-8); MYELOCYTES 1 % (0-0); NEUTROPHIL # MANUAL DIFF 12.4 TH/MM3 (1.8-7.7); POLYS (SEG NEUTROPHILS) 91 % (16-70)
[2017-05-20] VITALS (14 sets, daily range): BP systolic 107–153; BP diastolic 56–98; PULSE 66–88; RESP 11–26; TEMP 98.5–99.4; O2SAT 96–100
[2017-05-20] MEDS: DEXAMETHASONE SOD PHOS 4 MG/ML VIAL IV PUSH SCH ×3 (01:00→17:40)
[2017-05-20] MEDS: RESP: ALBUTEROL 2.5 MG/IPRATROPIUM 0.5 MG NEB (SCH) NEB ×4 (04:10→21:04)
[2017-05-20] MEDS: INSULIN NovoLIN REGULAR SUPPLEMENTAL SCALE SQ SCH ×4 (05:34→17:41)
[2017-05-20] MEDS: fentaNYL DRIP 250 ML IV PRN (05:44)
[2017-05-20] MEDS: PRAMIPEXOLE DIHYDROCHLORIDE 0.25 MG TAB PO SCH ×3 (06:00→20:28)
[2017-05-20] MEDS: HEPARIN SODIUM - SQ 10,000 UNITS/ML VIAL SQ SCH ×3 (06:00→20:28)
[2017-05-20] MEDS: ARTIFICIAL TEARS OPTH SOLN 15 ML BTL EACH EYE SCH ×3 (06:00→20:30)
--- NOTE | 2017-05-20 06:57 | RADRPT ---
EXAM DATE/TIME: 05/20/2017 05:33 [place] COMPARISON: CHEST SINGLE AP, May 18, 2017, 12:20. INDICATIONS : Shortness of breath, possible pulmonary disease. MEDICAL HISTORY : Hypothyroidism. Hypertension Chronic obstructive pulmonary disease. A-Fib GERD SURGICAL HISTORY : None. ENCOUNTER: Subsequent ACUITY: 1 week PAIN SCORE: Non-responsive. LOCATION: Bilateral chest FINDINGS: Endotracheal tube tip remains projected in the right main bronchus there is persistent type vascular consolidation with loss of delineation of the left hemidiaphragm. Gastric tube tip projects within t he stomach. Moderate degenerative changes proximal right humerus. CONCLUSION: 1. Intubation of the right main bronchus. The tube needs to be withdrawn at least 2 cm. 2. Persistent bilateral lower lung infiltrates Mack Jimenez MD on May 20, 2017 at 6:54 Board Certified Radiologist. This report was verified electronically.
[2017-05-20] MEDS: CHLORHEXIDINE 0.12% (ORAL KIT) 15 ML CUP MT SCH ×4 (08:00→20:30)
[2017-05-20 08:06] LABS: AUTOMATED NEUTROPHIL # 9.6 TH/MM3 (1.8-7.7); BASOPHIL % 0.1 % (0.0-2.0); EOSINOPHIL # 0.1 TH/MM3 (0-0.4); EOSINOPHIL % 0.5 % (0.0-4.0); HEMATOCRIT 30.1 % (35.0-46.0); HEMOGLOBIN 9.7 GM/DL (11.6-15.3); LYMPH % 7.3 % (9.0-44.0); LYMPHOCYTE # 0.8 TH/MM3 (1.0-4.8); MEAN CELL VOLUME 90.6 FL (80.0-100.0); MEAN CORPUSCULAR HEMOGLOBIN 29.1 PG (27.0-34.0); MEAN CORPUSCULAR HGB CONC 32.2 % (32.0-36.0); MEAN PLATELET VOLUME 8.1 FL (7.0-11.0); MONO % 5.6 % (0.0-8.0); MONOCYTE # 0.6 TH/MM3 (0-0.9); NEUT % 86.5 % (16.0-70.0); PLATELET COUNT 120 TH/MM3 (150-450); RED BLOOD COUNT 3.32 MIL/MM3 (4.00-5.30); RED CELL DISTRIBUTION WIDTH 15.6 % (11.6-17.2); WHITE BLOOD COUNT 11.2 TH/MM3 (4.0-11.0)
[2017-05-20 08:29] LABS: AST (GOT) 12 U/L (15-37); BICARBONATE 31.8 MEQ/L (21.0-32.0); CHLORIDE 104 MEQ/L (98-107); CREATININE 0.42 MG/DL (0.50-1.00); GLOMERULAR FILTRATION RATE 146 ML/MIN (>89); SODIUM (NA) 141 MEQ/L (136-145)
[2017-05-20] MEDS ORDERED: RASS Change Order XX ONE (08:30)
[2017-05-20 08:40] LABS: ALBUMIN 2.9 GM/DL (3.4-5.0); ALKALINE PHOSPHATASE 64 U/L (45-117); ALT (GPT) 20 U/L (10-53); BLOOD UREA NITROGEN 24 MG/DL (7-18); CALCIUM 8.2 MG/DL (8.5-10.1); GLUCOSE,RANDOM 90 MG/DL (74-106); MAGNESIUM 2.3 MG/DL (1.5-2.5); PHOSPHORUS 3.5 MG/DL (2.5-4.9); TOTAL BILIRUBIN ADULT 0.6 MG/DL (0.2-1.0); TOTAL PROTEIN 5.8 GM/DL (6.4-8.2)
[2017-05-20 08:48] LABS: BANDS 2 % (0-6); LYMPHOCYTES 8 % (9-44); METAMYELOCYTES 1 % (0-1); MONOCYTES 8 % (0-8); MYELOCYTES 5 % (0-0); NEUTROPHIL # MANUAL DIFF 9.4 TH/MM3 (1.8-7.7); OVALOCYTES 1+ (NORMAL); POLYS (SEG NEUTROPHILS) 76 % (16-70)
[2017-05-20] MEDS ORDERED: DEXMEDETOMIDINE 200 MCG/50 ML Premix IV PRN (09:30)
[2017-05-20] MEDS: NYSTATIN 100,000 U/GM PWD 15 GM BTL TOPICAL SCH ×2 (09:45→20:30)
[2017-05-20] MEDS: ISOSORBIDE DINITRATE 5 MG TAB PO SCH ×3 (09:45→17:41)
[2017-05-20] MEDS: RESP: BUDESONIDE 0.5 MG/2 ML NEB NEB SCH ×2 (09:52→21:04)
[2017-05-20] MEDS: LACTOBACILLUS ACIDOPHILUS TAB PO SCH ×3 (09:53→17:41)
[2017-05-20] MEDS: DOCUSATE CALCIUM 240 MG CAP PO SCH (09:53)
[2017-05-20] MEDS: SERTRALINE HCL 100 MG TAB PO SCH (09:53)
[2017-05-20] MEDS: ASPIRIN 81 MG CHEW TAB PO SCH (09:53)
[2017-05-20] MEDS: CARVEDILOL 3.125 MG TAB PO SCH ×2 (09:53→20:28)
[2017-05-20] MEDS: SODIUM CHLORIDE 0.9% FLUSH 10 ML FLUSH IV FLUSH SCH ×2 (09:55→20:29)
[2017-05-20] MEDS: PANTOPRAZOLE SODIUM 40 MG VIAL IV PUSH SCH (09:55)
[2017-05-20] MEDS: PRAVASTATIN SOD 10 MG TAB PO SCH (09:56)
[2017-05-20] MEDS ORDERED: FUROSEMIDE 40 MG/4 ML VIAL IV PUSH ONE (10:30)
--- NOTE | 2017-05-20 10:35 | HHI.CCPN ---
Subjective Remarks/Hospital Course This is a 68-year-old female with past medical history as stated above who presented to [facility] sent from a [facility] on 05/08/17 due to respiratory distress. The patient has history of Alzheimer's as well as expressive aphasia and is unable to provide any history. Patient was admitted by hospitalist service and started on empiric antibiotics, IV Solu-Medrol as well as nebulizer treatments. no fever on presentation WBC 13 K+, blood clx w/ o growth, UA markedly abnormal, + culture ESBL+ E.coli almanzar was changed in ER, initially started on azactam, vanco, flagyl, subsequently changed to Primaxin, still on flagyl. flu was negative. ID consult was requested due to ESBL Escherichia coli UTI. Patient has persistent infiltrates on her chest x-ray from March. Today patient developed worsening CO2 retention with altered mental status. Serial ABGs showed rising PCO2 levels. Patient was eventually transferred to [facility] [place] and critical care consult was requested to evaluate for possible need for intubation. Patient's granddaughter was contacted by SEBASTIAN JACOBO and was informed regarding worsening condition and possible need for intubation which she agreed with if required. I evaluated the patient immediately on arrival to the ICU. At that time she was drowsy though arousable and was just being initiated on BiPAP. We will the upper extremity spontaneously at the time and appeared to be protecting her airway. 05/13 Patient is intubated and sedated with Diprivan.had 4L UOP overnight ( ? kinked Almanzar). Afebrile. 05/14 No events overnight. Sedated with Diprivan, Fentanyl and intubated. Afebrile. 05/15 remains intubated and sedated. On sedation hold opens eyes moving extremities. Failing CPAP due to low tidal volume 05/16: Remains intubated sedated with fall and fentanyl, ischial spontaneously open moves extremities did not consistently follow commands. Failed CPAP yesterday due to low tidal volumes. Fluid overloaded give 60 mg IV Lasix 1 today 05/17: Afebrile. Opens eyes spontaneously but not consistently following commands. Will attempt PSV trial again today. Currently on fentanyl and propofol drips. 05/18: Afebrile. FiO2 down to 30%. Potassium is 5.5 the a.m.. Receiving calcium gluconate 1 g, D50/insulin/bicarbonate and Kayexalate with a repeat in 3 hours. Awake and moving all 4 extremities but not following commands. Appears to be tracking. Will attempt extubation today Subjective 05/19: Failed extubation 05/02:17 hour. Desaturated. Reintubation with glide scope revealed possible airway edema. Started on dexamethasone. Granddaughter at bedside. Wish to be present with extubation occurs tomorrow evening. Request after 5 PM. Tolerating tube feeding. 05/20 Patient remains intubated on CPAP 16/07 with 35% FIO2. afebrile. Objective Vital Signs Date Time Temp Pulse Resp B/P (MAP) Pulse Ox O2 Delivery O2 Flow Rate FiO2 05/20/17 10:00 98 35 05/20/17 04:00 98.5 76 11 107/57 (74) 05/19/17 19:00 Mechanical Ventilator Intake and Output 05/20/17 05/20/17 05/21/17 08:00 16:00 00:00 Intake Total 610 ml Output Total 1300 ml Balance -690 ml Result Diagram: 05/20/17 0704 05/20/17 0704 Other Results Laboratory Tests Test 05/19/17 20:37 05/20/17 04:28 05/20/17 07:04 White Blood Count 13.5 TH/MM3 11.2 TH/MM3 Red Blood Count 3.44 MIL/MM3 3.32 MIL/MM3 Hemoglobin 9.9 GM/DL 9.7 GM/DL Hematocrit 31.3 % 30.1 % Mean Corpuscular Volume 91.0 FL 90.6 FL Mean Corpuscular Hemoglobin 28.7 PG 29.1 PG Mean Corpuscular Hemoglobin Concent 31.6 % 32.2 % Red Cell Distribution Width 15.6 % 15.6 % Platelet Count 117 TH/MM3 120 TH/MM3 Mean Platelet Volume 8.1 FL 8.1 FL Neutrophils (%) (Auto) 93.7 % 86.5 % Lymphocytes (%) (Auto) 2.9 % 7.3 % Monocytes (%) (Auto) 3.3 % 5.6 % Eosinophils (%) (Auto) 0.1 % 0.5 % Basophils (%) (Auto) 0.0 % 0.1 % Neutrophils # (Auto) 12.6 TH/MM3 9.6 TH/MM3 Lymphocytes # (Auto) 0.4 TH/MM3 0.8 TH/MM3 Monocytes # (Auto) 0.5 TH/MM3 0.6 TH/MM3 Eosinophils # (Auto) 0.0 TH/MM3 0.1 TH/MM3 Basophils # (Auto) 0.0 TH/MM3 0.0 TH/MM3 CBC Comment AUTO DIFF AUTO DIFF Differential Total Cells Counted 100 100 Neutrophils % (Manual) 91 % 76 % Lymphocytes % 5 % 8 % Monocytes % 3 % 8 % Neutrophils # (Manual) 12.4 TH/MM3 9.4 TH/MM3 Myelocytes 1 % 5 % Differential Comment FINAL DIFF MANUAL FINAL DIFF MANUAL Platelet Estimate LOW LOW Platelet Morphology Comment NORMAL NORMAL Red Cell Morphology Comment NORMAL Lab Scanned Report Lab Reports - Other [id number] Band Neutrophils % 2 % Metamyelocytes 1 % Ovalocytes 1+ Blood Urea Nitrogen 24 MG/DL Creatinine 0.42 MG/DL Random Glucose 90 MG/DL Total Protein 5.8 GM/DL Albumin 2.9 GM/DL Calcium Level 8.2 MG/DL Phosphorus Level 3.5 MG/DL Magnesium Level 2.3 MG/DL Alkaline Phosphatase 64 U/L Aspartate Amino Transf (AST/SGOT) 12 U/L Alanine Aminotransferase (ALT/SGPT) 20 U/L Total Bilirubin 0.6 MG/DL Sodium Level 141 MEQ/L Potassium Level 4.0 MEQ/L Chloride Level 104 MEQ/L Carbon Dioxide Level 31.8 MEQ/L Anion Gap 5 MEQ/L Estimat Glomerular Filtration Rate 146 ML/MIN Imaging Last Impressions Chest X-Ray 05/20/17 0600 Signed Impressions: Service Date/Time: Saturday, May 20, 2017 05:33 - CONCLUSION: 1. Intubation of the right main bronchus. The tube needs to be withdrawn at least 2 cm. 2. Persistent bilateral lower lung infiltrates Mack Jimenez MD Chest CT 05/10/17 0000 Signed Impressions: Service Date/Time: Wednesday, May 10, 2017 17:28 - CONCLUSION: Patchy air space disease right mid and lower lung with platelike peripheral consolidation. . This associated with trace pleural effusion.. Harshil Ortiz MD FACR Objective Remarks GENERAL: Patient is 76 yo female currently orotracheally intubated SKIN: Warm and dry. Chronic venous stasis bilateral lower extremities HEAD: Normocephalic. EYES: No scleral icterus. No injection or drainage. Pupils are round 3 mm bilaterally and reactive. NECK: Supple, trachea midline. No JVD or lymphadenopathy. CARDIOVASCULAR: Regular rate and rhythm S1, S2. No S4. Without murmurs, gallops, or rubs. RESPIRATORY: Breath sounds equal bilaterally. Symmetrical excursion GASTROINTESTINAL: Abdomen soft, non-tender, nondistended. Hypoactive bowel sounds are appreciated MUSCULOSKELETAL: No cyanosis, or edema. Neuro: sedated. Cranial nerves II through XII appear grossly intact. Strength is equal symmetric. Normal sensation A/P Assessment and Plan Neuro/Psych: Dementia disorder NOS Restless leg syndrome Hard of hearing Metabolic encephalopathy History of CVA Depression disorder NOS On low dose fentanyl infusion however she is awake and alert Goal of RASS -2 Daily sedation vacation. Continue sertraline 200 mg by tube daily Continue pramipexole 0.75 mg every 8 hours for restless leg syndrome CV: Atrial fibrillation Essential hypertension Dyslipidemia Coronary artery disease Monitor HR and BP keep MAP>65mmHg On ASA 81 mg daily, On pravastatin 10 mg p.o. daily for dyslipidemia. On Isordil 5mg TID Home medications include carvedilol 3.125 mg p.o. twice daily, isosorbide mononitrate 30 mg daily and Aldactone 25 mg daily. Will start isosorbide dinitrate 10 mg 3 times daily today along with carvedilol 3.125 mg twice daily Pulmo: Acute hypoxemic respiratory failure- extubated and reintubated 05/18 [facility] Continue with vent support keep sats >92% Albuterol/ipratropium aerosols every 4 hours with albuterol aerosols every 2 hours as needed dyspnea ICU vent bundle. On Decadron 5mg IV Q8 for possible airway edema noted during reintubation. CXR today reviewed retract ETT 2 cm- discussed with RT. Spontaneous breathing trials daily Holding tiotropium 18 milligrams inhalation daily while on ventilator GI/liver: Gastroesophageal reflux disease Hypoalbuminemia On Glucerna 1.5 @60ml/hr we will switch to vital high-protein at 55 cc an hour/ nutrition's recommendations Pantoprazole 40 mg IV daily for GI prophylaxis Docusate calcium 240 mg by tube daily for bowel regimen FEN/renal/: Hyperkalemia Monitor renal function, electrolytes replacement per protocol Diurese with Lasix 40mg x1 Heme: Microcytic anemia Leukocytosis Thrombocytopenia Follow CBC closely. Follow trends Endocrine: Chronic prednisone use Hypothyroidism On Decadron 4mg Q8 SSI Novulin R every 4 hours for glycemic control ( low scale) TSH: 1.49 ID: E. coli ESBL positive urinary tract infection Sidra albicans/kruzei urine colonization Continue abx per ID: Micafungin, ertapenem. Monitor for signs of infections ( Fever, WBC) Blood 05/13: NGTD, Urine cx 05/13 Sidra cruisei Sputum cx 05/12: NGTD ESBL Escherichia coli in urine. 05/08 Monitor for signs of infections ( Fever, WBC) MSK: Elevated BMI Weight loss encouraged Prophylaxis: Pantoprazole/SCDs/subcutaneous heparin Level 3 Leonides Nash MD May 20, 2017 10:35
[2017-05-20] MEDS ORDERED: DEXMEDETOMIDINE 200 MCG in NS 48 ML IV PRN (14:15)
[2017-05-20] MEDS: MICAFUNGIN INJ 150 MG in SODIUM CHLORIDE 0.9% INJ 100 ML IV SCH (17:40)
[2017-05-20] MEDS: ERTAPENEM INJ 1,000 MG in SODIUM CHLORIDE 0.9% INJ 100 ML IV SCH (17:41)
[2017-05-20] MEDS: DEXMEDETOMIDINE INJ 1,000 MCG in SODIUM CHLOR 0.9% 250 ML INJ 240 ML IV PRN (20:33)
[2017-05-21] VITALS (21 sets, daily range): BP systolic 90–204; BP diastolic 51–113; PULSE 67–88; RESP 15–29; TEMP 98–98.9; O2SAT 93–100
[2017-05-21] MEDS: DEXAMETHASONE SOD PHOS 4 MG/ML VIAL IV PUSH SCH ×3 (00:23→17:38)
[2017-05-21] MEDS: hydrALAZINE HCL 20 MG/ML VIAL IV PUSH PRN (03:14)
[2017-05-21] MEDS: DEXMEDETOMIDINE INJ 1,000 MCG in SODIUM CHLOR 0.9% 250 ML INJ 240 ML IV PRN ×2 (04:02→21:46)
[2017-05-21] MEDS: HEPARIN SODIUM - SQ 10,000 UNITS/ML VIAL SQ SCH ×3 (04:09→21:45)
[2017-05-21] MEDS: PRAMIPEXOLE DIHYDROCHLORIDE 0.25 MG TAB PO SCH ×3 (04:09→21:44)
[2017-05-21] MEDS: ARTIFICIAL TEARS OPTH SOLN 15 ML BTL EACH EYE SCH ×3 (04:10→21:44)
[2017-05-21] MEDS: RESP: ALBUTEROL 2.5 MG/IPRATROPIUM 0.5 MG NEB (SCH) NEB ×4 (04:17→21:53)
[2017-05-21] MEDS: INSULIN NovoLIN REGULAR SUPPLEMENTAL SCALE SQ SCH ×4 (05:46→18:00)
[2017-05-21 06:14] LABS: AUTOMATED NEUTROPHIL # 7.3 TH/MM3 (1.8-7.7); BASOPHIL % 0.1 % (0.0-2.0); EOSINOPHIL % 0.2 % (0.0-4.0); HEMATOCRIT 34.1 % (35.0-46.0); HEMOGLOBIN 11.2 GM/DL (11.6-15.3); LYMPH % 13.5 % (9.0-44.0); LYMPHOCYTE # 1.2 TH/MM3 (1.0-4.8); MEAN CELL VOLUME 89.7 FL (80.0-100.0); MEAN CORPUSCULAR HEMOGLOBIN 29.5 PG (27.0-34.0); MEAN CORPUSCULAR HGB CONC 32.8 % (32.0-36.0); MONO % 6.5 % (0.0-8.0); MONOCYTE # 0.6 TH/MM3 (0-0.9); NEUT % 79.7 % (16.0-70.0); PLATELET COUNT 124 TH/MM3 (150-450); RED CELL DISTRIBUTION WIDTH 15.2 % (11.6-17.2); WHITE BLOOD COUNT 9.2 TH/MM3 (4.0-11.0)
[2017-05-21 06:30] LABS: BICARBONATE 30.1 MEQ/L (21.0-32.0); CREATININE 0.49 MG/DL (0.50-1.00); PHOSPHORUS 2.3 MG/DL (2.5-4.9)
[2017-05-21] MEDS: ISOSORBIDE DINITRATE 5 MG TAB PO SCH ×3 (08:00→17:38)
[2017-05-21] MEDS: CHLORHEXIDINE 0.12% (ORAL KIT) 15 ML CUP MT SCH ×4 (08:00→21:44)
[2017-05-21 08:01] LABS: BANDS 6 % (0-6); LYMPHOCYTES 11 % (9-44); MONOCYTES 7 % (0-8); MYELOCYTES 2 % (0-0); NEUTROPHIL # MANUAL DIFF 7.5 TH/MM3 (1.8-7.7); POLYS (SEG NEUTROPHILS) 74 % (16-70)
[2017-05-21 08:02] LABS: OVALOCYTES 1+ (NORMAL)
[2017-05-21] MEDS: PRAVASTATIN SOD 10 MG TAB PO SCH (09:00)
[2017-05-21] MEDS: DOCUSATE CALCIUM 240 MG CAP PO SCH (09:00)
[2017-05-21] MEDS: PANTOPRAZOLE SODIUM 40 MG VIAL IV PUSH SCH (09:42)
[2017-05-21] MEDS: SODIUM CHLORIDE 0.9% FLUSH 10 ML FLUSH IV FLUSH SCH ×2 (09:42→21:44)
[2017-05-21] MEDS: LACTOBACILLUS ACIDOPHILUS TAB PO SCH ×3 (09:43→17:38)
[2017-05-21] MEDS: ASPIRIN 81 MG CHEW TAB PO SCH (09:44)
[2017-05-21] MEDS: SERTRALINE HCL 100 MG TAB PO SCH (09:44)
[2017-05-21] MEDS: NYSTATIN 100,000 U/GM PWD 15 GM BTL TOPICAL SCH ×2 (09:47→21:44)
--- NOTE | 2017-05-21 10:09 | HHI.CCPN ---
Subjective Remarks/Hospital Course This is a 68-year-old female with past medical history as stated above who presented to [facility] sent from a detention on 05/08/17 due to respiratory distress. The patient has history of Alzheimer's as well as expressive aphasia and is unable to provide any history. Patient was admitted by hospitalist service and started on empiric antibiotics, IV Solu-Medrol as well as nebulizer treatments. no fever on presentation WBC 13 K+, blood clx w/ o growth, UA markedly abnormal, + culture ESBL+ E.coli almanzar was changed in ER, initially started on azactam, vanco, flagyl, subsequently changed to Primaxin, still on flagyl. flu was negative. ID consult was requested due to ESBL Escherichia coli UTI. Patient has persistent infiltrates on her chest x-ray from March. Today patient developed worsening CO2 retention with altered mental status. Serial ABGs showed rising PCO2 levels. Patient was eventually transferred to [facility] and critical care consult was requested to evaluate for possible need for intubation. Patient's granddaughter was contacted by SEBASTIAN JACOBO and was informed regarding worsening condition and possible need for intubation which she agreed with if required. I evaluated the patient immediately on arrival to the ICU. At that time she was drowsy though arousable and was just being initiated on BiPAP. We will the upper extremity spontaneously at the time and appeared to be protecting her airway. 05/13 Patient is intubated and sedated with Diprivan.had 4L UOP overnight ( ? kinked Almanzar). Afebrile. 05/14 No events overnight. Sedated with Diprivan, Fentanyl and intubated. Afebrile. 05/15 remains intubated and sedated. On sedation hold opens eyes moving extremities. Failing CPAP due to low tidal volume 05/16: Remains intubated sedated with fall and fentanyl, ischial spontaneously open moves extremities did not consistently follow commands. Failed CPAP yesterday due to low tidal volumes. Fluid overloaded give 60 mg IV Lasix 1 today 05/17: Afebrile. Opens eyes spontaneously but not consistently following commands. Will attempt PSV trial again today. Currently on fentanyl and propofol drips. 05/18: Afebrile. FiO2 down to 30%. Potassium is 5.5 the a.m.. Receiving calcium gluconate 1 g, D50/insulin/bicarbonate and Kayexalate with a repeat in 3 hours. Awake and moving all 4 extremities but not following commands. Appears to be tracking. Will attempt extubation today Subjective 05/19: Failed extubation 05/02:17 hour. Desaturated. Reintubation with glide scope revealed possible airway edema. Started on dexamethasone. Granddaughter at bedside. Wish to be present with extubation occurs tomorrow evening. Request after 5 PM. Tolerating tube feeding. 05/20 Patient remains intubated on CPAP 15 with 35% FIO2. afebrile. 05/21 Patient remains intubated and on Precedex drip. Afebrile. Objective Vital Signs Date Time Temp Pulse Resp B/P (MAP) Pulse Ox O2 Delivery O2 Flow Rate FiO2 05/21/17 08:23 35 05/21/17 08:23 93 05/21/17 04:00 98.0 67 21 117/78 (91) 05/19/17 19:00 Mechanical Ventilator Intake and Output 05/21/17 05/21/17 05/22/17 08:00 16:00 00:00 Intake Total 979 ml Output Total 1700 ml Balance -721 ml Result Diagram: 05/21/17 0457 05/21/17 0451 Other Results Laboratory Tests Test 05/21/17 04:51 05/21/17 04:57 Blood Urea Nitrogen 26 MG/DL Creatinine 0.49 MG/DL Random Glucose 99 MG/DL Calcium Level 9.0 MG/DL Phosphorus Level 2.3 MG/DL Magnesium Level 2.0 MG/DL Sodium Level 136 MEQ/L Potassium Level 3.8 MEQ/L Chloride Level 97 MEQ/L Carbon Dioxide Level 30.1 MEQ/L Anion Gap 9 MEQ/L Estimat Glomerular Filtration Rate 122 ML/MIN White Blood Count 9.2 TH/MM3 Red Blood Count 3.80 MIL/MM3 Hemoglobin 11.2 GM/DL Hematocrit 34.1 % Mean Corpuscular Volume 89.7 FL Mean Corpuscular Hemoglobin 29.5 PG Mean Corpuscular Hemoglobin Concent 32.8 % Red Cell Distribution Width 15.2 % Platelet Count 124 TH/MM3 Mean Platelet Volume 8.0 FL Neutrophils (%) (Auto) 79.7 % Lymphocytes (%) (Auto) 13.5 % Monocytes (%) (Auto) 6.5 % Eosinophils (%) (Auto) 0.2 % Basophils (%) (Auto) 0.1 % Neutrophils # (Auto) 7.3 TH/MM3 Lymphocytes # (Auto) 1.2 TH/MM3 Monocytes # (Auto) 0.6 TH/MM3 Eosinophils # (Auto) 0.0 TH/MM3 Basophils # (Auto) 0.0 TH/MM3 CBC Comment AUTO DIFF Differential Total Cells Counted 100 Neutrophils % (Manual) 74 % Band Neutrophils % 6 % Lymphocytes % 11 % Monocytes % 7 % Neutrophils # (Manual) 7.5 TH/MM3 Myelocytes 2 % Differential Comment FINAL DIFF MANUAL Platelet Estimate LOW Platelet Morphology Comment NORMAL Ovalocytes 1+ Imaging Last Impressions Chest X-Ray 05/20/17 0600 Signed Impressions: Service Date/Time: Saturday, May 20, 2017 05:33 - CONCLUSION: 1. Intubation of the right main bronchus. The tube needs to be withdrawn at least 2 cm. 2. Persistent bilateral lower lung infiltrates Mack Jimenez MD Chest CT 05/10/17 0000 Signed Impressions: Service Date/Time: Wednesday, May 10, 2017 17:28 - CONCLUSION: Patchy air space disease right mid and lower lung with platelike peripheral consolidation. . This associated with trace pleural effusion.. Harshil Ortiz MD FACR Objective Remarks GENERAL: Patient is 76 yo female currently orotracheally intubated SKIN: Warm and dry. Chronic venous stasis bilateral lower extremities HEAD: Normocephalic. EYES: No scleral icterus. No injection or drainage. Pupils are round 3 mm bilaterally and reactive. NECK: Supple, trachea midline. No JVD or lymphadenopathy. CARDIOVASCULAR: Regular rate and rhythm S1, S2. No S4. Without murmurs, gallops, or rubs. RESPIRATORY: Breath sounds equal bilaterally. Symmetrical excursion GASTROINTESTINAL: Abdomen soft, non-tender, nondistended. Hypoactive bowel sounds are appreciated MUSCULOSKELETAL: No cyanosis, or edema. Neuro: sedated. Cranial nerves II through XII appear grossly intact. Strength is equal symmetric. Normal sensation A/P Assessment and Plan Neuro/Psych: Dementia disorder NOS Restless leg syndrome Hard of hearing Metabolic encephalopathy History of CVA Depression disorder NOS On Precedex drip for agitation and to facilitate with weaning trials. Goal of RASS -2 Daily sedation vacation. Continue sertraline 200 mg by tube daily Continue pramipexole 0.75 mg every 8 hours for restless leg syndrome CV: Atrial fibrillation Essential hypertension Dyslipidemia Coronary artery disease Monitor HR and BP keep MAP>65mmHg On ASA 81 mg daily, On pravastatin 10 mg p.o. daily for dyslipidemia. On Isordil 5mg TID Home medications include carvedilol 3.125 mg p.o. twice daily, isosorbide mononitrate 30 mg daily and Aldactone 25 mg daily. Will start isosorbide dinitrate 10 mg 3 times daily today along with carvedilol 3.125 mg twice daily Pulmo: Acute hypoxemic respiratory failure- extubated and reintubated 05/18 COPD [facility] 16/500/03/08/29 Continue with vent support keep sats >92% Albuterol/ipratropium aerosols every 4 hours with albuterol aerosols every 2 hours as needed dyspnea ICU vent bundle. On Decadron 4mg IV Q8 for possible airway edema noted during reintubation. Patient tolerated CPAP trials yesterday however she did not have a cuff leak Check CXR Spontaneous breathing trials daily Holding tiotropium 18 milligrams inhalation daily while on ventilator GI/liver: Gastroesophageal reflux disease Hypoalbuminemia On vital high-protein at 55 cc an hour/nutrition's recommendations Pantoprazole 40 mg IV daily for GI prophylaxis Docusate calcium 240 mg by tube daily for bowel regimen FEN/renal/: Monitor renal function, electrolytes replacement per protocol s/p Lasix 40mg x1 yesterday, Heme: Microcytic anemia Leukocytosis Thrombocytopenia Follow CBC closely. Follow trends Endocrine: Chronic prednisone use Hypothyroidism On Decadron 4mg Q8 SSI Novulin R every 4 hours for glycemic control ( low scale) TSH: 1.49 ID: E. coli ESBL positive urinary tract infection Sidra albicans/kruzei urine colonization Continue abx per ID: Micafungin, ertapenem. Monitor for signs of infections ( Fever, WBC) Blood 05/13: NGTD, Urine cx 05/13 Sidra cruisei Sputum cx 05/12: NGTD ESBL Escherichia coli in urine. 05/08 Monitor for signs of infections ( Fever, WBC) MSK: Elevated BMI Weight loss encouraged Prophylaxis: Pantoprazole/SCDs/subcutaneous heparin Level 3 Leonides Nash MD May 21, 2017 10:09
--- NOTE | 2017-05-21 10:48 | RADRPT ---
EXAM DATE/TIME: 05/21/2017 10:10 [facility] COMPARISON: CHEST SINGLE AP, May 20, 2017, 5:33. INDICATIONS : Respiratory failure, VDRL, pneumonia MEDICAL HISTORY : Chronic obstructive pulmonary disease. Hypertension Gastroesophageal reflux disease. A-fib SURGICAL HISTORY : None. ENCOUNTER: Subsequent ACUITY: 1 week PAIN SCORE: Non-responsive. LOCATION: Bilateral chest FINDINGS: There continue to be some scattered infiltrates in both lung bases. The ET tube tip is at the emma. There is no evidence of pneumothorax. Heart size is enlarged but stable. No other significant change s are seen compared to the prior study. CONCLUSION: 1. The tip of the endotracheal tube is right at the emma. Recommend pull back by 1-2 cm. 2. No pneumothorax. 3. No change in the bibasilar infiltrates. Prakash Marquez MD on May 21, 2017 at 10:45 Board Certified Radiologist. This report was verified electronically.
[2017-05-21] MEDS: CARVEDILOL 3.125 MG TAB PO SCH ×2 (12:00→21:44)
[2017-05-21] MEDS: MICAFUNGIN INJ 150 MG in SODIUM CHLORIDE 0.9% INJ 100 ML IV SCH (15:20)
[2017-05-21] MEDS: ERTAPENEM INJ 1,000 MG in SODIUM CHLORIDE 0.9% INJ 100 ML IV SCH (17:37)
[2017-05-21] MEDS: RESP: BUDESONIDE 0.5 MG/2 ML NEB NEB SCH (21:53)
[2017-05-22] VITALS (16 sets, daily range): BP systolic 103–182; BP diastolic 59–93; PULSE 66–89; RESP 16–37; TEMP 98.3–98.8; O2SAT 87–99
[2017-05-22] MEDS: hydrALAZINE HCL 20 MG/ML VIAL IV PUSH PRN (00:06)
[2017-05-22] MEDS: DEXAMETHASONE SOD PHOS 4 MG/ML VIAL IV PUSH SCH ×3 (00:06→16:41)
[2017-05-22] MEDS: RESP: ALBUTEROL 2.5 MG/IPRATROPIUM 0.5 MG NEB (SCH) NEB ×4 (03:45→21:37)
[2017-05-22] MEDS: HEPARIN SODIUM - SQ 10,000 UNITS/ML VIAL SQ SCH ×3 (04:58→21:00)
[2017-05-22] MEDS: PRAMIPEXOLE DIHYDROCHLORIDE 0.25 MG TAB PO SCH ×3 (04:58→21:00)
[2017-05-22] MEDS: ARTIFICIAL TEARS OPTH SOLN 15 ML BTL EACH EYE SCH ×3 (04:58→21:01)
[2017-05-22] MEDS: INSULIN NovoLIN REGULAR SUPPLEMENTAL SCALE SQ SCH ×5 (05:47→23:52)
--- NOTE | 2017-05-22 07:54 | HHI.CCPN ---
Subjective Remarks/Hospital Course This is a 68-year-old female with past medical history as stated above who presented to [facility] sent from a long-term on 05/08/17 due to respiratory distress. The patient has history of Alzheimer's as well as expressive aphasia and is unable to provide any history. Patient was admitted by hospitalist service and started on empiric antibiotics, IV Solu-Medrol as well as nebulizer treatments. no fever on presentation WBC 13 K+, blood clx w/ o growth, UA markedly abnormal, + culture ESBL+ E.coli almanzar was changed in ER, initially started on azactam, vanco, flagyl, subsequently changed to Primaxin, still on flagyl. flu was negative. ID consult was requested due to ESBL Escherichia coli UTI. Patient has persistent infiltrates on her chest x-ray from March. Today patient developed worsening CO2 retention with altered mental status. Serial ABGs showed rising PCO2 levels. Patient was eventually transferred to [facility] and critical care consult was requested to evaluate for possible need for intubation. Patient's granddaughter was contacted by SEBASTIAN JACOBO and was informed regarding worsening condition and possible need for intubation which she agreed with if required. I evaluated the patient immediately on arrival to the ICU. At that time she was drowsy though arousable and was just being initiated on BiPAP. We will the upper extremity spontaneously at the time and appeared to be protecting her airway. 05/13 Patient is intubated and sedated with Diprivan.had 4L UOP overnight ( ? kinked Almanzar). Afebrile. 05/14 No events overnight. Sedated with Diprivan, Fentanyl and intubated. Afebrile. 05/15 remains intubated and sedated. On sedation hold opens eyes moving extremities. Failing CPAP due to low tidal volume 05/16: Remains intubated sedated with fall and fentanyl, ischial spontaneously open moves extremities did not consistently follow commands. Failed CPAP yesterday due to low tidal volumes. Fluid overloaded give 60 mg IV Lasix 1 today 05/17: Afebrile. Opens eyes spontaneously but not consistently following commands. Will attempt PSV trial again today. Currently on fentanyl and propofol drips. 05/18: Afebrile. FiO2 down to 30%. Potassium is 5.5 the a.m.. Receiving calcium gluconate 1 g, D50/insulin/bicarbonate and Kayexalate with a repeat in 3 hours. Awake and moving all 4 extremities but not following commands. Appears to be tracking. Will attempt extubation today Subjective 05/19: Failed extubation 05/02:17 hour. Desaturated. Reintubation with glide scope revealed possible airway edema. Started on dexamethasone. Granddaughter at bedside. Wish to be present with extubation occurs tomorrow evening. Request after 5 PM. Tolerating tube feeding. 05/20 Patient remains intubated on CPAP 16/07 with 35% FIO2. afebrile. 05/21 Patient remains intubated and on Precedex drip. Afebrile. 05/22: Remains intubated sedated with Precedex but wakes up easily follows basic commands. Placed on CPAP, tolerating. Has mild cuff leak. Granddaughter at the bedside updated Objective Vital Signs Date Time Temp Pulse Resp B/P (MAP) Pulse Ox O2 Delivery O2 Flow Rate FiO2 05/22/17 07:30 35 05/22/17 04:17 98 05/22/17 04:00 98.4 66 16 126/69 (88) 05/19/17 19:00 Mechanical Ventilator Intake and Output 05/22/17 05/22/17 05/23/17 08:00 16:00 00:00 Intake Total 899 ml Output Total 1550 ml Balance -651 ml Result Diagram: 05/21/17 0457 05/21/17 0451 Imaging Last Impressions Chest X-Ray 05/20/17 0600 Signed Impressions: Service Date/Time: Saturday, May 20, 2017 05:33 - CONCLUSION: 1. Intubation of the right main bronchus. The tube needs to be withdrawn at least 2 cm. 2. Persistent bilateral lower lung infiltrates Mack Jimenez MD Chest CT 05/10/17 0000 Signed Impressions: Service Date/Time: Wednesday, May 10, 2017 17:28 - CONCLUSION: Patchy air space disease right mid and lower lung with platelike peripheral consolidation. . This associated with trace pleural effusion.. Harshil Ortiz MD FACR Objective Remarks GENERAL: Patient is 76 yo female currently orotracheally intubated SKIN: Warm and dry. Chronic venous stasis bilateral lower extremities HEAD: Normocephalic. EYES: No scleral icterus. No injection or drainage. Pupils are round 3 mm bilaterally and reactive. NECK: Supple, trachea midline. No JVD or lymphadenopathy. CARDIOVASCULAR: Regular rate and rhythm S1, S2. No S4. Without murmurs, gallops, or rubs. RESPIRATORY: Breath sounds equal bilaterally. Symmetrical excursion GASTROINTESTINAL: Abdomen soft, non-tender, nondistended. Hypoactive bowel sounds are appreciated MUSCULOSKELETAL: No cyanosis, or edema. Neuro: On Precedex but awake alert follows basic commands. Strength is equal symmetric. A/P Assessment and Plan Neuro/Psych: Dementia disorder NOS Restless leg syndrome Hard of hearing Metabolic encephalopathy History of CVA Depression disorder NOS On Precedex drip for agitation and to facilitate with weaning trials. Goal of RASS -1. Daily sedation vacation. Continue sertraline 200 mg by tube daily Continue pramipexole 0.75 mg every 8 hours for restless leg syndrome CV: Atrial fibrillation Essential hypertension Dyslipidemia Coronary artery disease Monitor HR and BP keep MAP>65mmHg On ASA 81 mg daily, On pravastatin 10 mg p.o. daily for dyslipidemia. On Isordil 5mg TID Home medications include carvedilol 3.125 mg p.o. twice daily, isosorbide mononitrate 30 mg daily and Aldactone 25 mg daily. Started on isosorbide dinitrate 10 mg 3 times daily today along with carvedilol 3.125 mg twice daily Pulmo: Acute hypoxemic respiratory failure- extubated and reintubated 05/18 Upper airway obstruction stridor 05/18/2017 COPD [facility] 16/500/03/08/29 Continue with vent support keep sats >92% Albuterol/ipratropium aerosols every 4 hours with albuterol aerosols every 2 hours as needed dyspnea ICU vent bundle. On Decadron 4mg IV Q8 for possible airway edema noted during reintubation. Positive cuff leak. Extubate if she passes SBT Check CXR Holding tiotropium 18 milligrams inhalation daily while on ventilator GI/liver: Gastroesophageal reflux disease Hypoalbuminemia On vital high-protein at 55 cc an hour/nutrition's recommendations Pantoprazole 40 mg IV daily for GI prophylaxis Docusate calcium 240 mg by tube daily for bowel regimen FEN/renal/: Monitor renal function, electrolytes replacement per protocol s/p Lasix 40mg x1 with KCL replacement Heme: Microcytic anemia Leukocytosis Thrombocytopenia Follow CBC closely. Follow trends Endocrine: Chronic prednisone use Hypothyroidism On Decadron 4mg Q8 SSI Novolin R every 4 hours for glycemic control ( low scale) TSH: 1.49 ID: E. coli ESBL positive urinary tract infection Sidra albicans/kruzei urine colonization Continue abx per ID: Micafungin, ertapenem. Monitor for signs of infections ( Fever, WBC) Blood 05/13: NGTD, Urine cx 05/13 Sidra cruisei Sputum cx 05/12: NGTD ESBL Escherichia coli in urine. 05/08 Monitor for signs of infections ( Fever, WBC) MSK: Elevated BMI Weight loss encouraged Prophylaxis: Pantoprazole/SCDs/subcutaneous heparin Level 3 Mika Mejia MD May 22, 2017 07:54
[2017-05-22] MEDS ORDERED: RESP: RACEPINEPHRINE 2.25% 0.5 ML NEB NEB PRN (08:00)
[2017-05-22] MEDS: ISOSORBIDE DINITRATE 5 MG TAB PO SCH ×3 (08:00→15:45)
[2017-05-22] MEDS: CHLORHEXIDINE 0.12% (ORAL KIT) 15 ML CUP MT SCH ×4 (08:00→20:00)
[2017-05-22] MEDS ORDERED: FUROSEMIDE 40 MG/4 ML VIAL IV PUSH ONE (08:00)
[2017-05-22] MEDS ORDERED: POTASSIUM CHLORIDE 25 MEQ EFFERVESCENT TAB PO ONE (08:00)
[2017-05-22] MEDS ORDERED: RESP: RACEPINEPHRINE 2.25% 0.5 ML NEB NEB ONE (08:00)
[2017-05-22] MEDS: RESP: BUDESONIDE 0.5 MG/2 ML NEB NEB SCH ×2 (08:01→21:37)
[2017-05-22 08:08] LABS: AUTOMATED NEUTROPHIL # 7.9 TH/MM3 (1.8-7.7); BASOPHIL % 0.2 % (0.0-2.0); EOSINOPHIL % 0.3 % (0.0-4.0); HEMATOCRIT 34.3 % (35.0-46.0); HEMOGLOBIN 11.2 GM/DL (11.6-15.3); LYMPH % 9.9 % (9.0-44.0); LYMPHOCYTE # 0.9 TH/MM3 (1.0-4.8); MEAN CELL VOLUME 90.3 FL (80.0-100.0); MEAN CORPUSCULAR HEMOGLOBIN 29.3 PG (27.0-34.0); MEAN CORPUSCULAR HGB CONC 32.5 % (32.0-36.0); MEAN PLATELET VOLUME 7.8 FL (7.0-11.0); MONO % 6.9 % (0.0-8.0); MONOCYTE # 0.7 TH/MM3 (0-0.9); NEUT % 82.7 % (16.0-70.0); PLATELET COUNT 137 TH/MM3 (150-450); RED CELL DISTRIBUTION WIDTH 15.8 % (11.6-17.2); WHITE BLOOD COUNT 9.6 TH/MM3 (4.0-11.0)
[2017-05-22 08:28] LABS: BICARBONATE 29.3 MEQ/L (21.0-32.0); CALCIUM 8.4 MG/DL (8.5-10.1); CREATININE 0.46 MG/DL (0.50-1.00); PHOSPHORUS 2.8 MG/DL (2.5-4.9)
[2017-05-22] MEDS: PANTOPRAZOLE SODIUM 40 MG VIAL IV PUSH SCH (08:35)
[2017-05-22] MEDS: LACTOBACILLUS ACIDOPHILUS TAB PO SCH ×3 (08:35→17:53)
[2017-05-22] MEDS: PRAVASTATIN SOD 10 MG TAB PO SCH (08:35)
[2017-05-22] MEDS: SODIUM CHLORIDE 0.9% FLUSH 10 ML FLUSH IV FLUSH SCH ×2 (08:36→20:59)
[2017-05-22] MEDS: ASPIRIN 81 MG CHEW TAB PO SCH (08:36)
[2017-05-22] MEDS: SERTRALINE HCL 100 MG TAB PO SCH (08:51)
[2017-05-22] MEDS: NYSTATIN 100,000 U/GM PWD 15 GM BTL TOPICAL SCH ×2 (08:52→20:59)
[2017-05-22] MEDS: DOCUSATE CALCIUM 240 MG CAP PO SCH (09:00)
[2017-05-22] MEDS ORDERED: ALBUMIN 25% INJ 100 ML IV ONE (09:06)
--- NOTE | 2017-05-22 09:11 | RADRPT ---
EXAM DATE/TIME: 05/22/2017 08:08 [facility] COMPARISON: CHEST SINGLE AP, May 21, 2017, 10:10. INDICATIONS : Respiratory disease. MEDICAL HISTORY : Chronic obstructive pulmonary disease. Hypertension Gastroesophageal reflux disease. Atrial fibri lation. SURGICAL HISTORY : None. ENCOUNTER: Subsequent ACUITY: 1 week PAIN SCORE: Non-responsive. LOCATION: Bilateral chest FINDINGS: ET tube at the emma directed towards right main bronchus. Nasogastric tube is across the GE juncti on. Cardiomegaly with moderate interstitial edema Bibasilar consolidations worse on the left. No pleural effusion. CONCLUSION: Progression of moderate congestive failure. ET tube directed at the right main bronchus.. Harshil Ortiz MD FACR on May 22, 2017 at 9:08 Board Certified Radiologist. This report was verified electronically.
[2017-05-22] MEDS: CARVEDILOL 3.125 MG TAB PO SCH ×2 (11:35→21:00)
--- NOTE | 2017-05-22 13:55 | HHI.IDPN ---
Subjective Subjective Remarks Extubated and toleartes mask fairly well No fever WBC normal blood clx remain negative Antibiotics Ertapenem micafungin Allergies: Coded Allergies: Penicillins (Verified Allergy, Severe, 05/08/17) Objective . Vital Signs Date Time Temp Pulse Resp B/P (MAP) Pulse Ox O2 Delivery O2 Flow Rate FiO2 05/22/17 11:45 96 Nasal Cannula 4 05/22/17 11:45 96 Nasal Cannula 4.00 05/22/17 10:48 99 35 05/22/17 10:30 35 05/22/17 08:06 Nasal Cannula 35 05/22/17 08:01 99 35 05/22/17 07:30 35 05/22/17 07:20 35 05/22/17 04:17 98 35 05/22/17 04:00 35 05/22/17 04:00 98.4 66 16 126/69 (88) 98 05/22/17 01:50 98 35 05/22/17 00:00 35 05/22/17 00:00 98.6 72 25 182/93 (122) 96 05/21/17 23:00 100 35 05/21/17 20:00 98.9 79 16 108/68 (81) 97 05/21/17 20:00 99 35 05/21/17 20:00 35 05/21/17 19:00 69 05/21/17 18:00 70 05/21/17 17:00 75 05/21/17 16:48 100 35 05/21/17 16:00 35 05/21/17 16:00 98.7 81 29 95/56 (69) 99 05/21/17 16:00 81 05/21/17 15:00 88 05/21/17 14:00 84 . Laboratory Tests Test 05/21/17 04:57 05/22/17 07:33 White Blood Count 9.2 TH/MM3 9.6 TH/MM3 Red Blood Count 3.80 MIL/MM3 3.80 MIL/MM3 Hemoglobin 11.2 GM/DL 11.2 GM/DL Hematocrit 34.1 % 34.3 % Mean Corpuscular Volume 89.7 FL 90.3 FL Mean Corpuscular Hemoglobin 29.5 PG 29.3 PG Mean Corpuscular Hemoglobin Concent 32.8 % 32.5 % Red Cell Distribution Width 15.2 % 15.8 % Platelet Count 124 TH/MM3 137 TH/MM3 Mean Platelet Volume 8.0 FL 7.8 FL Neutrophils (%) (Auto) 79.7 % 82.7 % Lymphocytes (%) (Auto) 13.5 % 9.9 % Monocytes (%) (Auto) 6.5 % 6.9 % Eosinophils (%) (Auto) 0.2 % 0.3 % Basophils (%) (Auto) 0.1 % 0.2 % Neutrophils # (Auto) 7.3 TH/MM3 7.9 TH/MM3 Lymphocytes # (Auto) 1.2 TH/MM3 0.9 TH/MM3 Monocytes # (Auto) 0.6 TH/MM3 0.7 TH/MM3 Eosinophils # (Auto) 0.0 TH/MM3 0.0 TH/MM3 Basophils # (Auto) 0.0 TH/MM3 0.0 TH/MM3 CBC Comment AUTO DIFF DIFF FINAL Differential Total Cells Counted 100 Neutrophils % (Manual) 74 % Band Neutrophils % 6 % Lymphocytes % 11 % Monocytes % 7 % Neutrophils # (Manual) 7.5 TH/MM3 Myelocytes 2 % Differential Comment FINAL DIFF MANUAL Platelet Estimate LOW Platelet Morphology Comment NORMAL Ovalocytes 1+ Laboratory Tests Test 05/21/17 04:51 05/22/17 07:33 Blood Urea Nitrogen 26 MG/DL 27 MG/DL Creatinine 0.49 MG/DL 0.46 MG/DL Random Glucose 99 MG/DL 138 MG/DL Calcium Level 9.0 MG/DL 8.4 MG/DL Phosphorus Level 2.3 MG/DL 2.8 MG/DL Magnesium Level 2.0 MG/DL 2.0 MG/DL Sodium Level 136 MEQ/L 137 MEQ/L Potassium Level 3.8 MEQ/L 3.7 MEQ/L Chloride Level 97 MEQ/L 100 MEQ/L Carbon Dioxide Level 30.1 MEQ/L 29.3 MEQ/L Anion Gap 9 MEQ/L 8 MEQ/L Estimat Glomerular Filtration Rate 122 ML/MIN 131 ML/MIN Imaging Last Impressions Chest X-Ray 05/22/17 0000 Signed Impressions: Service Date/Time: Monday, May 22, 2017 08:08 - CONCLUSION: Progression of moderate congestive failure. ET tube directed at the right main bronchus.. Harshil Ortiz MD FACR Chest CT 05/10/17 0000 Signed Impressions: Service Date/Time: Wednesday, May 10, 2017 17:28 - CONCLUSION: Patchy air space disease right mid and lower lung with platelike peripheral consolidation. . This associated with trace pleural effusion.. Harshil Ortiz MD FACR Physical Exam CONSTITUTIONAL/GENERAL: This is a morbidly obese female patient, in no apparent distress. Intubated, sedated on vent TUBES/LINES/DRAINS: SKIN: No jaundice, rashes, or lesions. Skin temperature appropriate. Not diaphoretic. CARDIOVASCULAR: Regular rate and rhythm without murmurs, gallops, or rubs. No JVD. Peripheral pulses symmetric. RESPIRATORY/CHEST: Symmetric, unlabored respirations. Scattered crackles to auscultation. Breath sounds equal bilaterally. GASTROINTESTINAL: Abdomen soft, non-tender, nondistended. No hepato-splenomegaly , or palpable masses. No guarding. Bowel sounds present. GENITOURINARY: Without palpable bladder distension. Almanzar catheter in place with clear light yellow urine MUSCULOSKELETAL: Extremities without clubbing, cyanosis, + 1+ edema and chronic hyperpigmentation. No joint tenderness or effusion noted. No calf tenderness. No mottling or clubbing. LYMPHATICS: No palpable cervical or supraclavicular adenopathy. NEUROLOGICAL:lethargic, but easily arousable PSYCHIATRIC: unable to assess Assessment & Plan Remarks ESBL+ E.coli UTI with chronic indwelling almanzar Pulmonary infiltrates unchanged from 03/28 an no cough/expectorateiom: doubt PNA , favouring atelectatic changes - clinically resolving Allergica reaction to PCN (rash), no problems tolerating primaxin Probably new sepsis - fever, new hypotension:clinically resolved acute VDRF - resolved Colonised with maurizio Serrano - urine complete Ertapenem dc micafungin for now f Frances Washburn RN, MD May 22, 2017 13:55
[2017-05-22] MEDS: MICAFUNGIN INJ 150 MG in SODIUM CHLORIDE 0.9% INJ 100 ML IV SCH (15:38)
[2017-05-22] MEDS: ERTAPENEM INJ 1,000 MG in SODIUM CHLORIDE 0.9% INJ 100 ML IV SCH (16:43)
[2017-05-23] VITALS (17 sets, daily range): BP systolic 108–153; BP diastolic 64–86; PULSE 64–102; RESP 18–29; TEMP 98.1–98.5; O2SAT 90–100
[2017-05-23] MEDS: DEXAMETHASONE SOD PHOS 4 MG/ML VIAL IV PUSH SCH ×2 (00:07→08:01)
[2017-05-23] MEDS: RESP: ALBUTEROL 2.5 MG/IPRATROPIUM 0.5 MG NEB (SCH) NEB ×4 (03:49→22:26)
[2017-05-23] MEDS: HEPARIN SODIUM - SQ 10,000 UNITS/ML VIAL SQ SCH ×3 (06:00→22:00)
[2017-05-23] MEDS: ARTIFICIAL TEARS OPTH SOLN 15 ML BTL EACH EYE SCH ×3 (06:00→22:00)
[2017-05-23] MEDS: INSULIN NovoLIN REGULAR SUPPLEMENTAL SCALE SQ SCH ×3 (06:00→17:24)
[2017-05-23] MEDS: PRAMIPEXOLE DIHYDROCHLORIDE 0.25 MG TAB PO SCH ×3 (06:01→22:00)
[2017-05-23] MEDS: ISOSORBIDE DINITRATE 5 MG TAB PO SCH ×3 (08:00→17:24)
[2017-05-23] MEDS: CHLORHEXIDINE 0.12% (ORAL KIT) 15 ML CUP MT SCH ×4 (08:00→19:27)
[2017-05-23] MEDS: LACTOBACILLUS ACIDOPHILUS TAB PO SCH ×3 (08:00→17:24)
[2017-05-23] MEDS: SERTRALINE HCL 100 MG TAB PO SCH (08:00)
[2017-05-23] MEDS: DOCUSATE CALCIUM 240 MG CAP PO SCH (08:00)
[2017-05-23] MEDS: ASPIRIN 81 MG CHEW TAB PO SCH (08:01)
[2017-05-23] MEDS: SODIUM CHLORIDE 0.9% FLUSH 10 ML FLUSH IV FLUSH SCH ×2 (08:01→22:00)
[2017-05-23] MEDS: CARVEDILOL 3.125 MG TAB PO SCH ×2 (08:01→22:00)
[2017-05-23] MEDS: PRAVASTATIN SOD 10 MG TAB PO SCH (08:01)
[2017-05-23] MEDS: PANTOPRAZOLE SODIUM 40 MG VIAL IV PUSH SCH (08:01)
[2017-05-23] MEDS: NYSTATIN 100,000 U/GM PWD 15 GM BTL TOPICAL SCH ×2 (08:02→22:00)
[2017-05-23] MEDS: RESP: BUDESONIDE 0.5 MG/2 ML NEB NEB SCH ×2 (08:24→22:26)
--- NOTE | 2017-05-23 11:13 | HHI.CCPN ---
Subjective Remarks/Hospital Course This is a 68-year-old female with past medical history as stated above who presented to [facility] sent from a [place] [facility] on 05/08/17 due to respiratory distress. The patient has history of Alzheimer's as well as expressive aphasia and is unable to provide any history. Patient was admitted by hospitalist service and started on empiric antibiotics, IV Solu-Medrol as well as nebulizer treatments. no fever on presentation WBC 13 K+, blood clx w/ o growth, UA markedly abnormal, + culture ESBL+ E.coli almanzar was changed in ER, initially started on azactam, vanco, flagyl, subsequently changed to Primaxin, still on flagyl. flu was negative. ID consult was requested due to ESBL Escherichia coli UTI. Patient has persistent infiltrates on her chest x-ray from March. Today patient developed worsening CO2 retention with altered mental status. Serial ABGs showed rising PCO2 levels. Patient was [place] [facility] [place] care consult was requested to evaluate for possible need for intubation. Patient's granddaughter was contacted by SEBASTIAN JACOBO and was informed regarding worsening condition and possible need for intubation which she agreed with if required. I evaluated the patient immediately on arrival to the ICU. At that time she was drowsy though arousable and was just being initiated on BiPAP. We will the upper extremity spontaneously at the time and appeared to be protecting her airway. 05/13 Patient is intubated and sedated with Diprivan.had 4L UOP overnight ( ? kinked Almanzar). Afebrile. 05/14 No events overnight. Sedated with Diprivan, Fentanyl and intubated. Afebrile. 05/15 remains intubated and sedated. On sedation hold opens eyes moving extremities. Failing CPAP due to low tidal volume 05/16: Remains intubated sedated with fall and fentanyl, ischial spontaneously open moves extremities did not consistently follow commands. Failed CPAP yesterday due to low tidal volumes. Fluid overloaded give 60 mg IV Lasix 1 today 05/17: Afebrile. Opens eyes spontaneously but not consistently following commands. Will attempt PSV trial again today. Currently on fentanyl and propofol drips. 05/18: Afebrile. FiO2 down to 30%. Potassium is 5.5 the a.m.. Receiving calcium gluconate 1 g, D50/insulin/bicarbonate and Kayexalate with a repeat in 3 hours. Awake and moving all 4 extremities but not following commands. Appears to be tracking. Will attempt extubation today Subjective 05/19: Failed extubation 05/02:17 hour. Desaturated. Reintubation with glide scope revealed possible airway edema. Started on dexamethasone. Granddaughter at bedside. Wish to be present with extubation occurs tomorrow evening. Request after 5 PM. Tolerating tube feeding. 05/20 Patient remains intubated on CPAP 16/07 with 35% FIO2. afebrile. 05/21 Patient remains intubated and on Precedex drip. Afebrile. 05/22: Remains intubated sedated with Precedex but wakes up easily follows basic commands. Placed on CPAP, tolerating. Has mild cuff leak. Granddaughter at the bedside updated 05/23: Extubated yesterday tolerating well no stridor. Oriented to person and somewhat to place. Additional 40 mg IV Lasix 1 ordered Objective Vital Signs Date Time Temp Pulse Resp B/P (MAP) Pulse Ox O2 Delivery O2 Flow Rate FiO2 05/23/17 10:00 80 05/23/17 08:24 100 Nasal Cannula 4.00 05/23/17 08:00 98.3 27 141/78 (99) 05/23/17 04:36 35 Intake and Output 05/23/17 05/23/17 05/24/17 08:00 16:00 00:00 Intake Total 0 ml Output Total 775 ml Balance -775 ml Result Diagram: 05/22/17 0733 05/22/17 0733 Imaging Last Impressions Chest X-Ray 05/20/17 0600 Signed Impressions: Service Date/Time: Saturday, May 20, 2017 05:33 - CONCLUSION: 1. Intubation of the right main bronchus. The tube needs to be withdrawn at least 2 cm. 2. Persistent bilateral lower lung infiltrates Mack Jimenez MD Chest CT 05/10/17 0000 Signed Impressions: Service Date/Time: Wednesday, May 10, 2017 17:28 - CONCLUSION: Patchy air space disease right mid and lower lung with platelike peripheral consolidation. . This associated with trace pleural effusion.. Harshil Ortiz MD FACR Objective Remarks GENERAL: Patient is 76 yo female currently ON nc SKIN: Warm and dry. Chronic venous stasis bilateral lower extremities HEAD: Normocephalic. EYES: No scleral icterus. No injection or drainage. Pupils are round 3 mm bilaterally and reactive. NECK: Supple, trachea midline. No JVD or lymphadenopathy. CARDIOVASCULAR: Normal S1, S2. No S4. Without murmurs, gallops, or rubs. RESPIRATORY: Breath sounds equal bilaterally. Symmetrical excursion GASTROINTESTINAL: Abdomen soft, non-tender, nondistended. Hypoactive bowel sounds are appreciated MUSCULOSKELETAL: No cyanosis, or edema. Neuro: Awake alert oriented to person and somewhat to place. Moves all extremities no focal deficits A/P Assessment and Plan Neuro/Psych: Dementia disorder NOS Restless leg syndrome Hard of hearing Metabolic encephalopathy-resolved History of CVA Depression disorder NOS Discontinue all continuos sedation Continue sertraline 200 mg by tube daily Continue pramipexole 0.75 mg every 8 hours for restless leg syndrome CV: Atrial fibrillation Essential hypertension Dyslipidemia Coronary artery disease Monitor HR and BP keep MAP>65mmHg On ASA 81 mg daily, On pravastatin 10 mg p.o. daily for dyslipidemia. On Isordil 5mg TID Home medications include carvedilol 3.125 mg p.o. twice daily, isosorbide mononitrate 30 mg daily and Aldactone 25 mg daily. On isosorbide dinitrate 10 mg 3 times daily today along with carvedilol 3.125 mg twice daily Lasix 40 mg IV 1 Pulmo: Acute hypoxemic respiratory failure- extubated and reintubated 05/18, extubated again 05/22/17 Upper airway obstruction stridor 05/18/2017 COPD Keep sats >92%, on NC Albuterol/ipratropium aerosols every 4 hours with albuterol aerosols every 2 hours as needed dyspnea On Decadron 4mg IV Q8 for possible airway edema noted during reintubation-DC today, resume prednisone 10 mg twice daily which is home dose Holding tiotropium 18 milligrams inhalation daily while on ventilator Start EzPAP, Acapella, IS GI/liver: Gastroesophageal reflux disease Hypoalbuminemia Swallow eval and diet per recommendation Pantoprazole 40 mg IV daily for GI prophylaxis Docusate calcium 240 mg by tube daily for bowel regimen FEN/renal/: Monitor renal function, electrolytes replacement per protocol s/p Lasix 40mg x1 with KCL replacement, repeat dose today Heme: Microcytic anemia Leukocytosis Thrombocytopenia Follow CBC closely. Follow trends Endocrine: Chronic prednisone use Hypothyroidism On Decadron 4mg Q8-DC and start home prednisone SSI Novolin R every 4 hours for glycemic control ( low scale) TSH: 1.49 ID: E. coli ESBL positive urinary tract infection Sidra albicans/kruzei urine colonization Continue abx per ID: Micafungin, ertapenem. Monitor for signs of infections ( Fever, WBC) Blood 05/13: NGTD, Urine cx 05/13 Sidra cruisei Sputum cx 05/12: NGTD ESBL Escherichia coli in urine. 05/08 Monitor for signs of infections ( Fever, WBC) MSK: Elevated BMI PT/OT/Speech Prophylaxis: Pantoprazole/SCDs/subcutaneous heparin Level 2 Hospitalist consulted to assume care 05/24/2017, transfer to CICU with telemetry Mika Mejia MD May 23, 2017 11:13
[2017-05-23] MEDS ORDERED: FUROSEMIDE 40 MG/4 ML VIAL IV PUSH ONE (12:00)
[2017-05-23] MEDS: ERTAPENEM INJ 1,000 MG in SODIUM CHLORIDE 0.9% INJ 100 ML IV SCH (17:24)
[2017-05-23] MEDS: predniSONE 10 MG TAB PO SCH (21:59)
[2017-05-24] VITALS (15 sets, daily range): BP systolic 100–145; BP diastolic 56–88; PULSE 84–105; RESP 18–40; TEMP 97.5–98.9; O2SAT 90–100
[2017-05-24] MEDS: RESP: ALBUTEROL 2.5 MG/IPRATROPIUM 0.5 MG NEB (SCH) NEB ×4 (04:00→19:24)
[2017-05-24] MEDS: ARTIFICIAL TEARS OPTH SOLN 15 ML BTL EACH EYE SCH ×3 (05:18→23:11)
[2017-05-24] MEDS: HEPARIN SODIUM - SQ 10,000 UNITS/ML VIAL SQ SCH ×3 (05:19→23:10)
[2017-05-24] MEDS: PRAMIPEXOLE DIHYDROCHLORIDE 0.25 MG TAB PO SCH ×3 (05:19→22:58)
[2017-05-24] MEDS: INSULIN NovoLIN REGULAR SUPPLEMENTAL SCALE SQ SCH ×5 (06:00→23:11)
--- NOTE | 2017-05-24 06:05 | RADRPT ---
EXAM DATE/TIME: 05/24/2017 04:25 [place] COMPARISON: CHEST SINGLE AP, May 22, 2017, 8:08. INDICATIONS : Status post extubation.. MEDICAL HISTORY : None. SURGICAL HISTORY : None. ENCOUNTER: Subsequent ACUITY: 3 days PAIN SCORE: Non-responsive. LOCATION: Bilateral chest FINDINGS: A single AP semierect view of the chest was obtained and demonstrates interval extubation and removal of nasogastric tube. The study is Midinspiratory with crowding of the lung vasculature. There are no confluent infiltrates or effusions. The heart size remains at the upper limits of normal with no per ihilar edema. Atherosclerotic changes are present in the aorta. Chronic rotator cuff degeneration is noted bilaterally. The patient is status post lower cervical fusion and screw-plate fixation device. CONCLUSION: 1. Interval extubation and removal of nasogastric tube. 2. Midinspiratory study with no acute cardiopulmonary disease. Sanket Olson MD on May 24, 2017 at 6:02 Board Certified Radiologist. This report was verified electronically.
[2017-05-24 06:22] LABS: AUTOMATED NEUTROPHIL # 8.1 TH/MM3 (1.8-7.7); BASOPHIL % 0.1 % (0.0-2.0); EOSINOPHIL % 0.4 % (0.0-4.0); HEMATOCRIT 31.9 % (35.0-46.0); HEMOGLOBIN 10.6 GM/DL (11.6-15.3); LYMPH % 6.5 % (9.0-44.0); LYMPHOCYTE # 0.6 TH/MM3 (1.0-4.8); MEAN CELL VOLUME 89.8 FL (80.0-100.0); MEAN CORPUSCULAR HEMOGLOBIN 29.9 PG (27.0-34.0); MEAN CORPUSCULAR HGB CONC 33.3 % (32.0-36.0); MEAN PLATELET VOLUME 7.7 FL (7.0-11.0); MONOCYTE # 0.5 TH/MM3 (0-0.9); PLATELET COUNT 140 TH/MM3 (150-450); RED BLOOD COUNT 3.56 MIL/MM3 (4.00-5.30); RED CELL DISTRIBUTION WIDTH 15.7 % (11.6-17.2); WHITE BLOOD COUNT 9.2 TH/MM3 (4.0-11.0)
[2017-05-24 06:50] LABS: ALBUMIN 3.2 GM/DL (3.4-5.0); AST (GOT) 8 U/L (15-37); BICARBONATE 33.1 MEQ/L (21.0-32.0); BLOOD UREA NITROGEN 23 MG/DL (7-18); CHLORIDE 97 MEQ/L (98-107); CREATININE 0.44 MG/DL (0.50-1.00); GLOMERULAR FILTRATION RATE 138 ML/MIN (>89); GLUCOSE,RANDOM 92 MG/DL (74-106); SODIUM (NA) 137 MEQ/L (136-145)
[2017-05-24 06:51] LABS: ALT (GPT) 22 U/L (10-53)
[2017-05-24 06:53] LABS: ALKALINE PHOSPHATASE 70 U/L (45-117); TOTAL BILIRUBIN ADULT 0.9 MG/DL (0.2-1.0); TOTAL PROTEIN 6.2 GM/DL (6.4-8.2)
[2017-05-24] MEDS: CHLORHEXIDINE 0.12% (ORAL KIT) 15 ML CUP MT SCH ×4 (08:00→20:00)
[2017-05-24] MEDS: SODIUM CHLORIDE 0.9% FLUSH 10 ML FLUSH IV FLUSH SCH ×2 (08:43→20:08)
[2017-05-24] MEDS: TIOTROPIUM BROMIDE 18 MCG INH INH SCH (08:43)
[2017-05-24] MEDS: ASPIRIN 81 MG CHEW TAB PO SCH (08:43)
[2017-05-24] MEDS: CARVEDILOL 3.125 MG TAB PO SCH ×2 (08:44→20:08)
[2017-05-24] MEDS: DOCUSATE CALCIUM 240 MG CAP PO SCH (08:44)
[2017-05-24] MEDS: SERTRALINE HCL 100 MG TAB PO SCH (08:44)
[2017-05-24] MEDS: LACTOBACILLUS ACIDOPHILUS TAB PO SCH ×3 (08:44→16:17)
[2017-05-24] MEDS: predniSONE 10 MG TAB PO SCH ×2 (08:44→20:08)
[2017-05-24] MEDS: PRAVASTATIN SOD 10 MG TAB PO SCH (08:45)
[2017-05-24] MEDS: NYSTATIN 100,000 U/GM PWD 15 GM BTL TOPICAL SCH ×2 (08:46→20:09)
[2017-05-24] MEDS: PANTOPRAZOLE SODIUM 40 MG VIAL IV PUSH SCH (08:46)
[2017-05-24] MEDS: RESP: BUDESONIDE 0.5 MG/2 ML NEB NEB SCH ×2 (08:57→19:24)
[2017-05-24] MEDS: ISOSORBIDE DINITRATE 5 MG TAB PO SCH ×3 (09:01→16:17)
--- NOTE | 2017-05-24 09:34 | HHI.CCPN ---
Subjective Remarks/Hospital Course This is a 68-year-old female with past medical history as stated above who presented to [facility] sent from a [facility] on 05/08/17 due to respiratory distress. The patient has history of Alzheimer's as well as expressive aphasia and is unable to provide any history. Patient was admitted by hospitalist service and started on empiric antibiotics, IV Solu-Medrol as well as nebulizer treatments. no fever on presentation WBC 13 K+, blood clx w/ o growth, UA markedly abnormal, + culture ESBL+ E.coli almanzar was changed in ER, initially started on azactam, vanco, flagyl, subsequently changed to Primaxin, still on flagyl. flu was negative. ID consult was requested due to ESBL Escherichia coli UTI. Patient has persistent infiltrates on her chest x-ray from March. Today patient developed worsening CO2 retention with altered mental status. Serial ABGs showed rising PCO2 levels. Patient was eventually transferred to [facility] [place] and critical care consult was requested to evaluate for possible need for intubation. Patient's granddaughter was contacted by SEBASTIAN JACOBO and was informed regarding worsening condition and possible need for intubation which she agreed with if required. I evaluated the patient immediately on arrival to the ICU. At that time she was drowsy though arousable and was just being initiated on BiPAP. We will the upper extremity spontaneously at the time and appeared to be protecting her airway. 05/13 Patient is intubated and sedated with Diprivan.had 4L UOP overnight ( ? kinked Almanzar). Afebrile. 05/14 No events overnight. Sedated with Diprivan, Fentanyl and intubated. Afebrile. 05/15 remains intubated and sedated. On sedation hold opens eyes moving extremities. Failing CPAP due to low tidal volume 05/16: Remains intubated sedated with fall and fentanyl, ischial spontaneously open moves extremities did not consistently follow commands. Failed CPAP yesterday due to low tidal volumes. Fluid overloaded give 60 mg IV Lasix 1 today 05/17: Afebrile. Opens eyes spontaneously but not consistently following commands. Will attempt PSV trial again today. Currently on fentanyl and propofol drips. 05/18: Afebrile. FiO2 down to 30%. Potassium is 5.5 the a.m.. Receiving calcium gluconate 1 g, D50/insulin/bicarbonate and Kayexalate with a repeat in 3 hours. Awake and moving all 4 extremities but not following commands. Appears to be tracking. Will attempt extubation today Subjective 05/19: Failed extubation 05/02:17 hour. Desaturated. Reintubation with glide scope revealed possible airway edema. Started on dexamethasone. Granddaughter at bedside. Wish to be present with extubation occurs tomorrow evening. Request after 5 PM. Tolerating tube feeding. 05/20 Patient remains intubated on CPAP 16/07 with 35% FIO2. afebrile. 05/21 Patient remains intubated and on Precedex drip. Afebrile. 05/22: Remains intubated sedated with Precedex but wakes up easily follows basic commands. Placed on CPAP, tolerating. Has mild cuff leak. Granddaughter at the bedside updated 05/23: Extubated yesterday tolerating well no stridor. Oriented to person and somewhat to place. Additional 40 mg IV Lasix 1 ordered 05/24: Breathing comfortably. No stridor. No acute events overnight. Attempt out of bed to stretcher chair today Objective Vital Signs Date Time Temp Pulse Resp B/P (MAP) Pulse Ox O2 Delivery O2 Flow Rate FiO2 05/24/17 08:59 100 Nasal Cannula 3.00 05/24/17 06:00 84 05/24/17 04:58 35 05/24/17 04:00 98.6 24 112/78 (89) Intake and Output 05/24/17 05/24/17 05/25/17 08:00 16:00 00:00 Intake Total 240 ml Output Total 675 ml Balance -435 ml Result Diagram: 05/24/17 0540 05/24/17 0540 Imaging Last Impressions Chest X-Ray 05/20/17 0600 Signed Impressions: Service Date/Time: Saturday, May 20, 2017 05:33 - CONCLUSION: 1. Intubation of the right main bronchus. The tube needs to be withdrawn at least 2 cm. 2. Persistent bilateral lower lung infiltrates Mack Jimenez MD Chest CT 05/10/17 0000 Signed Impressions: Service Date/Time: Wednesday, May 10, 2017 17:28 - CONCLUSION: Patchy air space disease right mid and lower lung with platelike peripheral consolidation. . This associated with trace pleural effusion.. Harshil Ortiz MD FACR Objective Remarks GENERAL: Patient is 76 yo female currently on NC SKIN: Warm and dry. Chronic venous stasis bilateral lower extremities HEAD: Normocephalic. EYES: No scleral icterus. No injection or drainage. Pupils are round 3 mm bilaterally and reactive. NECK: Supple, trachea midline. No JVD or lymphadenopathy. CARDIOVASCULAR: Normal S1, S2. No S4. Without murmurs, gallops, or rubs. RESPIRATORY: Breath sounds equal bilaterally. Symmetrical excursion GASTROINTESTINAL: Abdomen soft, non-tender, nondistended. Hypoactive bowel sounds are appreciated MUSCULOSKELETAL: No cyanosis, or edema. Neuro: Awake alert oriented to person and somewhat to place. Moves all extremities no focal deficits A/P Assessment and Plan Neuro/Psych: Dementia disorder NOS Restless leg syndrome Hard of hearing Metabolic encephalopathy-resolved History of CVA Depression disorder NOS Off all continuos sedation Continue sertraline 200 mg by tube daily Continue pramipexole 0.75 mg every 8 hours for restless leg syndrome CV: Atrial fibrillation Essential hypertension Dyslipidemia Coronary artery disease Monitor HR and BP keep MAP>65mmHg On ASA 81 mg daily, On pravastatin 10 mg p.o. daily for dyslipidemia. On Isordil 5mg TID Home medications include carvedilol 3.125 mg p.o. twice daily, isosorbide mononitrate 30 mg daily and Aldactone 25 mg daily. On isosorbide dinitrate 10 mg 3 times daily today along with carvedilol 3.125 mg twice daily Lasix 40 mg IV 1 repeat dose given yesterday Pulmonary: Acute hypoxemic respiratory failure- extubated and reintubated 05/18, extubated again 05/22/17 Upper airway obstruction stridor 05/18/2017 COPD Keep sats >92%, on NC. Albuterol/ipratropium aerosols every 4 hours with albuterol aerosols every 2 hours as needed dyspnea On Decadron 4mg IV Q8 for possible airway edema noted during reintubation-DC today, resumed prednisone 10 mg twice daily which is home dose Resume tiotropium 18 milligrams inhalation daily EzPAP, Acapella, IS GI/liver: Gastroesophageal reflux disease Hypoalbuminemia Diet per speech recommendation Pantoprazole 40 mg IV daily for GI prophylaxis-change to PO Docusate calcium 240 mg by tube daily for bowel regimen FEN/renal/: Monitor renal function, electrolytes replacement per protocol s/p Lasix 40mg x1 with KCL replacement Heme: Microcytic anemia Leukocytosis Thrombocytopenia Follow CBC closely. Follow trends Endocrine: Chronic prednisone use Hypothyroidism On Decadron 4mg Q8-DC and started home prednisone SSI Novolin R every 4 hours for glycemic control ( low scale) TSH: 1.49 ID: E. coli ESBL positive urinary tract infection Sidra albicans/kruzei urine colonization Continue abx per ID: Micafungin, ertapenem. Monitor for signs of infections ( Fever, WBC) Blood 05/13: NGTD, Urine cx 05/13 Sidra cruisei Sputum cx 05/12: NGTD ESBL Escherichia coli in urine. 05/08 Monitor for signs of infections ( Fever, WBC) MSK: Elevated BMI PT/OT/Speech Prophylaxis: Pantoprazole/SCDs/subcutaneous heparin Level 2 Hospitalist consulted to assume care 05/25/2017, transfer to Med/Surg with telemetry Mika Mejia MD May 24, 2017 09:34
[2017-05-25] VITALS (12 sets, daily range): BP systolic 128–159; BP diastolic 76–91; PULSE 76–99; RESP 18–20; TEMP 97.5–98.3; O2SAT 92–100
[2017-05-25] MEDS: RESP: ALBUTEROL 2.5 MG/IPRATROPIUM 0.5 MG NEB (SCH) NEB ×4 (04:51→19:20)
[2017-05-25] MEDS: PRAMIPEXOLE DIHYDROCHLORIDE 0.25 MG TAB PO SCH ×3 (05:52→21:29)
[2017-05-25] MEDS: ARTIFICIAL TEARS OPTH SOLN 15 ML BTL EACH EYE SCH ×3 (05:54→21:30)
[2017-05-25] MEDS: HEPARIN SODIUM - SQ 10,000 UNITS/ML VIAL SQ SCH ×3 (05:55→21:29)
[2017-05-25] MEDS: INSULIN NovoLIN REGULAR SUPPLEMENTAL SCALE SQ SCH ×3 (05:56→15:53)
[2017-05-25] MEDS: CHLORHEXIDINE 0.12% (ORAL KIT) 15 ML CUP MT SCH ×3 (06:50→20:00)
[2017-05-25] MEDS: ISOSORBIDE DINITRATE 5 MG TAB PO SCH ×3 (08:00→15:54)
[2017-05-25] MEDS: PRAVASTATIN SOD 10 MG TAB PO SCH (09:00)
[2017-05-25] MEDS: TIOTROPIUM BROMIDE 18 MCG INH INH SCH (09:00)
[2017-05-25] MEDS: SODIUM CHLORIDE 0.9% FLUSH 10 ML FLUSH IV FLUSH SCH ×2 (09:17→21:30)
[2017-05-25] MEDS: CARVEDILOL 3.125 MG TAB PO SCH ×2 (09:17→21:30)
[2017-05-25] MEDS: predniSONE 10 MG TAB PO SCH ×2 (09:17→21:29)
[2017-05-25] MEDS: LACTOBACILLUS ACIDOPHILUS TAB PO SCH ×3 (09:18→15:54)
[2017-05-25] MEDS: PANTOPRAZOLE SODIUM 40 MG VIAL IV PUSH SCH (09:18)
[2017-05-25] MEDS: SERTRALINE HCL 100 MG TAB PO SCH (09:18)
[2017-05-25] MEDS: ASPIRIN 81 MG CHEW TAB PO SCH (09:18)
[2017-05-25] MEDS: NYSTATIN 100,000 U/GM PWD 15 GM BTL TOPICAL SCH ×2 (09:19→21:00)
[2017-05-25] MEDS: DOCUSATE CALCIUM 240 MG CAP PO SCH (09:24)
[2017-05-25] MEDS: RESP: BUDESONIDE 0.5 MG/2 ML NEB NEB SCH ×2 (11:30→19:20)
--- NOTE | 2017-05-25 17:22 | HHI.PR ---
Subjective Remarks sob much improved Denies fevers/chills Objective Vitals Vital Signs Date Time Temp Pulse Resp B/P (MAP) Pulse Ox O2 Delivery O2 Flow Rate FiO2 05/25/17 12:00 80 05/25/17 11:30 100 Nasal Cannula 4.00 05/25/17 09:56 Nasal Cannula 4.00 05/25/17 08:00 84 05/25/17 08:00 97.5 90 20 159/89 (112) 98 05/25/17 04:54 98 Nasal Cannula 4.00 05/25/17 04:13 89 05/25/17 04:00 Nasal Cannula 4.00 05/25/17 04:00 98.3 84 20 149/85 (106) 97 05/25/17 00:10 97.7 93 18 153/78 (103) 100 05/25/17 00:01 76 05/25/17 00:00 Nasal Cannula 4.00 05/24/17 21:50 98.1 96 18 145/88 (107) 98 05/24/17 20:00 92 05/24/17 20:00 98.1 97 38 138/74 (95) 91 05/24/17 19:23 98 Nasal Cannula 4.00 05/24/17 18:00 89 I/O 05/24/17 05/24/17 05/24/17 05/25/17 05/25/17 05/25/17 07:00 15:00 23:00 07:00 15:00 23:00 Intake Total 240 ml 750 ml 0 ml Output Total 675 ml 680 ml 1550 ml Balance -435 ml 70 ml -1550 ml Intake Oral 240 ml 750 ml 0 ml Output Urine Total 675 ml 680 ml 1550 ml # Bowel Movements 1 0 0 Result Diagram: 05/24/17 0540 05/24/17 0540 Imaging Last Impressions Chest X-Ray 05/24/17 0600 Signed Impressions: Service Date/Time: Wednesday, May 24, 2017 04:25 - CONCLUSION: 1. Interval extubation and removal of nasogastric tube. 2. Midinspiratory study with no acute cardiopulmonary disease. Sanket Olson MD Chest CT 05/10/17 0000 Signed Impressions: Service Date/Time: Wednesday, May 10, 2017 17:28 - CONCLUSION: Patchy air space disease right mid and lower lung with platelike peripheral consolidation. . This associated with trace pleural effusion.. Harshil Ortiz MD FACR Objective Remarks GENERAL: This is a well-nourished, well-developed patient, in no apparent distress. SKIN: No rashes, ecchymoses or lesions. Cool and dry. HEAD: Atraumatic. Normocephalic. No temporal or scalp tenderness. EYES: Pupils equal round and reactive. Extraocular motions intact. No scleral icterus. No injection or drainage. ENT: Nose without bleeding, purulent drainage or septal hematoma. Throat without erythema, tonsillar hypertrophy or exudate. Uvula midline. Airway patent. NECK: Trachea midline. No JVD or lymphadenopathy. Supple, nontender, no meningeal signs. CARDIOVASCULAR: Regular rate and rhythm without murmurs, gallops, or rubs. RESPIRATORY: Clear to auscultation. Breath sounds equal bilaterally. No wheezes , rales, or rhonchi. Diminished breath sounds at the bases. GASTROINTESTINAL: Abdomen soft, non-tender, nondistended. No hepato-splenomegaly , or palpable masses. No guarding. MUSCULOSKELETAL: Extremities without clubbing, cyanosis. No joint tenderness, effusion, or edema noted. No calf tenderness. Negative Homans sign bilaterally. Bilateral lower extremity edema. NEUROLOGICAL: Awake and alert. Expressive aphasia combined with Alzheimer's dementia limits the exam. Patient is spontaneously moving all 4 extremities, tracking movement and moving her head spontaneously to both sides. A/P Problem List: (1) Sepsis ICD Code: A41.9 - Sepsis, unspecified organism (2) PNA (pneumonia) ICD Code: J18.9 - Pneumonia, unspecified organism (3) UTI (urinary tract infection) ICD Code: N39.0 - Urinary tract infection, site not specified (4) Leukocytosis ICD Code: D72.829 - Elevated white blood cell count, unspecified (5) Chronic atrial fibrillation ICD Code: I48.2 - Chronic atrial fibrillation Status: Chronic (6) Hypertension ICD Code: I10 - Essential (primary) hypertension Status: Chronic (7) Hyperlipidemia ICD Code: E78.5 - Hyperlipidemia, unspecified Status: Chronic (8) CAD (coronary artery disease) ICD Code: I25.10 - Atherosclerotic heart disease of [place] coronary artery without angina pectoris Status: Chronic Assessment and Plan This is a 68-year-old female with past medical history as stated above who presented to [facility] 05[facility]08[facility]17 due to respiratory distress. The patient has history of Alzheimer's as well as expressive aphasia and is unable to provide any history. Patient was admitted by hospitalist service and started on empiric antibiotics, IV Solu-Medrol as well as nebulizer treatments. no fever on presentation WBC 13 K+, blood clx w/ o growth, UA markedly abnormal, + culture ESBL+ E.coli almanzar was changed in ER, initially started on azactam, vanco, flagyl, subsequently changed to Primaxin, still on flagyl. flu was negative. ID consult was requested due to ESBL Escherichia coli UTI. Patient has persistent infiltrates on her chest x-ray from March. Today patient developed worsening CO2 retention with altered mental status. Serial ABGs showed rising PCO2 levels. [place] was [place] [facility] [place] care consult was requested to evaluate for possible need for intubation. Patient's granddaughter was contacted by SEBASTIAN JACOBO and was informed regarding worsening condition and possible need for intubation which she agreed with if required. The patient was evaluated by [employer] teacher. At that time she was drowsy though arousable and was just being initiated on BiPAP. The patient was intubated and sedated overnight on 05/13. the patient was extubated on 05/18 however failed extubation and had to be reintubated by the intensivists. The patient was then started on dexamethasone.Patient was extubated for the second time on 05/23. Noted to be breathing comfortably on 05/24 without stridor. Dementia disorder NOS Restless leg syndrome Hard of hearing Metabolic encephalopathy-resolved History of CVA Depression disorder NOS SP sedation Continue sertraline 200 mg by tube daily Continue pramipexole 0.75 mg every 8 hours for restless leg syndrome Atrial fibrillation Essential hypertension Dyslipidemia Coronary artery disease Monitor HR and BP keep MAP>65mmHg On ASA 81 mg daily, On pravastatin 10 mg p.o. daily for dyslipidemia. On Isordil 5mg TID Home medications include carvedilol 3.125 mg p.o. twice daily, isosorbide mononitrate 30 mg daily and Aldactone 25 mg daily. On isosorbide dinitrate 10 mg 3 times daily today along with carvedilol 3.125 mg twice daily Acute hypoxemic respiratory failure- extubated and reintubated 05/18, extubated again 05/22/17 Upper airway obstruction stridor 05/18/2017 COPD Keep sats >92%, on NC. Albuterol/ipratropium aerosols every 4 hours with albuterol aerosols every 2 hours as needed dyspnea SP Decadron 4mg IV Q8 for possible airway edema , resumed prednisone 10 mg twice daily which is home dose Resume tiotropium 18 milligrams inhalation daily EzPAP, Acapella, IS Gastroesophageal reflux disease Hypoalbuminemia Diet per speech recommendation Pantoprazole 40 mg IV daily for GI prophylaxis-changed to PO Docusate calcium 240 mg by tube daily for bowel regimen FEN/renal/: Monitor renal function, electrolytes replacement per protocol s/p Lasix 40mg x1 with KCL replacement Microcytic anemia Leukocytosis Thrombocytopenia Follow CBC closely. Follow trends Chronic prednisone use Hypothyroidism SP Decadron 4mg Q8-DC and started home prednisone SSI Novolin R every 4 hours for glycemic control ( low scale) TSH: 1.49 E. coli ESBL positive urinary tract infection Sidra albicans/kruzei urine colonization Continue abx per ID: Micafungin, ertapenem. Monitor for signs of infections ( Fever, WBC) Blood 05/13: NGTD, Urine cx 05/13 Sidra cruisei Sputum cx 05/12: NGTD ESBL Escherichia coli in urine. 05/08 Monitor for signs of infections ( Fever, WBC) MSK: Elevated BMI PT/OT/Speech Prophylaxis: Pantoprazole/SCDs/subcutaneous heparin Discharge Planning OT ordered. Possible Dc in am. Eliseo Le MD May 25, 2017 17:22
[2017-05-26] VITALS (8 sets, daily range): BP systolic 130–173; BP diastolic 73–101; PULSE 82–100; RESP 20; TEMP 98–98.3; O2SAT 91–95
[2017-05-26] MEDS: RESP: ALBUTEROL 2.5 MG/IPRATROPIUM 0.5 MG NEB (SCH) NEB ×2 (03:58→08:11)
[2017-05-26] MEDS: hydrALAZINE HCL 20 MG/ML VIAL IV PUSH PRN (04:08)
[2017-05-26] MEDS: ARTIFICIAL TEARS OPTH SOLN 15 ML BTL EACH EYE SCH ×2 (06:00→12:08)
[2017-05-26] MEDS: PRAMIPEXOLE DIHYDROCHLORIDE 0.25 MG TAB PO SCH ×3 (06:00→12:04)
[2017-05-26] MEDS: INSULIN NovoLIN REGULAR SUPPLEMENTAL SCALE SQ SCH ×3 (06:00→12:00)
[2017-05-26] MEDS: HEPARIN SODIUM - SQ 10,000 UNITS/ML VIAL SQ SCH ×2 (06:00→12:07)
[2017-05-26] MEDS: ISOSORBIDE DINITRATE 5 MG TAB PO SCH ×3 (06:43→12:04)
[2017-05-26] MEDS: CHLORHEXIDINE 0.12% (ORAL KIT) 15 ML CUP MT SCH (06:54)
[2017-05-26] MEDS: SODIUM CHLORIDE 0.9% FLUSH 10 ML FLUSH IV FLUSH SCH (08:01)
[2017-05-26] MEDS: predniSONE 10 MG TAB PO SCH (08:02)
[2017-05-26] MEDS: DOCUSATE CALCIUM 240 MG CAP PO SCH (08:02)
[2017-05-26] MEDS: CARVEDILOL 3.125 MG TAB PO SCH (08:02)
[2017-05-26] MEDS: PANTOPRAZOLE SODIUM 40 MG VIAL IV PUSH SCH (08:02)
[2017-05-26] MEDS: ASPIRIN 81 MG CHEW TAB PO SCH (08:02)
[2017-05-26] MEDS: SERTRALINE HCL 100 MG TAB PO SCH (08:02)
[2017-05-26] MEDS: LACTOBACILLUS ACIDOPHILUS TAB PO SCH ×2 (08:02→12:04)
[2017-05-26] MEDS: PRAVASTATIN SOD 10 MG TAB PO SCH (08:03)
[2017-05-26] MEDS: TIOTROPIUM BROMIDE 18 MCG INH INH SCH (08:04)
[2017-05-26] MEDS: NYSTATIN 100,000 U/GM PWD 15 GM BTL TOPICAL SCH (08:05)
[2017-05-26] MEDS: RESP: BUDESONIDE 0.5 MG/2 ML NEB NEB SCH (08:11)
[2017-05-26 10:38] LABS: AUTOMATED NEUTROPHIL # 7.2 TH/MM3 (1.8-7.7); BASOPHIL % 0.1 % (0.0-2.0); EOSINOPHIL % 0.5 % (0.0-4.0); HEMATOCRIT 35.8 % (35.0-46.0); HEMOGLOBIN 11.6 GM/DL (11.6-15.3); LYMPH % 7.9 % (9.0-44.0); LYMPHOCYTE # 0.6 TH/MM3 (1.0-4.8); MEAN CELL VOLUME 91.1 FL (80.0-100.0); MEAN CORPUSCULAR HEMOGLOBIN 29.6 PG (27.0-34.0); MEAN CORPUSCULAR HGB CONC 32.5 % (32.0-36.0); MEAN PLATELET VOLUME 7.6 FL (7.0-11.0); MONO % 4.2 % (0.0-8.0); MONOCYTE # 0.3 TH/MM3 (0-0.9); NEUT % 87.3 % (16.0-70.0); PLATELET COUNT 147 TH/MM3 (150-450); RED BLOOD COUNT 3.93 MIL/MM3 (4.00-5.30); RED CELL DISTRIBUTION WIDTH 16.1 % (11.6-17.2); WHITE BLOOD COUNT 8.2 TH/MM3 (4.0-11.0)
[2017-05-26 11:04] LABS: ALBUMIN 3.3 GM/DL (3.4-5.0); ALT (GPT) 19 U/L (10-53); AST (GOT) 11 U/L (15-37); BICARBONATE 36.5 MEQ/L (21.0-32.0); BLOOD UREA NITROGEN 16 MG/DL (7-18); CALCIUM 9.2 MG/DL (8.5-10.1); CHLORIDE 100 MEQ/L (98-107); CREATININE 0.53 MG/DL (0.50-1.00); GLOMERULAR FILTRATION RATE 112 ML/MIN (>89); GLUCOSE,RANDOM 131 MG/DL (74-106); MAGNESIUM 1.9 MG/DL (1.5-2.5); PHOSPHORUS 2.2 MG/DL (2.5-4.9); SODIUM (NA) 141 MEQ/L (136-145)
[2017-05-26 11:07] LABS: ALKALINE PHOSPHATASE 65 U/L (45-117); TOTAL BILIRUBIN ADULT 0.6 MG/DL (0.2-1.0); TOTAL PROTEIN 6.6 GM/DL (6.4-8.2)
[2017-05-26] MEDS ORDERED: DOCU1CAP26 PO (11:17)
[2017-05-26] MEDS ORDERED: PRED10 PO (11:17)
[2017-05-26] MEDS ORDERED: HYDR-3288 PO (11:17)
[2017-05-26] MEDS ORDERED: LORA-392 PO (11:18)
--- NOTE | 2017-05-26 11:22 | HHI.DCPOC ---
Discharge Care Plan Diagnosis: (1) Acute hypoxemic respiratory failure (2) Urinary tract infection due to ESBL Klebsiella (3) Chronic atrial fibrillation (4) Hypertension (5) Sepsis (6) Leukocytosis (7) Hyperlipidemia (8) CAD (coronary artery disease) (9) Dementia Goals to Promote Your Health * To prevent worsening of your condition and complications * To maintain your health at the optimal level Directions to Meet Your Goals Take your medications as prescribed Follow your dietary instruction Follow activity as directed Keep your appointments as scheduled Take your immunizations and boosters as scheduled If your symptoms worsen call your PCP, if no PCP go to Urgent Care Center or Emergency Room Smoking is Dangerous to Your Health. Avoid second hand smoke Call the 24-hour hour crisis hotline for domestic abuse at Eliseo Le MD May 26, 2017 11:22
--- NOTE | 2017-05-26 12:29 | HHI.DS ---
Discharge Summary Admission Date May 08, 2017 at 06:23 Discharge Date: May 26, 2017 Admitting Diagnosis Pneumonia, Respiratory Distress (1) Sepsis ICD Code: A41.9 - Sepsis, unspecified organism (2) PNA (pneumonia) ICD Code: J18.9 - Pneumonia, unspecified organism (3) UTI (urinary tract infection) ICD Code: N39.0 - Urinary tract infection, site not specified (4) Leukocytosis ICD Code: D72.829 - Elevated white blood cell count, unspecified (5) Chronic atrial fibrillation ICD Code: I48.2 - Chronic atrial fibrillation Status: Chronic (6) Hypertension ICD Code: I10 - Essential (primary) hypertension Status: Chronic (7) Hyperlipidemia ICD Code: E78.5 - Hyperlipidemia, unspecified Status: Chronic (8) CAD (coronary artery disease) ICD Code: I25.10 - Atherosclerotic heart disease of [place] coronary artery without angina pectoris Status: Chronic Brief History - From Admission This is a 68-year-old female with past medical history as stated above who [facility] due to [facility] distress. The patient has history of Alzheimer's as well as expressive aphasia and is unable to provide any history. As per ED physician's medical records the patient was noted to have low oxygen saturation yesterday and 92% on 2 L nasal cannula, she was given nebulizer treatments with only slight improvement. Apparently the prison called the ambulance secondary to doctor's instructions that if the patient's oxygen saturation should remain below 92% and the patient should be transferred to the hospital. CBC/BMP: 05/26/17 1018 05/26/17 1018 Significant Findings Laboratory Tests Test 05/24/17 05:40 05/26/17 10:18 Red Blood Count 3.56 MIL/MM3 (4.00-5.30) 3.93 MIL/MM3 (4.00-5.30) Hemoglobin 10.6 GM/DL (11.6-15.3) Hematocrit 31.9 % (35.0-46.0) Platelet Count 140 TH/MM3 (150-450) 147 TH/MM3 (150-450) Neutrophils (%) (Auto) 88.0 % (16.0-70.0) 87.3 % (16.0-70.0) Lymphocytes (%) (Auto) 6.5 % (9.0-44.0) 7.9 % (9.0-44.0) Neutrophils # (Auto) 8.1 TH/MM3 (1.8-7.7) Lymphocytes # (Auto) 0.6 TH/MM3 (1.0-4.8) 0.6 TH/MM3 (1.0-4.8) Blood Urea Nitrogen 23 MG/DL (7-18) Creatinine 0.44 MG/DL (0.50-1.00) Total Protein 6.2 GM/DL (6.4-8.2) Albumin 3.2 GM/DL (3.4-5.0) 3.3 GM/DL (3.4-5.0) Aspartate Amino Transf (AST/SGOT) 8 U/L (15-37) 11 U/L (15-37) Chloride Level 97 MEQ/L (98-107) Carbon Dioxide Level 33.1 MEQ/L (21.0-32.0) 36.5 MEQ/L (21.0-32.0) Random Glucose 131 MG/DL (74-106) Phosphorus Level 2.2 MG/DL (2.5-4.9) Imaging Last Impressions Chest X-Ray 05/24/17 0600 Signed Impressions: Service Date/Time: Wednesday, May 24, 2017 04:25 - CONCLUSION: 1. Interval extubation and removal of nasogastric tube. 2. Midinspiratory study with no acute cardiopulmonary disease. Sanket Olson MD Chest CT 05/10/17 0000 Signed Impressions: Service Date/Time: Wednesday, May 10, 2017 17:28 - CONCLUSION: Patchy air space disease right mid and lower lung with platelike peripheral consolidation. . This associated with trace pleural effusion.. Harshil Ortiz MD FACR PE at Discharge GENERAL: This is a well-nourished, well-developed patient, in no apparent distress. SKIN: No rashes, ecchymoses or lesions. Cool and dry. Fungal infection in all folds HEAD: Atraumatic. Normocephalic. No temporal or scalp tenderness. EYES: Pupils equal round and reactive. Extraocular motions intact. No scleral icterus. No injection or drainage. ENT: Nose without bleeding, purulent drainage or septal hematoma. Throat without erythema, tonsillar hypertrophy or exudate. Uvula midline. Airway patent. NECK: Trachea midline. No JVD or lymphadenopathy. Supple, nontender, no meningeal signs. CARDIOVASCULAR: Regular rate and rhythm without murmurs, gallops, or rubs. S1- S2 no S3 or S4 RESPIRATORY: Clear to auscultation. Breath sounds equal bilaterally. No wheezes , rales, or rhonchi. Diminished breath sounds at the bases. GASTROINTESTINAL: Abdomen soft, non-tender, nondistended. No hepato-splenomegaly , or palpable masses. No guarding. FELIX IN PLACE MUSCULOSKELETAL: Extremities without clubbing, cyanosis. No joint tenderness, effusion, or edema noted. No calf tenderness. Negative Homans sign bilaterally. Bilateral lower extremity edema. Slow improvement NEUROLOGICAL: Awake and alert. Expressive aphasia combined with Alzheimer's dementia limits the exam. Patient is spontaneously moving all 4 extremities, tracking movement and moving her head spontaneously to both sides. Pt Condition on Discharge: Stable Discharge Disposition: Discharge to SNF Discharge Instructions DIET: Follow Instructions for: As Tolerated, No Restrictions Activities you can perform: See Additionl Instruction Other Activity Instructions: as per PT OOB with assistance Eliseo Le MD May 26, 2017 12:29
== END 2017-05-26 14:00 | DRG 870 ==
LOC: NEPE 05:08 → NEDA 06:23 → NEDH 20:21 → N05B 05-09 15:48 → HIMN 05-12 21:50 → N04B 05-24 21:35
PROVIDERS: ADMIT Hospitalist; ATTEND Hospitalist
PROC: 5A09357 Assistance with Respiratory Ventilation, Less than 24 Consecutive Hours, Continuous Positive Airway Pressure (ICD-10-PCS; 2017-05-08)
PROC: 0T2BX0Z Change Drainage Device in Bladder, External Approach (ICD-10-PCS; 2017-05-08)
PROC: 5A1955Z Respiratory Ventilation, Greater than 96 Consecutive Hours (ICD-10-PCS; principal; 2017-05-12)
PROC: 0BH17EZ Insertion of Endotracheal Airway into Trachea, Via Natural or Artificial Opening (ICD-10-PCS; 2017-05-12)
PROC: 0BH17EZ Insertion of Endotracheal Airway into Trachea, Via Natural or Artificial Opening (ICD-10-PCS; 2017-05-18)
DX: A41.9 Sepsis, unspecified organism (principal); J96.21 Acute and chronic respiratory failure with hypoxia; J18.9 Pneumonia, unspecified organism; G93.41 Metabolic encephalopathy; E87.4 Mixed disorder of acid-base balance; J44.0 Chronic obstructive pulmonary disease with (acute) lower respiratory infection; N39.0 Urinary tract infection, site not specified; I48.92 Unspecified atrial flutter; D69.6 Thrombocytopenia, unspecified; E87.1 Hypo-osmolality and hyponatremia; R47.01 Aphasia; Z68.41 Body mass index [BMI] 40.0-44.9, adult; J44.1 Chronic obstructive pulmonary disease with (acute) exacerbation; J98.11 Atelectasis; I48.2 Chronic atrial fibrillation; I10 Essential (primary) hypertension; Z99.81 Dependence on supplemental oxygen; G30.9 Alzheimer's disease, unspecified; F02.80 Dementia in other diseases classified elsewhere, unspecified severity, without behavioral disturbance, psychotic disturbance, mood disturbance, and anxiety; E03.9 Hypothyroidism, unspecified; E66.01 Morbid (severe) obesity due to excess calories; G43.909 Migraine, unspecified, not intractable, without status migrainosus; H91.90 Unspecified hearing loss, unspecified ear; K21.9 Gastro-esophageal reflux disease without esophagitis; E78.5 Hyperlipidemia, unspecified; G25.81 Restless legs syndrome; I25.10 Atherosclerotic heart disease of native coronary artery without angina pectoris; Z88.0 Allergy status to penicillin; Z87.891 Personal history of nicotine dependence; Z86.73 Personal history of transient ischemic attack (TIA), and cerebral infarction without residual deficits; Z16.12 Extended spectrum beta lactamase (ESBL) resistance; B96.20 Unspecified Escherichia coli [E. coli] as the cause of diseases classified elsewhere; T83.031A Leakage of indwelling urethral catheter, initial encounter; Y73.8 Miscellaneous gastroenterology and urology devices associated with adverse incidents, not elsewhere classified; E86.0 Dehydration; E87.70 Fluid overload, unspecified; I87.8 Other specified disorders of veins; F32.9 Major depressive disorder, single episode, unspecified; E88.09 Other disorders of plasma-protein metabolism, not elsewhere classified; Z79.52 Long term (current) use of systemic steroids; D50.9 Iron deficiency anemia, unspecified; B36.8 Other specified superficial mycoses
CPT/HCPCS: 31500; 36600; 71045; 71250; 76937; 80048; 80053; 80202; 81001; 82565; 82805; 82948; 83036; 83605; 83735; 83880; 84100; 84132; 84439; 84443; 84484; 85007; 85025; 85027; 85610; 85730; 87040; 87070; 87077; 87086; 87106; 87186; 87205; 87493; 87641; 87804; 93005; 93308; 94002; 94003; 94150; 94640; 94664; 94667; C9113; C9399; J0360; J0610; J0743; J1100; J1120; J1335; J1644; J1815; J1940; J1956; J2248; J2405; J2920; J3010; J3370; J3475; J3480; J7030; J7040; J7050; J7512; J7626; P9047

== ENCOUNTER 2018-01-24 22:49 | Inpatient (IN) ==
[2018-01-24] MEDS ORDERED: MethylPREDNISolone Sod Succinate Inj 125 MG/2 ML Vial IV.PUSH ONE (23:00)
--- NOTE | 2018-01-24 23:33 | XR ---
EXAM DATE: 01/24/2018 11:26 PM EST AGE/SEX: 77 years / Female INDICATIONS: Shortness of breath starting today CLINICAL DATA: This is the patient's initial encounter. Patient reports that signs and symptoms have been present for 1 day and indicates a pain score of 0/10. MEDICAL/SURGICAL HISTORY: . Chronic obstructive pulmonary disease. Hypertension Gastroesophagea l reflux disease. AFIB. None. COMPARISON: [facility] – [place], CHEST 1V SINGLE AP, 12/10/2017. . FINDINGS: There is bilateral mostly basilar airspace disease. No significant effusion. No pneumothorax. Cardiom egaly. Tortuous aorta. CONCLUSION: Cardiomegaly with bibasilar airspace consolidation. No significant effusion. No pneumothorax. Electronically signed by: Dao Anderson MD 01/24/2018 11:32 PM EST
--- NOTE | 2018-01-24 23:34 | ED ---
HPI General Chief Complaint: Respiratory Symptoms Stated Complaint: Sob,Evac Time Seen by Provider: 01/24/18 22:54 Source: patient and EMS Limitations: other (dementia) History of Present Illness 77 YO F with PMH of dementia, HTN , COPD, a fib, oxygen dependant, presents to the ED for evaluation of SOB. The staff at the [facility] where she lives report O2 saturations of 86% on 2L NC. On presentation the patient is alert to self only. She complains that " I can't breathe." She denies cough. The patient is alert, follows commands. She is unable to provide any other meaningful history. Related Data Home Medications Medication Instructions Recorded Confirmed atorvastatin [Lipitor] 20 mg PO HS 12/10/17 01/25/18 bisacodyl [Dulcolax (bisacodyl)] 10 mg OK DAILY PRN 12/10/17 01/25/18 carvedilol [Coreg] 3.125 mg PO Q12HR 12/10/17 01/25/18 dextran 70-hypromellose (PF) 3 drp EACH EYE TID 12/10/17 01/25/18 [Artificial Tears (PF)] diltiazem HCl [Cardizem CD] 120 mg PO DAILY 12/10/17 01/25/18 docusate sodium [Colace] 200 mg PO DAILY 12/10/17 01/25/18 fluticasone [Flonase Allergy 1 spray INTRANASAL DAILY 12/10/17 01/25/18 Relief] furosemide [Lasix] 40 mg PO BID 12/10/17 01/25/18 glycopyrrolate 1 mg PO Q12HR 12/10/17 01/25/18 ipratropium-albuterol 3 ml INHALATION QID 12/10/17 01/25/18 isosorbide mononitrate 30 mg PO DAILY 12/10/17 01/25/18 linaclotide [Linzess] 72 mcg PO DAILY 12/10/17 01/25/18 loperamide 4 mg PO Q8HR PRN 12/10/17 01/25/18 magnesium citrate [Citroma] 296 ml PO DAILY PRN 12/10/17 01/25/18 magnesium hydroxide [Milk of 30 ml PO DAILY PRN 12/10/17 01/25/18 Magnesia] melatonin 6 mg PO HS 12/10/17 01/25/18 multivitamin with minerals 1 tab PO DAILY 12/10/17 01/25/18 omeprazole 40 mg PO DAILY 12/10/17 01/25/18 pramipexole 0.75 mg PO Q8HR 12/10/17 01/25/18 prednisone 10 mg PO DAILY 12/10/17 01/25/18 sertraline [Zoloft] 200 mg PO HS 12/10/17 01/25/18 spironolactone [Aldactone] 25 mg PO DAILY 12/10/17 01/25/18 umeclidinium [Incruse Ellipta] 1 inh INHALATION DAILY 12/10/17 01/25/18 nitrofurantoin monohyd/m-cryst 100 mg PO BID 01/25/18 01/25/18 [Macrobid] Allergies Allergy/AdvReac Type Severity Reaction Status Date / Time Penicillins Allergy Severe Hives Verified 01/24/18 22:54 Review of Systems ROS Unobtainable ROS Unobtainable: unobtainable due to mental condition (dementia) [facility] Medical History Medical History Afib (Chronic) Anxiety (Chronic) COPD (chronic obstructive pulmonary disease) (Chronic) Depression (Chronic) GERD (gastroesophageal reflux disease) (Chronic) HLD (hyperlipidemia) (Chronic) Obesity (Chronic) Osteoarthritis (Chronic) Seizure (Chronic) Social History Social History Substance History: No History of Abuse Second Hand Smoke Exposure: No Smoking Status: Never smoker How Often Do You Have a Drink Containing Alcohol: Never Recent Travel in [facility] within the Last 8 Weeks: No Recent Out of Country Travel within the Last 8 Weeks: No Immunization History Tetanus Immunization: Unsure Exam Narrative Exam Narrative: GENERAL: Well-nourished, well-developed white female on 4 L by nasal cannula in no acute distress. SKIN: Focused skin assessment warm/dry. Chronic skin changes to the mid valladares and bilateral lower extremities per HEAD: Atraumatic. Normocephalic. EYES: Pupils equal and round. No scleral icterus. No injection or drainage. ENT: No nasal bleeding or discharge. Mucous membranes pink and moist. NECK: Trachea midline. No JVD. CARDIOVASCULAR: Regular rate and rhythm. No murmur appreciated. RESPIRATORY: No accessory muscle use. Poor air movement. Clear to auscultation. Breath sounds diminished in the lung bases. GASTROINTESTINAL: Abdomen soft, non-tender, nondistended. Hepatic and splenic margins not palpable. MUSCULOSKELETAL: No obvious deformities. No clubbing. No cyanosis. 2+ tender edema in BLE. NEUROLOGICAL: Awake and alert. No obvious cranial nerve deficits. Motor grossly within normal limits. Normal speech. PSYCHIATRIC: Calm. Cooperative. Course Initial Documented Vital Signs Temperature 98.3 F 01/24/18 22:58 Pulse Rate 78 01/24/18 22:58 Respiratory Rate 22 01/24/18 22:58 Blood Pressure 118/78 01/24/18 22:58 Pulse Oximetry 97 01/24/18 22:58 Last Documented Vital Signs Temperature 98.3 F 01/24/18 22:58 Pulse Rate 68 01/24/18 23:06 Respiratory Rate 16 01/24/18 23:06 Blood Pressure 118/78 01/24/18 22:58 Pulse Oximetry 97 01/24/18 23:06 Medical Decision Making CK Attestation CK supervised visit: Yes Attestation: The history, exam, and medical decision-making in the associated mid-level provider note were completed with my assistance. I reviewed and agree with the findings presented. I attest that I had a [id number] encounter with the patient on the same day, and personally performed and documented my assessment and findings in the medical record. *My assessment and Findings: 77-year-old woman, increased shortness of breath and hypoxia, history of COPD. She is also on Lasix. Lungs sounds are diminished with rales in the bases. BNP is not elevated. She does have bibasilar infiltrates. Suspect COPD exacerbation with pneumonia. Reviewed blood gas. Recommend admission, IV antibiotics. Increased oxygen requirement from baseline also. [facility] Narrative Medical decision making narrative: 77 YO F with PMH of A. fib, COPD, GERD presents to the ED for evaluation of low oxygen saturations at her [facility]. Patient is oxygen dependent on 2 L by nasal cannula. O2 sats 86% today. On presentation the patient is alert, follows commands but unable to provide a history due to dementia.O2 saturations 94% on 4 L nasal cannula. Lung sounds are diminished in the bilateral lower lobes and there is poor inspiratory effort noted. 2+ edema to the knees bilaterally with chronic skin changes of the lower extremities to the mid shins. Patient has a indwelling Cheek catheter. IV was established. Patient was administered Solu-Medrol, duo nebs x1. She was administered an additional DuoNeb in route by EMS. UA with evidence of UTI. Chest x-ray with bilateral lower lobe consolidations. Patient was administered 750 mg Levaquin IV. Cheek catheter was changed. The patient still with increased oxygen requirement. I spoke with Dr. Fernández who agrees to accept the patient to the medical service. Please see medicine notes for disposition. Medical Screen Exam Complete: Yes Emergency Medical Condition: Yes Differential Diagnosis Differential Diagnosis: COPD exacerbation versus PNA versus CHF versus UTI versus other Lab Data Result diagrams: 01/24/18 23:00 01/24/18 23:00 Lab Results 01/24/18 01/24/18 01/24/18 Range/Units 23:00 23:00 23:00 WBC 6.9 (4.0-11.0) th/mm3 RBC 3.42 L (4.00-5.30) mil/mm3 Hgb 10.5 L (11.6-15.3) gm/dL Hct 31.3 L (35.0-46.0) % MCV 91.4 (80.0-100.0) fL MCH 30.6 (27.0-34.0) pg MCHC 33.5 (32.0-36.0) % RDW 15.4 (11.6-17.2) % Plt Count 127 L (150-450) th/mm3 MPV 8.4 (7.0-11.0) fL Neut % (Auto) 77.5 H (16.0-70.0) % Lymph % (Auto) 14.5 (9.0-44.0) % Brown % (Auto) 6.9 (0.0-8.0) % Eos % (Auto) 0.8 (0.0-4.0) % Baso % (Auto) 0.3 (0.0-2.0) % Neut # (Auto) 5.3 (1.8-7.7) th/mm3 Lymph # (Auto) 1.0 (1.0-4.8) th/mm3 Brown # (Auto) 0.5 (0.0-0.9) th/mm3 Eos # (Auto) 0.1 (0.0-0.4) th/mm3 Baso # (Auto) 0.0 (0.0-0.2) th/mm3 WBC Differential . Differential Comment Auto diff final Puncture Site Patient Temperature O2 Saturation (90-100) % ABG pH (7.380-7.420) ABG pCO2 (38-42) mmHg ABG pO2 (61-120) mmHg ABG HCO3 (22-26) mmol/L ABG O2 Content (12.0-20.0) Vol % ABG Base Excess (-2-2) mmol/L ABG Methemoglobin (0-2) % Zay Test Hemoglobin (12.0-16.0) G/DL Carboxyhemoglobin (0-4) % O2 Delivery Device Liter Flow L/M Inspired O2 % Critical Value Sodium 140 (136-145) meq/L Potassium 5.4 H (3.5-5.1) meq/L Chloride 102 (98-107) meq/L Carbon Dioxide 35.9 H (21.0-32.0) meq/L Anion Gap 2 L (5-15) meq/L BUN 20 H (7-18) mg/dL Creatinine 0.76 (0.50-1.00) mg/dL Estimated GFR 73 L (>89) mL/min Random Glucose 142 H (74-106) mg/dL Calcium 8.4 L (8.5-10.1) mg/dL Total Bilirubin 0.3 (0.2-1.0) mg/dL AST 86 H (15-37) U/L ALT 74 H (10-53) U/L Alkaline Phosphatase 131 H (45-117) U/L Troponin I 0.02 (0.02-0.05) ng/mL B-Natriuretic Peptide 99 (0-100) pg/mL Total Protein 6.1 L (6.4-8.2) g/dL Albumin 2.8 L (3.4-5.0) g/dL Urine Color (Yellw/Straw) Urine Clarity (Clear) Urine pH (5.0-8.5) Ur Specific [place] (1.002-1.035) Urine Protein (Neg-Trace) mg/dL Urine Glucose (UA) (Negative) mg/dL Urine Ketones (Negative) mg/dL Urine Occult Blood (Negative) Urine Nitrate (Negative) Urine Bilirubin (Negative) Urine Urobilinogen (Less than 2) mg/dL Ur Leukocyte Esterase (Negative) Urine RBC (0-3) /hpf Urine WBC (0-5) /hpf Ur Squamous Epith Cells (0-5) /hpf Urine Bacteria (None) /hpf Hyaline Casts (0-3) /lpf Urine Mucus (Occasional) /lpf Urine Yeast (None) /hpf Micro UA Comment Ur Microscopic Review Urine Culture Comments 01/24/18 01/24/18 Range/Units 23:00 23:40 WBC (4.0-11.0) th/mm3 RBC (4.00-5.30) mil/mm3 Hgb (11.6-15.3) gm/dL Hct (35.0-46.0) % MCV (80.0-100.0) fL MCH (27.0-34.0) pg MCHC (32.0-36.0) % RDW (11.6-17.2) % Plt Count (150-450) th/mm3 MPV (7.0-11.0) fL Neut % (Auto) (16.0-70.0) % Lymph % (Auto) (9.0-44.0) % Brown % (Auto) (0.0-8.0) % Eos % (Auto) (0.0-4.0) % Baso % (Auto) (0.0-2.0) % Neut # (Auto) (1.8-7.7) th/mm3 Lymph # (Auto) (1.0-4.8) th/mm3 Brown # (Auto) (0.0-0.9) th/mm3 Eos # (Auto) (0.0-0.4) th/mm3 Baso # (Auto) (0.0-0.2) th/mm3 WBC Differential Differential Comment Puncture Site Right radial Patient Temperature 98.6 O2 Saturation 92 (90-100) % ABG pH 7.31 L (7.380-7.420) ABG pCO2 76 H* (38-42) mmHg ABG pO2 74 (61-120) mmHg ABG HCO3 37 H (22-26) mmol/L ABG O2 Content 13.0 (12.0-20.0) Vol % ABG Base Excess 10.4 H (-2-2) mmol/L ABG Methemoglobin 0.5 (0-2) % Zay Test Present Hemoglobin 9.9 L (12.0-16.0) G/DL Carboxyhemoglobin 1.4 (0-4) % O2 Delivery Device Nasal cannula Liter Flow 2.00 L/M Inspired O2 92 % Critical Value Yes Sodium (136-145) meq/L Potassium (3.5-5.1) meq/L Chloride (98-107) meq/L Carbon Dioxide (21.0-32.0) meq/L Anion Gap (5-15) meq/L BUN (7-18) mg/dL Creatinine (0.50-1.00) mg/dL Estimated GFR (>89) mL/min Random Glucose (74-106) mg/dL Calcium (8.5-10.1) mg/dL Total Bilirubin (0.2-1.0) mg/dL AST (15-37) U/L ALT (10-53) U/L Alkaline Phosphatase (45-117) U/L Troponin I (0.02-0.05) ng/mL B-Natriuretic Peptide (0-100) pg/mL Total Protein (6.4-8.2) g/dL Albumin (3.4-5.0) g/dL Urine Color Yellow (Yellw/Straw) Urine Clarity Hazy H (Clear) Urine pH 5.0 (5.0-8.5) Ur Specific [place] 1.016 (1.002-1.035) Urine Protein 30 H (Neg-Trace) mg/dL Urine Glucose (UA) Negative (Negative) mg/dL Urine Ketones Negative (Negative) mg/dL Urine Occult Blood Negative (Negative) Urine Nitrate Positive H (Negative) Urine Bilirubin Negative (Negative) Urine Urobilinogen Less than 2 (Less than 2) mg/dL Ur Leukocyte Esterase Moderate H (Negative) Urine RBC 5 H (0-3) /hpf Urine WBC 30 H (0-5) /hpf Ur Squamous Epith Cells 1 (0-5) /hpf Urine Bacteria Many H (None) /hpf Hyaline Casts 6 (0-3) /lpf Urine Mucus Few H (Occasional) /lpf Urine Yeast Few H (None) /hpf Micro UA Comment Cath-culture ind Ur Microscopic Review Not Reportable Urine Culture Comments Cath-cult indicated Imaging Data Radiologist's impression: Chest X-Ray 01/24/18 22:55 CONCLUSION: Cardiomegaly with bibasilar airspace consolidation. No significant effusion. No pneumothorax. Discharge Plan Discharge Disposition Patient Disposition: 30 Still Patient Physicians Team ED Provider: Davey Ramos ED Midlevel Provider: Mamta Garnett Rxs /Orders / Referrals /Forms Prescriptions: No Action nitrofurantoin monohyd/m-cryst [Macrobid] 100 mg Capsule 100 mg PO BID RF: 0 glycopyrrolate 1 mg Tablet 1 mg PO Q12HR RF: 0 furosemide [Lasix] 40 mg Tablet 40 mg PO BID RF: 0 prednisone 10 mg Tablet 10 mg PO DAILY RF: 0 atorvastatin [Lipitor] 20 mg Tablet 20 mg PO HS RF: 0 ipratropium-albuterol 0.5 mg-3 mg(2.5 mg base)/3 mL Solution For Nebulization 3 ml INHALATION QID RF: 0 isosorbide mononitrate 30 mg Tablet Extended Release 24 Hr 30 mg PO DAILY RF: 0 sertraline [Zoloft] 100 mg Tablet 200 mg PO HS RF: 0 loperamide 2 mg Tablet 4 mg PO Q8HR PRN (Reason: Diarrhea) RF: 0 melatonin 3 mg Tablet 6 mg PO HS RF: 0 spironolactone [Aldactone] 25 mg Tablet 25 mg PO DAILY RF: 0 carvedilol [Coreg] 3.125 mg Tablet 3.125 mg PO Q12HR RF: 0 magnesium hydroxide [Milk of Magnesia] 400 mg/5 mL Suspension 30 ml PO DAILY PRN (Reason: Constipation) RF: 0 bisacodyl [Dulcolax (bisacodyl)] 10 mg Suppository 10 mg OK DAILY PRN (Reason: Constipation) RF: 0 docusate sodium [Colace] 100 mg Capsule 200 mg PO DAILY RF: 0 omeprazole 20 mg Capsule,Delayed Release(Dr/Ec) 40 mg PO DAILY RF: 0 magnesium citrate [Citroma] Solution 296 ml PO DAILY PRN (Reason: If no results from enema) RF: 0 diltiazem HCl [Cardizem CD] 120 mg Capsule,Extended Release 24hr 120 mg PO DAILY RF: 0 multivitamin with minerals Tablet 1 tab PO DAILY RF: 0 fluticasone [Flonase Allergy Relief] 50 mcg/actuation [place],Suspension 1 spray INTRANASAL DAILY RF: 0 pramipexole 0.75 mg Tablet 0.75 mg PO Q8HR RF: 0 dextran 70-hypromellose (PF) [Artificial Tears (PF)] 0.1-0.3 % Dropperette 3 drp EACH EYE TID RF: 0 umeclidinium [Incruse Ellipta] 62.5 mcg/actuation Blister With Device 1 inh INHALATION DAILY RF: 0 linaclotide [Linzess] 72 mcg Capsule 72 mcg PO DAILY RF: 0 Status ED Status: Admitted Patient
[2018-01-24 23:36] LABS: Baso % (Auto) 0.3 % (0.0-2.0); Eos # (Auto) 0.1 th/mm3 (0.0-0.4); Eos % (Auto) 0.8 % (0.0-4.0); Hematocrit 31.3 % (35.0-46.0); Hemoglobin 10.5 gm/dL (11.6-15.3); Lymph % (Auto) 14.5 % (9.0-44.0); Mean Corpuscular HGB Conc 33.5 % (32.0-36.0); Mean Corpuscular Hemoglobin 30.6 pg (27.0-34.0); Mean Corpuscular Volume 91.4 fL (80.0-100.0); Mean Platelet Volume 8.4 fL (7.0-11.0); Mono # (Auto) 0.5 th/mm3 (0.0-0.9); Mono % (Auto) 6.9 % (0.0-8.0); Neut # (Auto) 5.3 th/mm3 (1.8-7.7); Neut % (Auto) 77.5 % (16.0-70.0); Platelet Count 127 th/mm3 (150-450); Red Blood Count 3.42 mil/mm3 (4.00-5.30); Red Cell Distribution Width 15.4 % (11.6-17.2); White Blood Count 6.9 th/mm3 (4.0-11.0)
[2018-01-24 23:40] LABS: Bacteria,Urine Many /hpf; Bilirubin,Urine Negative (Negative); Clarity,Urine Hazy (Clear); Color,Urine Yellow (Yellw/Straw); Glucose,Urine (UA) Negative (Negative); Hyaline Casts,Urine 6 /lpf (0-3); Leukocyte Esterase,Urine Moderate (Negative); Mucus,Urine Few /lpf (Occasional); Nitrite,Urine Positive (Negative); Specific Gravity,Urine 1.016 (1.002-1.035); Squamous Epithelial Cell,Urine 1 /hpf (0-5)
[2018-01-24 23:42] LABS: Alkaline Phosphatase 131 U/L (45-117); Total Protein 6.1 g/dL (6.4-8.2); Troponin I 0.02 ng/mL (0.02-0.05)
[2018-01-24 23:46] LABS: Alanine Aminotransferase 74 U/L (10-53); Albumin 2.8 g/dL (3.4-5.0); Anion Gap 2 meq/L (5-15); Aspartate Aminotransferase 86 U/L (15-37); Blood Urea Nitrogen 20 mg/dL (7-18); Calcium 8.4 mg/dL (8.5-10.1); Carbon Dioxide 35.9 meq/L (21.0-32.0); Chloride 102 meq/L (98-107); Glomerular Filtration Rate 73 mL/min (>89); Glucose,Random 142 mg/dL (74-106); Sodium 140 meq/L (136-145)
[2018-01-24 23:47] LABS: Potassium 5.4 meq/L (3.5-5.1)
[2018-01-24 23:52] LABS: ABG Base Excess 10.4 mmol/L (-2-2); ABG PCO2 76 mmHg (38-42); ABG PO2 74 mmHg (61-120)
[2018-01-25] MEDS ORDERED: Bisacodyl 10 MG Supp RECTAL PRN (04:14)
[2018-01-25] MEDS ORDERED: Acetaminophen 325 MG Tablet PO PRN (04:14)
--- NOTE | 2018-01-25 04:34 | P.HP ---
History of Present Illness Service: [facility] Primary Care Physician: UNKNOWN History of Present Illness: 77-year-old female with a past medical history significant for atrial fibrillation (anticoagulated on aspirin), COPD, hypertension, hyperlipidemia, CAD and restless leg syndrome presents to the emergency department for the evaluation of shortness of breath. The staff at the patient's assisted living facility where she resides reports oxygen saturations of 86% on 2 L nasal cannula. At the time of our interview, the patient reports that she feels extremely short of breath. ABG remarkable for hypercapnia. The patient denies any chest pain. No abdominal pain. No nausea/vomiting/diarrhea. No fever/ chills. No focal neurologic deficits. History is limited as patient has a history of dementia and is a poor historian. Review of Systems All other systems reviewed negative except as stated in HPI [facility] - History History Provided By: Barrel Cap Setter / EMT - Medical History Medical History: Medical History (Last Updated 01/25/18 @ 04:26 by Grecia Fernández MD) Hyperlipidemia Hypertension Restless leg syndrome Surgical history unknown Afib Anxiety COPD (chronic obstructive pulmonary disease) Depression GERD (gastroesophageal reflux disease) Obesity Osteoarthritis - Family History Family History: Family History (Last Updated 01/25/18 @ 04:26 by Grecia Fernández MD) Other Family history unknown - Tobacco History Second Hand Smoke Exposure: No Smoking Status: Never smoker - Alcohol History How Often Do You Have a Drink Containing Alcohol: Never - Substance Use History Substance History: No History of Abuse - Travel History Recent Travel in the [place] Within the Last 8 Weeks: No Recent Travel Out of the Country Within the Last 8 Weeks: No - Immunization History Tetanus Immunization: Unsure Medications and Allergies Allergies Allergy/AdvReac Type Severity Reaction Status Date / Time Penicillins Allergy Severe Hives Verified 01/24/18 22:54 Home Medications Medication Instructions Recorded Confirmed Type atorvastatin [Lipitor] 20 mg PO HS 12/10/17 01/25/18 History bisacodyl [Dulcolax (bisacodyl)] 10 mg VT DAILY PRN 12/10/17 01/25/18 History carvedilol [Coreg] 3.125 mg PO Q12HR 12/10/17 01/25/18 History dextran 70-hypromellose (PF) 3 drp EACH EYE TID 12/10/17 01/25/18 History [Artificial Tears (PF)] diltiazem HCl [Cardizem CD] 120 mg PO DAILY 12/10/17 01/25/18 History docusate sodium [Colace] 200 mg PO DAILY 12/10/17 01/25/18 History fluticasone [Flonase Allergy 1 spray INTRANASAL DAILY 12/10/17 01/25/18 History Relief] furosemide [Lasix] 40 mg PO BID 12/10/17 01/25/18 History glycopyrrolate 1 mg PO Q12HR 12/10/17 01/25/18 History ipratropium-albuterol 3 ml INHALATION QID 12/10/17 01/25/18 History isosorbide mononitrate 30 mg PO DAILY 12/10/17 01/25/18 History linaclotide [Linzess] 72 mcg PO DAILY 12/10/17 01/25/18 History loperamide 4 mg PO Q8HR PRN 12/10/17 01/25/18 History magnesium citrate [Citroma] 296 ml PO DAILY PRN 12/10/17 01/25/18 History magnesium hydroxide [Milk of 30 ml PO DAILY PRN 12/10/17 01/25/18 History Magnesia] melatonin 6 mg PO HS 12/10/17 01/25/18 History multivitamin with minerals 1 tab PO DAILY 12/10/17 01/25/18 History omeprazole 40 mg PO DAILY 12/10/17 01/25/18 History pramipexole 0.75 mg PO Q8HR 12/10/17 01/25/18 History prednisone 10 mg PO DAILY 12/10/17 01/25/18 History sertraline [Zoloft] 200 mg PO HS 12/10/17 01/25/18 History spironolactone [Aldactone] 25 mg PO DAILY 12/10/17 01/25/18 History umeclidinium [Incruse Ellipta] 1 inh INHALATION DAILY 12/10/17 01/25/18 History aspirin [Aspir-81] 81 mg PO DAILY 01/25/18 01/25/18 History nitrofurantoin monohyd/m-cryst 100 mg PO BID 01/25/18 01/25/18 History [Macrobid] pantoprazole [Protonix] 40 mg PO DAILY 01/25/18 01/25/18 History Exam Vital signs: Vital Signs 01/24/18 22:58 01/24/18 23:06 01/25/18 01:26 Temperature 98.3 F Pulse Rate 78 68 Respiratory Rate 22 16 Blood Pressure 118/78 Pulse Oximetry 97 97 94 L Intake & Output 01/24/18 01/24/18 01/25/18 06:59 18:59 06:59 Weight 102.058 kg Narrative: Gen.: No acute distress Head: Normocephalic. Atraumatic. EENT: Pupils equal round and reactive to light. Nose without drainage. Airway intact. Throat without injection. Cardiovascular: Regular rate and rhythm. No murmurs, rubs or gallops. Respiratory: Lungs clear to auscultation bilaterally. No wheezes or rhonchi. Abdomen: Soft, nontender, nondistended. No peritoneal signs. Musculoskeletal: No gross deformities. No edema. Skin: No obvious rashes or erythema. Neuro: Sensory and motor grossly intact. Cranial nerves II through XII grossly intact. Results - Labs CBC & Chem 7: 01/24/18 23:00 01/24/18 23:00 Labs: Laboratory Results - last 24 hr 01/24/18 01/24/18 01/24/18 23:00 23:00 23:00 WBC 6.9 RBC 3.42 L Hgb 10.5 L Hct 31.3 L MCV 91.4 MCH 30.6 MCHC 33.5 RDW 15.4 Plt Count 127 L MPV 8.4 Neut % (Auto) 77.5 H Lymph % (Auto) 14.5 [place] % (Auto) 6.9 Eos % (Auto) 0.8 Baso % (Auto) 0.3 Neut # (Auto) 5.3 Lymph # (Auto) 1.0 [place] # (Auto) 0.5 Eos # (Auto) 0.1 Baso # (Auto) 0.0 WBC Differential . Differential Comment Auto diff final Puncture Site Patient Temperature O2 Saturation ABG pH ABG pCO2 ABG pO2 ABG HCO3 ABG O2 Content ABG Base Excess ABG Methemoglobin Zay Test Hemoglobin Carboxyhemoglobin O2 Delivery Device Liter Flow Inspired O2 Critical Value Sodium 140 Potassium 5.4 H Chloride 102 Carbon Dioxide 35.9 H Anion Gap 2 L BUN 20 H Creatinine 0.76 Estimated GFR 73 L Random Glucose 142 H Calcium 8.4 L Total Bilirubin 0.3 AST 86 H ALT 74 H Alkaline Phosphatase 131 H Troponin I 0.02 B-Natriuretic Peptide 99 Total Protein 6.1 L Albumin 2.8 L Urine Color Urine Clarity Urine pH Ur Specific [place] Urine Protein Urine Glucose (UA) Urine Ketones Urine Occult Blood Urine Nitrate Urine Bilirubin Urine Urobilinogen Ur Leukocyte Esterase Urine RBC Urine WBC Ur Squamous Epith Cells Urine Bacteria Hyaline Casts Urine Mucus Urine Yeast Micro UA Comment Ur Microscopic Review Urine Culture Comments 01/24/18 01/24/18 23:00 23:40 WBC RBC Hgb Hct MCV MCH MCHC RDW Plt Count MPV Neut % (Auto) Lymph % (Auto) [place] % (Auto) Eos % (Auto) Baso % (Auto) Neut # (Auto) Lymph # (Auto) [place] # (Auto) Eos # (Auto) Baso # (Auto) WBC Differential Differential Comment Puncture Site Right radial Patient Temperature 98.6 O2 Saturation 92 ABG pH 7.31 L ABG pCO2 76 H* ABG pO2 74 ABG HCO3 37 H ABG O2 Content 13.0 ABG Base Excess 10.4 H ABG Methemoglobin 0.5 Zay Test Present Hemoglobin 9.9 L Carboxyhemoglobin 1.4 O2 Delivery Device Nasal cannula Liter Flow 2.00 Inspired O2 92 Critical Value Yes Sodium Potassium Chloride Carbon Dioxide Anion Gap BUN Creatinine Estimated GFR Random Glucose Calcium Total Bilirubin AST ALT Alkaline Phosphatase Troponin I B-Natriuretic Peptide Total Protein Albumin Urine Color Yellow Urine Clarity Hazy H Urine pH 5.0 Ur Specific [place] 1.016 Urine Protein 30 H Urine Glucose (UA) Negative Urine Ketones Negative Urine Occult Blood Negative Urine Nitrate Positive H Urine Bilirubin Negative Urine Urobilinogen Less than 2 Ur Leukocyte Esterase Moderate H Urine RBC 5 H Urine WBC 30 H Ur Squamous Epith Cells 1 Urine Bacteria Many H Hyaline Casts 6 Urine Mucus Few H Urine Yeast Few H Micro UA Comment Cath-culture ind Ur Microscopic Review Not Reportable Urine Culture Comments Cath-cult indicated - Imaging Impressions Chest X-Ray 01/24/18 22:55 CONCLUSION: Cardiomegaly with bibasilar airspace consolidation. No significant effusion. No pneumothorax. Caprini VTE Risk Assessment Caprini VTE Risk Assessment: Moderate/High Risk (score >= 2) Caprini Risk Assessment Model: Point Value = 1 Point Value = 2 Point Value = 3 Point Value = 5 Age 41-60 Minor surgery BMI > 25 kg/m2 Swollen legs Varicose veins or History of unexplained or recurrent spontaneous Oral contraceptives or hormone replacement Sepsis (< 1 month) Serious lung disease, including pneumonia (< 1 month) Abnormal pulmonary function Acute myocardial infarction Congestive heart failure (< 1 month) History of inflammatory bowel disease Medical patient at bed rest Age 61-74 Arthroscopic surgery Major open surgery (> 45 min) Laparoscopic surgery (> 45 min) Malignancy Confined to bed (> 72 hours) Immobilizing plaster cast Central venous access Age >= 75 History of VTE Family history of VTE Factor V Leiden Prothrombin [id number] Lupus anticoagulant Anticardiolipin antibodies Elevated serum homocysteine Heparin-induced thrombocytopenia Other congenital or acquired thrombophilia Stroke (< 1 month) Elective arthroplasty Hip, pelvis, or leg fracture Acute spinal cord injury (< 1 month) Prophylaxis Regimen: Total Risk Factor Score Risk Level Prophylaxis Regimen 0-1 Low Early ambulation 2 Moderate Order ONE of the following: *Sequential Compression Device (SCD) *Heparin 5000 units SQ BID 3-4 Higher Order ONE of the following medications: *Heparin 5000 units SQ TID *Enoxaparin/Lovenox 40 mg SQ daily (WT < 150 kg, CrCl > 30 mL/min) *Enoxaparin/Lovenox 30 mg SQ daily (WT < 150 kg, CrCl > 10-29 mL/min) *Enoxaparin/Lovenox 30 mg SQ BID (WT < 150 kg, CrCl > 30 mL/min) AND/OR *Sequential Compression Device (SCD) 5 or more Highest Order ONE of the following medications: *Heparin 5000 units SQ TID (Preferred with Epidurals) *Enoxaparin/Lovenox 40 mg SQ daily (WT < 150 kg, CrCl > 30 mL/min) *Enoxaparin/Lovenox 30 mg SQ daily (WT < 150 kg, CrCl > 10-29 mL/min) *Enoxaparin/Lovenox 30 mg SQ BID (WT < 150 kg, CrCl > 30 mL/min) AND *Sequential Compression Device (SCD) Assessment and Plan - Plan Assessment/plan: 1. Shortness of breath/COPD exacerbation AB.31/76/74/37 BiPAP for hypercapnic respiratory failure IV steroids Duo nebs Chest x-ray shows cardiomegaly with bibasilar airspace consolidation 2. Urinary tract infection Patient with indwelling Cheek catheter Exchanged in the ED UA consistent with urinary tract infection Urine culture pending Rocephin 3. Atrial fibrillation Continue home diltiazem, carvedilol Patient not on systemic anticoagulation 4. Hypertension/hyperlipidemia/GERD Continue home medications 5. Anxiety/depression Continue home medications FEN Regular diet Electrolytes: Replete as needed Lovenox
[2018-01-25] MEDS: Enoxaparin Inj 40 MG/0.4 ML Syringe SQ SCH (06:45)
[2018-01-25] MEDS: MethylPREDNISolone Sod Succinate Inj 40 MG/ML Vial IV.PUSH SCH ×3 (06:45→21:47)
[2018-01-25] MEDS: dilTIAZem CD 120 MG Capsule PO SCH (08:53)
[2018-01-25] MEDS: Senna/Docusate Sodium 8.6/50 MG Tablet PO SCH ×2 (08:53→21:45)
[2018-01-25] MEDS: Furosemide 40 MG Tablet PO SCH ×2 (08:53→21:45)
[2018-01-25] MEDS: Spironolactone 25 MG Tablet PO SCH (08:53)
[2018-01-25] MEDS ORDERED: Linaclotide [Linzess] 72 MCG PO SCH (09:00)
[2018-01-25] MEDS ORDERED: predniSONE 10 MG Tablet PO SCH (09:00)
[2018-01-25 11:09] LABS: Hematocrit 33.9 % (35.0-46.0); Mean Corpuscular HGB Conc 32.5 % (32.0-36.0); Mean Corpuscular Hemoglobin 30.6 pg (27.0-34.0); Mean Corpuscular Volume 94.3 fL (80.0-100.0); Mean Platelet Volume 7.8 fL (7.0-11.0); Platelet Count 96 th/mm3 (150-450); White Blood Count 5.5 th/mm3 (4.0-11.0)
[2018-01-25 11:26] LABS: Alanine Aminotransferase 67 U/L (10-53); Anion Gap 2 meq/L (5-15); Aspartate Aminotransferase 45 U/L (15-37); Blood Urea Nitrogen 17 mg/dL (7-18); Calcium 8.7 mg/dL (8.5-10.1); Carbon Dioxide 35.3 meq/L (21.0-32.0); Chloride 100 meq/L (98-107); Glomerular Filtration Rate 88 mL/min (>89); Glucose,Random 203 mg/dL (74-106); Sodium 137 meq/L (136-145)
[2018-01-25 11:29] LABS: Alkaline Phosphatase 132 U/L (45-117); Total Protein 6.4 g/dL (6.4-8.2)
--- NOTE | 2018-01-25 13:55 | ECG ---
Date Performed: 01/24/2018 Time Performed: 23:12:08 PTAGE: 77 years EKG: ATRIAL FIBRILLATION LOW QRS VOLTAGE IN PRECORDIAL LEADS NONSPECIFIC T-WAVE ABNORMALITY ABNO RMAL RHYTHM ECG Since PREVIOUS TRACING , no significant change noted PREVIOUS TRACIN12/10/2017 10.39 DOCTOR: Mariano Hansen Interpretating Date/Time 01/25/2018 13:54:14
[2018-01-25] MEDS ORDERED: levoFLOXacin 750 MG Tablet PO SCH ×2 (19:45→22:00)
[2018-01-25] MEDS ORDERED: Sertraline 100 MG Tablet PO SCH (21:00)
[2018-01-26] MEDS ORDERED: Haloperidol Inj 5 MG/ML Ampul IM PRN (03:05)
[2018-01-26 05:13] LABS: Hematocrit 33.8 % (35.0-46.0); Hemoglobin 10.8 gm/dL (11.6-15.3); Lymph # (Auto) 0.3 th/mm3 (1.0-4.8); Lymph % (Auto) 3.9 % (9.0-44.0); Mean Corpuscular HGB Conc 31.9 % (32.0-36.0); Mean Corpuscular Hemoglobin 30.4 pg (27.0-34.0); Mean Corpuscular Volume 95.1 fL (80.0-100.0); Mean Platelet Volume 7.7 fL (7.0-11.0); Mono # (Auto) 0.1 th/mm3 (0.0-0.9); Mono % (Auto) 1.7 % (0.0-8.0); Neut # (Auto) 7.9 th/mm3 (1.8-7.7); Neut % (Auto) 94.4 % (16.0-70.0); Platelet Count 117 th/mm3 (150-450); Red Blood Count 3.55 mil/mm3 (4.00-5.30); Red Cell Distribution Width 15.4 % (11.6-17.2); White Blood Count 8.3 th/mm3 (4.0-11.0)
[2018-01-26 05:38] LABS: Albumin 3.3 g/dL (3.4-5.0); Anion Gap 4 meq/L (5-15); Aspartate Aminotransferase 54 U/L (15-37); Blood Urea Nitrogen 25 mg/dL (7-18); Calcium 8.4 mg/dL (8.5-10.1); Carbon Dioxide 37.7 meq/L (21.0-32.0); Chloride 97 meq/L (98-107); Glomerular Filtration Rate 67 mL/min (>89); Glucose,Random 141 mg/dL (74-106); Potassium 4.8 meq/L (3.5-5.1); Sodium 139 meq/L (136-145)
[2018-01-26 05:47] LABS: Alanine Aminotransferase 78 U/L (10-53); Alkaline Phosphatase 119 U/L (45-117); Total Protein 6.4 g/dL (6.4-8.2)
[2018-01-26] MEDS: Enoxaparin Inj 40 MG/0.4 ML Syringe SQ SCH (06:36)
[2018-01-26] MEDS: MethylPREDNISolone Sod Succinate Inj 40 MG/ML Vial IV.PUSH SCH (06:36)
[2018-01-26] MEDS: Senna/Docusate Sodium 8.6/50 MG Tablet PO SCH (09:03)
[2018-01-26] MEDS: Furosemide 40 MG Tablet PO SCH (09:03)
[2018-01-26] MEDS: Spironolactone 25 MG Tablet PO SCH (09:03)
[2018-01-26] MEDS: dilTIAZem CD 120 MG Capsule PO SCH (09:04)
[2018-01-26 11:32] VITALS: BP 156/79; TEMP 98.3
[2018-01-26 11:52] VITALS: O2SAT 94
[2018-01-26 12:19] VITALS: RESP 16
--- NOTE | 2018-01-26 13:37 | P.PN ---
Subjective Interval history: Nursing denies any acute changes overnight, on nasal cannula. Patient eating well. No clear reason as to why the patient has a chronic indwelling Cheek catheter. Nursing did contact patient's residential facility, there is supervisor plating and point assembly nurse indicated that the patient is on 2 L continuously via nasal cannula and that the patient has had a chronic Cheek possibly for urinary retention but they are unsure, has had a Cheek for "8 months." This particular Cheek here was exchanged in the emergency department as the patient is being admitted. Physical Exam Vital signs: Vital Signs 01/25/18 16:00 01/25/18 16:29 01/25/18 19:00 Temperature 98.1 F Pulse Rate 79 93 H 88 Respiratory Rate 22 16 Blood Pressure 102/74 Pulse Oximetry 97 01/25/18 19:05 01/25/18 20:00 01/25/18 21:00 Temperature 99.4 F Pulse Rate 64 76 80 Respiratory Rate 18 20 Blood Pressure 106/66 Pulse Oximetry 94 L 96 01/25/18 22:00 01/25/18 23:00 01/26/18 00:00 Temperature 98.7 F Pulse Rate 88 80 83 Respiratory Rate 22 Blood Pressure 113/65 Pulse Oximetry 97 01/26/18 02:00 01/26/18 02:51 01/26/18 03:00 Temperature Pulse Rate 96 H 96 H Respiratory Rate Blood Pressure Pulse Oximetry 98 01/26/18 03:15 01/26/18 04:00 01/26/18 05:00 Temperature 99.2 F Pulse Rate 97 H 90 88 Respiratory Rate 26 H 20 Blood Pressure 103/71 Pulse Oximetry 97 01/26/18 06:00 01/26/18 07:00 01/26/18 07:55 Temperature Pulse Rate 86 82 73 Respiratory Rate 16 Blood Pressure Pulse Oximetry 96 01/26/18 08:00 01/26/18 08:36 01/26/18 10:00 Temperature 99.2 F Pulse Rate 93 H 89 84 Respiratory Rate 20 Blood Pressure 103/71 Pulse Oximetry 98 01/26/18 11:00 01/26/18 11:26 01/26/18 11:30 Temperature 98.3 F Pulse Rate 90 94 H 95 H Respiratory Rate 19 Blood Pressure 156/79 H Pulse Oximetry 97 01/26/18 11:51 01/26/18 12:18 Temperature Pulse Rate 84 Respiratory Rate 16 Blood Pressure Pulse Oximetry 94 L Intake & Output 01/25/18 01/26/18 01/26/18 18:59 06:59 18:59 Intake Total 800 / 800 240 / 240 Output Total 950 / 950 600 / 600 Balance -150 / -150 -360 / -360 Weight 102 kg Intake: IV 150 / 150 Levaquin 750 mg Premix Inj 150 150 / 150 ML @ 100 mls/hr IV.SIG ONCE ONE Rx#:[id number] Oral 650 / 650 240 / 240 Output: Urine 950 / 950 Urine Amount (Catheter) 600 / 600 Indwelling Urethral Catheter 600 / 600 Other: # Bowel Movements 0 Narrative: Slightly diminished breath sounds in the bases, unlabored breathing No conversive dyspnea Coarse breath sounds bilaterally otherwise, no rhonchi, no rales heart sounds regular rate and rhythm, no murmurs - Urinary Catheter Management Indwelling Urethral Catheter Cath placed during this visit: yes Reason for continuing: Hourly intake/output Insertion date: 01/25/18 Insertion time: 01:18 Results - Labs CBC & Chem 7: 01/26/18 04:23 01/26/18 04:23 Laboratory Results - last 24 hr 01/24/18 01/26/18 01/26/18 23:00 04:23 04:23 WBC 8.3 D RBC 3.55 L Hgb 10.8 L Hct 33.8 L MCV 95.1 MCH 30.4 MCHC 31.9 L RDW 15.4 Plt Count 117 L MPV 7.7 Neut % (Auto) 94.4 H Lymph % (Auto) 3.9 L [place] % (Auto) 1.7 Eos % (Auto) 0.0 Baso % (Auto) 0.0 Neut # (Auto) 7.9 H Lymph # (Auto) 0.3 L [place] # (Auto) 0.1 Eos # (Auto) 0.0 Baso # (Auto) 0.0 WBC Differential . Differential Comment Auto diff final Sodium 139 Potassium 4.8 Chloride 97 L Carbon Dioxide 37.7 H Anion Gap 4 L BUN 25 H Creatinine 0.82 Estimated GFR 67 L Random Glucose 141 H Calcium 8.4 L Total Bilirubin 0.3 AST 54 H ALT 78 H Alkaline Phosphatase 119 H Total Protein 6.4 Albumin 3.3 L Urine Color Yellow Urine Clarity Hazy H Urine pH 5.0 Ur Specific [place] 1.016 Urine Protein 30 H Urine Glucose (UA) Negative Urine Ketones Negative Urine Occult Blood Negative Urine Nitrate Positive H Urine Bilirubin Negative Urine Urobilinogen Less than 2 Ur Leukocyte Esterase Moderate H Urine RBC 5 H Urine WBC 30 H Ur Squamous Epith Cells 1 Urine Bacteria Many H Hyaline Casts 6 Urine Mucus Few H Urine Yeast Few H Micro UA Comment Cath-culture ind Urine Culture Comments Cath-cult indicated Microbiology 01/24/18 23:00 Catheterized Urine Urine Culture - Final Escherichia coli Assessment and Plan - Plan 77-year-old white female Admitted with shortness of breath and acute hypercapnic respiratory failure - resolved. Back to baseline hypoxia requiring 2 L nasal cannula. 1. Shortness of breath/COPD exacerbation Acute shortness of breath resolved, patient back to baseline, on 2 L nasal cannula Repeat chest x-ray shows no obvious focal infiltrate that I can see, I had asked for a PA film however an AP film was reshot instead with no further more elucidative information. We will cover the patient with levofloxacin. I verified with the correction that the patient does not take steroids on a daily basis, will discharge the patient with a steroid taper. 2. Urinary tract infection E.coli sensitive to cephalosporins, will discharge the patient with cefuroxime 3. Atrial fibrillation Continue home diltiazem, carvedilol After extensive discussion with the granddaughter Laurie who is the patient's healthcare surrogate, I have opted to proceed with a low-dose Eliquis given that she is almost 78 years old and is also on aspirin at this time for any possible underlying coronary artery disease 4. Hypertension/hyperlipidemia/GERD Continue home medications 5. Anxiety/depression Continue home medications Patient has met maximal benefit from hospitalization is clinically stable for discharge back to her long-term correction facility with a steroid taper, and a course of Levaquin for respiratory coverage and cefuroxime for her E. coli UTI.
--- NOTE | 2018-01-26 15:02 | XR ---
EXAM DATE: 01/26/2018 2:56 PM EST AGE/SEX: 77 years / Female INDICATIONS: . Shortness of breath CLINICAL DATA: This is the patient's subsequent encounter. Patient reports that signs and symptoms h ave been present for 2 days and indicates a pain score of 0/10. MEDICAL/SURGICAL HISTORY: . Chronic obstructive pulmonary disease. Hypertension Gastroesophagea l reflux disease. AFIB. None. COMPARISON: [facility] [place], CHEST 1V SINGLE AP, 01/24/2018. . FINDINGS: Lungs are hypoexpanded which accentuate interstitial markings. Improved aeration of the lower lung zo lisa. Cardiac silhouette is enlarged with indistinct central pulmonary vascularity. Remainder of exam is unchanged. CONCLUSION: 1. Persistent low lung volumes with improved aeration in the lower lobes bilaterally. Electronically signed by: Maximilian Garcia MD 01/26/2018 3:00 PM EST
[2018-01-26] MEDS ORDERED: levoFLOXacin 750 MG Tablet PO SCH (15:45)
[2018-01-26 15:57] VITALS: PULSE 78
== END 2018-01-26 17:00 ==
LOC: NEPE 22:49 → NEDA 22:49 → HCPC 01-25 05:55
PROVIDERS: ADMIT Hospitalist; ATTEND Hospitalist